=== PATIENT | male | born 1970 | race Caucasian/White ===

== ENCOUNTER 2019-07-18 19:50 | Inpatient (IN) | payer MEDICAID ==
[~2019-07-18] VITALS: Ht 175.3 cm; Wt 69.3 kg
[2019-07-18] VITALS (19 sets, daily range): BP systolic 89–126; BP diastolic 57–84; BMI 26.2
--- NOTE | 2019-07-18 19:50 | NUR ---
PT MEDICATED FOR INTUBATION WITH VERSED 10MG IVP
--- NOTE | 2019-07-18 19:51 | NUR ---
PT MEDICATED FOR INTUBATION WITH SUCC 150MG IVP.
--- NOTE | 2019-07-18 19:55 | NUR ---
PT INTUBATED BY DR MERCADO WITH A 7.5. TUBE SECURED AT 23 CM AT LIP.
[2019-07-18] MEDS ORDERED: MECLIZINE HCL25 MG PO (20:03)
[2019-07-18] MEDS ORDERED: KEPPRA1000 MG PO (20:03)
[2019-07-18] MEDS ORDERED: DEPAKOTE500 MG PO (20:04)
[2019-07-18 20:13] LABS: BASOPHILS 0.6 % (0-2); EOSINOPHILS 1.2 % (0-7); HEMATOCRIT 55.8 % (42.0-54.0); HEMOGLOBIN 18.6 g/dL (13.5-17.5); IMMATURE GRANULOCYTES 4.6 % (0-5); MCH 30.8 pg (26.0-34.0); MCHC 33.3 g/dL (31.0-37.0); MCV 92.4 fL (80.0-100.0); MEAN PLATELET VOLUME 11.8 fL (7.4-10.4); MONOCYTES 7.6 % (2-11); PLATELET COUNT 163 10x3/uL (130-400); RBC 6.04 10x6/uL (4.20-6.10); RDW 13.7 % (11.5-14.5); WBC 18.1 10x3/uL (4.8-10.8)
[2019-07-18 20:28] LABS: INR 1.16 (0.85-1.17); PROTIME 14.7 SECONDS (11.6-15.0)
[2019-07-18 20:34] LABS: CALC OSMOLALITY 290 mosm/kg (275-300); CARBON DIOXIDE 19.3 mmol/L (21.0-32.0); CHLORIDE - SERUM 105 mmol/L (98-107); CREATININE - SERUM 2.6 mg/dL (0.6-1.3); GLUCOSE 122 mg/dL (74-106); POTASSIUM - SERUM 4.7 mmol/L (3.5-5.1); SODIUM 144 mmol/L (136-145); UREA NITROGEN 20 mg/dL (7-18); eGFR NON AFRICAN AMERICAN 28 mL/min (90-120)
[2019-07-18 20:54] LABS: UDS - AMPHET NEGATIVE QUAL (NEGATIVE); UDS - BARB NEGATIVE QUAL (NEGATIVE); UDS - BENZO NEGATIVE QUAL (NEGATIVE); UDS - COCAINE NEGATIVE QUAL (NEGATIVE); UDS - OPIATE NEGATIVE QUAL (NEGATIVE); UDS - PCP NEGATIVE QUAL (NEGATIVE); UDS - THC NEGATIVE QUAL (NEGATIVE)
[2019-07-18 20:55] LABS: ALBUMIN 4.7 g/dL (3.4-5.0); ALKALINE PHOSPHATASE 75 U/L (30-120); ALT (SGPT) 95 U/L (10-68); BILIRUBIN - TOTAL 0.54 mg/dL (0.2-1.3); CREATINE KINASE 10438 UL (21-232); HCG - QUANTITATIVE (MATERNAL) 0 mIU/mL; LIPASE 143 U/L (73-393); MAGNESIUM - SERUM 2.8 mg/dL (1.8-2.4); PRO BNP 81 pg/mL (0-125); PROTEIN - SERUM 9.5 g/dL (6.4-8.2); THYROID STIMULATING HORMONE 4.29 uIU/mL (0.36-3.74)
[2019-07-18 21:00] LABS: D-DIMER-QUANTITATIVE 6.7 ug/mLFEU (0.20-0.54); TROPONIN-I 1.553 ng/mL (0.000-0.060)
--- NOTE | 2019-07-18 21:21 | NUR ---
PT TO CT VIA STRETCHER.
[2019-07-18 21:22] LABS: CKMB 74.8 U/L (0.0-3.6)
--- NOTE | 2019-07-18 21:25 | NUR ---
PT TO CT VIA STRETCHER WITH JABIER MOSLEYS
[2019-07-18 21:34] LABS: BILIRUBIN NEGATIVE (NEGATIVE); GLUCOSE NEGATIVE (NEGATIVE); KETONE NEGATIVE (NEGATIVE); NITRITE NEGATIVE (NEGATIVE); UROBILINOGEN NORMAL (NORMAL)
--- NOTE | 2019-07-18 21:37 | NUR ---
PT BACK TO ROOM FROM CT.
--- NOTE | 2019-07-18 22:06 | NUR ---
REPORT GIVEN TO FOSTER VIDAL
--- NOTE | 2019-07-18 22:30 | NUR ---
PT ARRIVED IN THE UNIT. PT HOOKED TO ICU MONIOTR. PT SEDATED ON THE VENT. SEE ASSESSMENT IN THE PTS FLOW SHEET. CALL LIGHT IN REACH. WILLC ONT POC.
--- NOTE | 2019-07-18 23:01 | NUR ---
DR TORRES CALLED AND MADE AWARE OF CONSULT. SEE ORDERS.
[2019-07-19] VITALS (23 sets, daily range): BP systolic 109–177; BP diastolic 80–104; Ht 175.3 cm; Wt 69.3 kg
--- NOTE | 2019-07-19 01:27 | NUR ---
ARCELIA THOMAS WITH CARDIOLOGY CALLED AND NOTIFIED OF CONSULT AND SITUATION. NO NEW ORDERS AT THIS TIME.
--- NOTE | 2019-07-19 02:31 | NUR ---
PT NOTED TO HAVE A VERY LARGE WATERY BM. FULL CHD BATH GIVEN AND LINEN CHANGED. RECTAL TUBE INSERTED. LIQUID BROWN BM NOTED IN TUBE. PT TOLERATED WELL. WILL CONT POC.
--- NOTE | 2019-07-19 04:27 | NUR ---
PT RESTING WITH HIS EYES CLOSED WITH NO S/SX OF DISTERSS/DISCOMFORT. VSS AT THIS TIME. CALL LIGHT IN REACH. WILL CONT POC.
--- NOTE | 2019-07-19 07:15 | NUR ---
REPORT RECEIVED. PT IS ON VENT. SETTINGS PER RT. PT HAS A RIGHT AC AND RIGHT FOREARM WITH NS AND PROPOFOL. PT HAS OGT TO LIS. PT HAS A RECTAL TUBE AND DIAMOND. LILLY NOTED TO LEFT CHEST AND LEFT ARM. VITAL SIGNS CURRENTLY STABLE. WILL CONTINUE TO MONITOR.
[2019-07-19 07:27] LABS: ALBUMIN 4.3 g/dL (3.4-5.0); ALKALINE PHOSPHATASE 70 U/L (30-120); BILIRUBIN - TOTAL 1.01 mg/dL (0.2-1.3); CARBON DIOXIDE 18.7 mmol/L (21.0-32.0); CHLORIDE - SERUM 107 mmol/L (98-107); CREATININE - SERUM 3.1 mg/dL (0.6-1.3); GLUCOSE 101 mg/dL (74-106); MAGNESIUM - SERUM 2.8 mg/dL (1.8-2.4); POTASSIUM - SERUM 4.4 mmol/L (3.5-5.1); PROTEIN - SERUM 8.7 g/dL (6.4-8.2); SODIUM 144 mmol/L (136-145); eGFR NON AFRICAN AMERICAN 23 mL/min (90-120)
[2019-07-19 07:30] LABS: ALT (SGPT) 451 U/L (10-68); CALC OSMOLALITY 292 mosm/kg (275-300); TROPONIN-I 3.786 ng/mL (0.000-0.060); UREA NITROGEN 29 mg/dL (7-18)
[2019-07-19 08:30] LABS: CREATINE KINASE 72967 UL (21-232)
--- NOTE | 2019-07-19 08:30 | NUR ---
ECHO BEING DONE.
[2019-07-19 08:52] LABS: CKMB 385.6 U/L (0.0-3.6)
--- NOTE | 2019-07-19 09:03 | NUR ---
DR MARQUES ROUNDED ON PT. NO NEW ORDERS AT THIS TIME.
--- NOTE | 2019-07-19 09:10 | NUR ---
DR PIKE ROUNDED ON PT.
[2019-07-19 10:07] LABS: BASOPHILS 0.1 % (0-2); EOSINOPHILS 0 % (0-7); HEMATOCRIT 56.4 % (42.0-54.0); HEMOGLOBIN 19.3 g/dL (13.5-17.5); IMMATURE GRANULOCYTES 0.4 % (0-5); LYMPHOCYTES 13.9 % (15-50); MCHC 34.2 g/dL (31.0-37.0); MCV 90.5 fL (80.0-100.0); MONOCYTES 8.9 % (2-11); NEUTROPHILS 76.7 % (40-80); PLATELET COUNT 58 10x3/uL (130-400); RBC 6.23 10x6/uL (4.20-6.10); RDW 14.3 % (11.5-14.5); WBC 11.4 10x3/uL (4.8-10.8)
--- NOTE | 2019-07-19 11:05 | NUR ---
PAGED DR LEE FOR CONSULT.
--- NOTE | 2019-07-19 11:28 | NUR ---
SPOKE WITH PHARMACIST LASHAUN ABOUT MEDICATIONS DR LEE WANTS. STATED SHE WOULD ORDER THEM AND GET THEM SENT UP TO ME. WILL CONTINUE TO MONITOR.
--- NOTE | 2019-07-19 11:40 | NUR ---
PAGED DR RABAGO FOR CENTRAL LINE PLACEMENT.
[2019-07-19 12:32] LABS: PLATELET ESTIMATE DECREASED
--- NOTE | 2019-07-19 13:30 | NUR ---
RIGHT SUBCLAVIAN PLACED. TOLERATED WELL.
--- NOTE | 2019-07-19 17:40 | MORECARE ---
CASE MANAGEMENT DISCHARGE SUMMARY PATIENT: KILO GARCIA UNIT: [id number] ADM DATE: 07/18/19 AGE: 48 : 72 SEX: M ROOM/BED: D.2307 AUTHOR: MARISSA LIM PHYSICIAN: REFERRING PHYSICIAN: DANNI HARP MD DATE OF SERVICE: 07/19/19 Discharge Plan Patient Name: KILO GARCIA [facility] [facility] 1970 Planned Disposition: Home Anticipated Discharge Date: Discharge Date: Expected LOS: Initial Reviewer: [email or web address] Initial Review Date: 07/18/2019 Generated: 07/19/19 6:39 pm DCPIA - Discharge Planning Initial Assessment Updated by [email or web address]: Taina Renee on 07/19/19 5:35 pm * Is the patient Alert and Oriented? No * How many steps to enter\exit or inside your home? * [facility] * Pharmacy [facility] [place] * Preadmission Environment Home Alone * ADLs Independent * Equipment None * List name and contact numbers for known caregivers / representatives who currently or will assist patient after discharge: MONROE JIMENES [facility] [phone] * Verbal permission to speak to the caregivers and representatives has been obtained from the patient. Yes * Community resources currently utilized None * Additional services required to return to the preadmission environment? No * Can the patient safely return to the preadmission environment? Yes * Has this patient been hospitalized within the prior 30 days at any hospital? No Patient Name: KILO GARCIA Page [id number] at 1740 All edits/amendments must be made on the electronic document DICTATION DATE: 07/19/191738 SMT OPERATOR: KELLY 07/19/191738 RPT#: [id number] LA DATE: STATUS: ADM IN [facility] [address] [place] [address] END OF REPORT
--- NOTE | 2019-07-19 17:47 | MORECARE ---
CASE MANAGEMENT DISCHARGE SUMMARY PATIENT: KILO GARCIA UNIT: [id number] ADM DATE: 07/18/19 AGE: 48 : 72 SEX: M ROOM/BED: D.2307 AUTHOR: RAPHAEL,DOC PHYSICIAN: REFERRING PHYSICIAN: DANNI HARP MD DATE OF SERVICE: 07/19/19 Discharge Plan Patient Name: KILO GARCIA Facility: [facility]:[place] : 1970 Planned Disposition: Home Anticipated Discharge Date: Discharge Date: Expected LOS: Initial Reviewer: [email or web address] Initial Review Date: 07/18/2019 Generated: 07/19/19 6:46 pm Comments DCP- Discharge Planning Updated by [email or web address]: Taina Renee on 07/19/19 4:[address] Patient Name: KILO GARCIA Admission Status: ER Accout number: [id number] Admission Date: 07-18-2019 : 1970 Admission Diagnosis: Attending: MACK HARP Current LOS: 1 Anticipated DC Date: Planned Disposition: Home Primary Insurance: MEDICAID [place] Discharge Planning Comments: CM met with patient's mother Monroe to complete initial dc planning assessment. CM educated patient on the CM role and verbal consent given by patient to complete assessment. Patient lives at home alone. Patient is independent. At discharge patient plans to return home. CM discussed availability of home health, rehab services, and medical equipment. Uncertain of discharge needs or disposition at this time. Patient is currently sedated on vent. Patient will have family to transport home. CM will continue to follow and will assist as needed with dc plans/needs. Public Relations Manager: Taina Renee DCPIA - Discharge Planning Initial Assessment Updated by [email or web address]: Taina Renee on 07/19/19 5:35 pm * Is the patient Alert and Oriented? No * How many steps to enter\exit or inside your home? * [facility]CP [facility] * Pharmacy [facility] [place] * Preadmission Environment Home Alone * ADLs Independent * Equipment None * List name and contact numbers for known caregivers / representatives who currently or will assist patient after discharge: MONROE JIMENES - MOTHER - [phone] * Verbal permission to speak to the caregivers and representatives has been obtained from the patient. Yes * Community resources currently utilized None * Additional services required to return to the preadmission environment? No * Can the patient safely return to the preadmission environment? Yes * Has this patient been hospitalized within the prior 30 days at any hospital? No Last DP export: 07/19/19 4:40 p Patient Name: KILO GARCIA Page [phone] at 1747 All edits/amendments must be made on the electronic document DICTATION DATE: 07/19/191745 SPRING MACHINE OPERATOR: KELLY 07/19/191745 RPT#: [id number] DC DATE: STATUS: ADM IN [facility] [address] [place] [address] END OF REPORT
--- NOTE | 2019-07-19 19:00 | NUR ---
REPORT RECEIVED. PT SEDATED ON VENT. PT MOVING RIGHT SIDE AROUND AND SHAKING HEAD, UNABLE TO FOLLOW COMMANDS OR MOVE LEFT SIDE OF BODY. ASSESSMENT COMPLETE, SEE FLOWSHEET. RT SUBCLAVIAN CVL INFUSING, SEE IV FLOWSHEET. WILL CONTINUE TO MONITOR.
[2019-07-19 19:27] LABS: ALBUMIN 3.2 g/dL (3.4-5.0); ANION GAP 17.8 mmol/L (8-16); BILIRUBIN - TOTAL 0.78 mg/dL (0.2-1.3); CALCIUM 7.3 mg/dL (8.5-10.1); CARBON DIOXIDE 19.3 mmol/L (21.0-32.0); CREATININE - SERUM 4.1 mg/dL (0.6-1.3); POTASSIUM - SERUM 4.1 mmol/L (3.5-5.1); PROTEIN - SERUM 7.1 g/dL (6.4-8.2)
--- NOTE | 2019-07-19 21:00 | NUR ---
DR LEE IN ROOM AT THIS TIME. UPDATED ON STATUS, WILL CONTINUE TO MONITOR.
--- NOTE | 2019-07-19 23:00 | NUR ---
REASSESSMENT COMPLETE, SEE FLOWSHEET.
[2019-07-20] VITALS (23 sets, daily range): BP systolic 102–174; BP diastolic 69–100
--- NOTE | 2019-07-20 01:00 | NUR ---
PT SEDATED ON VENT. LEFT SIDE OF BODY STILL HAS NO MOVEMENT. WILL CONTINUE TO MONITOR.
--- NOTE | 2019-07-20 03:00 | NUR ---
REASSESSMENT COMPLETE, PT RESTING IN BED.
--- NOTE | 2019-07-20 03:00 | NUR ---
PT SEDATED ON VENT, REASSESSMENT COMPLETED.
--- NOTE | 2019-07-20 05:00 | NUR ---
PT SEDATED ON VENT, REPOSITIONED FOR COMFORT.
--- NOTE | 2019-07-20 05:00 | NUR ---
PT RESTING IN BED, NO ACUTE DISTRESS NOTED.
[2019-07-20 06:09] LABS: BASOPHILS 0.1 % (0-2); EOSINOPHILS 0.1 % (0-7); HEMATOCRIT 47.5 % (42.0-54.0); HEMOGLOBIN 15.8 g/dL (13.5-17.5); IMMATURE GRANULOCYTES 0.7 % (0-5); LYMPHOCYTES 14.6 % (15-50); MCH 30.3 pg (26.0-34.0); MCHC 33.3 g/dL (31.0-37.0); MEAN PLATELET VOLUME 11.7 fL (7.4-10.4); MONOCYTES 5.2 % (2-11); NEUTROPHILS 79.3 % (40-80); PLATELET COUNT 69 10x3/uL (130-400); RBC 5.22 10x6/uL (4.20-6.10); RDW 14.3 % (11.5-14.5)
[2019-07-20 06:11] LABS: APTT 30.4 SECONDS (22.8-39.4); INR 1.36 (0.85-1.17); PROTIME 16.7 SECONDS (11.6-15.0)
[2019-07-20 06:26] LABS: WBC 8.4 10x3/uL (4.8-10.8)
[2019-07-20 06:28] LABS: ALBUMIN 2.8 g/dL (3.4-5.0); ALKALINE PHOSPHATASE 56 U/L (30-120); CALC OSMOLALITY 299 mosm/kg (275-300); CARBON DIOXIDE 17.9 mmol/L (21.0-32.0); CHLORIDE - SERUM 111 mmol/L (98-107); GLUCOSE 122 mg/dL (74-106); MAGNESIUM - SERUM 2.4 mg/dL (1.8-2.4); PHENYTOIN (DILANTIN) 7.6 ug/mL (10.0-20.0); PHOSPHOROUS 7.4 mg/dL (2.5-4.9); POTASSIUM - SERUM 4.2 mmol/L (3.5-5.1); PROTEIN - SERUM 6.4 g/dL (6.4-8.2); SODIUM 144 mmol/L (136-145); UREA NITROGEN 46 mg/dL (7-18); eGFR NON AFRICAN AMERICAN 13 mL/min (90-120)
[2019-07-20 06:31] LABS: ALT (SGPT) 3481 U/L (10-68); LDH 2729 U/L (85-227)
[2019-07-20 06:37] LABS: VALPROIC ACID (DEPAKOTE) < 3.0 ug/mL (50.0-100.0)
[2019-07-20 09:37] LABS: CKMB 411.4 U/L (0.0-3.6); CREATINE KINASE 71259 UL (21-232)
--- NOTE | 2019-07-20 09:45 | NUR ---
DR. SUBRAMANIAN HERE. TRIALYSIS CATH PLACED OVER WIRE TO R IJ.
--- NOTE | 2019-07-20 09:52 | NUR ---
Nutrition follow-up: NPO Intubated, sedated with propofol to surgery for dialysis access placmenet and HD today and tommorrow per nephrology Wt: 177# Will need nutrition support started within the next 24 hours to prevent malnutrition. RDN following.
--- NOTE | 2019-07-20 12:12 | EC ---
PATIENT:KILO GARCIA DATE OF SERVICE: 07/18/19 SEX: M MEDICAL RECORD: [id number] DATE OF : [birth year] LOCATION:[facility] AGE OF PATIENT: 48 ADMISSION DATE: 07/18/19 REFERRING PHYSICIAN: INTERPRETING PHYSICIAN: SWATHI GARCIA MD ECHOCARDIOGRAM REPORT ECHO CHARGES 4 ECHO COMPLETE Date: 07/19/19 CLINICAL DIAGNOSIS: NONSTE MS ECHOCARDIOGRAPHIC MEASUREMENTS (adult normal given) AC root (d.<3.7cm) 3.7 cm LV Septum d (<1.2 cm> 1.4 cm Valve Excursion 1.7 cm LV Septum (systole) 1.6 cm Left Atria (s.<4.0cm> 3.5 cm LVPW d(<1.2cm) 1.4 cm RV (d.<2.3cm) 3.2 cm LVPW (sytole) 1.6 cm LV diastole(<5.6CM) 4.6 cm MV E-F(>70mm/sec) cm LV systole 3.5 cm LVOT Diameter 1.7 cm MV exc.(>10mm) 1.3 cm Est.ejection fraction (50-75%) % DOPPLER: LVIT cm/sec A 59.0 cm/sec E 37.0 cm/sec LA cm/sec RVSP 22 mmHg LVOT 83 cm/sec AOP1/2T m/s Asc. Ao 94 cm/sec RVOT 52 cm/sec RA cm/sec PA 67 cm/sec AV Gradient Peak 3.53 mmHg AV Mean 1.87 mmHg AV Area 2.1 cm MV Gradient Peak 2.26 mmHg MV Mean 0.79 mmHg MV Area cm COMMENTS: Senior Ssis Developer: 2 JONI SERNA Casing Running Machine Tender: 3 Dr. Mtz TAPE# PACS Pericardial Effusion N DATE OF SERVICE: Adequate 2D, color flow imaging, spectral Doppler, and M-Mode. LVH is present. LV internal dimensions are normal. Wall motion is normal. EF is greater than or equal to 55%. Aortic valve is tricuspid. No evidence of stenosis by Doppler interrogation. Left atrium is normal. Mitral valve shows no prolapse. Trace MR. Right-sided chambers are grossly normal. Trace TR. TRANSINT:[id number] Voice Confirmation ID: [id number] DOCUMENT ID: [id number] ECHOCARDIOGRAM REPORT [id number] KILO GRACIA,SWATHI Ford MD at 1212 CC: [id number] DICTATION DATE: 07/19/19 1304 [facility] SPECIALIST: 07/19/19 1344 ADM IN [facility] [address] [place] [id number]
[2019-07-20 14:29] LABS: ANION GAP 18.5 mmol/L (8-16); CARBON DIOXIDE 18.9 mmol/L (21.0-32.0); CREATININE - SERUM 5.5 mg/dL (0.6-1.3); POTASSIUM - SERUM 4.4 mmol/L (3.5-5.1)
[2019-07-21] VITALS (23 sets, daily range): BP systolic 95–133; BP diastolic 54–90
[2019-07-21 05:58] LABS: BASOPHILS 0.3 % (0-2); EOSINOPHILS 2.1 % (0-7); HEMATOCRIT 40.3 % (42.0-54.0); HEMOGLOBIN 13.3 g/dL (13.5-17.5); IMMATURE GRANULOCYTES 0.4 % (0-5); LYMPHOCYTES 19.2 % (15-50); MCH 30.2 pg (26.0-34.0); MCV 91.4 fL (80.0-100.0); MEAN PLATELET VOLUME 11.8 fL (7.4-10.4); MONOCYTES 7.2 % (2-11); NEUTROPHILS 70.8 % (40-80); PLATELET COUNT 74 10x3/uL (130-400); RBC 4.41 10x6/uL (4.20-6.10); RDW 14.6 % (11.5-14.5); WBC 7.3 10x3/uL (4.8-10.8)
--- NOTE | 2019-07-21 06:05 | NUR ---
DR ROBLES CALLED, UPDATED REGARDING PT STATUS, NO ORDERS RECEIVED AT THIS TIME.
[2019-07-21 06:18] LABS: ALBUMIN 2.5 g/dL (3.4-5.0); ALKALINE PHOSPHATASE 39 U/L (30-120); BILIRUBIN - TOTAL 0.87 mg/dL (0.2-1.3); CALC OSMOLALITY 295 mosm/kg (275-300); CARBON DIOXIDE 18.3 mmol/L (21.0-32.0); CHLORIDE - SERUM 109 mmol/L (98-107); CREATININE - SERUM 6.3 mg/dL (0.6-1.3); GLUCOSE 109 mg/dL (74-106); MAGNESIUM - SERUM 2.2 mg/dL (1.8-2.4); PHENYTOIN (DILANTIN) 9.5 ug/mL (10.0-20.0); PHOSPHOROUS 7.8 mg/dL (2.5-4.9); PROTEIN - SERUM 5.9 g/dL (6.4-8.2); SODIUM 141 mmol/L (136-145); UREA NITROGEN 52 mg/dL (7-18); eGFR NON AFRICAN AMERICAN 10 mL/min (90-120)
[2019-07-21 06:20] LABS: ALT (SGPT) 2210 U/L (10-68); CREATINE KINASE 25547 UL (21-232)
[2019-07-21 06:21] LABS: CALCIUM 7.1 mg/dL (8.5-10.1)
[2019-07-21 06:23] LABS: CKMB 382.3 U/L (0.0-3.6)
--- NOTE | 2019-07-21 08:39 | NUR ---
LYING IN BED ON VENT AT THIS TIME. EYES CLOSED. PT NOT FOLLOWING COMMANDS. NOTED PT TO HAVE SOME TREMORS DURING ASSESSMENT. WHEN ATTEMPTED TO VISUALIZE PTS PUPILS, PT CLOSED EYES. PT TURNED Q2H, ORAL CARE PROVIDED Q2H. VSS. WILL CONTINUE PLAN OF CARE.
--- NOTE | 2019-07-21 10:59 | NUR ---
LYING IN BED ON VENT AT THIS TIME. VSS. NO ACUTE DISTRESS NOTED. WILL CONTINUE PLAN OF CARE.
--- NOTE | 2019-07-21 12:59 | NUR ---
NO ACUTE DISTRESS NOTED. NO CHANGE. VSS. PT TURNED Q2H, ORAL CARE PROVIDED Q2H. WILL CONTINUE PLAN OF CARE.
--- NOTE | 2019-07-21 13:58 | NUR ---
CHG BATH PROVIDED AT THIS TIME. TOTAL LINEN CHANGE PROVIDED. NOTED SLIGHT FACIAL GRIMACING DURING BATH, PT STILL NOT FOLLOWING COMMANDS. WILL CONTINUE PLAN OF CARE.
--- NOTE | 2019-07-21 15:21 | NUR ---
PTS MOTHER AT BEDSIDE. UPDATES PROVIDED. VSS. NO ACUTE DISTRESS NOTED. WILL CONTINUE PLAN OF CARE.
--- NOTE | 2019-07-21 17:43 | NUR ---
NO ACUTE DISTRESS NOTED. NO CHANGE. VSS. WILL CONTINUE PLAN OF CARE.
--- NOTE | 2019-07-21 19:40 | NUR ---
RESUMED CARE OF PT, ASSESSMENT PER FLOWSHEET, SR ON CM, ORAL CARE AND SUCTIONING PROVIDED, POSITIONED FOR COMFORT.
--- NOTE | 2019-07-21 21:10 | NUR ---
NO VISITORS PRESENT AT THIS TIME, SR ON CM.
--- NOTE | 2019-07-21 21:59 | NUR ---
DIALYSIS NURSE IN ROOM SETTING UP, PT RESTING WITH EYES CLOSED, VSS.
--- NOTE | 2019-07-21 23:20 | NUR ---
REASSESSMENT PER FLOWSHEET, NO SIGNIFICANT CHANGES NOTED AT THIS TIME, CONT POC.
[2019-07-22] VITALS (24 sets, daily range): BP systolic 109–147; BP diastolic 54–92
--- NOTE | 2019-07-22 01:46 | NUR ---
DIALYSIS COMPLETED, PT TOLERATED WELL, VSS.
--- NOTE | 2019-07-22 03:15 | NUR ---
REASSESSMENT PER FLOWSHEET, SR ON CM, POSITIONED SUPPORTED WITH PILLOWS, VSS.
[2019-07-22 06:01] LABS: BASOPHILS 0.4 % (0-2); EOSINOPHILS 4.4 % (0-7); HEMATOCRIT 37.8 % (42.0-54.0); HEMOGLOBIN 12.5 g/dL (13.5-17.5); IMMATURE GRANULOCYTES 0.6 % (0-5); LYMPHOCYTES 22.7 % (15-50); MCHC 33.1 g/dL (31.0-37.0); MCV 90.6 fL (80.0-100.0); MEAN PLATELET VOLUME 11.9 fL (7.4-10.4); MONOCYTES 11.8 % (2-11); NEUTROPHILS 60.1 % (40-80); PLATELET COUNT 66 10x3/uL (130-400); RBC 4.17 10x6/uL (4.20-6.10); RDW 14.8 % (11.5-14.5)
[2019-07-22 06:02] LABS: PLATELET ESTIMATE DECREASED
[2019-07-22 06:57] LABS: ALBUMIN 2.4 g/dL (3.4-5.0); BILIRUBIN - TOTAL 0.81 mg/dL (0.2-1.3); CALCIUM 7.1 mg/dL (8.5-10.1); CARBON DIOXIDE 21.9 mmol/L (21.0-32.0); CREATININE - SERUM 5.2 mg/dL (0.6-1.3); MAGNESIUM - SERUM 1.9 mg/dL (1.8-2.4); PROTEIN - SERUM 5.8 g/dL (6.4-8.2)
[2019-07-22 07:00] LABS: PHOSPHOROUS 5.6 mg/dL (2.5-4.9); POTASSIUM - SERUM 3.9 mmol/L (3.5-5.1)
--- NOTE | 2019-07-22 07:28 | NUR ---
LYING IN BED ON VENT AT THIS TIME. VSS. NO ACUTE DISTRESS NOTED. PT NOTED TO HAVE FACIAL GRIMACING TO STIMULATION. DOES NOT FOLLOW COMMANDS. ORAL CARE AND REPOSITIONING PROVIDED Q2H. WILL CONTINUE PLAN OF CARE.
--- NOTE | 2019-07-22 09:03 | NUR ---
NO ACUTE DISTRESS NOTED. VSS. TURNED Q2H, ORAL CARE PROVIDED Q2H. WILL CONTINUE PLAN OF CARE.
[2019-07-22 10:56] LABS: VALPROIC ACID (DEPAKOTE) 1.8 ug/mL (50.0-100.0)
--- NOTE | 2019-07-22 11:04 | NUR ---
NGT FEEDINGS STARTED AT THIS TIME PER DR TORRES ORDERS AFTER PLACEMENT VERIFIED VIA AUSCULTATION. NEPHRO STARTED AT 10ML/HR. ALSO PER DR TORRES ORDERS, SEDATION DECREASED FOR CPAP TRIAL. PT STILL NOT FOLLOWING COMMANDS, HOWEVER PT MOVED HEAD WHEN NURSE STATED HIS NAME. WILL CONTINUE PLAN OF CARE.
--- NOTE | 2019-07-22 12:01 | NUR ---
ATTEMPTED TO DECREASE PTS SEDATION IN ORDER FOR PT TO CPAP TRIAL. DURING DIPROVAN WEANING PT NOTED TO BECOME VERY AGGITATED. HE BEGAN TO COUGH AND MOVE RT LEG AND RT ARM WHILE TURNING HEAD FROM SIDE TO SIDE. ATTEMPTED TO CALM PT DOWN AND REORIENTATE PT, WAS UNABLE TO HELP PT CALM DOWN, HE CONTINUED TO SWIFTLY TURN HEAD FROM SIDE TO SIDE WHILE COUGHING AND KICKING RT LEG. SEDATION AT THIS TIME INCREASED FROM 15MCG TO 20MCG DIPROVAN. PT NOW CALM ON VENT. FACIAL GRIMACING AND SLIGHT HEAD TURNING NOTED WITH VERBAL STIMULI. VSS. WILL CONTINUE TO OBSERVE. SEE IV FLOWSHEET FOR TITRATING INFORMATION.
--- NOTE | 2019-07-22 14:25 | NUR ---
STILL HAVING EPISODES OF AGGITATION INVOLVING MOVING RT LEG AND ARM, TURNING HEAD, AND COUGHING. SUCTIONING PROVIDED. ALSO DIPROVAN TITRATED TO ORDER. SEE IV FLOWSHEET.
--- NOTE | 2019-07-22 15:27 | NUR ---
LYING IN BED RESTING ON VENT. NO ACUTE DISTRESS NOTED. ORAL CARE AND REPOSITIONING PROVIDED Q2H. WILL CONTINUE PLAN OF CARE.
--- NOTE | 2019-07-22 18:10 | NUR ---
NO STOOL OUTPUT IN 24 HOURS TO RECTAL TUBE, RECTAL TUBE DCD AT THIS TIME. ALSO AT THIS TIME CHG BATH PROVIDED, DIAMOND CARE PROVIDED. TOTAL LINEN CHANGE PROVIDED. VSS. NO ACUTE DISTRESS NOTED. WILL CONTINUE PLAN OF CARE.
--- NOTE | 2019-07-22 19:51 | NUR ---
REPORT RECEIVED FROM THE OFF GOING RN. SEE ASSESSMENT IN THE PTS FLOW SHEET. PT SEDATED AND ON THE VENTILATOR. PT AROUSABLE VIA VERBAL COMMANDS AND FOLLOWS SIMPLE COMMANDS SUCH SQUEEZING MY HANDS. PT ONLY ABLE TO MOVE HIS RIGHT SIDE. VSS AT THIS TIME. CALL LIGHT IN REACH. WILL CONT POC.
--- NOTE | 2019-07-22 21:00 | NUR ---
PT RESTING QUIETLY WITH NO ISSUES. VSS. CALL LIGHT IN REACH. WILL CONT POC.
--- NOTE | 2019-07-22 23:00 | NUR ---
REASSESSMENT COMPLETED. SEE FLWO SHEET. CALL LIGHT IN REACH. WILL CONT POC.
[2019-07-23] VITALS (24 sets, daily range): BP systolic 114–145; BP diastolic 7–84
--- NOTE | 2019-07-23 01:00 | NUR ---
PT RESTING QUIETLY. VSS. PT REPOSITIONED. CALL LIGHT IN REACH. WILL CONT POC.
[2019-07-23 05:08] LABS: BASOPHILS 0.2 % (0-2); EOSINOPHILS 3.6 % (0-7); HEMATOCRIT 38.4 % (42.0-54.0); HEMOGLOBIN 12.6 g/dL (13.5-17.5); IMMATURE GRANULOCYTES 1.2 % (0-5); LYMPHOCYTES 19.8 % (15-50); MCH 30.1 pg (26.0-34.0); MCHC 32.8 g/dL (31.0-37.0); MCV 91.6 fL (80.0-100.0); MEAN PLATELET VOLUME 11.4 fL (7.4-10.4); NEUTROPHILS 58.2 % (40-80); PLATELET COUNT 69 10x3/uL (130-400); RBC 4.19 10x6/uL (4.20-6.10); RDW 14.9 % (11.5-14.5); WBC 4.9 10x3/uL (4.8-10.8)
[2019-07-23 05:26] LABS: % SATURATION 24 % (15-55); IRON 46 ug/dl (35-150); TOTAL IRON BIND CAPACITY 190 ug/dl (260-445); UNSAT IRON BIND CAPACITY 144 ug/dl (150-375)
[2019-07-23 05:44] LABS: ALBUMIN 2.3 g/dL (3.4-5.0); ALKALINE PHOSPHATASE 50 U/L (30-120); BILIRUBIN - TOTAL 0.73 mg/dL (0.2-1.3); CALC OSMOLALITY 288 mosm/kg (275-300); CALCIUM 7.5 mg/dL (8.5-10.1); CARBON DIOXIDE 18.6 mmol/L (21.0-32.0); CHLORIDE - SERUM 109 mmol/L (98-107); FERRITIN 451 ng/mL (3-244); GLUCOSE 82 mg/dL (74-106); MAGNESIUM - SERUM 1.8 mg/dL (1.8-2.4); PHOSPHOROUS 5.4 mg/dL (2.5-4.9); POTASSIUM - SERUM 3.7 mmol/L (3.5-5.1); SODIUM 141 mmol/L (136-145); UREA NITROGEN 37 mg/dL (7-18)
[2019-07-23 05:45] LABS: ALT (SGPT) 966 U/L (10-68); CREATININE - SERUM 6.7 mg/dL (0.6-1.3); eGFR NON AFRICAN AMERICAN 9 mL/min (90-120)
[2019-07-23 06:31] LABS: CKMB 62.1 U/L (0.0-3.6); CREATINE KINASE 19034 UL (21-232)
--- NOTE | 2019-07-23 07:15 | NUR ---
REPORT RECEIVED. PT ON VENT. SETTINGS PER RT. OGT IN PLACE WITH NEPRO INCREASED TO INFUSE AT 20ML/HR. GOAL IS 40ML/HR. PT HAS DIAMOND WITH GREEN TINTED URINE. PT HAS A RIGHT TRIALYSIS CENTRAL LINE WITH PROPOFOL AND NS INFUSING. PT'S LEFT SIDE IS NOT MOVING. PT ABLE TO MOVE RUE AND RLE. PT IS SEDATED. PT IN SAMIRA SOFT RESTRAINTS. VSS. WILL CONTINUE TO MONITOR.
--- NOTE | 2019-07-23 08:54 | NUR ---
CPAP TRIAL STARTED PER DR KEANE AND RESP THERAPIST.
--- NOTE | 2019-07-23 09:12 | NUR ---
PT UNABLE TO CONTINUE ON CPAP TRIAL. SWITCHED BACK TO A/C PER RESP THERAPIST. SEDATION TURNED BACK ON.
--- NOTE | 2019-07-23 09:12 | NUR ---
ATTEMPTED TO CPAP AT 11/25 30% ENDED TRIAL AT 909 AND SWITCHED BACK TO AC /30% PATIENT BECAME AGITATED.
--- NOTE | 2019-07-23 10:51 | NUR ---
Nutrition follow-up: Pt remains intubated, sedated with propofol @ 17.2 ml/hr Nepro infusing @ 40 ml/hr via OGT Rectal tube Pt tolerating Pt tolerating TF at this time RDN following.
--- NOTE | 2019-07-23 11:08 | NUR ---
REASSESSMENT CHARTED IN FLOWSHEET. PT REPOSITIONED. VSS. WILL CONTINUE TO MONITOR.
--- NOTE | 2019-07-23 13:27 | NUR ---
PT'S MOTHER UPDATED AT BEDSIDE. PILLOWS USED TO ELEVATE BUE. SOME SWELLING NOTED. VSS. WILL CONTINUE TO MONITOR.
--- NOTE | 2019-07-23 15:28 | NUR ---
DR DELGADO ROUNDING ON PT.
--- NOTE | 2019-07-23 17:15 | NUR ---
DIALYSIS STARTING. VSS. WILL CONTINUE TO MONITOR.
--- NOTE | 2019-07-23 19:00 | NUR ---
REPORT RECIEVED FROM THE OFF GOING RN. SEE ASSESSMENT IN THE PTS FLOW SHEET. PT SEDATED AND ON THE VENTILATOR. VSS. DIALYSIS NURSE AT THE PTS BEDSIDE. CALL LIGHT IN REACH. WILL CONT POC.
--- NOTE | 2019-07-23 19:14 | NUR ---
PT CURRETNLY RECEIVEING HD. VSS AT THIS TIME. WILL CONT POC.
--- NOTE | 2019-07-23 20:45 | NUR ---
DIALYSIS NURSE COMPLETED WITH TREATMENT. SHE STATED 1L WAS REMOVED. PT TOLERATED WELL. WILL CONT POC.
--- NOTE | 2019-07-23 22:29 | NUR ---
PT RECIEVED A FULL BEDBATH AND LINEN CHANGE. PT NOTED TO HAVE A SMALL LIQUID BM WHILE ROLLING THE PT. PT CLEANED. PT TOLERATED WELL. WILL CONT POC.
--- NOTE | 2019-07-23 23:00 | NUR ---
REASSESSMENT COMPELTE. SEE FLOW SHEET. WILL CONT POC.
[2019-07-24] VITALS (24 sets, daily range): BP systolic 113–166; BP diastolic 72–97
--- NOTE | 2019-07-24 01:00 | NUR ---
PT RESTING WITH NO ISSUES. CALL LIGHT IN REACH. WILL CONT POC.
--- NOTE | 2019-07-24 03:00 | NUR ---
REASSESSMENT COMPLETED. SEE FLOW SHEET. CALL LIGHT IN REACH. WILL CONT POC.
--- NOTE | 2019-07-24 05:00 | NUR ---
PT VSS. CALL LIG IN REACH. [facility] OTN POC.
[2019-07-24 05:23] LABS: BASOPHILS 0.2 % (0-2); EOSINOPHILS 5.3 % (0-7); HEMOGLOBIN 12.2 g/dL (13.5-17.5); LYMPHOCYTES 17.2 % (15-50); MCH 30.5 pg (26.0-34.0); MCHC 33.9 g/dL (31.0-37.0); MEAN PLATELET VOLUME 11.3 fL (7.4-10.4); MONOCYTES 13.5 % (2-11); NEUTROPHILS 61.8 % (40-80); RDW 14.4 % (11.5-14.5); WBC 5.1 10x3/uL (4.8-10.8)
[2019-07-24 05:48] LABS: ALBUMIN 2.2 g/dL (3.4-5.0); BILIRUBIN - TOTAL 0.61 mg/dL (0.2-1.3); CALCIUM 7.7 mg/dL (8.5-10.1); CARBON DIOXIDE 21.8 mmol/L (21.0-32.0); PROTEIN - SERUM 5.9 g/dL (6.4-8.2)
[2019-07-24 05:49] LABS: PLATELET COUNT 85 10x3/uL (130-400)
[2019-07-24 06:03] LABS: ANION GAP 15.3 mmol/L (8-16); CREATININE - SERUM 4.9 mg/dL (0.6-1.3); POTASSIUM - SERUM 3.1 mmol/L (3.5-5.1)
[2019-07-24 07:13] LABS: HEPATITIS C ANTIBODY >11.0 S/CO RAT (0.0-0.9)
--- NOTE | 2019-07-24 08:15 | NUR ---
CPAP TRIAL STARTING. SEDATION TURNED DOWN BY 1/[address] KEANE. WILL MONITOR.
[2019-07-24 10:12] LABS: PLATELET ESTIMATE DECREASED
--- NOTE | 2019-07-24 11:00 | NUR ---
REASSESSMENT DONE. CHARTED ON FLOWSHEET.
--- NOTE | 2019-07-24 12:15 | NUR ---
BLOOD DRAWN FROM LINE FOR POTASSIUM CHECK AFTER REPLACEMENT. SPOKE WITH RT ABOUT SWITCHING PT BACK TO A/C ON VENT AND PUTTING HIM BACK ON SEDATION. PT'S VITAL SIGNS ARE ELEVATING AND PT IS AGITATED IN BED. WILL CONTINUE TO MONITOR.
[2019-07-24 12:38] LABS: ANION GAP 16.5 mmol/L (8-16); CALCIUM 7.8 mg/dL (8.5-10.1); CARBON DIOXIDE 21.6 mmol/L (21.0-32.0); CREATININE - SERUM 5.5 mg/dL (0.6-1.3)
[2019-07-24 12:40] LABS: POTASSIUM - SERUM 4.1 mmol/L (3.5-5.1)
--- NOTE | 2019-07-24 14:13 | NUR ---
POTASSIUM RECHECK 4.1. PT REPOSITIONED. VSS. WILL CONTINUE TO MONITOR.
--- NOTE | 2019-07-24 14:42 | NUR ---
0815 PLACE PATIENT ON CPAP TRIAL 11/25 30% 1440 SWITCHED PATIENT BACK TO ASSIST CONTROL, PATIENT BEGAN TO KICK IN BED, HEART RATE ELEVATED. INCREASED SEDATION
--- NOTE | 2019-07-24 19:00 | NUR ---
REPORT RECEIVED FROM OFF GOING RN. PATIENT ON THE VENTILATOR. EEE ASSESSMENT IN THE PATIENT'S FLOW SHEET. VITAL SIGNS STABLE. CALL LIGHT IN REACH.
--- NOTE | 2019-07-24 19:16 | NUR ---
ATTEMPTED TO CALL PT'S MOM WITH DR LEE. NO ANSWER.
--- NOTE | 2019-07-24 21:00 | NUR ---
PT REPOSITIONED. VSS. CALL LIGHT IN REACH. WILL CONT POC.
--- NOTE | 2019-07-24 23:00 | NUR ---
REASSESSMENT COMPLETED. SEE FLOW SHEET. CALL LIGHT IN REACH. WILL CONT POC.
[2019-07-25] VITALS (24 sets, daily range): BP systolic 100–167; BP diastolic 56–110
--- NOTE | 2019-07-25 01:00 | NUR ---
PT RESTING WITH HIS EYES CLOSED WITH NO ISSUES. VSS. CALL LIGHT IN REACH. WILL CONT POC.
--- NOTE | 2019-07-25 03:00 | NUR ---
REASSESMENT COMPLETED. SEE FLOW SHEET. CALL LIGHT IN REACH. WILL CONT POC.
[2019-07-25 04:52] LABS: BASOPHILS 0.4 % (0-2); EOSINOPHILS 3.6 % (0-7); HEMATOCRIT 38.8 % (42.0-54.0); HEMOGLOBIN 12.9 g/dL (13.5-17.5); IMMATURE GRANULOCYTES 3.4 % (0-5); LYMPHOCYTES 15.3 % (15-50); MCH 30.3 pg (26.0-34.0); MCHC 33.2 g/dL (31.0-37.0); MCV 91.1 fL (80.0-100.0); MEAN PLATELET VOLUME 10.5 fL (7.4-10.4); MONOCYTES 11.1 % (2-11); NEUTROPHILS 66.2 % (40-80); PLATELET COUNT 100 10x3/uL (130-400); RBC 4.26 10x6/uL (4.20-6.10); RDW 14.4 % (11.5-14.5)
[2019-07-25 05:02] LABS: WBC 6.8 10x3/uL (4.8-10.8)
[2019-07-25 05:21] LABS: ALBUMIN 2.2 g/dL (3.4-5.0); ANION GAP 14.8 mmol/L (8-16); BILIRUBIN - TOTAL 0.55 mg/dL (0.2-1.3); CALCIUM 7.8 mg/dL (8.5-10.1); CARBON DIOXIDE 22.7 mmol/L (21.0-32.0); CREATININE - SERUM 6.4 mg/dL (0.6-1.3); POTASSIUM - SERUM 4.5 mmol/L (3.5-5.1); PROTEIN - SERUM 6.4 g/dL (6.4-8.2)
--- NOTE | 2019-07-25 07:11 | NUR ---
PT RECIEVED A FULL BEDBATH AND LINEN CHANGE. PT TOLERATED WELL.
--- NOTE | 2019-07-25 07:15 | NUR ---
REPORT RECIEVED, SHIFT ASSESSMENT COMPLETE, PT IS SEDATED ON VENT, ON 30% FIO2 WITH 98% O2 SAT. ALL PPP, VSS, WILL CON'T TO MONITOR
--- NOTE | 2019-07-25 08:00 | NUR ---
DR. DELGADO AT BEDSIDE, AWARE OF HIGH B/P, NO NEW ORDERS RECIEVED,
--- NOTE | 2019-07-25 09:19 | NUR ---
NO VISITORS AT THIS TIME, WILL CON'T TO MONITOR
--- NOTE | 2019-07-25 10:20 | NUR ---
Nutrition follow-up: Intubated, sedated with propofol @ 17.2 cc/hr Nepro @ 40 ml/hr Labs reviewed Wt: 202# Tolerating TF at this time. RDN following.
--- NOTE | 2019-07-25 11:00 | NUR ---
REASSESSMENT JAMES DYSON DOING CPAP TRIALS AT THIS TIME, TOLERATING WELL
--- NOTE | 2019-07-25 13:06 | NUR ---
HD IN PROGRESS, PT TOLERATING WELL
--- NOTE | 2019-07-25 15:15 | NUR ---
REASSESSMENT COMPLETE, NO CHANGES NOTED, REPOSITIONED FOR COMFORT, ORAL CARE PROVIDED
--- NOTE | 2019-07-25 18:12 | NUR ---
DR LEE AT BEDSIDE GIVEN UPDATE. NO NEW ORDERS AT THIS TIME. NO CHANGE SWILL CONTINUE TO MONITOR
--- NOTE | 2019-07-25 19:30 | NUR ---
SHIFT ASSESSMENT COMPLETE. NO DISTRESS NOTED IN PATIENT, WILL CONTINUE TO MONITOR.
--- NOTE | 2019-07-25 21:00 | NUR ---
PAITENT REPOSITIONED FOR COMFORT. NO CHANGES NOTED. WILL CONTINUE TO MONITOR. ORAL CARE PERFORMED.
--- NOTE | 2019-07-25 23:20 | NUR ---
TRIED TO CHECK FEEDING TUBE RESIDUAL AND WAS UNABLE TO FLUSH OR WITHDRAW FROM OGT. WARM WATER INSERTED WITH NO RESULTS. WILL REPLACE TUBE.
[2019-07-26] VITALS (24 sets, daily range): BP systolic 112–165; BP diastolic 66–101
--- NOTE | 2019-07-26 00:01 | NUR ---
REMOVED CLOGGED OGT AFTER CHECKING BY TRYING TO FLUSH TUBE. REPLACED OGT WITH 16F TUBE, PATIENT TOLERATED WELL. PLACEMENT CHECKED WITH AIR BOLUS, GURGLING NOTED OVER EPIGASTRIC AREA, AND SCANT AMOUNT OF TUBE FEED NOTED IN OGT WITH ASPIRATION.
--- NOTE | 2019-07-26 03:00 | NUR ---
REASSESSMENT COMPLETE WITH NO CHANGES IN PATIENT CONDITION. PATIENT WITHIN VIEW OF NURSES STATION, BED IN LOW POSITION, AND WILL CONTINUE TO MONITOR PATIENT.
[2019-07-26 05:50] LABS: BASOPHILS 0.3 % (0-2); EOSINOPHILS 4.6 % (0-7); HEMATOCRIT 38.9 % (42.0-54.0); HEMOGLOBIN 12.9 g/dL (13.5-17.5); IMMATURE GRANULOCYTES 4.6 % (0-5); LYMPHOCYTES 18.1 % (15-50); MCH 30.1 pg (26.0-34.0); MCHC 33.2 g/dL (31.0-37.0); MCV 90.9 fL (80.0-100.0); MEAN PLATELET VOLUME 11.3 fL (7.4-10.4); MONOCYTES 11.7 % (2-11); NEUTROPHILS 60.7 % (40-80); PLATELET COUNT 131 10x3/uL (130-400); RBC 4.28 10x6/uL (4.20-6.10); RDW 14.3 % (11.5-14.5)
[2019-07-26 06:02] LABS: ANION GAP 14.7 mmol/L (8-16); BILIRUBIN - TOTAL 0.36 mg/dL (0.2-1.3); CALCIUM 8.1 mg/dL (8.5-10.1); CARBON DIOXIDE 23.4 mmol/L (21.0-32.0); CREATININE - SERUM 5.1 mg/dL (0.6-1.3); POTASSIUM - SERUM 4.1 mmol/L (3.5-5.1); PROTEIN - SERUM 6.1 g/dL (6.4-8.2)
--- NOTE | 2019-07-26 08:02 | NUR ---
RT IJ TRIALYSIS DRESSING CHANGE PERFORMED AT THIS TIME. OLD DRESSING NOTED NO LONGER ADHERED TO SKIN. NEW DRESSING PLACED PER HOSPITAL POLICY. VSS. NO ACUTE DISTRESS NOTED. WILL CONTINUE PLAN OF CARE.
--- NOTE | 2019-07-26 08:44 | NUR ---
SEDATION PAUSED FOR CPAP TRIAL.
--- NOTE | 2019-07-26 09:06 | NUR ---
PS TRIAL 11/25
--- NOTE | 2019-07-26 09:49 | NUR ---
NO ACUTE DISTRESS NOTED. PT TOLERATING CPAP TRIAL. VSS. TURNED Q2H, ORAL CARE PROVIDED Q2H. WILL CONTINUE PLAN OF CARE.
--- NOTE | 2019-07-26 09:50 | NUR ---
DR BECKMAN HERE TO SEE PT, NOTIFIED OF LT ARM EDEMA. NOTED US SHOWED NEGATIVE FOR DVT. NO CURRENT NEW ORDERS.
--- NOTE | 2019-07-26 10:25 | NUR ---
PER DR BECKMAN. THE EDEMA TO LT ARM WHICH IS ALSO SEEN TO LT SHOULDER/CHEST AREA APPEARS TO BE EDEMA. RIGHT NOW WILL WATCH IT, AND IF IT GETS WORSE THEN WILL POSSIBLY CT.
--- NOTE | 2019-07-26 10:34 | NUR ---
EXTUBATED; PLACED ON 7L HIGH FLOW. PT CURRENTLY ATTEMPTING TO PULL AT NASAL CANNULA AT LINES. RESTRAINTS KEPT IN PLACE FOR NOW UNTIL PT STOPPS ATTEMPTING TO PULL AT LINES AND TUBES. ATTEMPTED TO REORIENTATE, PT SHOOK HEAD. WILL CONTIUE TO ATTEMPT TO REORIENTATE.
--- NOTE | 2019-07-26 10:40 | NUR ---
CALLED PTS EMERGENCY CONTACT, MOTHER, UPDATES PROVIDED REAGARDING EXTUBATION. PTS MOTHER STATED SHE WILL BE BY AROUND 1200 TO SEE PT.
--- NOTE | 2019-07-26 11:00 | NUR ---
BILATERAL SOFT WRIST RESTRAINTS DCD AT THIS TIME, PT STATED ACKNOWLEDGEMENT TO NOT PULL AT LINES OR TUBES. PT NODDED HIS HEAD STATING UNDERSTANDING.
--- NOTE | 2019-07-26 11:44 | NUR ---
PT MORE ALERT NOW, ABLE TO FOLLOW COMMANDS SUCH SQUEEZE RT HAND. ALSO ABLE TO STATE 1 TO 2 WORDS AT A TIME. PT NOTIFIED STAFF THAT HE JUST HAD A BOWEL MOVEMENT. ASSESSED PT, NOTED LIQUID BROWN MEDIUM SIZE STOOL. TOTAL LINEN CHANGE PROVIDED WITH DIAMOND CARE PROVIDED. PT THEN STATED HE FELT BETTER. PT ASKED FOR HIS MOTHER, PT NOTIFIED THAT PTS MOTHER STATED SHE WOULD BE BY AROUND 1200 TO SEE HIM, PT NODDED HEAD. VSS. WILL CONTINUE PLAN OF CARE.
--- NOTE | 2019-07-26 13:28 | NUR ---
PT RESTING IN BED AT THIS TIME WITH EYES CLOSED. RESPIRATIONS STEADY AND UNLABORED. PT AWAKENS EASILY WHEN SPOKEN TO. ABLE TO STATE NEEDS. PT STATED HE WAS COMFORTABLE AND DID NOT NEED ANYTHING. VSS. WILL CONTINUE PLAN OF CARE.
--- NOTE | 2019-07-26 15:24 | NUR ---
LYING IN BED RESTING AT THIS TIME. VSS. NO ACUTE DISTRESS NOTED. AWAKENS WHEN SPOKEN TO. PT STATES FEW WORDS, ABLE TO STATE SOME NEEDS. ASKED PT TO SMILE OR TO STICK TONGUE OUT AND PT SHOOK HEAD. VSS. REPOSITIONING PROVIDED Q2H, PT MOVES SELF IN BED AND PUTS RT LEG OVER SIDE OF BED FREQUENTLY. REPOSITIONING PROVIDED. ORAL CARE PROVIDED Q2H. WILL CONTINUE PLAN OF CARE.
--- NOTE | 2019-07-26 16:54 | OP ---
PATIENT NAME: KILO GARCIA MEDICAL RECORD: [id number] :72 LOCATION:D.ICU D.2307 ADMISSION DATE:07/18/19 SURGEON: MARIBETH RABAGO MD DATE OF OPERATION: 07/19/2019 PREOPERATIVE DIAGNOSES: 1. Need for IV access. 2. Acute respiratory failure, on the ventilator. 3. Acute renal failure. 4. History of traumatic brain injury. 5. Seizure disorder. POSTOPERATIVE DIAGNOSES: 1. Need for IV access. 2. Acute respiratory failure, on the ventilator. 3. Acute renal failure. 4. History of traumatic brain injury. 5. Seizure disorder. PROCEDURE: Right IJ triple-lumen central venous line placement. SURGEON: Maribeth Rabago MD REPORT OF PROCEDURE: The patient's right chest and neck were prepped and draped in sterile fashion. A 5 cc of 1% lidocaine was infused into the subcutaneous tissues in the right neck. Using an ultrasound guidance,the needle was used to cannulate the right internal jugular vein. A guidewire was advanced with ease. Over this wire, a dilator was placed followed by the triple lumen catheter. The catheter aspirated nonpulsatile dark blood and flushed easily in all 3 ports. This was sutured into place with 4-0 Prolene and dressed appropriately. COMPLICATIONS: None. CONDITION: Fair. ANESTHESIA: General endotracheal and local. BLOOD LOSS: Minimal. Procedure done in the ICU at the bedside. TRANSINT:[id number] Voice Confirmation ID: [id number] DOCUMENT ID: [id number] MARIBETH RABAGO MD at 1654 CC: [id number] DICTATION DATE: 07/19/19 1223 TRACK LEADER: 07/19/19 1629 ADM IN [facility] [address] [id number]
--- NOTE | 2019-07-26 17:51 | NUR ---
NO ACUTE DISTRESS NOTED. VSS. PT TURNED Q2H. ORAL CARE PROVIDED Q2H. WILL CONTINUE PLAN OF CARE.
--- NOTE | 2019-07-26 19:20 | NUR ---
SHIFT ASSESSMENT COMPLETE. PATIENT ENCOURAGED TO STAY IN BED AND USE CALL LIGHT BEFORE GETTING UP. CALL LIGHT WITHIN REACH, BED IN LOW POSITION, AND WILL CONTINUE TO MONITOR.
--- NOTE | 2019-07-26 19:30 | NUR ---
SHIFT ASSESSMENT COMPLETE. NO DISTRESS NOTED AT THIS TIME. CALL LIGHT WITHIN REACH, BED IN LOW POSITION, WILL CONTINUE TO MONITOR. ORAL CARE COMPLETE.
--- NOTE | 2019-07-26 21:00 | NUR ---
PATIENT REPOSITION FOR COMFORT AND SKIN CARE. CALL LIGHT WITHIN REACH, BED IN LOW POSITON, AND WILL CONTINUE TO MONITOR.
--- NOTE | 2019-07-26 21:10 | NUR ---
PATIENT CAME OUT TO DESK; ENCOURAGED TO RETURN TO ROOM/BED. PATIENT FOLLOWS DIRECTION EASILY WITH MINIMAL ASSIST. CALL LIGHT WITHIN REACH, BED IN LOW POSITION, AND WILL CONTINUE TO MONITOR.
--- NOTE | 2019-07-26 23:15 | NUR ---
PATIENT HAD LARGE LIQUID BROWN BM AND WAS PLAYING WITH BM WITH R HAND. PATIENT CLEANED AND DIAMOND CARE DONE WITH COMPLETE LINEN CHANGE.
[2019-07-27] VITALS (24 sets, daily range): BP systolic 114–170; BP diastolic 59–108
--- NOTE | 2019-07-27 01:00 | NUR ---
PATIENT IS SLEEPING WITH NO CHANGES FROM PREVIOUS ASSESSMENT. CALL LIGHT WITHIN REACH, BED IN LOW POSITION, AND WILL CONTINUE TO MONITOR.
--- NOTE | 2019-07-27 03:00 | NUR ---
NO CHANGES FROM PREVIOUS ASSESSMENT. PATIENT SLEEPING. CALL LIGHT WITHIN REACH, BED IN LOW POSITION, AND WILL CONTINUE TO MONITOR.
--- NOTE | 2019-07-27 05:00 | NUR ---
PATIENT REPOSITIONED FOR COMFORT/SKIN CARE. ORAL CARE COMPLETE. CALL LIGHT WITHIN REACH, BED IN LOW POSITION, AND WILL CONTINUE TO MONITOR.
[2019-07-27 05:41] LABS: BASOPHILS 0.3 % (0-2); EOSINOPHILS 2.6 % (0-7); HEMATOCRIT 38.5 % (42.0-54.0); HEMOGLOBIN 12.8 g/dL (13.5-17.5); IMMATURE GRANULOCYTES 3.5 % (0-5); LYMPHOCYTES 17.6 % (15-50); MCH 30.1 pg (26.0-34.0); MCHC 33.2 g/dL (31.0-37.0); MCV 90.6 fL (80.0-100.0); MEAN PLATELET VOLUME 10.2 fL (7.4-10.4); MONOCYTES 10.7 % (2-11); NEUTROPHILS 65.3 % (40-80); PLATELET COUNT 134 10x3/uL (130-400); RBC 4.25 10x6/uL (4.20-6.10); WBC 7.2 10x3/uL (4.8-10.8)
[2019-07-27 05:56] LABS: ALBUMIN 2.2 g/dL (3.4-5.0); ANION GAP 16.3 mmol/L (8-16); BILIRUBIN - TOTAL 0.68 mg/dL (0.2-1.3); CALCIUM 8.5 mg/dL (8.5-10.1); CARBON DIOXIDE 21.9 mmol/L (21.0-32.0); CREATININE - SERUM 6.3 mg/dL (0.6-1.3); POTASSIUM - SERUM 4.2 mmol/L (3.5-5.1); PROTEIN - SERUM 6.3 g/dL (6.4-8.2)
--- NOTE | 2019-07-27 07:00 | NUR ---
BEDSIDE REPORT RECEIVED. SHIFT ASSESSMENT COMPLETED PER FLOWSHEET, SEE FLOWSHEET FOR INFORMATION. PT ABLE TO ANSWER YES NO QUESTIONS APPROPRAITLY, FOLLOWS SOME COMMANDS, WON'T MOVE RIGHT HAND. NO ACUTE NEEDS OR DISTRESS NOTED AT THIS TIME. VSS. WILL CONT TO MONITOR.
--- NOTE | 2019-07-27 07:00 | NUR ---
BEDSIDE REPORT RECEIVED. SHIFT ASSESSMENT COMPLETED PER FLOWSHEET, SEE FLOWSHEET FOR INFORMATION. ETT CUFF DEFLATED AT 0735, REINFLATED AT 0750 ALSO PUT ON PRESSUR SUPPORT TRIAL. VSS. NO ACUTE NEEDS OR DISTRESS NOTED AT THIS TIME. WILL CONT TO MONITOR.
--- NOTE | 2019-07-27 08:11 | NUR ---
Nutrition follow-up: Pt extubated 07/25 NPO Labs reviewed Wt: 198# Liquid BM RDN will closely monitor pts diet advancement and tolerance. RDN following.
--- NOTE | 2019-07-27 09:00 | NUR ---
ORAL CARE GIVEN PER COMFORT. PT DENIES ANY ACUTE NEEDS OR DISTRESS AT THIS TIME. VSS. WILL CONT TO MONITOR.
[2019-07-27 09:51] LABS: CKMB 3.9 U/L (0.0-3.6); CREATINE KINASE 3559 UL (21-232)
--- NOTE | 2019-07-27 11:00 | NUR ---
REASSESSMENT COMPLETED PER FLOWSHEET, SEE FLOWSHEET FOR INFORMATION. CHG BEDBATH AND COMPLETE LINEN CHANGED. NO ACUTE NEEDS OR DISTRESS NOTED AT THIS TIME. WILL CONT TO MONITOR.
--- NOTE | 2019-07-27 12:40 | NUR ---
EDITED ORDER FOR MRI. PATIENT'S NURSE ORDERED MRA BRAIN WITHOUT INSTEAD OF MRI BRAIN WITHOUT.
--- NOTE | 2019-07-27 13:00 | NUR ---
DOLORES AT BEDSIDE DOING A SWALLOW STUDY. WILL CONT TO MONITOR.
--- NOTE | 2019-07-27 15:00 | NUR ---
PT RESTING IN BED WITH EYES CLOSED, NO ACUTE NEEDS OR DISTRESS NOTED AT THIS TIME. REASSESSMENT COMPLETED PER FLOWSHEET, SEE FLOWSHEET FOR INOFRMATION. WILL CONT TO MONITOR. VSS.
--- NOTE | 2019-07-27 17:00 | NUR ---
DIALYSIS NURSE AT BEDSIDE. NO ACUTE NEEDS OR DISTRESS NOTED AT THIS TIME. VSS. WILL CONT TO MONITOR.
--- NOTE | 2019-07-27 19:52 | NUR ---
TO MRI WITH RADIOLOGY STAFF PER STRETCHER
--- NOTE | 2019-07-27 20:15 | NUR ---
BACK FROM MRI PLACED ON CM WILL CONTINUE TO MONITOR
--- NOTE | 2019-07-27 20:45 | NUR ---
PTS MOTHER AT BEDSIDE FOR VISITATION UPDATE GIVEN QUESTIONS ANSWERED
--- NOTE | 2019-07-27 23:00 | NUR ---
REASSESSMENT COMPLETE NO CHNGES CPOC VSS
[2019-07-28] VITALS (24 sets, daily range): BP systolic 127–187; BP diastolic 84–115
--- NOTE | 2019-07-28 03:44 | NUR ---
HYPERTENSIVE MEDICATED WITH HYDRALAZINE PER PRN EMAR WILL MONITOR
[2019-07-28 06:15] LABS: BASOPHILS 0.3 % (0-2); EOSINOPHILS 1.9 % (0-7); HEMATOCRIT 39.9 % (42.0-54.0); HEMOGLOBIN 13.3 g/dL (13.5-17.5); IMMATURE GRANULOCYTES 1.7 % (0-5); LYMPHOCYTES 11.3 % (15-50); MCH 30.2 pg (26.0-34.0); MCHC 33.3 g/dL (31.0-37.0); MCV 90.5 fL (80.0-100.0); MEAN PLATELET VOLUME 10.4 fL (7.4-10.4); MONOCYTES 14.6 % (2-11); NEUTROPHILS 70.2 % (40-80); RBC 4.41 10x6/uL (4.20-6.10); RDW 13.9 % (11.5-14.5); WBC 7.5 10x3/uL (4.8-10.8)
[2019-07-28 06:16] LABS: PLATELET COUNT 170 10x3/uL (130-400)
[2019-07-28 06:51] LABS: ALBUMIN 2.3 g/dL (3.4-5.0); ALKALINE PHOSPHATASE 64 U/L (30-120); ALT (SGPT) 231 U/L (10-68); CALC OSMOLALITY 298 mosm/kg (275-300); CALCIUM 8.7 mg/dL (8.5-10.1); CARBON DIOXIDE 21.4 mmol/L (21.0-32.0); CHLORIDE - SERUM 108 mmol/L (98-107); CREATININE - SERUM 5.2 mg/dL (0.6-1.3); GLUCOSE 95 mg/dL (74-106); POTASSIUM - SERUM 3.9 mmol/L (3.5-5.1); PROTEIN - SERUM 6.8 g/dL (6.4-8.2); SODIUM 143 mmol/L (136-145); UREA NITROGEN 51 mg/dL (7-18); eGFR NON AFRICAN AMERICAN 13 mL/min (90-120)
[2019-07-28 06:52] LABS: CREATINE KINASE 2404 UL (21-232)
[2019-07-28 06:53] LABS: CKMB 3.8 U/L (0.0-3.6)
--- NOTE | 2019-07-28 07:00 | NUR ---
BEDSIDE REPORT RECEIVED. SHIFT ASSESSMENT COMPLETED PER FLOWSHEET, SEE FLOWSHEET FOR INFORMATION. PT RESTING IN BED WITH EYES CLOSED. B/P 173/109 DIRECTLY AFTER APRESOLINE GIVEN FROM INTERNET RESEARCHER NURSE. WILL CONT TO MONITOR.
--- NOTE | 2019-07-28 09:00 | NUR ---
REPOSTIONED PER COMFORT. WILL CONT TO MONITOR.
--- NOTE | 2019-07-28 10:21 | NUR ---
PER DR HO, OKAY TO TRANSFER TO FLOOR.
--- NOTE | 2019-07-28 11:00 | NUR ---
REASSESSMENT COMPLETED PER FLOWSHEET, SEE FLOWSHEET FOR INFORMATION. PT DENIES ANY ACUTE NEEDS OR DISTRESS AT THIS TIME. WILL CONT TO MONITOR.
--- NOTE | 2019-07-28 13:00 | NUR ---
PT RESTING IN BED WITH EYES CLOSED. WILL CONT TO MONITOR. MOTHER AT BEDSIDE.
--- NOTE | 2019-07-28 15:00 | NUR ---
PT GETTING EEG, REASSESSMENT COMPLETED PER FLOWSHEET, SEE FLOWSHEET FOR INFORMATION. WILL CONT TO MONITOR.
--- NOTE | 2019-07-28 17:00 | NUR ---
AND AT BEDSIDE. WILL CONT TO MONITOR.
--- NOTE | 2019-07-28 20:20 | NUR ---
PT HAS HAD LARGE BM STOOL ON BED HANDS ALL OVER BODY. COMPLETE CHG BED BATH AND LINEN CHANGE
--- NOTE | 2019-07-28 21:40 | NUR ---
HYPERTENSIVE MEDICATED WITH PRN ENALAPRILAT
[2019-07-29] VITALS (24 sets, daily range): BP systolic 120–177; BP diastolic 78–105
--- NOTE | 2019-07-29 04:14 | NUR ---
PTS HAS BEEN HYPERTENSIVE HAVE MEDICATED WITH PRN HYDRALAZINE, VASOTEC AND SCHEDULED LOPRESSOR BLOOD PRESSURE NOW 147/90 WILL MONITOR
--- NOTE | 2019-07-29 05:30 | NUR ---
PT INCONTINENT OF BOWEL LARGE BM PARTIAL BATH LINEN CHANGE
--- NOTE | 2019-07-29 07:00 | NUR ---
BEDSIDE REPORT RECEIVED. SHIFT ASSESSMENT COMPLETED PER FLOWSHEET, SEE FLOWSHEET FOR INFORMATION. NGT PLACED IN LEFT NARE, BLOODY MUCUS NOTED. PLACEMENT VERIFIED BY CXR AND AUSCLATION. PT VERY COMBATIVE DURING NGT PLACEMENT AND TRIED TO PULL NGT OUT, ONE WRIST RESTRAINT PLACED ON RIGHT WRIST. HEART RATE BERNARDO TO 138, NOTIFIED, NEW ORDER RECEIVED. LOPRESSOR GIVEN PER ORDERS. WILL CONT TO MONITOR.
--- NOTE | 2019-07-29 09:00 | NUR ---
PT TOLERATED LOPRESSOR WELL. VSS. PT HAD LARGE SEMIFORMED STOOL, COMPLETE LINEN CHANGE. WILL CONT TO MONITOR.
--- NOTE | 2019-07-29 11:00 | NUR ---
REASSESSMENT COMPLETED PER FLOWSHEET, SEE FLOWSHEET FOR INFORMATION. LARGE SEMIFORMED STOOL NOTED, COMPLETE LINEN CHANGED. NO ACUTE NEEDS OR DISTRESS NOTED AT THIS TIME. PT RESTING IN BED WITH EYES CLOSED. UPDATE ABOUT SWEELING AND PAIN IN LEFT ARM, NO NEW ORDERS RECEIVED. WILL CONT TO MONITOR.
[2019-07-29 12:49] LABS: ALBUMIN 2.4 g/dL (3.4-5.0); ANION GAP 16.6 mmol/L (8-16); BILIRUBIN - TOTAL 1.03 mg/dL (0.2-1.3); CALCIUM 8.4 mg/dL (8.5-10.1); CARBON DIOXIDE 23.2 mmol/L (21.0-32.0); CREATININE - SERUM 5.8 mg/dL (0.6-1.3); POTASSIUM - SERUM 3.8 mmol/L (3.5-5.1); PROTEIN - SERUM 6.3 g/dL (6.4-8.2)
--- NOTE | 2019-07-29 13:00 | NUR ---
CLEAN LINEN COMPLETED. MOTHER AT BEDSIDE. WILL CONT TO MONITOR.
--- NOTE | 2019-07-29 15:00 | NUR ---
REASSESSMENT COMPLETED PER FLOWSHEET, SEE FLOWSHEET FOR INFORMATION. NO ACUTE NEEDS OR DISTRESS NOTED AT THIS TIME. VSS. WILL CONT TO MONITOR.
--- NOTE | 2019-07-29 17:00 | NUR ---
AT BEDSIDE, AND NURSE TRIED CALLING MOTHER PER REQUEST, NO ANSWER FROM MOTHER. WILL CONT TO MONITOR.
--- NOTE | 2019-07-29 19:30 | NUR ---
REPORT RECEIVED INITIAL ASSESSMENT COMPLETE. PT ALERT SPEECH DIFFICULT TO UNDERSTAND PT IS ORIENTED FOLLOWS COMMANDS NO MOVEMENT WITH LEFT AND LEFT ARM MUCH MORE SWOLLEN PER DAY SHIFT REPORT DR KEANE AWARE. BP NOT HIGH LAST PM. CM READING ST WITHOUT ECTOPY ALARMS ON AND AUDIBLE. BED LOW POSITION SIDE RAILS UP TIMES 3 AND CL IN REACH. RIGHT WRIST RESTRAINED PT PULLS AT DIAMOND AND NGT. WILL CONTINUE TO MONITOR
[2019-07-30] VITALS (16 sets, daily range): BP systolic 131–162; BP diastolic 80–99
--- NOTE | 2019-07-30 01:15 | NUR ---
TALKING TO PT PT ORIENTED AND ASKING ABOUT NGT INFORMED OF PURPOSE AND NEED RESTRAINT REMOVED WILL MONITOR
--- NOTE | 2019-07-30 03:00 | NUR ---
REASSESSMENT COMPLETE PT ORIENTED AND ALERT ASKED IF HE WANTED TV ON HE STATED NO. PT DENIES PAIN BP MUCH BETTER CONTROLLED THIS SHIFT. CPOC
--- NOTE | 2019-07-30 03:00 | NUR ---
REASSESSMENT COMPLETE PT GOES FROM RESTING SOUNDLY TO AGITATED AND RESTLESS PULLING AT LINES AND TUBES.
--- NOTE | 2019-07-30 05:00 | NUR ---
DR LONGORIA HERE FOR ROUNDS
[2019-07-30 06:00] LABS: ALBUMIN 2.4 g/dL (3.4-5.0); ALKALINE PHOSPHATASE 77 U/L (30-120); ALT (SGPT) 177 U/L (10-68); BILIRUBIN - TOTAL 1.01 mg/dL (0.2-1.3); CALC OSMOLALITY 313 mosm/kg (275-300); CALCIUM 8.4 mg/dL (8.5-10.1); CHLORIDE - SERUM 111 mmol/L (98-107); CREATININE - SERUM 5.8 mg/dL (0.6-1.3); GLUCOSE 95 mg/dL (74-106); LDH 373 U/L (85-227); POTASSIUM - SERUM 3.4 mmol/L (3.5-5.1); PROTEIN - SERUM 6.4 g/dL (6.4-8.2); SODIUM 146 mmol/L (136-145); UREA NITROGEN 78 mg/dL (7-18); eGFR NON AFRICAN AMERICAN 11 mL/min (90-120)
[2019-07-30 06:16] LABS: CREATINE KINASE 944 UL (21-232)
[2019-07-30 06:17] LABS: CKMB 6.6 U/L (0.0-3.6)
--- NOTE | 2019-07-30 08:06 | NUR ---
ATTEMPTED TO GIVE MORNING BREATHING TREATMENT TO PATIENT. UPON ENTERING I INTRODUCED MYSELF AND PRECEDED TO TELL THE PATIENT WHAT I WAS GOING TO DO. ONCE I ASSESSED THE PATIENT I OPENED THE MEDICATION AND TRIED TO GIVE THE NEBULIZED TREATMENT TO PATIENT IN WHICH HE REFUSED AND SAID HE WAS NOT GOING TO DO. "I'M NOT GOING TO DO THIS".
[2019-07-30 09:12] LABS: BASOPHILS 0.5 % (0-2); EOSINOPHILS 2.6 % (0-7); HEMATOCRIT 35.5 % (42.0-54.0); HEMOGLOBIN 11.9 g/dL (13.5-17.5); IMMATURE GRANULOCYTES 0.4 % (0-5); LYMPHOCYTES 17.1 % (15-50); MCH 30.2 pg (26.0-34.0); MCHC 33.5 g/dL (31.0-37.0); MCV 90.1 fL (80.0-100.0); MEAN PLATELET VOLUME 11.4 fL (7.4-10.4); MONOCYTES 11.5 % (2-11); NEUTROPHILS 67.9 % (40-80); PLATELET COUNT 219 10x3/uL (130-400); RBC 3.94 10x6/uL (4.20-6.10); RDW 13.8 % (11.5-14.5); WBC 7.3 10x3/uL (4.8-10.8)
--- NOTE | 2019-07-30 09:28 | NUR ---
CHG BATH GIVEN, COMPLETE LINEN CHANGE, PT TOLERATED WELL
--- NOTE | 2019-07-30 10:07 | NUR ---
Nutrition follow-up: Pt extubated 07/27; remains NPO at this time Labs reviewed; holding dialysis at this time Wt: 189# NGT remains in place Will need nutrition support restarted if diet unable to advance REcommend speech eval RDN following.
--- NOTE | 2019-07-30 11:04 | NUR ---
REASSESSMENT COMPLETE, NO CHANGES NOTED, VSS,
--- NOTE | 2019-07-30 13:00 | NUR ---
PT RESTING AT THIS TIME, VSS, CALL LIGHT IN REACH
--- NOTE | 2019-07-30 16:06 | NUR ---
REPORT CALLED TO SAMIA ON MED 2
--- NOTE | 2019-07-30 19:14 | NUR ---
FOUND PT WITH RT LEG ON TOP OF BEDSIDE TABLE REMOVED AND BRACED WITH PILLOW IN BED INDENTION AND REDNESS ON LEG WILL REACCESS LATER BED LOW AND LOCKED CALL LIGHT IS IN REACH PT IS NON VERBAL WITH ME I EXPLAIN AND ASK QUESTIONS RT IJ WITH BERNADETTEG INTACT
[2019-07-31] VITALS: BP 147/87
--- NOTE | 2019-07-31 03:23 | NUR ---
I have reviewed this patient and I concur with the Shift Assessment completed by the Licensed Practical Nurse today this shift.
[2019-07-31 04:00] VITALS: BP 160/99
[2019-07-31 05:46] LABS: BASOPHILS 0.6 % (0-2); EOSINOPHILS 3.9 % (0-7); HEMATOCRIT 39.1 % (42.0-54.0); HEMOGLOBIN 13.1 g/dL (13.5-17.5); IMMATURE GRANULOCYTES 0.4 % (0-5); LYMPHOCYTES 16.9 % (15-50); MCH 30.2 pg (26.0-34.0); MCHC 33.5 g/dL (31.0-37.0); MCV 90.1 fL (80.0-100.0); MEAN PLATELET VOLUME 11.3 fL (7.4-10.4); MONOCYTES 9.3 % (2-11); NEUTROPHILS 68.9 % (40-80); RBC 4.34 10x6/uL (4.20-6.10); RDW 13.6 % (11.5-14.5); WBC 6.7 10x3/uL (4.8-10.8)
[2019-07-31 06:13] LABS: ALBUMIN 2.8 g/dL (3.4-5.0); ANION GAP 17.4 mmol/L (8-16); BILIRUBIN - TOTAL 0.85 mg/dL (0.2-1.3); CALCIUM 8.4 mg/dL (8.5-10.1); CARBON DIOXIDE 21.1 mmol/L (21.0-32.0); CREATININE - SERUM 5.7 mg/dL (0.6-1.3); POTASSIUM - SERUM 3.5 mmol/L (3.5-5.1); PROTEIN - SERUM 6.9 g/dL (6.4-8.2)
[2019-07-31 06:37] LABS: PLATELET COUNT 279 10x3/uL (130-400)
[2019-07-31 10:03] VITALS: BP 151/88
--- NOTE | 2019-07-31 11:48 | NUR ---
LEAVING FOR DIALYSIS BY BED.
--- NOTE | 2019-07-31 13:52 | MORECARE ---
CASE MANAGEMENT DISCHARGE SUMMARY PATIENT: KILO GARCIA UNIT: [id number] ADM DATE: 07/18/19 AGE: 48 : 72 SEX: M ROOM/BED: D.2113 AUTHOR: MARISSA LIM PHYSICIAN: REFERRING PHYSICIAN: DANNI HARP MD DATE OF SERVICE: 07/31/19 Discharge Plan Patient Name: KILO GARCIA Facility: [facility]:[place] : 1970 Planned Disposition: Home Anticipated Discharge Date: Discharge Date: Expected LOS: Initial Reviewer: [email or web address] Initial Review Date: 07/18/2019 Generated: 07/31/19 2:51 pm Comments DCP- Discharge Planning Updated by [id number]: Edita Bernstein on 07/31/19 12:[address] CM met with patient's mother in the room per her request to discuss discharge planning. Patient's mother states that she lives at [address] [place] [address]. States she is unable to care for her son. States that when he is out of dialysis she will speak with him about a LTC facility. I provided her with the list of LTC facilities in surrounding area. I also informed her that I could reach out to [facility] to see if he has any rehab days available and she agrees with this plan. I spoke with Tanvi at [facility] and clinical faxed. CM will continue to follow and assist with discharge planning/needs. Monroe - mother - [phone] or [phone] DCP- Discharge Planning Updated by [email or web address]: Taina Renee on 07/19/19 4:[address] Patient Name: KILO GARCIA Admission Status: ER Accout number: [id number] Admission Date: 07-18-2019 : 1970 Admission Diagnosis: Attending: MACK HARP Current LOS: 1 Anticipated DC Date: Planned Disposition: Home Primary Insurance: MEDICAID [place] Discharge Planning Comments: CM met with patient's mother Monroe to complete initial dc planning assessment. CM educated patient on the CM role and verbal consent given by patient to complete assessment. Patient lives at home alone. Patient is independent. At discharge patient plans to return home. CM discussed availability of home health, rehab services, and medical equipment. Uncertain of discharge needs or disposition at this time. Patient is currently sedated on vent. Patient will have family to transport home. CM will continue to follow and will assist as needed with dc plans/needs. Survey Technologist: Taina Renee DCPIA - Discharge Planning Initial Assessment Updated by [email or web address]: Taina Renee on 07/19/19 5:35 pm * Is the patient Alert and Oriented? No * How many steps to enter\exit or inside your home? * [facility] * Pharmacy [facility]/ [place] * Preadmission Environment Home Alone * ADLs Independent * Equipment None * List name and contact numbers for known caregivers / representatives who currently or will assist patient after discharge: MONROE JIMENES - MOTHER - [phone] * Verbal permission to speak to the caregivers and representatives has been obtained from the patient. Yes * Community resources currently utilized None * Additional services required to return to the preadmission environment? No * Can the patient safely return to the preadmission environment? Yes * Has this patient been hospitalized within the prior 30 days at any hospital? No External Providers External Provider: [facility] Next Contact Date: Service Request Date: Service Type: Resolution: Reviewer: Comments: Last DP export: 07/19/19 4:47 p Patient Name: KILO GARCIA Page [id number] at 1352 All edits/amendments must be made on the electronic document DICTATION DATE: 07/31/19 1352 DRAIN TILE MACHINE OPERATOR: KELLY 07/31/19 1352 RPT#: [id number] DC DATE: STATUS: ADM IN [facility] [address] [place] [address] END OF REPORT
--- NOTE | 2019-07-31 15:42 | NUR ---
BACK FROM DIALYSIS. B/P 105/62.WILL CONT. PLAN OF CARE.
[2019-07-31 18:29] VITALS: BP 102/54
--- NOTE | 2019-07-31 19:00 | NUR ---
EVENING ROUNDS COMPLETE. PT LAYING IN BED. NO SIGNS OF DISTRESS. PT DENIES ANY PAIN AT THIS TIME. PT C/O BEING TOO HOT, A/C TURNED DOWN AT THIS TIME. CL IN REACH, BED IN LOWEST POSITION.
[2019-07-31 20:00] VITALS: BP 92/45
[2019-08-01] VITALS: BP 113/60
[2019-08-01 04:00] VITALS: BP 135/72
[2019-08-01 06:10] LABS: BASOPHILS 0.5 % (0-2); EOSINOPHILS 3.7 % (0-7); HEMATOCRIT 35.1 % (42.0-54.0); HEMOGLOBIN 11.9 g/dL (13.5-17.5); IMMATURE GRANULOCYTES 0.4 % (0-5); LYMPHOCYTES 16.4 % (15-50); MCH 30.1 pg (26.0-34.0); MCHC 33.9 g/dL (31.0-37.0); MCV 88.6 fL (80.0-100.0); MONOCYTES 10.3 % (2-11); NEUTROPHILS 68.7 % (40-80); PLATELET COUNT 261 10x3/uL (130-400); RBC 3.96 10x6/uL (4.20-6.10); RDW 13.2 % (11.5-14.5); WBC 7.9 10x3/uL (4.8-10.8)
[2019-08-01 06:42] LABS: ALBUMIN 2.5 g/dL (3.4-5.0); BILIRUBIN - TOTAL 0.7 mg/dL (0.2-1.3); CALCIUM 8.1 mg/dL (8.5-10.1); CARBON DIOXIDE 25.5 mmol/L (21.0-32.0); PHOSPHOROUS 4.5 mg/dL (2.5-4.9); PROTEIN - SERUM 6.6 g/dL (6.4-8.2)
[2019-08-01 07:11] LABS: ANION GAP 10.4 mmol/L (8-16)
[2019-08-01 07:12] LABS: POTASSIUM - SERUM 2.9 mmol/L (3.5-5.1)
--- NOTE | 2019-08-01 08:00 | NUR ---
REPORT RECIEVED. PT LYING SEMI FOWLERS IN BED. PT HAD A LARGE BM. CLEANED PT AND CHANGED LIENS AT THIS TIME. RR EVEN AND NONLABORED ON RA. HE HAS A R IJ TRIALYSIS INFUSING 1/2NS @100. BED LOCKED AND IN LOWEST POSITION, CALL LIGHT WITHIN REACH. WILL CTM
[2019-08-01 08:25] VITALS: BP 128/64
--- NOTE | 2019-08-01 11:32 | NUR ---
OT NOTE: PT LESS VERBAL TODAY VS YESTERDAY; CONTINUES WITH SEVERE EDEMA IN L UE; BED MOB WITH MAX ASSIST; ATTEMPTS TO CUE PT TO LOOK TO LEFT DUE TO SEVERE NEGLECT. PT ORIENTED TO SELF ONLY..HE DID STATE THAT HE LIVES IN [place] BUT UNABLE TO PROVIDE INFOR ON LIVING SITUATION. PRACTICED SITTING BALANCE WITH MAX ASSIST AND WT BEARING THROUGH L UE..ATTEMPTS TO PLACE PTS R HAND FAR OUT TO SIDE TO PREVENT PUSHING TOWARDS WEAK SIDE. REQUIRES MAX CUES FOR ALL SITTING POSITIONS. DIFFICULTY WITH 1 STEP PHYSICAL COMMANDS HE WAS UNABLE TO COORDIANATE MOVEMENTS. PT WILL REQUIRE IP REHAB TO IMPROVE WITH FUNCTION. [facility] [employer]. GLENIS JOHNSON, OTR/L [phone]
--- NOTE | 2019-08-01 12:35 | NUR ---
Nutrition Follow-up: Nursing reports pt ate well this AM. Diet: Regular, Puree, [place] Thick Liquids Wt: 189# (07/29); 177.4# (07/17) Labs noted: K+ 2.9, Ca 8.1, Alb 2.5 Meds noted: vitamin B6, Thiamine, Protonix, electrolyte protocol -Encourage PO intake and honor food preferences within diet restrictions. -Monitor wt. -RD following.
[2019-08-01 12:37] VITALS: BP 124/67
--- NOTE | 2019-08-01 14:40 | NUR ---
I have reviewed this patient and I concur with the Shift Assessment completed by the Licensed Practical Nurse today this shift.
[2019-08-01 15:01] LABS: CKMB 7.5 U/L (0.0-3.6); CREATINE KINASE 426 UL (21-232); MAGNESIUM - SERUM 1.8 mg/dL (1.8-2.4)
[2019-08-01 15:02] LABS: POTASSIUM - SERUM 3.4 mmol/L (3.5-5.1)
[2019-08-01 16:20] VITALS: BP 115/72
--- NOTE | 2019-08-01 16:52 | MORECARE ---
CASE MANAGEMENT DISCHARGE SUMMARY PATIENT: KILO GARCIA UNIT: [id number] ADM DATE: 07/18/19 AGE: 48 : 72 SEX: M ROOM/BED: D.2113 AUTHOR: RAPHAEL,DOC PHYSICIAN: REFERRING PHYSICIAN: DANNI HARP MD DATE OF SERVICE: 08/01/19 Discharge Plan Patient Name: KILO GARCIA Facility: [facility]:[place] : 1970 Planned Disposition: Home Anticipated Discharge Date: Discharge Date: Expected LOS: Initial Reviewer: [email or web address] Initial Review Date: 07/18/2019 Generated: 08/01/19 5:52 pm Comments DCP- Discharge Planning Updated by [email or web address]: Edita Day on 08/01/19 3:[address] I received notification from Lisha Vega ([facility]) rehab that they are unable to accept patient due to not having a safe discharge plan. I spoke with the patient and his mother and they would like a referral sent to [facility] first, then [facility]. I will reach out to [facility] in the am. CM will continue to follow and assist with discharge planning/needs. DCP- Discharge Planning Updated by [email or web address]: Edita Day on 07/31/19 12:[address] CM met with patient's mother in the room per her request to discuss discharge planning. Patient's mother states that she lives at [address] [place] [address]. States she is unable to care for her son. States that when he is out of dialysis she will speak with him about a LTC facility. I provided her with the list of LTC facilities in surrounding area. I also informed her that I could reach out to [facility] to see if he has any rehab days available and she agrees with this plan. I spoke with Tanvi at [facility] and clinical faxed. CM will continue to follow and assist with discharge planning/needs. Monroe - mother - [phone] or [phone] DCP- Discharge Planning Updated by [email or web address]: Taina Renee on 07/19/19 4:[address] Patient Name: KILO GARCIA Admission Status: ER Accout number: [id number] Admission Date: 07-18-2019 : 1970 Admission Diagnosis: Attending: MACK HARP Current LOS: 1 Anticipated DC Date: Planned Disposition: Home Primary Insurance: MEDICAID [place] Discharge Planning Comments: CM met with patient's mother Monroe to complete initial dc planning assessment. CM educated patient on the CM role and verbal consent given by patient to complete assessment. Patient lives at home alone. Patient is independent. At discharge patient plans to return home. CM discussed availability of home health, rehab services, and medical equipment. Uncertain of discharge needs or disposition at this time. Patient is currently sedated on vent. Patient will have family to transport home. CM will continue to follow and will assist as needed with dc plans/needs. Telephonic Nurse: Taina Renee DCPIA - Discharge Planning Initial Assessment Updated by [email or web address]: Taina Renee on 07/19/19 5:35 pm * Is the patient Alert and Oriented? No * How many steps to enter\exit or inside your home? * [facility]CP [facility] * Pharmacy [facility]/ [place] * Preadmission Environment Home Alone * ADLs Independent * Equipment None * List name and contact numbers for known caregivers / representatives who currently or will assist patient after discharge: MONROE JIMENES - MOTHER - [phone] * Verbal permission to speak to the caregivers and representatives has been obtained from the patient. Yes * Community resources currently utilized None * Additional services required to return to the preadmission environment? No * Can the patient safely return to the preadmission environment? Yes * Has this patient been hospitalized within the prior 30 days at any hospital? No Last DP export: 07/31/19 12:52 pm Patient Name: KILO GARCIA Page [phone] at 1652 All edits/amendments must be made on the electronic document DICTATION DATE: 08/01/191651 TOWER SUPERVISOR: KELLY 08/01/191651 RPT#: [id number] DC DATE: STATUS: ADM IN [facility] [address] [place] [address] END OF REPORT
[2019-08-01 20:00] VITALS: BP 143/68
--- NOTE | 2019-08-02 02:01 | NUR ---
CVL DRSG TO RIGHT IJ CHANGED USING STERILE TECHNIQUE, DRSG DATED AND INITIALED. TUBING ON IV FOR PRIMARY AND SECONDARY ALSO CHANGED AND DATED.
[2019-08-02 04:00] VITALS: BP 127/80
[2019-08-02 06:49] LABS: HEMATOCRIT 34.6 % (42.0-54.0); HEMOGLOBIN 11.9 g/dL (13.5-17.5); LYMPHOCYTES 21.6 % (15-50); MCH 30.3 pg (26.0-34.0); MCHC 34.4 g/dL (31.0-37.0); MEAN PLATELET VOLUME 10.9 fL (7.4-10.4); PLATELET COUNT 286 10x3/uL (130-400); RBC 3.93 10x6/uL (4.20-6.10); RDW 13.5 % (11.5-14.5); WBC 7.2 10x3/uL (4.8-10.8)
[2019-08-02 06:58] LABS: ALBUMIN 2.6 g/dL (3.4-5.0); ANION GAP 10.9 mmol/L (8-16); BILIRUBIN - TOTAL 0.59 mg/dL (0.2-1.3); CALCIUM 8.2 mg/dL (8.5-10.1); CARBON DIOXIDE 24.8 mmol/L (21.0-32.0); CREATININE - SERUM 4.3 mg/dL (0.6-1.3); PHOSPHOROUS 4.5 mg/dL (2.5-4.9); PROTEIN - SERUM 6.7 g/dL (6.4-8.2)
[2019-08-02 07:17] LABS: POTASSIUM - SERUM 2.7 mmol/L (3.5-5.1)
[2019-08-02 08:00] VITALS: BP 145/83
--- NOTE | 2019-08-02 11:28 | MORECARE ---
CASE MANAGEMENT DISCHARGE SUMMARY PATIENT: KILO GARCIA UNIT: [id number] ADM DATE: 07/18/19 AGE: 48 : 72 SEX: M ROOM/BED: D.2113 AUTHOR: RAPHAEL,DOC PHYSICIAN: REFERRING PHYSICIAN: DANNI HARP MD DATE OF SERVICE: 08/02/19 Discharge Plan Patient Name: KILO GARCIA Facility: [facility]:[place] : 1970 Planned Disposition: Home Anticipated Discharge Date: Discharge Date: Expected LOS: Initial Reviewer: [email or web address] Initial Review Date: 07/18/2019 Generated: 08/02/19 12:28 pm Comments DCP- Discharge Planning Updated by [id number]: Edita Bernstein on 08/02/19 10:[address] CM called [facility] and spoke with Abiola and clinical faxed. CM will continue to follow and assist with discharge planning/needs. DCP- Discharge Planning Updated by [id number]: Edita Bernstein on 08/01/19 3:[address] I received notification from Lisha Vega ([facility]) rehab that they are unable to accept patient due to not having a safe discharge plan. I spoke with the patient and his mother and they would like a referral sent to [facility] first, then [facility]. I will reach out to [facility] in the am. CM will continue to follow and assist with discharge planning/needs. DCP- Discharge Planning Updated by [email or web address]: Edita Bernstein on 07/31/19 12:[address] CM met with patient's mother in the room per her request to discuss discharge planning. Patient's mother states that she lives at [address] [place] [address]. States she is unable to care for her son. States that when he is out of dialysis she will speak with him about a LTC facility. I provided her with the list of LTC facilities in surrounding area. I also informed her that I could reach out to [facility] to see if he has any rehab days available and she agrees with this plan. I spoke with Tanvi at [facility] and clinical faxed. CM will continue to follow and assist with discharge planning/needs. Monroe - mother - [phone] or [phone] DCP- Discharge Planning Updated by [id number]: Taina Renee on 07/19/19 4:[address] Patient Name: KILO GARCIA Admission Status: ER Accout number: [id number] Admission Date: 07-18-2019 : 1970 Admission Diagnosis: Attending: MACK HAPR Current LOS: 1 Anticipated DC Date: Planned Disposition: Home Primary Insurance: MEDICAID [place] Discharge Planning Comments: CM met with patient's mother Monroe to complete initial dc planning assessment. CM educated patient on the CM role and verbal consent given by patient to complete assessment. Patient lives at home alone. Patient is independent. At discharge patient plans to return home. CM discussed availability of home health, rehab services, and medical equipment. Uncertain of discharge needs or disposition at this time. Patient is currently sedated on vent. Patient will have family to transport home. CM will continue to follow and will assist as needed with dc plans/needs. Social Media Content Specialist: Taina Renee DCPIA - Discharge Planning Initial Assessment Updated by [email or web address]: Taina Renee on 07/19/19 5:35 pm * Is the patient Alert and Oriented? No * How many steps to enter\exit or inside your home? * [facility] * [facility] * Preadmission Environment Home Alone * ADLs Independent * Equipment None * List name and contact numbers for known caregivers / representatives who currently or will assist patient after discharge: MONROE JIMENES - MOTHER - [phone] * Verbal permission to speak to the caregivers and representatives has been obtained from the patient. Yes * Community resources currently utilized None * Additional services required to return to the preadmission environment? No * Can the patient safely return to the preadmission environment? Yes * Has this patient been hospitalized within the prior 30 days at any hospital? No External Providers External Provider: [facility] Next Contact Date: Service Request Date: Service Type: Resolution: Reviewer: Comments: Last DP export: 08/01/19 3:52 p Patient Name: KILO GARCIA Page 22717 at 1128 All edits/amendments must be made on the electronic document DICTATION DATE: 08/02/191127 DE ICER: KELLY 08/02/191127 RPT#: [id number] DC DATE: STATUS: ADM IN [facility] [address] [place] [address] END OF REPORT
--- NOTE | 2019-08-02 11:36 | MORECARE ---
CASE MANAGEMENT DISCHARGE SUMMARY PATIENT: KILO GARCIA UNIT: [id number] ADM DATE: 07/18/19 AGE: 48 : 72 SEX: M ROOM/BED: D.2113 AUTHOR: RAPHAEL,DOC PHYSICIAN: REFERRING PHYSICIAN: DANNI HARP MD DATE OF SERVICE: 08/02/19 Discharge Plan Patient Name: KILO GARCIA Facility: [facility]:[place] : 1970 Planned Disposition: Home Anticipated Discharge Date: Discharge Date: Expected LOS: Initial Reviewer: [email or web address] Initial Review Date: 07/18/2019 Generated: 08/02/19 12:35 pm Comments DCP- Discharge Planning Updated by [email or web address]: Edita Bernstein on 08/02/19 10:[address] CM called [facility] and spoke with Abiola and clinical faxed. CM will continue to follow and assist with discharge planning/needs. DCP- Discharge Planning Updated by [id number]: Edita Bernstein on 08/01/19 3:[address] I received notification from Lisha Vega ([facility]) rehab that they are unable to accept patient due to not having a safe discharge plan. I spoke with the patient and his mother and they would like a referral sent to [facility] first, then [facility]. I will reach out to [facility] in the am. CM will continue to follow and assist with discharge planning/needs. DCP- Discharge Planning Updated by [email or web address]: Edita Bernstein on 07/31/19 12:[address] CM met with patient's mother in the room per her request to discuss discharge planning. Patient's mother states that she lives at [address] [place] [address]. States she is unable to care for her son. States that when he is out of dialysis she will speak with him about a LTC facility. I provided her with the list of LTC facilities in surrounding area. I also informed her that I could reach out to [facility] to see if he has any rehab days available and she agrees with this plan. I spoke with Tanvi at [facility] and clinical faxed. CM will continue to follow and assist with discharge planning/needs. Monroe - mother - [phone] or [phone] DCP- Discharge Planning Updated by [email or web address]: Taina Renee on 07/19/19 4:[address] Patient Name: KILO GARCIA Admission Status: ER Accout number: [id number] Admission Date: 07-18-2019 : 1970 Admission Diagnosis: Attending: MACK HARP Current LOS: 1 Anticipated DC Date: Planned Disposition: Home Primary Insurance: MEDICAID [place] Discharge Planning Comments: CM met with patient's mother Monroe to complete initial dc planning assessment. CM educated patient on the CM role and verbal consent given by patient to complete assessment. Patient lives at home alone. Patient is independent. At discharge patient plans to return home. CM discussed availability of home health, rehab services, and medical equipment. Uncertain of discharge needs or disposition at this time. Patient is currently sedated on vent. Patient will have family to transport home. CM will continue to follow and will assist as needed with dc plans/needs. Senior Oracle Database Administrator: Taina Furr DCPIA - Discharge Planning Initial Assessment Updated by [id number]: Taina Renee on 07/19/19 5:35 pm * Is the patient Alert and Oriented? No * How many steps to enter\exit or inside your home? * [facility] * [facility] [place] * Preadmission Environment Home Alone * ADLs Independent * Equipment None * List name and contact numbers for known caregivers / representatives who currently or will assist patient after discharge: MONROE JIMENES - MOTHER - [phone] * Verbal permission to speak to the caregivers and representatives has been obtained from the patient. Yes * Community resources currently utilized None * Additional services required to return to the preadmission environment? No * Can the patient safely return to the preadmission environment? Yes * Has this patient been hospitalized within the prior 30 days at any hospital? No Coverage Notice Reviewer: [email or web address] Marlena Bernstein Notice Issued Date-Time: 08/01/2019 16:10 Notice Type: Patient Choice Letter Notice Delivered To: Patient Relationship to Patient: Self Binder Operator Name: Delivery Method: HAND - Hand Delivered Jeanine Days: Prior Verbal Notification: Recipient Understood Notice: Yes Recipient Signature: Yes Med Rec Note Co-signed by Attending: Coverage Notice Comment: ASHLI for [employer] or [employer] Last DP export: 08/02/19 10:28 a Patient Name: KILO GARCIA Page 24156 at 1136 All edits/amendments must be made on the electronic document DICTATION DATE: 08/02/191134 FIELD MARKETING SPECIALIST: KELLY 08/02/191134 RPT#: [id number] DC DATE: STATUS: ADM IN [facility] [address] [place] [address] END OF REPORT
--- NOTE | 2019-08-02 11:58 | NUR ---
OT NOTE: PT PERFORMED MUCH BETTER TODAY. BED MOB INCLUDING SUPINE TO SIT WITH MAX ASSIST, HOWEVER, TODAY PT WAS ABLE TO PERFORM UPRIGHT SITTING WITH ONLY OCCASSIONAL CUES VS MAX ASSIST. ABLE TO FOLLOW COMMANDS WITH IMPROVEMENT TODAY; PERFORMED LOOK TO THE LEFT ACT WITH FREQ CUES; WT BEARING ACT WITH MAX ASSIST FOR L UE; PT REMAINS FLACID IN L UE/LES GLENIS JOHNSON, OTR/L [phone]
[2019-08-02 12:00] VITALS: BP 132/86
--- NOTE | 2019-08-02 15:27 | NUR ---
OT NOTE: STARKEY PERFORMED RETROGRADE MASSAGE TO LUE FOR EDEMA REDUCTION. PT COMPLETED LUE PROM TOLERATED. [phone] THANK YOU,LALITO BUENO
[2019-08-02 16:00] VITALS: BP 131/78
--- NOTE | 2019-08-02 19:06 | NUR ---
EVENING ROUNDS COMPLETE. PT LAYING IN BED. NO SIGNS OF DISTRESS. PT DENIES ANY PAIN OR NEEDS AT THIS TIME. AAOX4. CL IN REACH, BED IN LOWEST POSITION.
[2019-08-02 20:00] VITALS: BP 142/87
[2019-08-03] VITALS: BP 149/96
[2019-08-03 04:00] VITALS: BP 133/91
[2019-08-03 05:19] LABS: BASOPHILS 0.9 % (0-2); EOSINOPHILS 3.1 % (0-7); HEMATOCRIT 35.3 % (42.0-54.0); HEMOGLOBIN 11.7 g/dL (13.5-17.5); IMMATURE GRANULOCYTES 0.3 % (0-5); LYMPHOCYTES 18.4 % (15-50); MCH 29.7 pg (26.0-34.0); MCHC 33.1 g/dL (31.0-37.0); MCV 89.6 fL (80.0-100.0); MEAN PLATELET VOLUME 10.8 fL (7.4-10.4); MONOCYTES 11.4 % (2-11); NEUTROPHILS 65.9 % (40-80); PLATELET COUNT 337 10x3/uL (130-400); RBC 3.94 10x6/uL (4.20-6.10); RDW 13.4 % (11.5-14.5); WBC 8.7 10x3/uL (4.8-10.8)
[2019-08-03 05:53] LABS: ALBUMIN 2.5 g/dL (3.4-5.0); ALKALINE PHOSPHATASE 110 U/L (30-120); ALT (SGPT) 145 U/L (10-68); BILIRUBIN - TOTAL 0.51 mg/dL (0.2-1.3); CALC OSMOLALITY 292 mosm/kg (275-300); CALCIUM 8.6 mg/dL (8.5-10.1); CARBON DIOXIDE 21.3 mmol/L (21.0-32.0); CHLORIDE - SERUM 108 mmol/L (98-107); CKMB 5.7 U/L (0.0-3.6); CREATININE - SERUM 4.4 mg/dL (0.6-1.3); GLUCOSE 91 mg/dL (74-106); MAGNESIUM - SERUM 1.7 mg/dL (1.8-2.4); POTASSIUM - SERUM 3.4 mmol/L (3.5-5.1); PROTEIN - SERUM 6.7 g/dL (6.4-8.2); SODIUM 140 mmol/L (136-145); UREA NITROGEN 53 mg/dL (7-18); eGFR NON AFRICAN AMERICAN 15 mL/min (90-120)
[2019-08-03 05:54] LABS: CREATINE KINASE 273 UL (21-232)
--- NOTE | 2019-08-03 07:03 | NUR ---
ASSESSMENT DONE. DENIES NEEDS
[2019-08-03 09:35] LABS: CKMB 5.9 U/L (0.0-3.6); CREATINE KINASE 291 UL (21-232); MAGNESIUM - SERUM 1.8 mg/dL (1.8-2.4); PHOSPHOROUS 5.4 mg/dL (2.5-4.9)
[2019-08-03 13:27] VITALS: BP 136/87
--- NOTE | 2019-08-03 14:03 | NUR ---
SCABBED AREAS ON TOES AND TOP OF LEFT FOOT. SCABS ARE DRYING AND STARTING TO LOOSEN. WOUND CARE WILL CONTINUE MONITORING.
--- NOTE | 2019-08-03 14:22 | MORECARE ---
CASE MANAGEMENT DISCHARGE SUMMARY PATIENT: KILO GARCIA UNIT: [id number] ADM DATE: 07/18/19 AGE: 48 : 72 SEX: M ROOM/BED: D.2113 AUTHOR: RAPHAEL,DOC PHYSICIAN: REFERRING PHYSICIAN: DANNI HARP MD DATE OF SERVICE: 08/03/19 Discharge Plan Patient Name: KILO GARCIA Facility: [facility]:[place] : 1970 Planned Disposition: Home Anticipated Discharge Date: Discharge Date: Expected LOS: Initial Reviewer: [email or web address] Initial Review Date: 07/18/2019 Generated: 08/03/19 3:21 pm DCP- Discharge Planning Updated by [email or web address]: Edita Bernstein on 08/02/19 10:[address] CM called [facility] and spoke with Abiola and clinical faxed. CM will continue to follow and assist with discharge planning/needs. DCP- Discharge Planning Updated by [id number]: Edita Bernstein on 08/01/19 3:[address] I received notification from Lisha Vega ([facility]) rehab that they are unable to accept patient due to not having a safe discharge plan. I spoke with the patient and his mother and they would like a referral sent to [facility] first, then [facility]. I will reach out to [facility] in the am. CM will continue to follow and assist with discharge planning/needs. DCP- Discharge Planning Updated by [id number]: Edita Bernstein on 07/31/19 12:[address] CM met with patient's mother in the room per her request to discuss discharge planning. Patient's mother states that she lives at [address] [place] [address]. States she is unable to care for her son. States that when he is out of dialysis she will speak with him about a LTC facility. I provided her with the list of LTC facilities in surrounding area. I also informed her that I could reach out to [facility] to see if he has any rehab days available and she agrees with this plan. I spoke with Tanvi at [facility] and clinical faxed. CM will continue to follow and assist with discharge planning/needs. Monroe mother - [phone] or [phone] DCP- Discharge Planning Updated by [id number]: Taina Renee on 07/19/19 4:[address] Patient Name: KILO GARCIA Admission Status: ER Accout number: [id number] Admission Date: 07-18-2019 : 1970 Admission Diagnosis: Attending: MAKC HARP Current LOS: 1 Anticipated DC Date: Planned Disposition: Home Primary Insurance: MEDICAID [place] Discharge Planning Comments: CM met with patient's mother Monroe to complete initial dc planning assessment. CM educated patient on the CM role and verbal consent given by patient to complete assessment. Patient lives at home alone. Patient is independent. At discharge patient plans to return home. CM discussed availability of home health, rehab services, and medical equipment. Uncertain of discharge needs or disposition at this time. Patient is currently sedated on vent. Patient will have family to transport home. CM will continue to follow and will assist as needed with dc plans/needs. Protective Officer: Taina Thelma DCPIA - Discharge Planning Initial Assessment Updated by [email or web address]: Taina Renee on 07/19/19 5:35 pm * Is the patient Alert and Oriented? No * How many steps to enter\exit or inside your home? * [facility] * Preadmission Environment Home Alone * ADLs Independent * Equipment None * List name and contact numbers for known caregivers / representatives who currently or will assist patient after discharge: MONROE JIMENES - MOTHER - [phone] * Verbal permission to speak to the caregivers and representatives has been obtained from the patient. Yes * Community resources currently utilized None * Additional services required to return to the preadmission environment? No * Can the patient safely return to the preadmission environment? Yes * Has this patient been hospitalized within the prior 30 days at any hospital? No External Providers External Provider: [facility] Next Contact Date: Service Request Date: Service Type: Resolution: Reviewer: Comments: Coverage Notice Reviewer: [id number] Marlena Bernstein Notice Issued Date-Time: 08/01/2019 16:10 Notice Type: Patient Choice Letter Notice Delivered To: Patient Relationship to Patient: Self Mineral Surveying Technician Name: Delivery Method: HAND - Hand Delivered Jeanine Days: Prior Verbal Notification: Recipient Understood Notice: Yes Recipient Signature: Yes Med Rec Note Co-signed by Attending: Coverage Notice Comment: ASHLI for [facility] or [facility] Last DP export: 08/02/19 10:36 a Patient Name: KILO GARCIA Page 22872 at 1422 All edits/amendments must be made on the electronic document DICTATION DATE: 08/03/191420 ASPHALT HEATER OPERATOR: KELLY 08/03/191420 RPT#: [id number] DC DATE: STATUS: ADM IN [facility] [address] [place] [address] END OF REPORT
--- NOTE | 2019-08-03 16:24 | NUR ---
WITHOUT CHANGES OR DISTRESS NOTED AT THIS TIME. DENIES NEEDS
[2019-08-03 17:28] VITALS: BP 141/94
[2019-08-03 17:48] VITALS: BP 144/83
--- NOTE | 2019-08-03 18:48 | NUR ---
I have reviewed this patient and I concur with the Shift Assessment completed by the Licensed Practical Nurse today this shift.
[2019-08-03 20:30] VITALS: BP 129/84
--- NOTE | 2019-08-03 20:30 | NUR ---
PROVIDED LINEN CHANGE FOR INCONT. PT COMBATIVE DURING THE PROCESS, ATTEMPTING TO TALK BUT DIFFICULT TO UNDERSTAND AT THIMES. NO DISTRESS OBSERVED. WILL CPOC.
[2019-08-04 00:30] VITALS: BP 134/82
--- NOTE | 2019-08-04 04:19 | NUR ---
PT HAS BEEN AWAKE ALL NIGHT. DENIES PAIN OR DISCOMFORT. ALERT AND ABLE TO ANSWER MY QUESTIONS. CALL LIGHT IN REACH. PT VERBALIZES UNDERSTANDING ON USE. WILL CTM.
[2019-08-04 04:45] VITALS: BP 146/90
[2019-08-04 05:03] LABS: BASOPHILS 0.7 % (0-2); EOSINOPHILS 3.5 % (0-7); HEMATOCRIT 36.3 % (42.0-54.0); HEMOGLOBIN 12.2 g/dL (13.5-17.5); IMMATURE GRANULOCYTES 0.3 % (0-5); MCH 30.1 pg (26.0-34.0); MCHC 33.6 g/dL (31.0-37.0); MCV 89.6 fL (80.0-100.0); MEAN PLATELET VOLUME 10.7 fL (7.4-10.4); MONOCYTES 11.1 % (2-11); NEUTROPHILS 62.4 % (40-80); PLATELET COUNT 388 10x3/uL (130-400); RBC 4.05 10x6/uL (4.20-6.10); RDW 13.5 % (11.5-14.5); WBC 7.1 10x3/uL (4.8-10.8)
[2019-08-04 05:51] LABS: ALBUMIN 2.7 g/dL (3.4-5.0); ANION GAP 13.9 mmol/L (8-16); BILIRUBIN - TOTAL 0.67 mg/dL (0.2-1.3); CALCIUM 9.4 mg/dL (8.5-10.1); CARBON DIOXIDE 21.8 mmol/L (21.0-32.0); CREATININE - SERUM 4.3 mg/dL (0.6-1.3); PHOSPHOROUS 5.7 mg/dL (2.5-4.9); POTASSIUM - SERUM 3.7 mmol/L (3.5-5.1); PROTEIN - SERUM 7.3 g/dL (6.4-8.2)
[2019-08-04 09:00] VITALS: BP 137/90
[2019-08-04 12:00] VITALS: BP 128/83
--- NOTE | 2019-08-04 14:40 | NUR ---
I have reviewed this patient and I concur with the Shift Assessment completed by the Licensed Practical Nurse today this shift.
[2019-08-04 16:00] VITALS: BP 137/92
--- NOTE | 2019-08-04 17:44 | NUR ---
OT NOTE: (DOS 08/03/2019) PT REQUIRED MAX A FOR POSITIONING TO DECREASE PRESSURE AREAS. PT COMPLETED UE AAROM TOLERATED. PT REQUIRED MAX A WITH LB HYGIENE TASKS. PT EXHIBITED SELF LIMITING BEHAVIORS. [phone] KALEB VARELA COTA
--- NOTE | 2019-08-04 20:07 | NUR ---
RECEIVED UP IN BED WITH EYES OPEN AND TV ON. ALERT AND ORIENTED. HARD TO UNDERSTAND D/T SPEECH IS GARBLED AT TIMES.RT IJ TRIALYSIS WITH NS AT [facility]. F/C IN PLACE WITH CLEAR STRAW COLOR URINE DRAINING TO BEDSIDE DRAINAGE SYSTEM. HAS SCABS AND SORES TO FEET AND LEGS. ALSO, TO UPPER ARMS. DENIES ANY NEEDS AT THIS TIME.
[2019-08-04 20:30] VITALS: BP 137/95
[2019-08-05 00:30] VITALS: BP 149/89
[2019-08-05 04:30] VITALS: BP 132/81
[2019-08-05 04:46] LABS: BASOPHILS 0.7 % (0-2); EOSINOPHILS 3.7 % (0-7); HEMATOCRIT 36.4 % (42.0-54.0); HEMOGLOBIN 12.4 g/dL (13.5-17.5); IMMATURE GRANULOCYTES 0.4 % (0-5); LYMPHOCYTES 18.7 % (15-50); MCH 30.3 pg (26.0-34.0); MCHC 34.1 g/dL (31.0-37.0); MEAN PLATELET VOLUME 10.6 fL (7.4-10.4); NEUTROPHILS 64.5 % (40-80); PLATELET COUNT 420 10x3/uL (130-400); RBC 4.09 10x6/uL (4.20-6.10); RDW 13.5 % (11.5-14.5); WBC 8.2 10x3/uL (4.8-10.8)
[2019-08-05 05:09] LABS: ALBUMIN 2.8 g/dL (3.4-5.0); ANION GAP 14.5 mmol/L (8-16); BILIRUBIN - TOTAL 0.64 mg/dL (0.2-1.3); CALCIUM 9.7 mg/dL (8.5-10.1); CARBON DIOXIDE 22.2 mmol/L (21.0-32.0); PHOSPHOROUS 5.7 mg/dL (2.5-4.9); POTASSIUM - SERUM 3.7 mmol/L (3.5-5.1); PROTEIN - SERUM 7.4 g/dL (6.4-8.2)
[2019-08-05 09:00] VITALS: BP 136/90
--- NOTE | 2019-08-05 10:23 | NUR ---
I have reviewed this patient and I concur with the Shift Assessment completed by the Licensed Practical Nurse today this shift.
[2019-08-05 13:47] VITALS: BP 155/110
[2019-08-05 15:08] LABS: HCVGENO - HEP C QUANT 4980000 IU/mL (()); HCVGENO - LOG 10 6.697 (())
[2019-08-05 18:07] VITALS: BP 132/91
[2019-08-05 20:00] VITALS: BP 131/87
--- NOTE | 2019-08-05 21:36 | NUR ---
INITIAL ROUNDS COMPLETED AT 191 HRS. PT WATCHING TV. NO DISTRESS NOTED. ASSESSMENT COMPLETED AT 1999 HRS. VSS. SR PER CM HR 75. PT ALERT, ORIENTED TO PERSON AND PLACE. SPEECH VERY SLOW AND METHODICAL. EXPRESSIVE APHASIA NOTED. TRIALYSIS CATHETER NOTED TO R JUGULAR WITH NS AT 10CC/HR TO NURSE PORT. SITE CLEAN,DRY AND INTACT. L ARM FLACCID AND SWOLLEN WITH SORES NOTED. LUNGS ESSENTIALLY CTA. L LEG WITH MINIMAL MOVEMET. SORES NOTED TO TOPS OF TOES BILAT. DIAMOND DRAINING YELLOW URINE. REPOSITIONED IN BED FOR COMFORT. PT FED HIS RICH COBBLER AT THAT TIME. PM MEDS GIVEN. PT CURRENTLY WATCHING TV. SR UP X2, CALL LIGHT WITHIN REACH AND BED ALARM ON.
--- NOTE | 2019-08-05 23:25 | NUR ---
PT AWAKE; DENIES ANY DISCOMFORT. CALL LIGHT WITHIN REACH.
[2019-08-06] VITALS: BP 131/88
--- NOTE | 2019-08-06 00:58 | NUR ---
PT AWAKE; DENIES ANY DISCOMFORT. SPRITE GIVEN SC REQUEST/
--- NOTE | 2019-08-06 03:22 | NUR ---
PT RESTING WITH EYES CLOSED. RESP EVEN AND REGULAR. SR UP X2, CALL LIGHT WITHIN REACH AND BED ALARM ON.
[2019-08-06 04:00] VITALS: BP 111/78
--- NOTE | 2019-08-06 05:07 | NUR ---
TEGADERM APPLIED TO R JUGULAR TRIALYSIS CATHETER. INSTRUCTED PT TO LEAVE DRESSING ALONE. AM LAB DRAWN. SR UP X2, CALL LIGHT WITHIN REACH AND BED ALARM ON.
[2019-08-06 05:30] LABS: BASOPHILS 1.2 % (0-2); HEMATOCRIT 35.5 % (42.0-54.0); HEMOGLOBIN 12.2 g/dL (13.5-17.5); IMMATURE GRANULOCYTES 0.3 % (0-5); LYMPHOCYTES 23.5 % (15-50); MCH 30.4 pg (26.0-34.0); MCHC 34.4 g/dL (31.0-37.0); MCV 88.5 fL (80.0-100.0); MEAN PLATELET VOLUME 10.7 fL (7.4-10.4); MONOCYTES 13.9 % (2-11); NEUTROPHILS 57.1 % (40-80); PLATELET COUNT 413 10x3/uL (130-400); RBC 4.01 10x6/uL (4.20-6.10); RDW 13.2 % (11.5-14.5); WBC 6.4 10x3/uL (4.8-10.8)
[2019-08-06 05:48] LABS: ANION GAP 13.3 mmol/L (8-16); BILIRUBIN - TOTAL 0.57 mg/dL (0.2-1.3); CALCIUM 9.7 mg/dL (8.5-10.1); CARBON DIOXIDE 23.3 mmol/L (21.0-32.0); CREATININE - SERUM 3.7 mg/dL (0.6-1.3); POTASSIUM - SERUM 3.6 mmol/L (3.5-5.1); PROTEIN - SERUM 7.7 g/dL (6.4-8.2)
--- NOTE | 2019-08-06 05:52 | NUR ---
VSS THROUGHOUT NIGHT. SR PER CM. NEEDS MET'; WILL CONTINUE TO MONITOR.
--- NOTE | 2019-08-06 08:27 | NUR ---
AM MEDS GIVEN AT THIS TIME. PT TOOK ALL MEDICATIONS WITH NO TROUBLE SWALLOWING. HELPED PT WITH HIS BREAKFAST. DIAMOND DRANING YELLOW URINE TO GRAVITY. RT IJ TRIALYSIS CDI. PT DENIES ANY NEEDS AT THIS TIME. CALL LIGHT IN REACH, NAD NOTED, WILL CONTINUE TO MONITOR.
--- NOTE | 2019-08-06 09:07 | NUR ---
PAD CHANGED AND RESPOSITIONED PT IN BED. PT DENIES ANY NEEDS AT THIS TIME. CALL LIGHT IN REACH, BED ALARM ON, BEDSIDE RAILS X2, NAD NOTED, WILL CONTINUE TO MONITOR.
[2019-08-06 09:35] VITALS: BP 146/92
--- NOTE | 2019-08-06 12:00 | NUR ---
OFFERED TO HELP FEED PT AND PT REFUSED TO EAT AT THIS TIME.
--- NOTE | 2019-08-06 12:49 | MORECARE ---
CASE MANAGEMENT DISCHARGE SUMMARY PATIENT: KILO GARCIA UNIT: [id number] ADM DATE: 07/18/19 AGE: 48 : 72 SEX: M ROOM/BED: D.1233 AUTHOR: RAPHAEL,DOC PHYSICIAN: REFERRING PHYSICIAN: DANNI HARP MD DATE OF SERVICE: 08/06/19 Discharge Plan Patient Name: KILO GARCIA Facility: [facility]:[place] : 1970 Planned Disposition: Home Anticipated Discharge Date: Discharge Date: Expected LOS: Initial Reviewer: [email or web address] Initial Review Date: 07/18/2019 Generated: 08/06/19 1:48 pm Comments DCP- Discharge Planning Updated by [email or web address]: Edita Bernstein on 08/06/19 11:[address] Updated clinical faxed to [facility]. I have messaged Mira, liaison for [facility], to check on referral. CM to continue to follow and assist with discharge planning/needs. DCP- Discharge Planning Updated by [id number]: Edita Bernstein on 08/02/19 10:[address] CM called [facility] and spoke with Abiola and clinical faxed. CM will continue to follow and assist with discharge planning/needs. DCP- Discharge Planning Updated by [id number]: Edita Bernstein on 08/01/19 3:[address] [facility] patient due to not having a safe discharge plan. I spoke with the patient and his mother and they would like a referral sent to [facility] first, then [facility]. I will reach out to [facility] in the am. CM will continue to follow and assist with discharge planning/needs. DCP- Discharge Planning Updated by [email or web address]: Edita Bernstein on 07/31/19 12:[address] CM met with patient's mother in the room per her request to discuss discharge planning. Patient's mother states that she lives at [address] [facility] [place] [address] States she is unable to care for her son. States that when he is out of dialysis she will speak with him about a LTC facility. I provided her with the list of LTC facilities in surrounding area. I also informed her that I could reach out to [facility] to see if he has any rehab days available and she agrees with this plan. I spoke with Tanvi at [facility] and clinical faxed. CM will continue to follow and assist with discharge planning/needs. Monroe marti - [phone] or [phone] DCP- Discharge Planning Updated by [email or web address]: Taina Thelma on 07/19/19 4:[address] Patient Name: KILO GARCIA Admission Status: ER Accout number: [id number] Admission Date: 07-18-2019 : 1970 Admission Diagnosis: Attending: MACK HARP Current LOS: 1 Anticipated DC Date: Planned Disposition: Home Primary Insurance: MEDICAID [place] Discharge Planning Comments: CM met with patient's mother Monroe to complete initial dc planning assessment. CM educated patient on the CM role and verbal consent given by patient to complete assessment. Patient lives at home alone. Patient is independent. At discharge patient plans to return home. CM discussed availability of home health, rehab services, and medical equipment. Uncertain of discharge needs or disposition at this time. Patient is currently sedated on vent. Patient will have family to transport home. CM will continue to follow and will assist as needed with dc plans/needs. Radio Station Manager: Taina Renee DCPIA - Discharge Planning Initial Assessment Updated by [id number]: Taina Thelma on 07/19/19 5:35 pm * Is the patient Alert and Oriented? No * How many steps to enter\exit or inside your home? * [facility] * [facility] [place] * Preadmission Environment Home Alone * ADLs Independent * Equipment None * List name and contact numbers for known caregivers / representatives who currently or will assist patient after discharge: MONROE MARTI - [phone] * Verbal permission to speak to the caregivers and representatives has been obtained from the patient. Yes * Community resources currently utilized None * Additional services required to return to the preadmission environment? No * Can the patient safely return to the preadmission environment? Yes * Has this patient been hospitalized within the prior 30 days at any hospital? No Coverage Notice Reviewer: [email or web address] Marlena Bernstein Notice Issued Date-Time: 08/01/2019 16:10 Notice Type: Patient Choice Letter Notice Delivered To: Patient Relationship to Patient: Self Bottom Painter Name: Delivery Method: HAND - Hand Delivered Jeanine Days: Prior Verbal Notification: Recipient Understood Notice: Yes Recipient Signature: Yes Med Rec Note Co-signed by Attending: Coverage Notice Comment: ASHLI for [facility] or [facility] Last DP export: 08/03/19 1:22 p Patient Name: KILO GARCIA Page 12623 at 1249 All edits/amendments must be made on the electronic document DICTATION DATE: 08/06/19 1248 TALENT ACQUISITION CONSULTANT: KELLY 08/06/19 1248 RPT#: [id number] DC DATE: STATUS: ADM IN [facility] [address] [place] [address] END OF REPORT
--- NOTE | 2019-08-06 13:22 | NUR ---
PT RESTING COMFORTABLY IN BED WITH EYES CLOSED, NAD NOTED.
--- NOTE | 2019-08-06 14:18 | NUR ---
Nutrition Follow-up: Nursing reports pt ate ~20% of breakfast this AM. [facility] sent with lunch today for pt trial but noted pt refused to eat when nurse offered to feed him lunch. ST following. Diet: Renal, Solids with Thin Liquids PO intake: 26% avg x 10 meals Wt: 168# (08/05); 177.4# (07/17); noted I/Os (-1484 cc on 08/04, - 2230 cc on 08/03, - 2600 cc on 08/02) Last BM: 08/04 Labs noted: Alb 3.0, K+ 3.6, PO4 5.7 (08/04) Meds noted: Renvela, vitamin B6, Protonix, electrolyte protocol -Encourage PO intake and honor food preferences within diet restrictions. -Offer [facility]ro with meals. -Pt may benefit from appetite stimulant. -Monitor wt; noted daily wts ordered. -RD following.
[2019-08-06 14:33] VITALS: BP 129/83
--- NOTE | 2019-08-06 14:56 | MORECARE ---
CASE MANAGEMENT DISCHARGE SUMMARY PATIENT: KILO GARCIA UNIT: [id number] ADM DATE: 07/18/19 AGE: 48 : 72 SEX: M ROOM/BED: D.6503 AUTHOR: RAPHAEL,DOC PHYSICIAN: REFERRING PHYSICIAN: DANNI HARP MD DATE OF SERVICE: 08/06/19 Discharge Plan Patient Name: KILO GARCIA Facility: [facility]:[place] : 1970 Planned Disposition: Home Anticipated Discharge Date: Discharge Date: Expected LOS: Initial Reviewer: [email or web address] Initial Review Date: 07/18/2019 Generated: 08/06/19 3:55 pm Comments DCP- Discharge Planning Updated by [email or web address]: Edita Bernstein on 08/06/19 11:[address] Updated clinical faxed to [facility]. I have messaged Mira, liaison for [facility], to check on referral. CM to continue to follow and assist with discharge planning/needs. DCP- Discharge Planning Updated by [email or web address]: Edita Bernstein on 08/02/19 10:[address] CM called [facility] and spoke with Abiola and clinical faxed. CM will continue to follow and assist with discharge planning/needs. DCP- Discharge Planning Updated by [id number]: Edita Bernstein on 08/01/19 3:[address] I received [facility] that they are unable to accept patient due to not having a safe discharge plan. I spoke with the patient and his mother and they would like a referral sent to [facility] first, then [facility]. I will reach out to [facility] in the am. CM will continue to follow and assist with discharge planning/needs. DCP- Discharge Planning Updated by [id number]: Edita Bernstein on 07/31/19 12:[address] CM met with patient's mother in the room per her request to discuss discharge planning. Patient's mother states that she lives at [address] States she is unable to care for her son. States that when he is out of dialysis she will speak with him about a LTC facility. I provided her with the list of LTC facilities in surrounding area. I also informed her that I could reach out to [facility] to see if he has any rehab days available and she agrees with this plan. I spoke with Tanvi at [facility] and clinical faxed. CM will continue to follow and assist with discharge planning/needs. Monroe marti - [phone] or [phone] DCP- Discharge Planning Updated by [email or web address]: Taina Thelma on 07/19/19 4:[address] Patient Name: KILO GARCIA Admission Status: ER Accout number: [id number] Admission Date: 07-18-2019 : 1970 Admission Diagnosis: Attending: MACK HARP Current LOS: 1 Anticipated DC Date: Planned Disposition: Home Primary Insurance: MEDICAID [place] Discharge Planning Comments: CM met with patient's mother Monroe to complete initial dc planning assessment. CM educated patient on the CM role and verbal consent given by patient to complete assessment. Patient lives at home alone. Patient is independent. At discharge patient plans to return home. CM discussed availability of home health, rehab services, and medical equipment. Uncertain of discharge needs or disposition at this time. Patient is currently sedated on vent. Patient will have family to transport home. CM will continue to follow and will assist as needed with dc plans/needs. Oven Operator: Taina Renee DCPIA - Discharge Planning Initial Assessment Updated by [email or web address]: Taina Thelma on 07/19/19 5:35 pm * Is the patient Alert and Oriented? No * How many steps to enter\exit or inside your home? * [facility] * Pharmacy [facility]/ [place] * Preadmission Environment Home Alone * ADLs Independent * Equipment None * List name and contact numbers for known caregivers / representatives who currently or will assist patient after discharge: MONROE JIMENES - - [phone] * Verbal permission to speak to the caregivers and representatives has been obtained from the patient. Yes * Community resources currently utilized None * Additional services required to return to the preadmission environment? No * Can the patient safely return to the preadmission environment? Yes * Has this patient been hospitalized within the prior 30 days at any hospital? No External Providers External Provider: [facility] Next Contact Date: Service Request Date: Service Type: Resolution: Reviewer: Comments: Coverage Notice Reviewer: [email or web address] - Edita Bernstein Notice Issued Date-Time: 08/01/2019 16:10 Notice Type: Patient Choice Letter Notice Delivered To: Patient Relationship to Patient: Self Retirement Specialist Name: Delivery Method: HAND - Hand Delivered Jeanine Days: Prior Verbal Notification: Recipient Understood Notice: Yes Recipient Signature: Yes Med Rec Note Co-signed by Attending: Coverage Notice Comment: ASHLI for [facility] or [facility] Last DP export: 08/06/19 11:49 a Patient Name: KILO GARCIA Page 54990 at 1456 All edits/amendments must be made on the electronic document DICTATION DATE: 08/06/191454 PRACTICE BILLING ASSOCIATE: KELLY 08/06/191454 RPT#: [id number] DC DATE: STATUS: ADM IN [facility] [address] [place] [address] END OF REPORT
--- NOTE | 2019-08-06 17:30 | MORECARE ---
CASE MANAGEMENT DISCHARGE SUMMARY PATIENT: KILO GARCIA UNIT: [id number] ADM DATE: 07/18/19 AGE: 48 : 72 SEX: M ROOM/BED: D.2113 AUTHOR: RAPHAEL,DOC PHYSICIAN: REFERRING PHYSICIAN: DANNI HARP MD DATE OF SERVICE: 08/06/19 Discharge Plan Patient Name: KILO GARCIA Facility: [facility]:[place] : 1970 Planned Disposition: Home Anticipated Discharge Date: Discharge Date: Expected LOS: Initial Reviewer: [email or web address] Initial Review Date: 07/18/2019 Generated: 08/06/19 6:30 pm Comments DCP- Discharge Planning Updated by [email or web address]: Edita Bernstein on 08/06/19 4:[address] Mira had messaged that patient is not deemed disabled and since he is under age 65, he does not qualify for long-term care Medicaid. I have asked [facility] [employer] to run his Medicaid and they state he has SSI disability Medicaid. I spoke with patient and mother, they both state that he is not on disability at this time. Mother is present in the room and states she has filed for it for him on line. I sent a referral to [facility] and notified Chapin. I also informed Mira that mother has filed for patient's disability on line. CM will continue to follow and assist with discharge planning/needs. DCP- Discharge Planning Updated by [id number]: Edita Bernstein on 08/06/19 11:[address] Updated clinical faxed to [facility]. I have messaged Mira, liaison for [facility], to check on referral. CM to continue to follow and assist with discharge planning/needs. DCP- Discharge Planning Updated by [email or web address]: Edita Bernstein on 08/02/19 10:[address] CM called [facility] and spoke with Abiola and clinical faxed. CM will continue to follow and assist with discharge planning/needs. DCP- Discharge Planning Updated by [email or web address]: Edita Bernstein on 08/01/19 3:[address] I received notification from [facility] rehab that they are unable to accept patient due to not having a safe discharge plan. I spoke with the patient and his mother and they would like a referral sent to [facility] first, then [facility]. I will reach out to [facility] in the am. CM will continue to follow and assist with discharge planning/needs. DCP- Discharge Planning Updated by [id number]: Edita Bernstein on 07/31/19 12:[address] CM met with patient's mother in the room per her request to discuss discharge planning. Patient's mother states that she lives at [address]. States she is unable to care for her son. States that when he is out of dialysis she will speak with him about a LTC facility. I provided her with the list of LTC facilities in surrounding area. I also informed her that I could reach out to [facility] to see if he has any rehab days available and she agrees with this plan. I spoke with Tanvi at [facility] and clinical faxed. CM will continue to follow and assist with discharge planning/needs. Monroe - mother - [phone] or [phone] DCP- Discharge Planning Updated by [email or web address]: Taina Renee on 07/19/19 4:[address] Patient Name: KILO SZYMANSKI_JR Admission Status: ER Accout number: [id number] Admission Date: 07-18-2019 : 1970 Admission Diagnosis: Attending: MACK HARP Current LOS: 1 Anticipated DC Date: Planned Disposition: Home Primary Insurance: MEDICAID [place] Discharge Planning Comments: CM met with patient's mother Monroe to complete initial dc planning assessment. CM educated patient on the CM role and verbal consent given by patient to complete assessment. Patient lives at home alone. Patient is independent. At discharge patient plans to return home. CM discussed availability of home health, rehab services, and medical equipment. Uncertain of discharge needs or disposition at this time. Patient is currently sedated on vent. Patient will have family to transport home. CM will continue to follow and will assist as needed with dc plans/needs. Farm Equipment Assembler: Taina Renee DCPIA - Discharge Planning Initial Assessment Updated by [email or web address]: Taina Renee on 07/19/19 5:35 pm * Is the patient Alert and Oriented? No * How many steps to enter\exit or inside your home? * [facility]CP [facility] * Pharmacy [facility]/ [place] * Preadmission Environment Home Alone * ADLs Independent * Equipment None * List name and contact numbers for known caregivers / representatives who currently or will assist patient after discharge: MONROE JIMENES - - [phone] * Verbal permission to speak to the caregivers and representatives has been obtained from the patient. Yes * Community resources currently utilized None * Additional services required to return to the preadmission environment? No * Can the patient safely return to the preadmission environment? Yes * Has this patient been hospitalized within the prior 30 days at any hospital? No Coverage Notice Reviewer: [id number] Marlena Bernstein Notice Issued Date-Time: 08/01/2019 16:10 Notice Type: Patient Choice Letter Notice Delivered To: Patient Relationship to Patient: Self Research Statistician Name: Delivery Method: HAND - Hand Delivered Jeanine Days: Prior Verbal Notification: Recipient Understood Notice: Yes Recipient Signature: Yes Med Rec Note Co-signed by Attending: Coverage Notice Comment: ASHLI for [facility] or [facility] Last DP export: 08/06/19 1:56 p Patient Name: KILO GARCIA Page [phone] at 1730 All edits/amendments must be made on the electronic document DICTATION DATE: 08/06/191729 REPAIRER WELDING EQUIPMENT: KELLY 08/06/191729 RPT#: [id number] DC DATE: STATUS: ADM IN [facility] [address] [place] [address] END OF REPORT
--- NOTE | 2019-08-06 17:47 | NUR ---
650MG OF TYLENOL GIVEN FOR PAIN LEVEL OF 5/10. PT DENIES ANY OTHER NEEDS AT THIS TIME. FAMILY AT BEDSIDE, NAD NOTED, CALL LIGHT IN REACH, BED ALARM ON, NAD NOTED.
--- NOTE | 2019-08-06 19:00 | NUR ---
RECEIVED BEDSIDE REPORT. PATIENT IS ALERT AND ORIENTED, RESTING COMFORTABLY IN BED. RESPIRATIONS ARE EVEN AND UNLABORED. NO S/S OF DISTRESS. NO C/O PAIN. CALL LIGHT WITHIN REACH. WILL CPOC.
[2019-08-06 19:01] VITALS: BP 131/83
[2019-08-06 20:00] VITALS: BP 122/74
--- NOTE | 2019-08-06 21:43 | NUR ---
OT NOTE: PT COMPLETED BED MOBILITY WITH MIN A. PT IS IMPULSIVE AND EXHIBITED DECREASED SAFETY AWARENESS. PT COMPLETED POSITIONING WITH MIN A. PT COMPLETED RUE AROM EX AND LUE PROM TOLERATED. [phone] THANK YOU,LALITO BUENO
[2019-08-07] VITALS: BP 128/88
[2019-08-07 04:00] VITALS: BP 132/80
[2019-08-07 04:50] LABS: BASOPHILS 0.8 % (0-2); EOSINOPHILS 2.7 % (0-7); HEMOGLOBIN 12.2 g/dL (13.5-17.5); IMMATURE GRANULOCYTES 0.2 % (0-5); LYMPHOCYTES 17.9 % (15-50); MCH 29.8 pg (26.0-34.0); MCHC 33.9 g/dL (31.0-37.0); MONOCYTES 11.5 % (2-11); NEUTROPHILS 66.9 % (40-80); PLATELET COUNT 410 10x3/uL (130-400); RBC 4.09 10x6/uL (4.20-6.10); RDW 13.2 % (11.5-14.5)
[2019-08-07 05:00] LABS: WBC 8.7 10x3/uL (4.8-10.8)
[2019-08-07 05:11] LABS: ALBUMIN 3.2 g/dL (3.4-5.0); ANION GAP 13.6 mmol/L (8-16); BILIRUBIN - TOTAL 0.69 mg/dL (0.2-1.3); CALCIUM 9.2 mg/dL (8.5-10.1); CARBON DIOXIDE 25.1 mmol/L (21.0-32.0); CREATININE - SERUM 3.8 mg/dL (0.6-1.3); POTASSIUM - SERUM 3.7 mmol/L (3.5-5.1); PROTEIN - SERUM 7.9 g/dL (6.4-8.2)
[2019-08-07 09:24] VITALS: BP 119/78
[2019-08-07 11:00] VITALS: BP 116/79
--- NOTE | 2019-08-07 12:42 | NUR ---
OT NOTE: PT INITIALLY RESISTANT TO THERAPY. DID NOT WANT TO SIT UP; SLIGHTLY AGITATED. EDEMA HAS IMPROVED IN L UE. INCREASED TONE ALSO NOTED TO L UE, HOWEVER, NO ACTIVE MOVEMENT NOTED; PROM TO L UE/LE; PRACTICED BED MOB INCLUDING ROLLING AND SUPINE TO SIT WITH MOD/MAX ASSIST. L NEGLECT ALSO IMPROVING .. PT LOOKING TO L SIDE WITHOUT VERBAL CUES REQUIRED. GELNIS JOHNSON, OTR/L [phone]
--- NOTE | 2019-08-07 12:53 | MORECARE ---
CASE MANAGEMENT DISCHARGE SUMMARY PATIENT: KILO GARCIA UNIT: [id number] ADM DATE: 07/18/19 AGE: 48 : 72 SEX: M ROOM/BED: D.2113 AUTHOR: RAPHAEL,DOC PHYSICIAN: REFERRING PHYSICIAN: DANNI HARP MD DATE OF SERVICE: 08/07/19 Discharge Plan Patient Name: KILO GARCIA Facility: [facility]:[place] : 1970 Planned Disposition: Home Anticipated Discharge Date: Discharge Date: Expected LOS: Initial Reviewer: [id number] Initial Review Date: 07/18/2019 Generated: 08/07/19 1:53 pm Comments DCP- Discharge Planning Updated by [id number]: Edita Bernstein on 08/07/19 11:[address] CM called [facility] rehab in [place] and spoke with [facility] about possible referral. Lyla states that [place] Medicaid does not have any rehab benefits for their facility and they would be unable to accept patient. I spoke with Chapin at [facility] and Chapin states patient will qualify for restorative rehab at their facility. He states he will speak with mother of patient and should be able to accept patient when medically stable for discharge. Additional clinical faxed to [facility] per request. CM will continue to follow and assist with discharge planning/needs. DCP- Discharge Planning Updated by [id number]: Edita Bernstein on 08/06/19 4:[address] Mira had messaged that patient is not deemed disabled and since he is under age 66, he does not qualify for long-term care Medicaid. I have asked [employer] to run his Medicaid and they state he has SSI disability Medicaid. I spoke with patient and mother, they both state that he is not on disability at this time. Mother is present in the room and states she has filed for it for him on line. I sent a referral to [facility] and notified Chapin. I also informed Mira that mother has filed for patient's disability on line. CM will continue to follow and assist with discharge planning/needs. DCP- Discharge Planning Updated by [id number]: Edita Bernstein on 08/06/19 11:[address] Updated clinical faxed to [facility]. I have messaged Mira, liaison for [facility], to check on referral. CM to continue to follow and assist with discharge planning/needs. DCP- Discharge Planning Updated by [id number]: Edita Bernstein on 08/02/19 10:[address] CM called [facility] and spoke with Aboila and clinical faxed. CM will continue to follow and assist with discharge planning/needs. DCP- Discharge Planning Updated by [id number]: Edita Bernstein on 08/01/19 3:[address] I received notification from [facility] ([facility]) rehab that they are unable to accept patient due to not having a safe discharge plan. I spoke with the patient and his mother and they would like a referral sent to [facility] first, then [facility]. I will reach out to [facility] in the am. CM will continue to follow and assist with discharge planning/needs. DCP- Discharge Planning Updated by [email or web address]: Edita Bernstein on 07/31/19 12:[address] CM met with patient's mother in the room per her request to discuss discharge planning. Patient's mother states that she lives at [address] [place] [address]. States she is unable to care for her son. States that when he is out of dialysis she will speak with him about a LTC facility. I provided her with the list of LTC facilities in surrounding area. I also informed her that I could reach out to [facility] to see if he has any rehab days available and she agrees with this plan. I spoke with Tanvi at [facility] and clinical faxed. CM will continue to follow and assist with discharge planning/needs. Monroe - mother - [phone] or [phone] DCP- Discharge Planning Updated by [id number]: Taina Renee on 07/19/19 4:[address] Patient Name: KILO GARCIA Admission Status: ER Accout number: [id number] Admission Date: 07-18-2019 : 1970 Admission Diagnosis: Attending: MACK HARP Current LOS: 1 Anticipated DC Date: Planned Disposition: Home Primary Insurance: MEDICAID [place] Discharge Planning Comments: CM met with patient's mother Monroe to complete initial dc planning assessment. CM educated patient on the CM role and verbal consent given by patient to complete assessment. Patient lives at home alone. Patient is independent. At discharge patient plans to return home. CM discussed availability of home health, rehab services, and medical equipment. Uncertain of discharge needs or disposition at this time. Patient is currently sedated on vent. Patient will have family to transport home. CM will continue to follow and will assist as needed with dc plans/needs. Home Care Giver: Taina Renee DCPIA - Discharge Planning Initial Assessment Updated by [email or web address]: Taina Renee on 07/19/19 5:35 pm * Is the patient Alert and Oriented? No * How many steps to enter\exit or inside your home? * [facility]CP [facility] * Pharmacy [facility]/ [place] * Preadmission Environment Home Alone * ADLs Independent * Equipment None * List name and contact numbers for known caregivers / representatives who currently or will assist patient after discharge: MONROE JIMENES - [phone] * Verbal permission to speak to the caregivers and representatives has been obtained from the patient. Yes * Community resources currently utilized None * Additional services required to return to the preadmission environment? No * Can the patient safely return to the preadmission environment? Yes * Has this patient been hospitalized within the prior 30 days at any hospital? No Coverage Notice Reviewer: [id number] Marlena Bernstein Notice Issued Date-Time: 08/01/2019 16:10 Notice Type: Patient Choice Letter Notice Delivered To: Patient Relationship to Patient: Self Head Butler Name: Delivery Method: HAND - Hand Delivered Jeanine Days: Prior Verbal Notification: Recipient Understood Notice: Yes Recipient Signature: Yes Med Rec Note Co-signed by Attending: Coverage Notice Comment: ASHLI for [facility] Last DP export: 08/06/19 4:30 p Patient Name: KILO GARCIA Page [phone] at 1253 All edits/amendments must be made on the electronic document DICTATION DATE: 08/07/19 1255 OPERATIONS VICE PRESIDENT: KELLY 08/07/19 1253 RPT#: [id number] DC DATE: STATUS: ADM IN [facility] [address] [place] [address] END OF REPORT
[2019-08-07 15:00] VITALS: BP 113/72
--- NOTE | 2019-08-07 17:40 | NUR ---
OT NOTE: PT EXHIBITED SELF LIMITING BEHAVIOR. PT COMPLETED REPOSITIONING WITH MIN A. PT COMPLETED R SIDE ROLLING WITH MOD VERBAL CUES AND USE OF SIDE RAIL. PT REQUIRED MOD A TO POSITION LUE . PT COMPLETED LUE PROM TOLERATED. PT REQUIRED MAX A WITH SIMPLE HYGIENE TASKS SECONDARY TO PROCESSING. [phone] THANK YOU,LALITO BUENO
[2019-08-07 20:00] VITALS: BP 113/77
[2019-08-08] VITALS: BP 110/67
[2019-08-08 04:00] VITALS: BP 123/86
[2019-08-08 04:56] LABS: BASOPHILS 1.1 % (0-2); EOSINOPHILS 4.6 % (0-7); HEMATOCRIT 34.7 % (42.0-54.0); HEMOGLOBIN 11.8 g/dL (13.5-17.5); IMMATURE GRANULOCYTES 0.7 % (0-5); LYMPHOCYTES 31.5 % (15-50); MCH 29.9 pg (26.0-34.0); MCV 88.1 fL (80.0-100.0); MEAN PLATELET VOLUME 10.4 fL (7.4-10.4); MONOCYTES 15.5 % (2-11); NEUTROPHILS 46.6 % (40-80); PLATELET COUNT 367 10x3/uL (130-400); RBC 3.94 10x6/uL (4.20-6.10); RDW 13.3 % (11.5-14.5)
[2019-08-08 05:10] LABS: WBC 5.7 10x3/uL (4.8-10.8)
[2019-08-08 05:11] LABS: ALBUMIN 3.1 g/dL (3.4-5.0); ANION GAP 10.6 mmol/L (8-16); BILIRUBIN - TOTAL 0.66 mg/dL (0.2-1.3); CALCIUM 9.2 mg/dL (8.5-10.1); CARBON DIOXIDE 26.2 mmol/L (21.0-32.0); CREATININE - SERUM 3.4 mg/dL (0.6-1.3); POTASSIUM - SERUM 3.8 mmol/L (3.5-5.1); PROTEIN - SERUM 7.6 g/dL (6.4-8.2)
[2019-08-08 09:05] VITALS: BP 138/81
--- NOTE | 2019-08-08 12:06 | NUR ---
I have reviewed this patient and I concur with the Shift Assessment completed by the Licensed Practical Nurse today this shift.
[2019-08-08 13:03] VITALS: BP 137/95
[2019-08-08 15:14] LABS: ANION GAP 15.7 mmol/L (8-16); CALCIUM 8.7 mg/dL (8.5-10.1); CARBON DIOXIDE 22.7 mmol/L (21.0-32.0); CREATININE - SERUM 3.4 mg/dL (0.6-1.3); POTASSIUM - SERUM 4.4 mmol/L (3.5-5.1)
--- NOTE | 2019-08-08 15:17 | NUR ---
OT NOTE: PT LESS AGITATED TODAY. PLEASANT AFFECT. PROM TO L UE.. REPORTED PAIN IN MIDSHAFT AREA OF FOREARM BUT NOT REPORTS OF PAIN IN L SHOULDER. NO SUBLUXATION NOTED IN SUPINE POSITION OR SITTING POSITION AT THIS TIME. CONT WITH CONFUSION AND NO ACTIVE MOVEMENT ON L SIDE. ABLE TO FOLLOW 1 STEP SIMPLE COMMANDS BUT INCREASED DIFFICULTY WITH PHYSICAL COMMANDS. GLENIS JOHNSON, OTR/L [phone]
--- NOTE | 2019-08-08 15:40 | NUR ---
OT NOTE: PT COMPLETED SUPINE TO SIT WITH MOD A. PT REQUIRED MAX A WITH LLE MANAGEMENT. PT COMPLETED POSITIONING IN BED WITH MOD A AND EXTENSIVE CUES FOR SCOOTING. PT COMPLETED TRICEP/BICEP STRENGTHENING OF RUE. PT COMPLETED L PROM TOLERATED. [phone] THANK YOU,LALITO BUENO
[2019-08-08 16:36] VITALS: BP 126/82
--- NOTE | 2019-08-08 17:47 | NUR ---
DR. ROBLES STATES TO ME TO DC IVF. I VERBALIZED UNDERSTANDING.
[2019-08-08 20:00] VITALS: BP 127/70
[2019-08-09 04:00] VITALS: BP 138/93
[2019-08-09 04:17] LABS: BASOPHILS 1.1 % (0-2); EOSINOPHILS 3.8 % (0-7); HEMATOCRIT 34.5 % (42.0-54.0); IMMATURE GRANULOCYTES 0.8 % (0-5); LYMPHOCYTES 25.2 % (15-50); MCH 30.5 pg (26.0-34.0); MCHC 34.8 g/dL (31.0-37.0); MCV 87.6 fL (80.0-100.0); MEAN PLATELET VOLUME 10.1 fL (7.4-10.4); MONOCYTES 14.1 % (2-11); PLATELET COUNT 368 10x3/uL (130-400); RBC 3.94 10x6/uL (4.20-6.10); RDW 12.9 % (11.5-14.5); WBC 7.1 10x3/uL (4.8-10.8)
[2019-08-09 04:38] LABS: ALBUMIN 3.1 g/dL (3.4-5.0); ANION GAP 12.2 mmol/L (8-16); BILIRUBIN - TOTAL 0.58 mg/dL (0.2-1.3); CALCIUM 8.9 mg/dL (8.5-10.1); CARBON DIOXIDE 24.4 mmol/L (21.0-32.0); CREATININE - SERUM 3.3 mg/dL (0.6-1.3); MAGNESIUM - SERUM 1.6 mg/dL (1.8-2.4); PROTEIN - SERUM 7.7 g/dL (6.4-8.2)
[2019-08-09 04:50] LABS: POTASSIUM - SERUM 3.6 mmol/L (3.5-5.1)
[2019-08-09 10:05] VITALS: BP 145/80
--- NOTE | 2019-08-09 12:36 | NUR ---
Nutrition Follow-up: Nursing reports pt ate <=50% of breakfast this AM. Awaiting placement. Diet: Renal PO intake: 57% avg x 7 meals (25-100%) Wt: 169# (08/06); 177.4# (07/17) Labs noted: K+ 3.6, Mg 1.6, Alb 3.1 Meds noted: Renvela, vitamin B6, Protonix, electrolyte protocol -Encourage PO intake and honor food preferences within diet restrictions. -Nepro sent with lunch today for pt trial. -Need new wt; noted daily wts ordered. -RD following.
--- NOTE | 2019-08-09 14:02 | NUR ---
OT NOTE: PT MORE ALERT TODAY. HAD TO ASSIST PT BACK UP IN BED SEVERAL TIMES HE HAD TURNED SIDEWAYS AND HAD LEGS OFF EOB BED. BED MOB WITH MOD ASSIST. CONT TO KEEP LEGS CROSSED MAKING BED MOB MORE DIFFICULT..PROM TO L UE; REMAINS CONFUSED BUT VOICE WAS LOUDER/STONGER TODAY. GLENIS JOHNSON, OTR/L [phone]
[2019-08-09 14:08] VITALS: BP 140/76
--- NOTE | 2019-08-09 14:08 | MORECARE ---
CASE MANAGEMENT DISCHARGE SUMMARY PATIENT: KILO GARCIA UNIT: [id number] ADM DATE: 07/18/19 AGE: 48 : 72 SEX: M ROOM/BED: D.2113 AUTHOR: RAPHAEL,DOC PHYSICIAN: REFERRING PHYSICIAN: DANNI HARP MD DATE OF SERVICE: 08/09/19 Discharge Plan Patient Name: KILO GARCIA Facility: [facility]:[place] : 1970 Planned Disposition: Home Anticipated Discharge Date: Discharge Date: Expected LOS: Initial Reviewer: [id number] Initial Review Date: 07/18/2019 Generated: 08/09/19 3:07 pm Comments DCP- Discharge Planning Updated by [email or web address]: Edita Bernstein on 08/09/19 1:[address] Chapin from [facility] states they need a AKI and Covid prior to admission. I sent the Aki to [employer] [employer]. He has a covid now pending. He will need an order for restorative therapy. CM will continue to follow and assist with discharge planning/needs. DCP- Discharge Planning Updated by [id number]: Edita Bernstein on 08/07/19 11:[address] CM called [facility] re[facility] in [place] and spoke with Lyla ([facility]) about possible referral. Lyla states that [place] Medicaid does not have any rehab benefits for their facility and they would be unable to accept patient. I spoke with Chapin at [facility] and Chapin states patient will qualify for restorative rehab at their facility. He states he will speak with mother of patient and should be able to accept patient when medically stable for discharge. Additional clinical faxed to [facility] per request. CM will continue to follow and assist with discharge planning/needs. DCP- Discharge Planning Updated by [id number]: Edita Bernstein on 08/06/19 4:[address] Mira had messaged that patient is not deemed disabled and since he is under age 65, he does not qualify for long-term care Medicaid. I have asked [facility] to run his Medicaid and they state he has SSI disability Medicaid. I spoke with patient and mother, they both state that he is not on disability at this time. Mother is present in the room and states she has filed for it for him on line. I sent a referral to [facility] and notified Chapin. I also informed Mira that mother has filed for patient's disability on line. CM will continue to follow and assist with discharge planning/needs. DCP- Discharge Planning Updated by [id number]: Edita Bernstein on 08/06/19 11:[address] Updated clinical faxed to [facility]. I have messaged Mira, liaison for [facility], to check on referral. CM to continue to follow and assist with discharge planning/needs. DCP- Discharge Planning Updated by [id number]: Edita Bernstein on 08/02/19 10:[address] CM called [facility] and spoke with Abiola and clinical faxed. CM will continue to follow and assist with discharge planning/needs. DCP- Discharge Planning Updated by [id number]: Edita Day on 08/01/19 3:[address] I received notification from Lisha Vega ([facility]) rehab that they are unable to accept patient due to not having a safe discharge plan. I spoke with the patient and his mother and they would like a referral sent to [facility] first, then [facility]. I will reach out to [facility] in the am. CM will continue to follow and assist with discharge planning/needs. DCP- Discharge Planning Updated by [id number]: Edita Day on 07/31/19 12:[address] CM met with patient's mother in the room per her request to discuss discharge planning. Patient's mother states that she lives at [address] [place] [address] States she is unable to care for her son. States that when he is out of dialysis she will speak with him about a LTC facility. I provided her with the list of LTC facilities in surrounding area. I also informed her that I could reach out to [facility] to see if he has any rehab days available and she agrees with this plan. I spoke with Tanvi at [facility] and clinical faxed. CM will continue to follow and assist with discharge planning/needs. Monroe - mother - [phone] or [phone] DCP- Discharge Planning Updated by [email or web address]: Taina Renee on 07/19/19 4:[address] Patient Name: KILO GARCIA Admission Status: ER Accout number: [id number] Admission Date: 07-18-2019 : 1970 Admission Diagnosis: Attending: MACK HARP Current LOS: 1 Anticipated DC Date: Planned Disposition: Home Primary Insurance: MEDICAID [place] Discharge Planning Comments: CM met with patient's mother Monroe to complete initial dc planning assessment. CM educated patient on the CM role and verbal consent given by patient to complete assessment. Patient lives at home alone. Patient is independent. At discharge patient plans to return home. CM discussed availability of home health, rehab services, and medical equipment. Uncertain of discharge needs or disposition at this time. Patient is currently sedated on vent. Patient will have family to transport home. CM will continue to follow and will assist as needed with dc plans/needs. Volunteer Specialist: Taina Renee DCPIA - Discharge Planning Initial Assessment Updated by [id number]: Taina Reene on 07/19/19 5:35 pm * Is the patient Alert and Oriented? No * How many steps to enter\exit or inside your home? * [facility]CP [facility] * [email or web address] * Preadmission Environment Home Alone * ADLs Independent * Equipment None * List name and contact numbers for known caregivers / representatives who currently or will assist patient after discharge: MONROE JIMENES - MOTHER - [phone] * Verbal permission to speak to the caregivers and representatives has been obtained from the patient. Yes * Community resources currently utilized None * Additional services required to return to the preadmission environment? No * Can the patient safely return to the preadmission environment? Yes * Has this patient been hospitalized within the prior 30 days at any hospital? No External Providers External Provider: [facility] Next Contact Date: Service Request Date: Service Type: Resolution: Reviewer: Comments: Coverage Notice Reviewer: [id number] Marlena Bernstein Notice Issued Date-Time: 08/01/2019 16:10 Notice Type: Patient Choice Letter Notice Delivered To: Patient Relationship to Patient: Self Bobbin Cleaner Name: Delivery Method: HAND - Hand Delivered Jeanine Days: Prior Verbal Notification: Recipient Understood Notice: Yes Recipient Signature: Yes Med Rec Note Co-signed by Attending: Coverage Notice Comment: ASHLI for [facility] or [facility] Last DP export: 08/07/19 11:53 a Patient Name: KILO GARCIA Page 35697 at 1408 All edits/amendments must be made on the electronic document DICTATION DATE: 08/09/191406 STUDENT OUTREACH COORDINATOR: KELLY 08/09/191406 RPT#: [id number] DC DATE: STATUS: ADM IN [facility] [address] [place] [address] END OF REPORT
--- NOTE | 2019-08-09 14:35 | NUR ---
PT'S DIAMOND CLAMPED FOR BLADDER TRAINING. CALLED WITH COMPLAINT OF LEAKING. UNCLAMPED AND @150 ML EMPTIED. CLAMPED BACK FOR TRAINING.
--- NOTE | 2019-08-09 15:12 | NUR ---
OT NOTE: PT COMPLETED SIDE ROLLING WITH MOD A. PT COMPLETED SCOOTING WITH MOD A. PT COMPLETED SUPINE TO SIT WITH MOD A. PT COMPLETED LB HYGIENE TASKS WITH MAX A. [phone] THANK YOU,LALITO BUENO
[2019-08-09 18:23] VITALS: BP 138/80
--- NOTE | 2019-08-09 19:00 | NUR ---
RECIEVED BEDSIDE REPORT. PATIENT READJUSTED IN BED. PATIENT IS PLEASENTLY CONFUSED. PATIENT IS RESTING COMFORTABLEY, AFTER BEING ADJUSTED. MOTHER WAS CALLED FOR THE PATIENT.
[2019-08-09 20:00] VITALS: BP 131/92
[2019-08-10 04:00] VITALS: BP 156/92
--- NOTE | 2019-08-10 05:06 | NUR ---
PATIENT HAS BEEN UP ALL NIGHT. HE HAS BEEN RESTLESS, AND GET'S LEGS OUT OF THE BED. HE HAS BEEN ADJUSTED IN BED A COUPLE OF TIMES. HE RECEIVED TYLENOL LAST NIGHT FOR GENERAL PAIN.
[2019-08-10 05:07] LABS: HEMATOCRIT 34.8 % (42.0-54.0); HEMOGLOBIN 11.9 g/dL (13.5-17.5); IMMATURE GRANULOCYTES 0.5 % (0-5); LYMPHOCYTES 30.6 % (15-50); MCH 30.1 pg (26.0-34.0); MCHC 34.2 g/dL (31.0-37.0); MCV 87.9 fL (80.0-100.0); MEAN PLATELET VOLUME 10.1 fL (7.4-10.4); MONOCYTES 14.7 % (2-11); NEUTROPHILS 49.2 % (40-80); PLATELET COUNT 346 10x3/uL (130-400); RBC 3.96 10x6/uL (4.20-6.10); RDW 12.9 % (11.5-14.5); WBC 6.3 10x3/uL (4.8-10.8)
[2019-08-10 05:50] LABS: ALBUMIN 3.4 g/dL (3.4-5.0); ANION GAP 14.2 mmol/L (8-16); BILIRUBIN - TOTAL 0.52 mg/dL (0.2-1.3); CARBON DIOXIDE 24.4 mmol/L (21.0-32.0); CREATININE - SERUM 3.3 mg/dL (0.6-1.3); MAGNESIUM - SERUM 1.7 mg/dL (1.8-2.4); PHOSPHOROUS 4.6 mg/dL (2.5-4.9); POTASSIUM - SERUM 3.6 mmol/L (3.5-5.1); PROTEIN - SERUM 7.9 g/dL (6.4-8.2)
--- NOTE | 2019-08-10 07:00 | NUR ---
BEDSIDE REPORT RECEIVED. SHIFT ASSESSMENT COMPLETED PER FLOWSHEET, SEE FLOWSHEET FOR INFORMATION. ASSISSTED PT TO EAT BREAKFAST, NO S/S OF ASPIRATION NOTED. NO ACUTE NEEDS OR DISTRESS NOTED AT THIS TIME. PT DENIES ANY PAIN OR DISCOMFORT. BED IN LOWEST POSITION, CALL LIGHT WITHIN REACH, SIDE RAILS UP X2. WILL CONT TO MONITOR.
--- NOTE | 2019-08-10 07:24 | MORECARE ---
CASE MANAGEMENT DISCHARGE SUMMARY PATIENT: KILO GARCIA UNIT: [id number] ADM DATE: 07/18/19 AGE: 48 : 72 SEX: M ROOM/BED: D.2113 AUTHOR: RAPHAEL,DOC PHYSICIAN: REFERRING PHYSICIAN: DANNI HARP MD DATE OF SERVICE: 08/10/19 Discharge Plan Patient Name: KILO GARCIA Facility: [facility]:[place] : 1970 Planned Disposition: Home Anticipated Discharge Date: Discharge Date: Expected LOS: Initial Reviewer: [id number] Initial Review Date: 07/18/2019 Generated: 08/10/19 8:24 am Comments DCP- Discharge Planning Updated by [id number]: Edita Bernstein on 08/10/19 6:[address] Negative Covid result and Non Passr faxed to [facility]. He will need discharge paperwork to document restorative therapy. CM will continue to tollow and assist with discharge planning/needs. DCP- Discharge Planning Updated by [id number]: Edita Bernstein on 08/09/19 1:[address] Chapin from [facility] states they need a AKI and Covid prior to admission. I sent the Aki to [facility]. He has a covid now pending. He will need an order for restorative therapy. CM will continue to follow and assist with discharge planning/needs. DCP- Discharge Planning Updated by [id number]: Edita Bernstein on 08/07/19 11:[address] CM called [facility] re[facility] in [place] and spoke with Lyla (thiago) about possible referral. Lyla states that [place] Medicaid does not have any rehab benefits for their facility and they would be unable to accept patient. I spoke with Chapin at [facility] and Chapin states patient will qualify for restorative rehab at their facility. He states he will speak with mother of patient and should be able to accept patient when medically stable for discharge. Additional clinical faxed to [facility] per request. CM will continue to follow and assist with discharge planning/needs. DCP- Discharge Planning Updated by [id number]: Edita Bernstein on 08/06/19 4:[address] Mira had messaged that patient is not deemed disabled and since he is under age 66, he does not qualify for long-term care Medicaid. I have asked [facility] to run his Medicaid and they state he has SSI disability Medicaid. I spoke with patient and mother, they both state that he is not on disability at this time. Mother is present in the room and states she has filed for it for him on line. I sent a referral to [facility] and notified Chapin. I also informed Mira that mother has filed for patient's disability on line. CM will continue to follow and assist with discharge planning/needs. DCP- Discharge Planning Updated by [id number]: Edita Bernstein on 08/06/19 11:[address] Updated clinical faxed to [facility]. I have messaged Mira, liaison for [facility], to check on referral. CM to continue to follow and assist with discharge planning/needs. DCP- Discharge Planning Updated by [id number]: Edita Bernstein on 08/02/19 10:[address] CM called [facility] and spoke with Abiola and clinical faxed. CM will continue to follow and assist with discharge planning/needs. DCP- Discharge Planning Updated by [id number]: Edita Bernstein on 08/01/19 3:[address] I received notification from Lisha Vega ([facility]) rehab that they are unable to accept patient due to not having a safe discharge plan. I spoke with the patient and his mother and they would like a referral sent to [facility] first, then [facility]. I will reach out to [facility] in the am. CM will continue to follow and assist with discharge planning/needs. DCP- Discharge Planning Updated by [id number]: Edita Bernstein on 07/31/19 12:[address] CM met with patient's mother in the room per her request to discuss discharge planning. Patient's mother states that she lives at [address] [facility] [address] States she is unable to care for her son. States that when he is out of dialysis she will speak with him about a LTC facility. I provided her with the list of LTC facilities in surrounding area. I also informed her that I could reach out to [facility] to see if he has any rehab days available and she agrees with this plan. I spoke with Tanvi at [facility] and clinical faxed. CM will continue to follow and assist with discharge planning/needs. Monroe marti - [phone] or [phone] DCP- Discharge Planning Updated by [id number]: Taina Renee on 07/19/19 4:[address] Patient Name: KILO WHEATLEYJR Admission Status: ER Accout number: [id number] Admission Date: 07-18-2019 : 1970 Admission Diagnosis: Attending: MACK HARP Current LOS: 1 Anticipated DC Date: Planned Disposition: Home Primary Insurance: MEDICAID [place] Discharge Planning Comments: CM met with patient's mother Monroe to complete initial dc planning assessment. CM educated patient on the CM role and verbal consent given by patient to complete assessment. Patient lives at home alone. Patient is independent. At discharge patient plans to return home. CM discussed availability of home health, rehab services, and medical equipment. Uncertain of discharge needs or disposition at this time. Patient is currently sedated on vent. Patient will have family to transport home. CM will continue to follow and will assist as needed with dc plans/needs. Regional Environmental Manager: Taina Renee DCPIA - Discharge Planning Initial Assessment Updated by [id number]: Taina Renee on 07/19/19 5:35 pm * Is the patient Alert and Oriented? No * How many steps to enter\exit or inside your home? * PCP [facility] * Pharmacy [facility] [place] * Preadmission Environment Home Alone * ADLs Independent * Equipment None * List name and contact numbers for known caregivers / representatives who currently or will assist patient after discharge: MONROE JIMENES - - [phone] * Verbal permission to speak to the caregivers and representatives has been obtained from the patient. Yes * Community resources currently utilized None * Additional services required to return to the preadmission environment? No * Can the patient safely return to the preadmission environment? Yes * Has this patient been hospitalized within the prior 30 days at any hospital? No Coverage Notice Reviewer: [id number] Marlena Bernstein Notice Issued Date-Time: 08/01/2019 16:10 Notice Type: Patient Choice Letter Notice Delivered To: Patient Relationship to Patient: Self Planning Aide Name: Delivery Method: HAND - Hand Delivered Jeanine Days: Prior Verbal Notification: Recipient Understood Notice: Yes Recipient Signature: Yes Med Rec Note Co-signed by Attending: Coverage Notice Comment: ASHLI for [facility] or [facility] Last DP export: 08/09/19 1:07 p Patient Name: KILO GARCIA Page [id number] at 0724 All edits/amendments must be made on the electronic document DICTATION DATE: 08/10/19723 MOVE COORDINATOR: KELLY 08/10/19723 RPT#: [id number] DC DATE: STATUS: ADM IN [facility] [address] [place] [address] END OF REPORT
[2019-08-10 08:00] VITALS: BP 127/69
--- NOTE | 2019-08-10 11:46 | MORECARE ---
CASE MANAGEMENT DISCHARGE SUMMARY PATIENT: KILO GARCIA UNIT: [id number] ADM DATE: 07/18/19 AGE: 48 : 72 SEX: M ROOM/BED: D.2113 AUTHOR: RAPHAEL,DOC PHYSICIAN: REFERRING PHYSICIAN: DANNI HARP MD DATE OF SERVICE: 08/10/19 Discharge Plan Patient Name: KLIO GARCIA Facility: [facility]:[place] : 1970 Planned Disposition: Home Anticipated Discharge Date: Discharge Date: Expected LOS: Initial Reviewer: [id number] Initial Review Date: 07/18/2019 Generated: 08/10/19 12:46 pm Comments DCP- Discharge Planning Updated by [id number]: Edita Bernstein on 08/10/19 10:[address] CM called Chapin with [facility], he states they will not have an available bed until Tuesday, and will accept the patient on Tuesday. I informed Dr. Noland, patient and called patient's mother, Monroe Wong, and left a message on her voice mail that he has been accepted to [facility] and they will have an available bed on Tuesday. DCP- Discharge Planning Updated by [id number]: Edita Bernstein on 08/10/19 6:[address] Negative Covid result and Non Passr faxed to [facility]. He will need discharge paperwork to document restorative therapy. CM will continue to tollow and assist with discharge planning/needs. DCP- Discharge Planning Updated by [id number]: Edita Bernstein on 08/09/19 1:[address] Chapin from [facility] states they need a AKI and Covid prior to admission. I sent the [place] to [facility]. He has a covid now pending. He will need an order for restorative therapy. CM will continue to follow and assist with discharge planning/needs. DCP- Discharge Planning Updated by [id number]: Edita Bernstein on 08/07/19 11:[address] CM called [facility] re[facility] in [place] and spoke with Lyla (thiago) about possible referral. Lyla states that [place] Medicaid does not have any rehab benefits for their facility and they would be unable to accept patient. I spoke with Chapin at [facility] and Chapin states patient will qualify for restorative rehab at their facility. He states he will speak with mother of patient and should be able to accept patient when medically stable for discharge. Additional clinical faxed to [facility] per request. CM will continue to follow and assist with discharge planning/needs. DCP- Discharge Planning Updated by [id number]: Edita Bernstein on 08/06/19 4:[address] Mira had messaged that patient is not deemed disabled and since he is under age 65, he does not qualify for long-term care Medicaid. I have asked [facility] to run his Medicaid and they state he has SSI disability Medicaid. I spoke with patient and mother, they both state that he is not on disability at this time. Mother is present in the room and states she has filed for it for him on line. I sent a referral to [facility] and notified Chapin. I also informed Mira that mother has filed for patient's disability on line. CM will continue to follow and assist with discharge planning/needs. DCP- Discharge Planning Updated by [id number]: Edita Bernstein on 08/06/19 11:[address] Updated clinical faxed to [facility]. I have messaged Mira, liaison for [facility], to check on referral. CM to continue to follow and assist with discharge planning/needs. DCP- Discharge Planning Updated by [id number]: Edita Bernstein on 08/02/19 10:[address] CM called [facility] and spoke with Abiola and clinical faxed. CM will continue to follow and assist with discharge planning/needs. DCP- Discharge Planning Updated by [id number]: Edita Bernstein on 08/01/19 3:[address] I received notification from Lisha Vega [facility] rehab that they are unable to accept patient due to not having a safe discharge plan. I spoke with the patient and his mother and they would like a referral sent to [facility] first, then [facility]. I will reach out to [facility] in the am. CM will continue to follow and assist with discharge planning/needs. DCP- Discharge Planning Updated by [id number]: Edita Bernstein on 07/31/19 12:[address] CM met with patient's mother in the room per her request to discuss discharge planning. Patient's mother states that she lives at [address] [place] [address] States she is unable to care for her son. States that when he is out of dialysis she will speak with him about a LTC facility. I provided her with the list of LTC facilities in surrounding area. I also informed her that I could reach out to [facility] to see if he has any rehab days available and she agrees with this plan. I spoke with Tanvi at [facility] and clinical faxed. CM will continue to follow and assist with discharge planning/needs. Monroe marti - [phone] or [phone] DCP- Discharge Planning Updated by [id number]: Taina Renee on 07/19/19 4:[address] Patient Name: KILO WONG_JR Admission Status: ER Accout number: [id number] Admission Date: 07-18-2019 : 1970 Admission Diagnosis: Attending: MACK HARP Current LOS: 1 Anticipated DC Date: Planned Disposition: Home Primary Insurance: MEDICAID [place] Discharge Planning Comments: CM met with patient's mother Monroe to complete initial dc planning assessment. CM educated patient on the CM role and verbal consent given by patient to complete assessment. Patient lives at home alone. Patient is independent. At discharge patient plans to return home. CM discussed availability of home health, rehab services, and medical equipment. Uncertain of discharge needs or disposition at this time. Patient is currently sedated on vent. Patient will have family to transport home. CM will continue to follow and will assist as needed with dc plans/needs. Brusher Tender: Taina Renee DCPIA - Discharge Planning Initial Assessment Updated by [id number]: Taina Renee on 07/19/19 5:35 pm * Is the patient Alert and Oriented? No * How many steps to enter\exit or inside your home? * PCP [facility] * [facility] [place] * Preadmission Environment Home Alone * ADLs Independent * Equipment None * List name and contact numbers for known caregivers / representatives who currently or will assist patient after discharge: MONROE MARTI - [phone] * Verbal permission to speak to the caregivers and representatives has been obtained from the patient. Yes * Community resources currently utilized None * Additional services required to return to the preadmission environment? No * Can the patient safely return to the preadmission environment? Yes * Has this patient been hospitalized within the prior 30 days at any hospital? No Coverage Notice Reviewer: [id number] Marlena Bernstein Notice Issued Date-Time: 08/01/2019 16:10 Notice Type: Patient Choice Letter Notice Delivered To: Patient Relationship to Patient: Self Landscape Nurseryman Name: Delivery Method: HAND - Hand Delivered Jeanine Days: Prior Verbal Notification: Recipient Understood Notice: Yes Recipient Signature: Yes Med Rec Note Co-signed by Attending: Coverage Notice Comment: ASHLI for [facility] Last DP export: 08/10/19 6:24 a Patient Name: KILO GARCIA Page 85547 at 1146 All edits/amendments must be made on the electronic document DICTATION DATE: 08/10/19 1146 CLOTH SHEARING SUPERVISOR: KELLY 08/10/19 1146 RPT#: [id number] DC DATE: STATUS: ADM IN [facility] [address] [place] [address] END OF REPORT
[2019-08-10 12:00] VITALS: BP 121/66
--- NOTE | 2019-08-10 12:59 | NUR ---
OT NOTE: PT INITIALLY VERY LETHARGIC AND DIFFICULT TO WAKE UP.. HOWEVER, ONCE AWAKE AND WAS ASKED ABOUT HIS TATTOO, HIS AFFECT AND VERBALIZATION IMPROVED GREATLY. REUQIRES CUES TO SLOW HIS RATE OF SPEECH. BED MOB WITH MOD ASSIST FOR SUPINE TO SIT; MOD VERBAL AND MIN TACTILE CUES FOR UPRIGHT SITTING. ATTEMPTED WT BEARING TASKS WITH L UE..PROVIDED THOROUGH CLEANING FOR L HAND AND WHILE I WAS CLEANING HIS HAND , HE BEGAN C/O PAIN IN UPPER ARM.. APPROX 1 FINGER DEAPTH SUBLUXATION NOTED IN L SHOULDER. I CHECKED FOR THIS YESTERDAY, HOWEVER, APPARENTLY PT WAS IN AN IMPROPER POSITION BECAUSE I COULD NOT FEEL ANY SUBLUXATION YESTERDAY. AFTER THOROUGHLY CLEANING L HAND, POSITIONED PT WITH PILLOW UNDER ARM AND HAND SLIGHTLY ELEVATED. PT WAS ABLE TO PERFORM SIMPLE GROOMING TASKS WITH VERBAL INSTRUCTION. GLENIS JOHNSON, OTR/L [phone]
--- NOTE | 2019-08-10 15:15 | NUR ---
ORDERS RECEIVED FROM ALMA THOMAS TO D/C TRIALYSIS CATHETER AND DIAMOND CATHETER. WILL CONT TO MONITOR.
--- NOTE | 2019-08-10 19:32 | NUR ---
RECEIVED BEDSIDE REPORT. PATIENT IS ALERT RESTING COMFORTABLY IN BED. RESPIRATIONS ARE EVEN AND UNLABORED. NO S/S OF DISTRESS. NO C/O PAIN. CALL LIGHT WITHIN REACH. WILL CPOC.
[2019-08-10 20:30] VITALS: BP 139/96
--- NOTE | 2019-08-11 02:45 | NUR ---
TRIALYSIS D/Cd. CATHETER INTACT. PRESSURE HELD FOR 3 MINUTES. NO SIGN OF BLEEDING. NO S/S OF DISTRESS. CALL LIGHT WITHIN REACH. WILL CPOC.
[2019-08-11 04:30] VITALS: BP 149/95
[2019-08-11 05:13] LABS: BASOPHILS 0.8 % (0-2); EOSINOPHILS 2.6 % (0-7); HEMOGLOBIN 12.5 g/dL (13.5-17.5); IMMATURE GRANULOCYTES 0.6 % (0-5); LYMPHOCYTES 26.4 % (15-50); MCH 30.3 pg (26.0-34.0); MCHC 34.7 g/dL (31.0-37.0); MCV 87.4 fL (80.0-100.0); MEAN PLATELET VOLUME 10.5 fL (7.4-10.4); MONOCYTES 15.3 % (2-11); NEUTROPHILS 54.3 % (40-80); PLATELET COUNT 363 10x3/uL (130-400); RBC 4.12 10x6/uL (4.20-6.10)
[2019-08-11 05:18] LABS: WBC 7.9 10x3/uL (4.8-10.8)
[2019-08-11 05:32] LABS: ALBUMIN 3.5 g/dL (3.4-5.0); ANION GAP 13.5 mmol/L (8-16); BILIRUBIN - TOTAL 0.47 mg/dL (0.2-1.3); CALCIUM 8.9 mg/dL (8.5-10.1); CARBON DIOXIDE 25.3 mmol/L (21.0-32.0); CREATININE - SERUM 2.7 mg/dL (0.6-1.3); MAGNESIUM - SERUM 1.8 mg/dL (1.8-2.4); POTASSIUM - SERUM 3.8 mmol/L (3.5-5.1); PROTEIN - SERUM 8.2 g/dL (6.4-8.2)
--- NOTE | 2019-08-11 07:15 | NUR ---
RECEIVED PT IN BED EYES CLOSED RESP UNLABORED SKIN W/D COLOR WNL NAD NOTED
[2019-08-11 13:04] VITALS: BP 120/77
[2019-08-11 18:00] VITALS: BP 125/79
[2019-08-11 20:30] VITALS: BP 130/81
--- NOTE | 2019-08-12 00:13 | NUR ---
INITIAL ROUNDS COMPLETED ATG 1910 HRS. PT URINATED ON THE FLOOR. AREA CLEANED AND PT REPOSITIONED IN BED. ASSESSMENT COMPLETED AT 2020 HRS. PT HAS LEGS FLUNG OVER SIDE RAILS AND IS NAKED. GOWN PLACED BACK ON PT AND REPOSITIONED IN BED. PT ALERT WITH EXPRESSIVE APHASIA. L ARM FLACCID AND SWOLLEN. HEALING SORES NOTED TO L ARM. MINIMAL MOVEMENT TO L LEG. SORES NOTED TO BILAT FEET. LUNGS ESSENTIALLY CTA. ABD SOFT WITH ACTIVE BS NOTED. NO IV ACCESS. PT REFUSES. PM MEDS GIVEN PER ORDERS. PT WITH LEGS FLUNG OVER BEDRAILS AND NAKED AT 2350 HRS. PT REPOSITIONED IN BED. GOWN APPLIED. SR UP X2, CALL LIGHT WITHIN REACH AND BED ALARM ON.
[2019-08-12 00:30] VITALS: BP 126/90
--- NOTE | 2019-08-12 03:16 | NUR ---
PT AGITATED, ATTEMPTING TO FLING SELF OVER THE SIDE RAILS SATING HE NEEDS TO GO TO THE HOSPITAL. INFORMED PT NUMEROUS TIMES THAT HE IS IN THE HOSPITAL. PT MUMBLED SOMETHING ABOUT HIS ARM. AFTER SEVERAL ATTEMPTS PT STATES HIS ARM HURTS. TYLENOL 650MG PO GIVEN. SPRITE GIVEN PER REQUEST. SR UP X2, CALL LIGHT WITHIN REACH AND BED ALARM ON.
[2019-08-12 04:30] VITALS: BP 132/86
[2019-08-12 05:19] LABS: HEMOGLOBIN 12.7 g/dL (13.5-17.5); LYMPHOCYTES 30.7 % (15-50); MCH 29.6 pg (26.0-34.0); MCHC 34.3 g/dL (31.0-37.0); MCV 86.2 fL (80.0-100.0); MEAN PLATELET VOLUME 10.5 fL (7.4-10.4); NEUTROPHILS 52.5 % (40-80); PLATELET COUNT 341 10x3/uL (130-400); RBC 4.29 10x6/uL (4.20-6.10); RDW 12.8 % (11.5-14.5); WBC 8.1 10x3/uL (4.8-10.8)
[2019-08-12 05:27] LABS: ALBUMIN 3.6 g/dL (3.4-5.0); ANION GAP 13.7 mmol/L (8-16); BILIRUBIN - TOTAL 0.6 mg/dL (0.2-1.3); CALCIUM 8.7 mg/dL (8.5-10.1); CARBON DIOXIDE 25.2 mmol/L (21.0-32.0); CREATININE - SERUM 2.8 mg/dL (0.6-1.3); MAGNESIUM - SERUM 1.9 mg/dL (1.8-2.4); PHOSPHOROUS 4.6 mg/dL (2.5-4.9); POTASSIUM - SERUM 3.9 mmol/L (3.5-5.1); PROTEIN - SERUM 8.3 g/dL (6.4-8.2)
--- NOTE | 2019-08-12 06:29 | NUR ---
VSS THROUGHOUT NIGHT. SR PER CM. PT STATED TYLENOL WORKED OK ON HIS ARM PAIN. CONTINUES TO BECOME NAKED AND UNCOOPERATIVE AT TIMES. NEEDS MET; WILL CONTINUE TO MONNITOR.
--- NOTE | 2019-08-12 11:02 | NUR ---
PATIENT RESTING QUIETLY WATCHING TV. ASSESSMENT COMPLETED. WILL CONTINUE TO MONITOR. SR UPX 2 BED IN LOW POSITION AND CALL LIGHT IN REACH.
[2019-08-12 15:11] VITALS: BP 127/89
[2019-08-12 17:55] VITALS: BP 128/91
[2019-08-12 18:16] LABS: BILIRUBIN NEGATIVE (NEGATIVE); EPITHELIAL CELLS OCC /hpf (0-5); GLUCOSE NEGATIVE (NEGATIVE); KETONE NEGATIVE (NEGATIVE); NITRITE NEGATIVE (NEGATIVE); RED CELLS - URINE OCC /hpf (0-5); SPECIFIC GRAVITY 1.005 (1.005-1.020); UROBILINOGEN NORMAL (NORMAL); WHITE CELLS - URINE NSEEN /hpf (NEGATIVE)
[2019-08-12 20:30] VITALS: BP 133/87
[2019-08-13 00:30] VITALS: BP 147/89
[2019-08-13 04:30] VITALS: BP 164/93
[2019-08-13 06:49] LABS: HEMATOCRIT 38.4 % (42.0-54.0); HEMOGLOBIN 13.2 g/dL (13.5-17.5); LYMPHOCYTES 29.7 % (15-50); MCH 29.5 pg (26.0-34.0); MCHC 34.4 g/dL (31.0-37.0); MCV 85.9 fL (80.0-100.0); MEAN PLATELET VOLUME 11.4 fL (7.4-10.4); NEUTROPHILS 55.9 % (40-80); PLATELET COUNT 301 10x3/uL (130-400); RBC 4.47 10x6/uL (4.20-6.10); WBC 7.9 10x3/uL (4.8-10.8)
[2019-08-13 07:25] LABS: ALBUMIN 3.9 g/dL (3.4-5.0); ALKALINE PHOSPHATASE 271 U/L (30-120); BILIRUBIN - TOTAL 0.61 mg/dL (0.2-1.3); CALC OSMOLALITY 281 mosm/kg (275-300); CALCIUM 9.3 mg/dL (8.5-10.1); CARBON DIOXIDE 24.5 mmol/L (21.0-32.0); CHLORIDE - SERUM 99 mmol/L (98-107); CKMB 6.8 U/L (0.0-3.6); CREATINE KINASE 250 UL (21-232); CREATININE - SERUM 2.5 mg/dL (0.6-1.3); GLUCOSE 89 mg/dL (74-106); POTASSIUM - SERUM 3.4 mmol/L (3.5-5.1); PROTEIN - SERUM 9.5 g/dL (6.4-8.2); SODIUM 136 mmol/L (136-145); UREA NITROGEN 43 mg/dL (7-18); eGFR NON AFRICAN AMERICAN 29 mL/min (90-120)
[2019-08-13 07:26] LABS: ALT (SGPT) 199 U/L (10-68)
[2019-08-13 09:51] VITALS: BP 139/88
--- NOTE | 2019-08-13 12:22 | NUR ---
PT PERFORMED MUCH BETTER TODAY. PT WAS TREATED BY OT AND PT.. BED MOB WITH MIN ASSIST. PT WAS NOTED TO HAVE SOME ACTIVE HIP EXTENSION TODAY, WHICH HE HAS PREVIOUSLY NOT HAD. SITTING BALANCE WAS FAIR; SIT TO STAND WITH WALKER AND MIN ASSIST BUT MOD ASSIST TO MAINTAIN DUE TO WEAKNESS IN L KNEE. HOWEVER, PT ABLE TO PERFORM 3 TRIALS AND THERAPIST PROVIDED INCREASED WT BEARING THROUGH L UE/LE. CONT WITH NO ACTIVE MOVEMENT IN L UE. GLENIS JOHNSON, OTR/L [phone]
--- NOTE | 2019-08-13 12:45 | MORECARE ---
CASE MANAGEMENT DISCHARGE SUMMARY PATIENT: KILO GARCIA UNIT: [id number] ADM DATE: 07/18/19 AGE: 48 : 72 SEX: M ROOM/BED: D.3073 AUTHOR: RAPHAEL,DOC PHYSICIAN: REFERRING PHYSICIAN: DANNI HARP MD DATE OF SERVICE: 08/13/19 Discharge Plan Patient Name: KILO GARCIA Facility: [facility]:[place] : 1970 Planned Disposition: Home Anticipated Discharge Date: Discharge Date: Expected LOS: Initial Reviewer: [email or web address] Initial Review Date: 07/18/2019 Generated: 08/13/19 1:44 pm Comments DCP- Discharge Planning Updated by [id number]: Edita Bernstein on 08/13/19 11:[address] CM CALLED [facility] TO CHECK ON STATUS OF ADMISSION. I SPOKE WITH ROBBI, SHE IS CHECKING WITH [employer] AND WILL LET ME KNOW IF THEY CAN ACCPET TODAY. DCP- Discharge Planning Updated by [id number]: Edita Bernstein on 08/10/19 10:[address] CM called Chapin with [facility], he states they will not have an available bed until Tuesday, and will accept the patient on Tuesday. I informed Dr. Noland, patient and called patient's mother, Monroe Wong, and left a message on her voice mail that he has been accepted to [facility] and they will have an available bed on Tuesday. DCP- Discharge Planning Updated by [id number]: Edita Bernstein on 08/10/19 6:[address] Negative Covid result and Non Passr faxed to [facility]. He will need discharge paperwork to document restorative therapy. CM will continue to tollow and assist with discharge planning/needs. DCP- Discharge Planning Updated by [id number]: Edita Bernstein on 08/09/19 1:[address] Chapin from [facility] states they need a AKI and Covid prior to admission. I sent the Aki to [facility]. He has a covid now pending. He will need an order for restorative therapy. CM will continue to follow and assist with discharge planning/needs. DCP- Discharge Planning Updated by [email or web address]: Edita Bernstein on 08/07/19 11:[address] CM called [facility] rehab in [place] and spoke with Lyla ([facility]) about possible referral. Lyla states that [place] Medicaid does not have any rehab benefits for their facility and they would be unable to accept patient. I spoke with Chapin at [facility] and Chapin states patient will qualify for restorative rehab at their facility. He states he will speak with mother of patient and should be able to accept patient when medically stable for discharge. Additional clinical faxed to [facility] per request. CM will continue to follow and assist with discharge planning/needs. DCP- Discharge Planning Updated by [email or web address]: Edita Bernstein on 08/06/19 4:[address] Mira had messaged that patient is not deemed disabled and since he is under age 66, he does not qualify for long-term care Medicaid. I have asked [facility] [employer] to run his Medicaid and they state he has SSI disability Medicaid. I spoke with patient and mother, they both state that he is not on disability at this time. Mother is present in the room and states she has filed for it for him on line. I sent a referral to [facility] and notified Chapin. I also informed Mira that mother has filed for patient's disability on line. CM will continue to follow and assist with discharge planning/needs. DCP- Discharge Planning Updated by [id number]: Edita Bernstein on 08/06/19 11:[address] Updated clinical faxed to [facility]. I have messaged Mira, liaison for [facility], to check on referral. CM to continue to follow and assist with discharge planning/needs. DCP- Discharge Planning Updated by [id number]: Edita Bernstein on 08/02/19 10:[address] CM called [facility] and spoke with Abiola and clinical faxed. CM will continue to follow and assist with discharge planning/needs. DCP- Discharge Planning Updated by [id number]: Edita Bernstein on 08/01/19 3:[address] I received notification from Lisha Vega ([facility]) rehab that they are unable to accept patient due to not having a safe discharge plan. I spoke with the patient and his mother and they would like a referral sent to [facility] first, then [facility]. I will reach out to [facility] in the am. CM will continue to follow and assist with discharge planning/needs. DCP- Discharge Planning Updated by [id number]: Edita Bernstein on 07/31/19 12:[address] CM met with patient's mother in the room per her request to discuss discharge planning. Patient's mother states that she lives at [address] [place] States she is unable to care for her son. States that when he is out of dialysis she will speak with him about a LTC facility. I provided her with the list of LTC facilities in surrounding area. I also informed her that I could reach out to [facility] to see if he has any rehab days available and she agrees with this plan. I spoke with Tanvi at [facility] and clinical faxed. CM will continue to follow and assist with discharge planning/needs. Monroe marti - [phone] or [phone] DCP- Discharge Planning Updated by [email or web address]: Taina Renee on 07/19/19 4:[address] Patient Name: KILO GARCIA Admission Status: ER Accout number: [id number] Admission Date: 07-18-2019 : 1970 Admission Diagnosis: Attending: MACK HARP Current LOS: 1 Anticipated DC Date: Planned Disposition: Home Primary Insurance: MEDICAID [place] Discharge Planning Comments: CM met with patient's mother Monroe to complete initial dc planning assessment. CM educated patient on the CM role and verbal consent given by patient to complete assessment. Patient lives at home alone. Patient is independent. At discharge patient plans to return home. CM discussed availability of home health, rehab services, and medical equipment. Uncertain of discharge needs or disposition at this time. Patient is currently sedated on vent. Patient will have family to transport home. CM will continue to follow and will assist as needed with dc plans/needs. Sign Carpenter: Taina Renee DCPIA - Discharge Planning Initial Assessment Updated by [id number]: Taina Renee on 07/19/19 5:35 pm * Is the patient Alert and Oriented? No * How many steps to enter\exit or inside your home? * [facility] * [facility] * Preadmission Environment Home Alone * ADLs Independent * Equipment None * List name and contact numbers for known caregivers / representatives who currently or will assist patient after discharge: MONROE JIMENES - [facility] - [phone] * Verbal permission to speak to the caregivers and representatives has been obtained from the patient. Yes * Community resources currently utilized None * Additional services required to return to the preadmission environment? No * Can the patient safely return to the preadmission environment? Yes * Has this patient been hospitalized within the prior 30 days at any hospital? 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
[2019-08-13 13:18] VITALS: BP 158/102
[2019-08-13 16:00] VITALS: BP 134/93
--- NOTE | 2019-08-13 19:28 | NUR ---
PT ASKED FOR AND I GOT WATER FOR HIM PT APPEARS ANGRY AND IS KICKING AND HOLLERING OUT I INSTRUCTED TECH TO JUST BACK OUT OF ROOM BED IS LOW AND LOCKED PT IS THROWING CALL LIGHT INTO FLOOR
[2019-08-13 21:51] VITALS: BP 120/83
--- NOTE | 2019-08-14 01:52 | NUR ---
PT IS YELLING "FUCK YOU" AT ME AND DEMANDING HIS "SUPPER TRAY" HE IS SAYING "I WANT TO SMOKE" AND SLAMMING HIS FOOT AGAINST THE FOOT BOARD OF THE BED HE IS SAYING "CALL THE POLICE" and "HELP ME HELP" EFFORTS TO CALM HAVE NOT PREVAILED. PATIENT ALSO HAS PULLED THE CORD OUT OF HIS PHONE AND THREW EAR PIECE AT ME.
--- NOTE | 2019-08-14 03:04 | NUR ---
I have reviewed this patient and I concur with the Shift Assessment completed by the Licensed Practical Nurse today this shift.
[2019-08-14 05:03] VITALS: BP 138/95
[2019-08-14 07:24] LABS: BASOPHILS 0.8 % (0-2); EOSINOPHILS 2.4 % (0-7); HEMATOCRIT 36.9 % (42.0-54.0); HEMOGLOBIN 12.9 g/dL (13.5-17.5); IMMATURE GRANULOCYTES 0.5 % (0-5); LYMPHOCYTES 24.3 % (15-50); MCH 30.1 pg (26.0-34.0); MCV 86.2 fL (80.0-100.0); MEAN PLATELET VOLUME 11.2 fL (7.4-10.4); MONOCYTES 14.1 % (2-11); NEUTROPHILS 57.9 % (40-80); PLATELET COUNT 322 10x3/uL (130-400); RBC 4.28 10x6/uL (4.20-6.10); RDW 12.8 % (11.5-14.5); WBC 8.6 10x3/uL (4.8-10.8)
--- NOTE | 2019-08-14 08:01 | NUR ---
REPORT RECIEVED. PT LYING ON RIGHT SIDE. RESTING WITH EYES CLOSED. RISE AND FALL OF CHEST NOTED. RR EVEN AND NONLABORED ON RA. BED LOCKED AND IN LOWEST POSITION, CALL LIGHT WITHIN REACH. WILL CTM
[2019-08-14 08:21] LABS: ALBUMIN 3.7 g/dL (3.4-5.0); ANION GAP 16.8 mmol/L (8-16); BILIRUBIN - TOTAL 0.71 mg/dL (0.2-1.3); CALCIUM 9.2 mg/dL (8.5-10.1); CARBON DIOXIDE 21.9 mmol/L (21.0-32.0); CREATININE - SERUM 2.4 mg/dL (0.6-1.3); PHOSPHOROUS 4.1 mg/dL (2.5-4.9); POTASSIUM - SERUM 3.7 mmol/L (3.5-5.1); PROTEIN - SERUM 8.2 g/dL (6.4-8.2)
[2019-08-14 09:46] VITALS: BP 147/98
--- NOTE | 2019-08-14 11:58 | MORECARE ---
CASE MANAGEMENT DISCHARGE SUMMARY PATIENT: KILO GARCIA UNIT: [id number] ADM DATE: 07/18/19 AGE: 48 : 72 SEX: M ROOM/BED: D.7613 AUTHOR: RAPHAEL,DOC PHYSICIAN: REFERRING PHYSICIAN: DANNI HARP MD DATE OF SERVICE: 08/14/19 Discharge Plan Patient Name: KILO GARCIA Facility: [facility]:[place] : 1970 Planned Disposition: Home Anticipated Discharge Date: Discharge Date: Expected LOS: Initial Reviewer: [email or web address] Initial Review Date: 07/18/2019 Generated: 08/14/19 12:58 pm Comments DCP- Discharge Planning Updated by [id number]: Edita Bernstein on 08/14/19 10:[address] Updated clinical faxed to [facility]. Hopefully can be accepted tomorrow for restorative therapy. CM will continue to follow and assist with discharge planning/needs. DCP- Discharge Planning Updated by [id number]: Edita Bernstein on 08/13/19 11:[address] CM CALLED [facility] TO CHECK ON STATUS OF ADMISSION. I SPOKE WITH ROBBI, SHE IS CHECKING WITH [employer] AND WILL LET ME KNOW IF THEY CAN ACCPET TODAY. DCP- Discharge Planning Updated by [id number]: Edita Bernstein on 08/10/19 10:[address] CM called Chaipn with [facility], he states they will not have an available bed until Tuesday, and will accept the patient on Tuesday. I informed Dr. Noland, patient and called patient's mother, Monroe Wong, and left a message on her voice mail that he has been accepted to [facility] and they will have an available bed on Tuesday. DCP- Discharge Planning Updated by [email or web address]: Edita Bernstein on 08/10/19 6:[address] Negative Covid result and Non Passr faxed to [facility]. He will need discharge paperwork to document restorative therapy. CM will continue to tollow and assist with discharge planning/needs. DCP- Discharge Planning Updated by [id number]: Edita Bernstein on 08/09/19 1:[address] Chapin from [facility] states they need a AKI and Covid prior to admission. I sent the [facility] to [facility]. He has a covid now pending. He will need an order for restorative therapy. CM will continue to follow and assist with discharge planning/needs. DCP- Discharge Planning Updated by [id number]: Edita Bernstein on 08/07/19 11:[address] CM called [facility] rehab in [place] and spoke with Lyla (thiago) about possible referral. Lyla states that [place] Medicaid does not have any rehab benefits for their facility and they would be unable to accept patient. I spoke with Chapin at [facility] and Chapin states patient will qualify for restorative rehab at their facility. He states he will speak with mother of patient and should be able to accept patient when medically stable for discharge. Additional clinical faxed to [facility] per request. CM will continue to follow and assist with discharge planning/needs. DCP- Discharge Planning Updated by [id number]: Edita Bernstein on 08/06/19 4:[address] Mira had messaged that patient is not deemed disabled and since he is under age 66, he does not qualify for long-term care Medicaid. I have asked [facility] [employer] to run his Medicaid and they state he has SSI disability Medicaid. I spoke with patient and mother, they both state that he is not on disability at this time. Mother is present in the room and states she has filed for it for him on line. I sent a referral to [facility] and notified Chapin. I also informed Mira that mother has filed for patient's disability on line. CM will continue to follow and assist with discharge planning/needs. DCP- Discharge Planning Updated by [email or web address]: Edita Bernstein on 08/06/19 11:[address] Updated clinical faxed to [facility]. I have messaged Mira, liaison for [facility], to check on referral. CM to continue to follow and assist with discharge planning/needs. DCP- Discharge Planning Updated by [id number]: Edita Bernstein on 08/02/19 10:[address] CM called [facility] and spoke with Abiola and clinical faxed. CM will continue to follow and assist with discharge planning/needs. DCP- Discharge Planning Updated by [id number]: Edita Bernstein on 08/01/19 3:[address] I received notification from Lisha Vega ([facility]) rehab that they are unable to accept patient due to not having a safe discharge plan. I spoke with the patient and his mother and they would like a referral sent to [facility] first, then [facility]. I will reach out to [facility] in the am. CM will continue to follow and assist with discharge planning/needs. DCP- Discharge Planning Updated by [id number]: Edita Bernstein on 07/31/19 12:[address] CM met with patient's mother in the room per her request to discuss discharge planning. Patient's mother states that she lives at [address] [facility] [address] States she is unable to care for her son. States that when he is out of dialysis she will speak with him about a LTC facility. I provided her with the list of LTC facilities in surrounding area. I also informed her that I could reach out to [facility] to see if he has any rehab days available and she agrees with this plan. I spoke with Tavni at [facility] and clinical faxed. CM will continue to follow and assist with discharge planning/needs. Monroe - - [phone] or [phone] DCP- Discharge Planning Updated by [id number]: Taina Renee on 07/19/19 4:[address] Patient Name: KILO WHEATLEYJR Admission Status: ER Accout number: [id number] Admission Date: 07-18-2019 : 1970 Admission Diagnosis: Attending: MACK HARP Current LOS: 1 Anticipated DC Date: Planned Disposition: Home Primary Insurance: MEDICAID [place] Discharge Planning Comments: CM met with patient's mother Monroe to complete initial dc planning assessment. CM educated patient on the CM role and verbal consent given by patient to complete assessment. Patient lives at home alone. Patient is independent. At discharge patient plans to return home. CM discussed availability of home health, rehab services, and medical equipment. Uncertain of discharge needs or disposition at this time. Patient is currently sedated on vent. Patient will have family to transport home. CM will continue to follow and will assist as needed with dc plans/needs. Automation Qtp Tester: Taina Renee DCPIA - Discharge Planning Initial Assessment Updated by [id number]: Taina Renee on 07/19/19 5:35 pm * Is the patient Alert and Oriented? No * How many steps to enter\exit or inside your home? * [facility]CP [facility] * [facility]acy [facility] * Preadmission Environment Home Alone * ADLs Independent * Equipment None * List name and contact numbers for known caregivers / representatives who currently or will assist patient after discharge: MONROE JIMENES - - [phone] * Verbal permission to speak to the caregivers and representatives has been obtained from the patient. Yes * Community resources currently utilized None * Additional services required to return to the preadmission environment? No * Can the patient safely return to the preadmission environment? Yes * Has this patient been hospitalized within the prior 30 days at any hospital? No Coverage Notice Reviewer: [id number] Marlena Bernstein Notice Issued Date-Time: 08/01/2019 16:10 Notice Type: Patient Choice Letter Notice Delivered To: Patient Relationship to Patient: Self Demonstrator Knitting Name: Delivery Method: HAND - Hand Delivered Jeanine Days: Prior Verbal Notification: Recipient Understood Notice: Yes Recipient Signature: Yes Med Rec Note Co-signed by Attending: Coverage Notice Comment: ASHLI for [facility] or [facility] Last DP export: 08/13/19 11:45 a Patient Name: KILO GARCIA Page [phone] at 1158 All edits/amendments must be made on the electronic document DICTATION DATE: 08/14/19 1158 YARD HOSTLER: KELLY 08/14/19 1158 RPT#: [id number] DC DATE: STATUS: ADM IN [facility] [address] [place] [address] END OF REPORT
--- NOTE | 2019-08-14 12:16 | NUR ---
Nutrition Follow-up: Nursing reports pt ate fairly well this AM. Awaiting placement. Diet: Renal PO intake >=50% Wt: 160.9# (08/13); 177.4# (07/17) Labs reviewed Meds noted: Renvela, vitamin B6, electrolyte protocol -MD may consider liberalizing to cardiac diet. -Offer nutrition supplements. -Monitor wt; noted daily wts ordered. -RD following.
--- NOTE | 2019-08-14 12:43 | NUR ---
OT NOTE: PT RESISTANT TO SIT UP ON EOB TODAY.. PT WAS ABLE TO FEED SELF WITH LESS ASSIST TODAY. SET UP WITH FINGER FOOD. ABLE TO WASH FACE WITH WASHCLOTH AND SET UP; ATTEMPTED TO EDUCATE PT ON CLEANING S HAND WITH R HAND, HOWEVER, PT GETTING VERY FRUSTRATED. THERAPIST THOROUGHLY CLEANED PTS HAND WITH SOAP AND WASHCLOTH. REMAINS WITH NO ACTIVE MOVEMENT ON L SIDE. PERFORMED PROM AND WT BEARING TASKS WITH L UE. DISCUSSED WITH STAFF REGARDING ABDIEL SLING FOR PT TO USE ON L SHOULDER WHEN HE STARTS GETTING OOB TO PREVENT INCREASED SUBLUXATION. PERFORMED COGNITIVE ACT WITH PT..HE REQUIRED MOD CUES TO SLOW DOWN HIS RATE OF SPEECH TO BE MORE INTELIGABLE. PT ORIENTED TO SELF AND KNOWS HES IN HOSPITAL BUT DOESNT REMEMBER WHICH ONE. PERFORMED MEMORY TASK.. PT ABLE TO REMEMBER 2 ITEMS AFTER A FEW SECONDS.. UNABLE TO REMEMBER PAST 30 SECONDS GLENIS JOHNSON, OTR/L [phone]
[2019-08-14 12:49] VITALS: BP 140/90
--- NOTE | 2019-08-14 14:28 | NUR ---
OT NOTE: PT COMPLETED LUE PROM TOLERATED. PT COMPLETED RUE AROM WITH MIN CUES FOR INCREASED PARTICIPATION. PT COMPLETED FACE HYGIENE WITH SET UP. [phone] THANK YOU,LALITO BUENO
[2019-08-14 17:07] VITALS: BP 147/99
--- NOTE | 2019-08-14 18:09 | NUR ---
I have reviewed this patient and I concur with the Shift Assessment completed by the Licensed Practical Nurse today this shift.
--- NOTE | 2019-08-14 19:31 | NUR ---
CLEANED PT OF URINE AND ASSISTED WITH COMFORT AND RETIEVED FRESH WATER [id number] CALL LIGHT IN REACH BED PUT LOW AND LOCKED
[2019-08-14 22:22] VITALS: BP 129/110
[2019-08-14 23:58] VITALS: BP 140/86
--- NOTE | 2019-08-15 01:08 | NUR ---
I have reviewed this patient and I concur with the Shift Assessment completed by the Licensed Practical Nurse today this shift.
[2019-08-15 04:05] VITALS: BP 146/89
[2019-08-15 06:30] LABS: EOSINOPHILS 2.9 % (0-7); HEMATOCRIT 37.8 % (42.0-54.0); HEMOGLOBIN 13.2 g/dL (13.5-17.5); IMMATURE GRANULOCYTES 0.4 % (0-5); LYMPHOCYTES 27.4 % (15-50); MCH 30.1 pg (26.0-34.0); MCHC 34.9 g/dL (31.0-37.0); MCV 86.1 fL (80.0-100.0); MEAN PLATELET VOLUME 10.7 fL (7.4-10.4); MONOCYTES 12.1 % (2-11); NEUTROPHILS 56.2 % (40-80); PLATELET COUNT 314 10x3/uL (130-400); RBC 4.39 10x6/uL (4.20-6.10); RDW 12.8 % (11.5-14.5)
[2019-08-15 06:41] LABS: ALBUMIN 3.8 g/dL (3.4-5.0); ANION GAP 12.6 mmol/L (8-16); BILIRUBIN - TOTAL 0.62 mg/dL (0.2-1.3); CALCIUM 8.9 mg/dL (8.5-10.1); CARBON DIOXIDE 26.1 mmol/L (21.0-32.0); CREATININE - SERUM 2.3 mg/dL (0.6-1.3); POTASSIUM - SERUM 3.7 mmol/L (3.5-5.1); PROTEIN - SERUM 8.1 g/dL (6.4-8.2)
[2019-08-15 08:11] VITALS: BP 159/99
[2019-08-15 11:42] VITALS: BP 156/88
[2019-08-15 14:56] VITALS: BP 129/95
--- NOTE | 2019-08-15 15:40 | MORECARE ---
CASE MANAGEMENT DISCHARGE SUMMARY PATIENT: KILO GARCIA UNIT: [id number] ADM DATE: 07/18/19 AGE: 48 : 72 SEX: M ROOM/BED: D.2628 AUTHOR: RAPHAEL,DOC PHYSICIAN: REFERRING PHYSICIAN: DANNI HARP MD DATE OF SERVICE: 08/15/19 Discharge Plan Patient Name: KILO GARCIA Facility: [facility]:[place] : 1970 Planned Disposition: Home Anticipated Discharge Date: Discharge Date: Expected LOS: Initial Reviewer: [email or web address] Initial Review Date: 07/18/2019 Generated: 08/15/19 4:40 pm Comments DCP- Discharge Planning Updated by [email or web address]: Edita Bernstein on 08/15/19 2:[address] I spoke with Victorina at [facility]. Victorina states they have started getting some test results back, she is hoping to get the remaineder back tomorrow and hope to admit patient tomorrow. CM will continue to follow and assist with discharge planning/needs. DCP- Discharge Planning Updated by [id number]: Edita Bernstein on 08/14/19 10:[address] Updated clinical faxed to [facility]. Hopefully can be accepted tomorrow for restorative therapy. CM will continue to follow and assist with discharge planning/needs. DCP- Discharge Planning Updated by [id number]: Edita Bernstein on 08/13/19 11:[address] [facility] TO CHECK ON STATUS OF ADMISSION. I SPOKE WITH VICTORINA, SHE IS CHECKING WITH AUDITING SPECIALIST AND WILL LET ME KNOW IF THEY CAN ACCPET TODAY. DCP- Discharge Planning Updated by [email or web address]: Edita Bernstein on 08/10/19 10:[address] CM called Chapin with [facility], he states they will not have an available bed until Tuesday, and will accept the patient on Tuesday. I informed Dr. Noland, patient and called patient's mother, Monroe Wong, and left a message on her voice mail that he has been accepted to [facility] and they will have an available bed on Tuesday. DCP- Discharge Planning Updated by [id number]: Edita Bernstein on 08/10/19 6:[address] Negative Covid result and Non Passr faxed to [facility]. He will need discharge paperwork to document restorative therapy. CM will continue to tollow and assist with discharge planning/needs. DCP- Discharge Planning Updated by [id number]: Edita Bernstein on 08/09/19 1:[address] Chapin from [facility] states they need a AKI and Covid prior to admission. I sent the [place] to [employer] [facility]. He has a covid now pending. He will need an order for restorative therapy. CM will continue to follow and assist with discharge planning/needs. DCP- Discharge Planning Updated by [id number]: Edita Bernstein on 08/07/19 11:[address] CM called [facility] in [place] and spoke with Lyla ([facility]) about possible referral. Lyla states that [place] Medicaid does not have any rehab benefits for their facility and they would be unable to accept patient. I spoke with Chapin at [facility] and Chapin states patient will qualify for restorative rehab at their facility. He states he will speak with mother of patient and should be able to accept patient when medically stable for discharge. Additional clinical faxed to [facility] per request. CM will continue to follow and assist with discharge planning/needs. DCP- Discharge Planning Updated by [id number]: Edita Bernstein on 08/06/19 4:[address] Mira had messaged that patient is not deemed disabled and since he is under age 65, he does not qualify for long-term care Medicaid. I have asked [facility] [employer] to run his Medicaid and they state he has SSI disability Medicaid. I spoke with patient and mother, they both state that he is not on disability at this time. Mother is present in the room and states she has filed for it for him on line. I sent a referral to [facility] and notified Chapin. I also informed Mira that mother has filed for patient's disability on line. CM will continue to follow and assist with discharge planning/needs. DCP- Discharge Planning Updated by [id number]: Edita Heathjerry on 08/06/19 11:[address] Updated clinical faxed to [facility]. I have messaged Mira, liaison for [facility], to check on referral. CM to continue to follow and assist with discharge planning/needs. DCP- Discharge Planning Updated by [email or web address]: Edita Bernstein on 08/02/19 10:[address] CM called [facility] and spoke with Abiola and clinical faxed. CM will continue to follow and assist with discharge planning/needs. DCP- Discharge Planning Updated by [id number]: Edita Bernstein on 08/01/19 3:[address] I received notification from [facility] ([facility] rehab that they are unable to accept patient due to not having a safe discharge plan. I spoke with the patient and his mother and they would like a referral sent to [facility] first, then [facility]. I will reach out to [facility] in the am. CM will continue to follow and assist with discharge planning/needs. DCP- Discharge Planning Updated by [id number]: Edita Bernstein on 07/31/19 12:[address] CM met with patient's mother in the room per her request to discuss discharge planning. Patient's mother states that she lives at [address] [place] [address]. States she is unable to care for her son. States that when he is out of dialysis she will speak with him about a LTC facility. I provided her with the list of LTC facilities in surrounding area. I also informed her that I could reach out to [facility] to see if he has any rehab days available and she agrees with this plan. I spoke with Tanvi at [facility] and clinical faxed. CM will continue to follow and assist with discharge planning/needs. Monroe - mother - [phone] or [phone] DCP- Discharge Planning Updated by [id number]: Taina Renee on 07/19/19 4:[address] Patient Name: KILO WONG_JR Admission Status: ER Accout number: [id number] Admission Date: 07-18-2019 : 1970 Admission Diagnosis: Attending: MACK HARP Current LOS: 1 Anticipated DC Date: Planned Disposition: Home Primary Insurance: MEDICAID [place] Discharge Planning Comments: CM met with patient's mother Monroe to complete initial dc planning assessment. CM educated patient on the CM role and verbal consent given by patient to complete assessment. Patient lives at home alone. Patient is independent. At discharge patient plans to return home. CM discussed availability of home health, rehab services, and medical equipment. Uncertain of discharge needs or disposition at this time. Patient is currently sedated on vent. Patient will have family to transport home. CM will continue to follow and will assist as needed with dc plans/needs. Custodian Supervisor: Taina Whittingtonr DCPIA - Discharge Planning Initial Assessment Updated by [id number]: Taina Renee on 07/19/19 5:35 pm * Is the patient Alert and Oriented? No * How many steps to enter\exit or inside your home? * [facility] * [facility] [address] [facility] [place] * Preadmission Environment Home Alone * ADLs Independent * Equipment None * List name and contact numbers for known caregivers / representatives who currently or will assist patient after discharge: MONROE JIMENES - [facility] - [phone] * Verbal permission to speak to the caregivers and representatives has been obtained from the patient. Yes * Community resources currently utilized None * Additional services required to return to the preadmission environment? No * Can the patient safely return to the preadmission environment? Yes * Has this patient been hospitalized within the prior 30 days at any hospital? No Coverage Notice Reviewer: [id number] Marlena Bernstein Notice Issued Date-Time: 08/01/2019 16:10 Notice Type: Patient Choice Letter Notice Delivered To: Patient Relationship to Patient: Self Net Sorter Name: Delivery Method: HAND - Hand Delivered Jeanine Days: Prior Verbal Notification: Recipient Understood Notice: Yes Recipient Signature: Yes Med Rec Note Co-signed by Attending: Coverage Notice Comment: [facility] for [facility] Last DP export: 08/14/19 10:58 a Patient Name: KILO GARCIA Page [phone] at 1540 All edits/amendments must be made on the electronic document DICTATION DATE: 08/15/19 154 CONCRETE FINISHING MACHINE OPERATOR: KELLY 08/15/19 1540 RPT#: [id number] DC DATE: STATUS: ADM IN [address] [place] [address] END OF REPORT
--- NOTE | 2019-08-15 15:59 | NUR ---
PT RESTED IN BED THROUGHOUT THIS SHIFT. CONTINUES TO URINATE ON THE BED AND FLOOR AT TIMES. SPEECH CONTINUES TO BE SLURRED/GARBLED AT TIMES. NO DISTRESS NOTED. WILL CONTINUE TO MONITOR.
--- NOTE | 2019-08-15 17:00 | NUR ---
OT NOTE: PT COMPLETED SUPINE TO SIT WITH MIN A. PT COMPLETED BED POSITIONING WITH MOD A. PT COMPLETED UB HYGIENE TASKS WITH MIN A. [phone] THANK YOU, LALITO BUENO
[2019-08-15 20:48] VITALS: BP 136/83
--- NOTE | 2019-08-15 22:47 | NUR ---
WAS ALERTED BY ANOTHER NURSE THAT PATIENT WAS FOUND ON FLOOR. PATIENT IS ALERT AND ORIENTED. NO C/O PAIN. PATIENT DENIES HITTING HIS HEAD. PATIENT DOES HAVE 2 SMALL ABRASIONS TO RIGHT KNEE. [facility]MBERTO JUSTICE APN NOTIFIED NO NEW ORDERS. CALLED TO FAMILY MONROE SAGE. NO ONE ANSWER. MESSAGE LEFT. CALL LIGHT WITHIN REACH. WILL CPOC.
[2019-08-16 00:48] VITALS: BP 136/94
[2019-08-16 06:00] VITALS: BP 132/84
[2019-08-16 06:47] LABS: BASOPHILS 1.5 % (0-2); EOSINOPHILS 2.4 % (0-7); HEMATOCRIT 36.7 % (42.0-54.0); HEMOGLOBIN 12.6 g/dL (13.5-17.5); IMMATURE GRANULOCYTES 0.3 % (0-5); LYMPHOCYTES 26.7 % (15-50); MCH 29.9 pg (26.0-34.0); MCHC 34.3 g/dL (31.0-37.0); MEAN PLATELET VOLUME 10.4 fL (7.4-10.4); MONOCYTES 12.2 % (2-11); NEUTROPHILS 56.9 % (40-80); PLATELET COUNT 296 10x3/uL (130-400); RBC 4.22 10x6/uL (4.20-6.10); RDW 12.7 % (11.5-14.5); WBC 6.6 10x3/uL (4.8-10.8)
[2019-08-16 06:55] LABS: ALBUMIN 3.7 g/dL (3.4-5.0); ANION GAP 13.5 mmol/L (8-16); BILIRUBIN - TOTAL 0.58 mg/dL (0.2-1.3); CALCIUM 8.6 mg/dL (8.5-10.1); CARBON DIOXIDE 26.2 mmol/L (21.0-32.0); CREATININE - SERUM 2.3 mg/dL (0.6-1.3); POTASSIUM - SERUM 3.7 mmol/L (3.5-5.1); PROTEIN - SERUM 7.9 g/dL (6.4-8.2)
[2019-08-16 08:11] VITALS: BP 146/87
[2019-08-16 12:13] VITALS: BP 131/85
--- NOTE | 2019-08-16 13:06 | MORECARE ---
CASE MANAGEMENT DISCHARGE SUMMARY PATIENT: KILO GARCIA UNIT: [id number] ADM DATE: 07/18/19 AGE: 48 : 72 SEX: M ROOM/BED: D.0240 AUTHOR: RAPHAEL,DOC PHYSICIAN: REFERRING PHYSICIAN: DANNI HARP MD DATE OF SERVICE: 08/16/19 Discharge Plan Patient Name: KILO GARCIA Facility: [facility]:[place] : 1970 Planned Disposition: Home Anticipated Discharge Date: Discharge Date: Expected LOS: Initial Reviewer: [id number] Initial Review Date: 07/18/2019 Generated: 08/16/19 2:05 pm Comments DCP- Discharge Planning Updated by [email or web address]: Edita Bernstein on 08/16/19 12:[address] Spoke again with [facility] and they still do not have all their test results back. They are unable to accept patient until all results are back. Ready for discharge when [facility] can accept. DCP- Discharge Planning Updated by [id number]: Edita Bernstein on 08/15/19 2:[address] I spoke with Victorina at [facility]. Vicotrina states they have started getting some test results back, she is hoping to get the remaineder back tomorrow and hope to admit patient tomorrow. CM will continue to follow and assist with discharge planning/needs. DCP- Discharge Planning Updated by [id number]: Edita Bernstein on 08/14/19 10:[address] Updated clinical faxed to [facility]. Hopefully can be accepted tomorrow for restorative therapy. CM will continue to follow and assist with discharge planning/needs. DCP- Discharge Planning Updated by [email or web address]: Edita Bernstein on 08/13/19 11:[address] CM CALLED [facility] TO CHECK ON STATUS OF ADMISSION. I SPOKE WITH VICTORINA, SHE IS CHECKING WITH OPTICAL MANUFACTURING TECHNICIAN AND WILL LET ME KNOW IF THEY CAN ACCPET TODAY. DCP- Discharge Planning Updated by [id number]: Edita Bernstein on 08/10/19 10:[address] CM called Chapin with [facility], he states they will not have an available bed until Tuesday, and will accept the patient on Tuesday. I informed Dr. Noland, patient and called patient's mother, Monroe Wong, and left a message on her voice mail that he has been accepted to [facility] and they will have an available bed on Tuesday. DCP- Discharge Planning Updated by [id number]: Edita Bernstein on 08/10/19 6:[address] Negative Covid result and Non Passr faxed to [facility]. He will need discharge paperwork to document restorative therapy. CM will continue to tollow and assist with discharge planning/needs. DCP- Discharge Planning Updated by [id number]: Edita Bernstein on 08/09/19 1:[address] Chapin from [facility] states they need a AKI and Covid prior to admission. I sent the [place] to [facility]. He has a covid now pending. He will need an order for restorative therapy. CM will continue to follow and assist with discharge planning/needs. DCP- Discharge Planning Updated by [id number]: Edita Bernstein on 08/07/19 11:[address] CM called [facility] in [place] and spoke with Lyla ([facility]) about possible referral. yLla states that [place] Medicaid does not have any rehab benefits for their facility and they would be unable to accept patient. I spoke with Chapin at [facility] and Chapin states patient will qualify for restorative rehab at their facility. He states he will speak with mother of patient and should be able to accept patient when medically stable for discharge. Additional clinical faxed to [facility] per request. CM will continue to follow and assist with discharge planning/needs. DCP- Discharge Planning Updated by [id number]: Edita Bernstein on 08/06/19 4:[address] Mira had messaged that patient is not deemed disabled and since he is under age 66, he does not qualify for long-term care Medicaid. I have asked [facility] [employer] to run his Medicaid and they state he has SSI disability Medicaid. I spoke with patient and mother, they both state that he is not on disability at this time. Mother is present in the room and states she has filed for it for him on line. I sent a referral to [facility] and notified Chapin. I also informed Mira that mother has filed for patient's disability on line. CM will continue to follow and assist with discharge planning/needs. DCP- Discharge Planning Updated by [id number]: Edita Day on 08/06/19 11:[address] Updated clinical faxed to [facility]. I have messaged Mira, liaison for [facility], to check on referral. CM to continue to follow and assist with discharge planning/needs. DCP- Discharge Planning Updated by [id number]: Edita Bernstein on 08/02/19 10:[address] CM called [facility] and spoke with Abiola and clinical faxed. CM will continue to follow and assist with discharge planning/needs. DCP- Discharge Planning Updated by [id number]: Edita Day on 08/01/19 3:[address] I received notification from [facility]ega ([facility]) rehab that they are unable to accept patient due to not having a safe discharge plan. I spoke with the patient and his mother and they would like a referral sent to [facility], then [facility]. I will reach out to [facility] in the am. CM will continue to follow and assist with discharge planning/needs. DCP- Discharge Planning Updated by [id number]: Edita Day on 07/31/19 12:[address] CM met with patient's mother in the room per her request to discuss discharge planning. Patient's mother states that she lives at [address] [place] [address]. States she is unable to care for her son. States that when he is out of dialysis she will speak with him about a LTC facility. I provided her with the list of LTC facilities in surrounding area. I also informed her that I could reach out to [facility] to see if he has any rehab days available and she agrees with this plan. I spoke with Tanvi at [facility] and clinical faxed. CM will continue to follow and assist with discharge planning/needs. Monroe - mother - [phone] or [phone] DCP- Discharge Planning Updated by [id number]: Taina Renee on 07/19/19 4:[address] Patient Name: KILO WONG_JR Admission Status: ER Accout number: [id number] Admission Date: 07-18-2019 : 1970 Admission Diagnosis: Attending: MACK HARP Current LOS: 1 Anticipated DC Date: Planned Disposition: Home Primary Insurance: MEDICAID [place] Discharge Planning Comments: CM met with patient's mother Monroe to complete initial dc planning assessment. CM educated patient on the CM role and verbal consent given by patient to complete assessment. Patient lives at home alone. Patient is independent. At discharge patient plans to return home. CM discussed availability of home health, rehab services, and medical equipment. Uncertain of discharge needs or disposition at this time. Patient is currently sedated on vent. Patient will have family to transport home. CM will continue to follow and will assist as needed with dc plans/needs. Assignment Manager: Taina Renee DCPIA - Discharge Planning Initial Assessment Updated by [id number]: Taina Renee on 07/19/19 5:35 pm * Is the patient Alert and Oriented? No * How many steps to enter\exit or inside your home? * PCP [facility] * [facility]acy [facility] [place] [place] * Preadmission Environment Home Alone * ADLs Independent * Equipment None * List name and contact numbers for known caregivers / representatives who currently or will assist patient after discharge: MONROE JIMENES - MOTHER - [phone] * Verbal permission to speak to the caregivers and representatives has been obtained from the patient. Yes * Community resources currently utilized None * Additional services required to return to the preadmission environment? No * Can the patient safely return to the preadmission environment? Yes * Has this patient been hospitalized within the prior 30 days at any hospital? No Coverage Notice Reviewer: [id number] Marlena Bernstein Notice Issued Date-Time: 08/01/2019 16:10 Notice Type: Patient Choice Letter Notice Delivered To: Patient Relationship to Patient: Self Application Systems Administrator Name: Delivery Method: HAND - Hand Delivered Jeanine Days: Prior Verbal Notification: Recipient Understood Notice: Yes Recipient Signature: Yes Med Rec Note Co-signed by Attending: Coverage Notice Comment: [facility] for [facility] or [facility] Last DP export: 08/15/19 2:40 p Patient Name: KILO GARCIA Page [id number] at 1306 All edits/amendments must be made on the electronic document DICTATION DATE: 08/16/19 1304 RIVETING MACHINE OPERATOR AUTOMATIC: KELLY 08/16/19 1307 RPT#: [id number] DC DATE: STATUS: ADM IN [facility] [address] [place] [address] END OF REPORT
[2019-08-16 16:05] VITALS: BP 134/83
--- NOTE | 2019-08-16 16:25 | NUR ---
OT NOTE: PT COMPLETED SIDE ROLLING WITH MIN A TO MANAGE L SIDE. PT COMPLETED EOB SITTING WITH SBA. PT STATED HE IS AFRAID BECAUSE HE FELL YESTERDAY. PT COMPLETED LUE PROM/POSITIONING WITH TOTAL A. PT COMPLETED FACE HYGIENE WITH RUE WITH SETUP. [id number] THANK YOU,LALITO BUENO
--- NOTE | 2019-08-16 19:30 | NUR ---
PT IN BED, EYES CLOSED, RESP EVEN AND UNLABORED. NO DISTRESS NOTED AT THIS TIME, CL IN REACH, SR UP X 2.
[2019-08-16 20:00] VITALS: BP 126/83
[2019-08-17] VITALS: BP 123/80
[2019-08-17 04:00] VITALS: BP 149/88
[2019-08-17 05:11] LABS: BASOPHILS 1.1 % (0-2); EOSINOPHILS 2.5 % (0-7); HEMATOCRIT 35.5 % (42.0-54.0); HEMOGLOBIN 12.2 g/dL (13.5-17.5); IMMATURE GRANULOCYTES 0.3 % (0-5); LYMPHOCYTES 29.9 % (15-50); MCH 29.9 pg (26.0-34.0); MCHC 34.4 g/dL (31.0-37.0); MEAN PLATELET VOLUME 10.7 fL (7.4-10.4); MONOCYTES 11.1 % (2-11); NEUTROPHILS 55.1 % (40-80); RBC 4.08 10x6/uL (4.20-6.10); RDW 12.8 % (11.5-14.5); WBC 7.5 10x3/uL (4.8-10.8)
[2019-08-17 05:27] LABS: PLATELET COUNT 224 10x3/uL (130-400)
[2019-08-17 05:34] LABS: ALBUMIN 3.6 g/dL (3.4-5.0); ANION GAP 12.9 mmol/L (8-16); BILIRUBIN - TOTAL 0.54 mg/dL (0.2-1.3); CALCIUM 8.8 mg/dL (8.5-10.1); CARBON DIOXIDE 25.8 mmol/L (21.0-32.0); CREATININE - SERUM 2.1 mg/dL (0.6-1.3); POTASSIUM - SERUM 3.7 mmol/L (3.5-5.1)
[2019-08-17 10:36] VITALS: BP 151/100
--- NOTE | 2019-08-17 13:00 | MORECARE ---
CASE MANAGEMENT DISCHARGE SUMMARY PATIENT: KILO GARCIA UNIT: [id number] ADM DATE: 07/18/19 AGE: 48 : 72 SEX: M ROOM/BED: D.2113 AUTHOR: RAPHAEL,DOC PHYSICIAN: REFERRING PHYSICIAN: DANNI HARP MD DATE OF SERVICE: 08/17/19 Discharge Plan Patient Name: KILO GARCIA Facility: [facility]:[place] : 1970 Planned Disposition: Home Anticipated Discharge Date: Discharge Date: Expected LOS: Initial Reviewer: [email or web address] Initial Review Date: 07/18/2019 Generated: 08/17/19 1:59 pm Comments DCP- Discharge Planning Updated by [email or web address]: Edita Bernstein on 08/17/19 11:[address] I spoke with Muna at [facility] and they do not have all their tests back. They have tested 200 people and have only gotten about 40 back. She is hoping she will have them back next week. Delay for placement to [facility]. DCP- Discharge Planning Updated by [id number]: Edita Bernstein on 08/16/19 12:[address] Spoke again with [facility] and they still do not have all their test results back. They are unable to accept patient until all results are back. Ready for discharge when [facility] can accept. DCP- Discharge Planning Updated by [id number]: Edita Bernstein on 08/15/19 2:[address] I spoke with Victorina at [facility]. Victorina states they have started getting some test results back, she is hoping to get the remaineder back tomorrow and hope to admit patient tomorrow. CM will continue to follow and assist with discharge planning/needs. DCP- Discharge Planning Updated by [id number]: Edita Bernstein on 08/14/19 10:[address] Updated clinical faxed to [facility]. Hopefully can be accepted tomorrow for restorative therapy. CM will continue to follow and assist with discharge planning/needs. DCP- Discharge Planning Updated by [email or web address]: Edita Bernstein on 08/13/19 11:[address] CM CALLED [facility] TO CHECK ON STATUS OF ADMISSION. I SPOKE WITH VICTORINA, SHE IS CHECKING WITH [employer] AND WILL LET ME KNOW IF THEY CAN ACCPET TODAY. DCP- Discharge Planning Updated by [email or web address]: Edita Bernstein on 08/10/19 10:[address] CM called Chapin with [facility], he states they will not have an available bed until Tuesday, and will accept the patient on Tuesday. I informed Dr. Noland, patient and called patient's mother, Monroe Wong, and left a message on her voice mail that he has been accepted to [facility] and they will have an available bed on Tuesday. DCP- Discharge Planning Updated by [id number]: Edita Bernstein on 08/10/19 6:[address] Negative Covid result and Non Passr faxed to [facility]. He will need discharge paperwork to document restorative therapy. CM will continue to tollow and assist with discharge planning/needs. DCP- Discharge Planning Updated by [email or web address]: Edita Bernstein on 08/09/19 1:[address] Chapin from [facility] states they need a AKI and Covid prior to admission. I sent the [place] to [employer]. He has a covid now pending. He will need an order for restorative therapy. CM will continue to follow and assist with discharge planning/needs. DCP- Discharge Planning Updated by [id number]: Edita Bernstein on 08/07/19 11:[address] CM called [facility] in [place] and spoke with Lyla ([facility]) about possible referral. Lyla states that [place] Medicaid does not have any rehab benefits for their facility and they would be unable to accept patient. I spoke with Chapin at [facility] and Chapin states patient will qualify for restorative rehab at their facility. He states he will speak with mother of patient and should be able to accept patient when medically stable for discharge. Additional clinical faxed to [facility] per request. CM will continue to follow and assist with discharge planning/needs. DCP- Discharge Planning Updated by [email or web address]: Edita Bernstein on 08/06/19 4:[address] Mira had messaged that patient is not deemed disabled and since he is under age 65, he does not qualify for long-term care Medicaid. I have asked [facility] to run his Medicaid and they state he has SSI disability Medicaid. I spoke with patient and mother, they both state that he is not on disability at this time. Mother is present in the room and states she has filed for it for him on line. I sent a referral to [facility] and notified Chapin. I also informed Mira that mother has filed for patient's disability on line. CM will continue to follow and assist with discharge planning/needs. DCP- Discharge Planning Updated by [email or web address]: Edita Bernstein on 08/06/19 11:[address] Updated clinical faxed to [facility]. I have messaged Mira, liaison for [facility], to check on referral. CM to continue to follow and assist with discharge planning/needs. DCP- Discharge Planning Updated by [email or web address]: Edita Bernstein on 08/02/19 10:[address] CM called [facility] and spoke with Abiola and clinical faxed. CM will continue to follow and assist with discharge planning/needs. DCP- Discharge Planning Updated by [email or web address]: Edita Bernstein on 08/01/19 3:[address] I received notification from [facility] ([facility] rehab that they are unable to accept patient due to not having a safe discharge plan. I spoke with the patient and his mother and they would like a referral sent to [facility] first, then [facility]. I will reach out to [facility] in the am. CM will continue to follow and assist with discharge planning/needs. DCP- Discharge Planning Updated by [id number]: Edita Bernstein on 07/31/19 12:[address] CM met with patient's mother in the room per her request to discuss discharge planning. Patient's mother states that she lives at [address] [facility] [facility]. States she is unable to care for her son. States that when he is out of dialysis she will speak with him about a LTC facility. I provided her with the list of LTC facilities in surrounding area. I also informed her that I could reach out to [facility] to see if he has any rehab days available and she agrees with this plan. I spoke with Tanvi at [facility] and clinical faxed. CM will continue to follow and assist with discharge planning/needs. Monroe - mother - [phone] or [phone] DCP- Discharge Planning Updated by [email or web address]: Taina Renee on 07/19/19 4:[address] Patient Name: KILO GARCIA Admission Status: ER Accout number: [id number] Admission Date: 07-18-2019 : 1970 Admission Diagnosis: Attending: MACK HARP Current LOS: 1 Anticipated DC Date: Planned Disposition: Home Primary Insurance: MEDICAID [place] Discharge Planning Comments: CM met with patient's mother Monroe to complete initial dc planning assessment. CM educated patient on the CM role and verbal consent given by patient to complete assessment. Patient lives at home alone. Patient is independent. At discharge patient plans to return home. CM discussed availability of home health, rehab services, and medical equipment. Uncertain of discharge needs or disposition at this time. Patient is currently sedated on vent. Patient will have family to transport home. CM will continue to follow and will assist as needed with dc plans/needs. Curator Herbarium: Taina Renee DCPIA - Discharge Planning Initial Assessment Updated by [id number]: Taina Renee on 07/19/19 5:35 pm * Is the patient Alert and Oriented? No * How many steps to enter\exit or inside your home? * PCP [facility] * Pharmacy [facility] [place] * Preadmission Environment Home Alone * ADLs Independent * Equipment None * List name and contact numbers for known caregivers / representatives who currently or will assist patient after discharge: MONROE JIMENES - MOTHER - [phone] * Verbal permission to speak to the caregivers and representatives has been obtained from the patient. Yes * Community resources currently utilized None * Additional services required to return to the preadmission environment? No * Can the patient safely return to the preadmission environment? Yes * Has this patient been hospitalized within the prior 30 days at any hospital? No Coverage Notice Reviewer: [id number] Marlena Bernstein Notice Issued Date-Time: 08/01/2019 16:10 Notice Type: Patient Choice Letter Notice Delivered To: Patient Relationship to Patient: Self Avionics Test Technician Name: Delivery Method: HAND - Hand Delivered Jeanine Days: Prior Verbal Notification: Recipient Understood Notice: Yes Recipient Signature: Yes Med Rec Note Co-signed by Attending: Coverage Notice Comment: [facility] for [facility] or [employer] Last DP export: 08/16/19 12:06 p Patient Name: KILO GARCIA Page [phone] at 1300 All edits/amendments must be made on the electronic document DICTATION DATE: 08/17/19 1300 SINKER WINDER: KELLY 08/17/19 1300 RPT#: [id number] DC DATE: STATUS: ADM IN [facility] [address] [place] [address] END OF REPORT
--- NOTE | 2019-08-17 13:27 | NUR ---
Nutrition Follow-up: Nursing reports pt ate at least 50% of breakfast this AM with good intake of fluids; nursing states that pt would more than likely do well with Nepro. Diet: Renal PO intake: 56% avg x 4 meals Wt: 148# (08/16); 167.5# (08/14); 177.4# (07/17) Last recorded BM: 08/14 Labs noted: K+ 3.7, Alb 3.6 Meds noted: Protonix, Renvela, vitamin B6, electrolyte protocol -MD may consider liberalizing to cardiac diet. -Encourage PO intake and honor food preferences within diet restrictions. -+Nepro 1x/day. -Monitor wt. -RD following.
--- NOTE | 2019-08-17 14:57 | NUR ---
OT NOTE: PRACTICED BED MOB TO INCLUDE SUPINE TO SIT WITH MIN ASSIST; SITTING BALANCE WAS BETTER TODAY AND PT DOING BETTER WITH MIDLINE ORIENTATION; PERFORMED SROM EXS WITH MOD VERBAL AND TACTILE CUES REUQIRED INITIALLY; INCREASED MOVEMENT NOTED IN L LE..PT WAS ABLE TO DORSI FLEX AND PLANTAR FLEX L FOOT WHILE SITTING ON EOB..TRACE MOVEMENT OF KNEE FLEX AND HIP FLEX. STILL NOTHING NOTED IN L UE. PERFORMED WT BEARING TASKS TO IMPROVE UE TONE. GLENIS JOHNSON, OTR/L [phone]
--- NOTE | 2019-08-17 15:18 | NUR ---
OT NOTE: PT COMLPLETED SUPINE TO SIT WITH CGA. PT COMPLETED EOB SITTING WITH CGA. PT COMPLETED LUE WT BEARING TO FACILITATE RETURN OF FUNCTION. PT COMPLETED UB BATHING TASKS WITH MIN/MOD A SECONDARY TO DECREASED MOTIVATION AND PROCESSING SKILLS. [phone] THANK YOU,LALITO BUENO
[2019-08-17 15:48] VITALS: BP 125/86
[2019-08-17 20:30] VITALS: BP 119/71
[2019-08-18 00:26] VITALS: BP 142/92
[2019-08-18 06:25] LABS: BASOPHILS 0.8 % (0-2); EOSINOPHILS 2.7 % (0-7); HEMATOCRIT 35.3 % (42.0-54.0); HEMOGLOBIN 12.1 g/dL (13.5-17.5); IMMATURE GRANULOCYTES 0.3 % (0-5); LYMPHOCYTES 28.1 % (15-50); MCHC 34.3 g/dL (31.0-37.0); MCV 87.6 fL (80.0-100.0); MEAN PLATELET VOLUME 10.7 fL (7.4-10.4); MONOCYTES 11.3 % (2-11); NEUTROPHILS 56.8 % (40-80); PLATELET COUNT 238 10x3/uL (130-400); RBC 4.03 10x6/uL (4.20-6.10); RDW 12.9 % (11.5-14.5); WBC 7.1 10x3/uL (4.8-10.8)
[2019-08-18 06:38] LABS: ALBUMIN 3.5 g/dL (3.4-5.0); BILIRUBIN - TOTAL 0.39 mg/dL (0.2-1.3); CALCIUM 8.7 mg/dL (8.5-10.1); CARBON DIOXIDE 24.7 mmol/L (21.0-32.0); CREATININE - SERUM 1.9 mg/dL (0.6-1.3); PHOSPHOROUS 4.2 mg/dL (2.5-4.9); POTASSIUM - SERUM 3.7 mmol/L (3.5-5.1); PROTEIN - SERUM 7.9 g/dL (6.4-8.2)
[2019-08-18 10:06] VITALS: BP 157/102
[2019-08-18 13:12] VITALS: BP 147/103
[2019-08-18 17:26] VITALS: BP 150/88
[2019-08-18 20:30] VITALS: BP 135/92
[2019-08-19 00:55] VITALS: BP 142/87
[2019-08-19 04:30] VITALS: BP 131/82
[2019-08-19 06:47] LABS: CALCIUM 8.9 mg/dL (8.5-10.1); CARBON DIOXIDE 20.6 mmol/L (21.0-32.0); CREATININE - SERUM 1.9 mg/dL (0.6-1.3); POTASSIUM - SERUM 3.6 mmol/L (3.5-5.1)
[2019-08-19 10:01] VITALS: BP 140/80
[2019-08-19 14:10] VITALS: BP 112/85
[2019-08-19 18:22] VITALS: BP 140/90
[2019-08-19 20:30] VITALS: BP 134/92
[2019-08-20 00:17] VITALS: BP 136/89
[2019-08-20 04:30] VITALS: BP 164/93
[2019-08-20 06:17] LABS: ALBUMIN 3.3 g/dL (3.4-5.0); BILIRUBIN - TOTAL 0.41 mg/dL (0.2-1.3); CALCIUM 8.3 mg/dL (8.5-10.1); CREATININE - SERUM 1.9 mg/dL (0.6-1.3); POTASSIUM - SERUM 3.3 mmol/L (3.5-5.1); PROTEIN - SERUM 7.5 g/dL (6.4-8.2)
[2019-08-20 06:26] LABS: ANION GAP 9.9 mmol/L (8-16); CARBON DIOXIDE 27.4 mmol/L (21.0-32.0)
[2019-08-20 07:02] LABS: BASOPHILS 0.6 % (0-2); EOSINOPHILS 1.9 % (0-7); HEMATOCRIT 33.5 % (42.0-54.0); HEMOGLOBIN 11.6 g/dL (13.5-17.5); IMMATURE GRANULOCYTES 0.1 % (0-5); LYMPHOCYTES 25.8 % (15-50); MCH 30.1 pg (26.0-34.0); MCHC 34.6 g/dL (31.0-37.0); MCV 86.8 fL (80.0-100.0); MEAN PLATELET VOLUME 10.4 fL (7.4-10.4); MONOCYTES 11.8 % (2-11); NEUTROPHILS 59.8 % (40-80); PLATELET COUNT 218 10x3/uL (130-400); RBC 3.86 10x6/uL (4.20-6.10); RDW 12.9 % (11.5-14.5); WBC 6.9 10x3/uL (4.8-10.8)
--- NOTE | 2019-08-20 07:20 | NUR ---
RECIEVE REPORT. ALERT AND ORIENTED. LAYING IN BED. SPEECH GARBLED. DENIES PAIN OR SOB. DENIES ANY NEEDS. CONTINUE PLAN OF CARE AND SAFETY PRECAUTIONS.
[2019-08-20 11:00] VITALS: BP 140/89
[2019-08-20 15:00] VITALS: BP 140/93
--- NOTE | 2019-08-20 21:00 | NUR ---
PATIENT ASKED TO USE COMMODE TO HAVE A BOWEL MOVEMENT. PATIENT PLACED ON COMMODE WITH 2 PERSON ASSIST. NO RESULTS.
[2019-08-20 21:21] VITALS: BP 142/99
--- NOTE | 2019-08-20 23:40 | NUR ---
PATIENT CALLED [facility]. PATIENT ASKED TO GO ON THE COMMODE TO HAVE BOWEL MOVEMENT. PATIENT PLACED ON COMMODE 2 PERSON ASSIST. NO RESULTS.
[2019-08-21 01:04] VITALS: BP 141/92
[2019-08-21 04:00] VITALS: BP 151/95
[2019-08-21 05:06] LABS: BASOPHILS 0.5 % (0-2); EOSINOPHILS 2.4 % (0-7); HEMATOCRIT 35.3 % (42.0-54.0); HEMOGLOBIN 12.1 g/dL (13.5-17.5); IMMATURE GRANULOCYTES 0.1 % (0-5); LYMPHOCYTES 28.3 % (15-50); MCH 29.8 pg (26.0-34.0); MCHC 34.3 g/dL (31.0-37.0); MCV 86.9 fL (80.0-100.0); MEAN PLATELET VOLUME 10.3 fL (7.4-10.4); MONOCYTES 8.4 % (2-11); NEUTROPHILS 60.3 % (40-80); PLATELET COUNT 236 10x3/uL (130-400); RBC 4.06 10x6/uL (4.20-6.10); RDW 12.8 % (11.5-14.5); WBC 7.5 10x3/uL (4.8-10.8)
[2019-08-21 06:06] LABS: ALBUMIN 3.4 g/dL (3.4-5.0); BILIRUBIN - TOTAL 0.42 mg/dL (0.2-1.3); CARBON DIOXIDE 25.6 mmol/L (21.0-32.0); CREATININE - SERUM 1.8 mg/dL (0.6-1.3); POTASSIUM - SERUM 3.6 mmol/L (3.5-5.1); PROTEIN - SERUM 7.9 g/dL (6.4-8.2)
[2019-08-21 09:00] VITALS: BP 131/93
--- NOTE | 2019-08-21 09:46 | EEG ---
PATIENT:KILO GARCIA MEDICAL RECORD: [id number] DATE OF : [birth year] LOCATION:D.211 D.M2 ADMISSION DATE: 07/18/19 REFERRING PHYSICIAN: INTERPRETING PHYSICIAN: KILO HARDWICK MD DATE OF SERVICE: 07/28/2019 DATE OF EE07/28/2019. ROOM NUMBER: ICU bed 7. Ordered by Dr. Hardwick. 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 Maintained on Keppra and Dilantin. There was suspected hypoxic brain insult due to the lengthy seizures with subsequent diagnosis of respiratory failure, pneumonia, acute renal failure, rhabdomyolysis, and sepsis. The patient has remained unresponsive after lengthy ventilation, now off vent and without sedation. PROCEDURE: EEG done as a routine bedside portable recording using the standard 10-20 international electrode system, 16 channel was used with 17th as EKG. Photic stimulation done as activation procedures. DESCRIPTION: EEG opens with the patient unresponsive. Occasionally, moving right extremities with the record displaying diffuse background slowing, occasional right limb movement was noted without epileptiform change concordant. Left hemispheric posterior dominant rhythm is prominently theta slowing with occasional best organization in 6-7 Hz range mostly. Right hemispheric record demonstrates prominent delta intermixed with theta slowing diffusely with poor organization. No epileptiform change such as spike polyspike or spike and wave was seen. Photic stimulation did not yield a photoparoxysmal response. IMPRESSION: Prominently abnormal EEG with diffuse background slowing. Right hemisphere is more than left. EEG is consistent with encephalopathy as well as the more prominent slowing on the right consistent with prior brain trauma. No evidence of ongoing seizure. TRANSINT:[id number] Voice Confirmation ID: [id number] DOCUMENT ID: [id number] KILO HARDWICK MD at 0946 CC: [id number] DICTATION DATE: 07/28/19 1645 GAME AGENT: 07/29/19 0019 ADM IN [facility] [address] [place] [address]
--- NOTE | 2019-08-21 09:46 | EEG ---
PATIENT:KILO GARCIA MEDICAL RECORD: [id number] DATE OF : [birth year] LOCATION:D.211 D.M2 ADMISSION DATE: 07/18/19 REFERRING PHYSICIAN: INTERPRETING PHYSICIAN: KILO HARDWICK MD DATE OF SERVICE: 07/19/2019 DATE OF ELECTROENCEPHALOGRAM: 07/19/2019 ROOM NUMBER: 2307. ORDERED BY: Kilo Hardwick MD CASE HISTORY: A 48-year-old male admitted after being found down at home unresponsive, thought possibly related to seizure activity, in the ER he was intubated and put on vent and is now sedated with propofol, but continues to move about. No further twitching or seizure activity observed after admission. 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 MEDICATIONS ON ADMISSION: Include Depakote and Keppra. PROCEDURE: EEG done as a routine bedside portable recording using the standard 10-20 international electrode system. A 16-channel was used with 17th as EKG. Photic stimulation done as activation procedures. DESCRIPTION: EEG opens with the patient minimally responsive with the record displaying voltage asymmetry, there is moderate voltage posterior dominant rhythm of 10-11 Hz on the left; however, on the right there is diffuse diminished amplitudes posteriorly with moderate to high voltage theta and frequent delta slowing often of high voltage amplitude primarily at F4 C4 and F8 T4. Occasional high voltage sharps were seen at F8 and occasional high voltage sharply contoured theta at F8 as well. No distinct epileptiform change such as spike, polyspike or spike and wave. Photic stimulation did not yield a photoparoxysmal response. IMPRESSION: Moderately abnormal EEG with diffuse cortical dysfunction that can suggest encephalopathy, there was a predominance of abnormalities found in right hemisphere corresponding to the area of brain injury and craniotomy, high voltage slowing in the right frontocentral temporal regions could suggest structural abnormalities. High voltage sharps could suggest an irritable focus in these regions. No active seizure focus or seizure activity was appreciated in this recording. TRANSINT:[id number] Voice Confirmation ID: [id number] DOCUMENT ID: [id number] ELECTROENCEPHALOGRAM REPORT [id number] KILO GARCIA JAMES EDWARD MD at 0946 CC: [id number] DICTATION DATE: 07/19/19 1849 TARP REPAIRER: 07/20/19 0804 ADM IN [facility] [address] [facility]
[2019-08-21 11:00] VITALS: BP 130/91
--- NOTE | 2019-08-21 13:01 | NUR ---
Nutrition Follow-up: Noted poor PO intake yesterday but ate ~50% of breakfast this AM. Awaiting placement. Diet: Renal, Nepro daily Wt: 148# (08/16); 167.5# & 152.1# (08/14); 177.4# (07/17) Last BM: 08/16 per chart Labs reviewed Meds noted: Protonix, Renvela, electrolyte protocol -MD may consider liberalizing to cardiac diet. -Increase Nepro to BID 2/2 fluctuations in PO intake. -Noted large variations in wt; unsure how much is actual wt loss vs scale discrepancies. Monitor wt. -Pt may benefit from appetite stimulant. -RD following.
[2019-08-21 15:00] VITALS: BP 122/87
--- NOTE | 2019-08-21 16:22 | NUR ---
OT NOTE: PT COMPLETED BED MOB WITH MIN/MOD WITH SIDE ROLLING. PT REQUIRED MOD A FOR SUPINE TO SIT. PT COMPLETED FACE HYGIENE WITH MIN A. PT CUED TO EAT BUT REFUSED. PT REQUIRED EXTENSIVE VERBAL CUES FOR INCREASED PARTICPATION. [phone] THANK YOU, LALIOT BUENO
[2019-08-21 20:00] VITALS: BP 137/87
[2019-08-22] VITALS: BP 135/80
[2019-08-22 05:38] LABS: BASOPHILS 0.5 % (0-2); EOSINOPHILS 2.8 % (0-7); HEMATOCRIT 34.4 % (42.0-54.0); HEMOGLOBIN 11.6 g/dL (13.5-17.5); IMMATURE GRANULOCYTES 0.3 % (0-5); LYMPHOCYTES 27.4 % (15-50); MCH 29.4 pg (26.0-34.0); MCHC 33.7 g/dL (31.0-37.0); MCV 87.3 fL (80.0-100.0); MEAN PLATELET VOLUME 10.2 fL (7.4-10.4); MONOCYTES 9.2 % (2-11); NEUTROPHILS 59.8 % (40-80); PLATELET COUNT 208 10x3/uL (130-400); RBC 3.94 10x6/uL (4.20-6.10); RDW 12.7 % (11.5-14.5); WBC 7.9 10x3/uL (4.8-10.8)
[2019-08-22 06:26] LABS: ALBUMIN 3.4 g/dL (3.4-5.0); ANION GAP 13.6 mmol/L (8-16); BILIRUBIN - TOTAL 0.44 mg/dL (0.2-1.3); CALCIUM 8.7 mg/dL (8.5-10.1); CARBON DIOXIDE 24.1 mmol/L (21.0-32.0); CREATININE - SERUM 1.7 mg/dL (0.6-1.3); POTASSIUM - SERUM 3.7 mmol/L (3.5-5.1); PROTEIN - SERUM 7.4 g/dL (6.4-8.2)
--- NOTE | 2019-08-22 08:52 | MORECARE ---
CASE MANAGEMENT DISCHARGE SUMMARY PATIENT: KILO GARCIA UNIT: [id number] ADM DATE: 07/18/19 AGE: 48 : 72 SEX: M ROOM/BED: D.4053 AUTHOR: RAPHAEL,DOC PHYSICIAN: REFERRING PHYSICIAN: DANNI HARP MD DATE OF SERVICE: 08/22/19 Discharge Plan Patient Name: KILO GARCIA Facility: [facility]:[place] : 1970 Planned Disposition: Home Anticipated Discharge Date: Discharge Date: Expected LOS: Initial Reviewer: [id number] Initial Review Date: 07/18/2019 Generated: 08/22/19 9:51 am Comments DCP- Discharge Planning Updated by [id number]: Denise Fields on 08/22/19 7:[address] Per Nan, with [facility], the facility is unable to accept patient, since there is COVID in the facility and he has never been there. DCP- Discharge Planning Updated by [id number]: Edita Bernstein on 08/17/19 11:[address] I spoke with Muna at [facility] and they do not have all their tests back. They have tested 200 people and have only gotten about 40 back. She is hoping she will have them back next week. Delay for placement to [facility]. DCP- Discharge Planning Updated by [id number]: Edita Bernstein on 08/16/19 12:[address] Spoke again with [facility] and they still do not have all their test results back. They are unable to accept patient until all results are back. Ready for discharge when [facility] can accept. DCP- Discharge Planning Updated by [id number]: Edita Bernstein on 08/15/19 2:[address] I spoke with Victorina at [facility]. Victorina states they have started getting some test results back, she is hoping to get the remaineder back tomorrow and hope to admit patient tomorrow. CM will continue to follow and assist with discharge planning/needs. DCP- Discharge Planning Updated by [id number]: Edita Bernstein on 08/14/19 10:[address] Updated clinical faxed to [facility]. Hopefully can be accepted tomorrow for restorative therapy. CM will continue to follow and assist with discharge planning/needs. DCP- Discharge Planning Updated by [id number]: Edita Bernstein on 08/13/19 11:[address] CM CALLED [facility] TO CHECK ON STATUS OF ADMISSION. I SPOKE WITH VICTORINA, SHE IS CHECKING WITH FITTING ROOM ATTENDANT AND WILL LET ME KNOW IF THEY CAN ACCPET TODAY. DCP- Discharge Planning Updated by [id number]: Edita Bernstein on 08/10/19 10:[address] CM called Chapin with [facility], he states they will not have an available bed until Tuesday, and will accept the patient on Tuesday. I informed Dr. Noland, patient and called patient's mother, Monroe Wong, and left a message on her voice mail that he has been accepted to [facility] and they will have an available bed on Tuesday. DCP- Discharge Planning Updated by [id number]: Edita Bernstein on 08/10/19 6:[address] Negative Covid result and Non Passr faxed to [facility]. He will need discharge paperwork to document restorative therapy. CM will continue to tollow and assist with discharge planning/needs. DCP- Discharge Planning Updated by [id number]: Edita Bernstein on 08/09/19 1:[address] Chapin from [facility] states they need a AKI and Covid prior to admission. I sent the Aki to [facility]. He has a covid now pending. He will need an order for restorative therapy. CM will continue to follow and assist with discharge planning/needs. DCP- Discharge Planning Updated by [id number]: Edita Bernstein on 08/07/19 11:[address] CM called [facility] in [place] and spoke with Lyla (admissions) about possible referral. Lyla states that [place] Medicaid does not have any rehab benefits for their facility and they would be unable to accept patient. I spoke with Chapin at [facility] and Chapin states patient will qualify for restorative rehab at their facility. He states he will speak with mother of patient and should be able to accept patient when medically stable for discharge. Additional clinical faxed to [facility] per request. CM will continue to follow and assist with discharge planning/needs. DCP- Discharge Planning Updated by [id number]: Edita Heathjerry on 08/06/19 4:[address] Mira had messaged that patient is not deemed disabled and since he is under age 65, he does not qualify for long-term care Medicaid. I have asked [facility] to run his Medicaid and they state he has SSI disability Medicaid. I spoke with patient and mother, they both state that he is not on disability at this time. Mother is present in the room and states she has filed for it for him on line. I sent a referral to [facility] and notified Chapin. I also informed Mira that mother has filed for patient's disability on line. CM will continue to follow and assist with discharge planning/needs. DCP- Discharge Planning Updated by [id number]: Edita Day on 08/06/19 11:[address] Updated clinical faxed to [facility]. I have messaged Mira, liaison for [facility], to check on referral. CM to continue to follow and assist with discharge planning/needs. DCP- Discharge Planning Updated by [id number]: Edita Bernstein on 08/02/19 10:[address] CM called [facility] and spoke with Abiola and clinical faxed. CM will continue to follow and assist with discharge planning/needs. DCP- Discharge Planning Updated by [id number]: Edita Bernstein on 08/01/19 3:[address] I received notification from [facility] rehab that they are unable to accept patient due to not having a safe discharge plan. I spoke with the patient and his mother and they would like a referral sent to [facility] first, then [facility]. I will reach out to [facility] in the am. CM will continue to follow and assist with discharge planning/needs. DCP- Discharge Planning Updated by [id number]: Edita Bernstein on 07/31/19 12:[address] CM met with patient's mother in the room per her request to discuss discharge planning. Patient's mother states that she lives at [address] [facility] [address] States she is unable to care for her son. States that when he is out of dialysis she will speak with him about a LTC facility. I provided her with the list of LTC facilities in surrounding area. I also informed her that I could reach out to [facility] to see if he has any rehab days available and she agrees with this plan. I spoke with Tanvi at [facility] and clinical faxed. CM will continue to follow and assist with discharge planning/needs. Monroe marti - [phone] or [phone] DCP- Discharge Planning Updated by [email or web address]: Taina Renee on 07/19/19 4:[address] Patient Name: KILO GARCIA Admission Status: ER Accout number: [id number] Admission Date: 07-18-2019 : 1970 Admission Diagnosis: Attending: MACK HARP Current LOS: 1 Anticipated DC Date: Planned Disposition: Home Primary Insurance: MEDICAID [place] Discharge Planning Comments: CM met with patient's mother Monroe to complete initial dc planning assessment. CM educated patient on the CM role and verbal consent given by patient to complete assessment. Patient lives at home alone. Patient is independent. At discharge patient plans to return home. CM discussed availability of home health, rehab services, and medical equipment. Uncertain of discharge needs or disposition at this time. Patient is currently sedated on vent. Patient will have family to transport home. CM will continue to follow and will assist as needed with dc plans/needs. Cover Mat Machine Operator: Taina Renee DCPIA - Discharge Planning Initial Assessment Updated by [id number]: Taina Renee on 07/19/19 5:35 pm * Is the patient Alert and Oriented? No * How many steps to enter\exit or inside your home? * [facility] * [facility] [place] * Preadmission Environment Home Alone * ADLs Independent * Equipment None * List name and contact numbers for known caregivers / representatives who currently or will assist patient after discharge: MONROE MARTI - [phone] * Verbal permission to speak to the caregivers and representatives has been obtained from the patient. Yes * Community resources currently utilized None * Additional services required to return to the preadmission environment? No * Can the patient safely return to the preadmission environment? Yes * Has this patient been hospitalized within the prior 30 days at any hospital? No Coverage Notice Reviewer: [id number] Marlena Bernstein Notice Issued Date-Time: 08/01/2019 16:10 Notice Type: Patient Choice Letter Notice Delivered To: Patient Relationship to Patient: Self Telecommunications Network Engineer Name: Delivery Method: HAND - Hand Delivered Jeanine Days: Prior Verbal Notification: Recipient Understood Notice: Yes Recipient Signature: Yes Med Rec Note Co-signed by Attending: Coverage Notice Comment: ASHLI for [facility] or [facility] Last DP export: 08/17/19 12:00 p Patient Name: KILO GARCIA Page [id number] at 0852 All edits/amendments must be made on the electronic document DICTATION DATE: 08/22/19850 GLAZIER SUPERVISOR: KELLY 08/22/19850 RPT#: [id number] DC DATE: STATUS: ADM IN [facility] [address] [place] [address] END OF REPORT
[2019-08-22 09:40] VITALS: BP 130/82
--- NOTE | 2019-08-22 10:04 | MORECARE ---
CASE MANAGEMENT DISCHARGE SUMMARY PATIENT: KILO GARCIA UNIT: [id number] ADM DATE: 07/18/19 AGE: 48 : 72 SEX: M ROOM/BED: D.2113 AUTHOR: RAPHAEL,DOC PHYSICIAN: REFERRING PHYSICIAN: DANNI HARP MD DATE OF SERVICE: 08/22/19 Discharge Plan Patient Name: KILO GARCIA Facility: [facility]:[place] : 1970 Planned Disposition: Home Anticipated Discharge Date: Discharge Date: Expected LOS: Initial Reviewer: [id number] Initial Review Date: 07/18/2019 Generated: 08/22/19 11:04 am Comments DCP- Discharge Planning Updated by [id number]: Denise Fields on 08/22/19 8:[address] CM met with patient regarding inability of [facility] to accept patient. Patient request that I contact his mother. CM contacted patient's mother, Monroe Wong @[phone], regarding same. Monroe states that she does not want patient to go into [facility]. States that she checked on patient's disability yesterday and was told that patient has not worked long enough to e able to draw a Disability check. Monroe states that patient will have full Medicaid and a SSI check for the rest of his life. Patient's mother request that CM contact [place], [facility], [facility]. Patient's mother said she will be he to visit around 1 pm. DCP- Discharge Planning Updated by [id number]: Denise Fields on 08/22/19 7:[address] Per Nan, with [facility], the facility is unable to accept patient, since there is COVID in the facility and he has never been there. DCP- Discharge Planning Updated by [id number]: Edita Bernstein on 08/17/19 11:[address] I spoke with Muna at [facility] and they do not have all their tests back. They have tested 200 people and have only gotten about 40 back. She is hoping she will have them back next week. Delay for placement to [facility]. DCP- Discharge Planning Updated by [id number]: Edita Bernstein on 08/16/19 12:[address] Spoke again with [facility] and they still do not have all their test results back. They are unable to accept patient until all results are back. Ready for discharge when [facility] can accept. DCP- Discharge Planning Updated by [id number]: Edita Bernstein on 08/15/19 2:[address] I spoke with Victorina at [facility]. Victorina states they have started getting some test results back, she is hoping to get the remaineder back tomorrow and hope to admit patient tomorrow. CM will continue to follow and assist with discharge planning/needs. DCP- Discharge Planning Updated by [id number]: Edita Bernstein on 08/14/19 10:[address] Updated clinical faxed to [facility]. Hopefully can be accepted tomorrow for restorative therapy. CM will continue to follow and assist with discharge planning/needs. DCP- Discharge Planning Updated by [id number]: Edita Bernstein on 08/13/19 11:[address] CM CALLED [facility] TO CHECK ON STATUS OF ADMISSION. I SPOKE WITH VICTORINA, SHE IS CHECKING WITH RECEIVING WORKER AND WILL LET ME KNOW IF THEY CAN ACCPET TODAY. DCP- Discharge Planning Updated by [id number]: Edita Bernstein on 08/10/19 10:[address] CM called Chapin with [facility], he states they will not have an available bed until Tuesday, and will accept the patient on Tuesday. I informed Dr. Noland, patient and called patient's mother, Monroe Wong, and left a message on her voice mail that he has been accepted to [facility] and they will have an available bed on Tuesday. DCP- Discharge Planning Updated by [id number]: Edita Bernstein on 08/10/19 6:[address] Negative Covid result and Non Passr faxed to [facility]. He will need discharge paperwork to document restorative therapy. CM will continue to tollow and assist with discharge planning/needs. DCP- Discharge Planning Updated by [id number]: Edita Bernstein on 08/09/19 1:[address] Chapin from [facility] states they need a AKI and Covid prior to admission. I sent the Aki to [facility]. He has a covid now pending. He will need an order for restorative therapy. CM will continue to follow and assist with discharge planning/needs. DCP- Discharge Planning Updated by [id number]: Edita Bernstein on 08/07/19 11:[address] CM called [facility] re[facility] in [place] and spoke with Lyla ([facility]) about possible referral. Lyla states that [place] Medicaid does not have any rehab benefits for their facility and they would be unable to accept patient. I spoke with Chapin at [facility] and Chapin states patient will qualify for restorative rehab at their facility. He states he will speak with mother of patient and should be able to accept patient when medically stable for discharge. Additional clinical faxed to [facility] per request. CM will continue to follow and assist with discharge planning/needs. DCP- Discharge Planning Updated by [id number]: Edita Bernstein on 08/06/19 4:[address] Mira had messaged that patient is not deemed disabled and since he is under age 66, he does not qualify for long-term care Medicaid. I have asked [facility] to run his Medicaid and they state he has SSI disability Medicaid. I spoke with patient and mother, they both state that he is not on disability at this time. Mother is present in the room and states she has filed for it for him on line. I sent a referral to [facility] and notified Chapin. I also informed Mira that mother has filed for patient's disability on line. CM will continue to follow and assist with discharge planning/needs. DCP- Discharge Planning Updated by [id number]: Edita Bernstein on 08/06/19 11:[address] Updated clinical faxed to [facility]. I have messaged Mira, liaison for [facility], to check on referral. CM to continue to follow and assist with discharge planning/needs. DCP- Discharge Planning Updated by [id number]: Edita Bernstein on 08/02/19 10:[address] CM called [facility] and spoke with Abiola and clinical faxed. CM will continue to follow and assist with discharge planning/needs. DCP- Discharge Planning Updated by [id number]: Edita Bernstein on 08/01/19 3:[address] I received notification from [facility] rehab that they are unable to accept patient due to not having a safe discharge plan. I spoke with the patient and his mother and they would like a referral sent to [facility] first, then [facility]. I will reach out to [facility] in the am. CM will continue to follow and assist with discharge planning/needs. DCP- Discharge Planning Updated by [id number]: Edita Bernstein on 07/31/19 12:[address] CM met with patient's mother in the room per her request to discuss discharge planning. Patient's mother states that she lives at [address] [place] [address]. States she is unable to care for her son. States that when he is out of dialysis she will speak with him about a LTC facility. I provided her with the list of LTC facilities in surrounding area. I also informed her that I could reach out to [facility] to see if he has any rehab days available and she agrees with this plan. I spoke with Tanvi at [facility] and clinical faxed. CM will continue to follow and assist with discharge planning/needs. Monroe marti - [phone] or [phone] DCP- Discharge Planning Updated by [id number]: Taina Renee on 07/19/19 4:[address] Patient Name: KILO WONG_JR Admission Status: ER Accout number: [id number] Admission Date: 07-18-2019 : 1970 Admission Diagnosis: Attending: MACK HARP Current LOS: 1 Anticipated DC Date: Planned Disposition: Home Primary Insurance: MEDICAID [place] Discharge Planning Comments: CM met with patient's mother Monroe to complete initial dc planning assessment. CM educated patient on the CM role and verbal consent given by patient to complete assessment. Patient lives at home alone. Patient is independent. At discharge patient plans to return home. CM discussed availability of home health, rehab services, and medical equipment. Uncertain of discharge needs or disposition at this time. Patient is currently sedated on vent. Patient will have family to transport home. CM will continue to follow and will assist as needed with dc plans/needs. Tub Wash Operator: Taina Renee DCPIA - Discharge Planning Initial Assessment Updated by [id number]: Taina Renee on 07/19/19 5:35 pm * Is the patient Alert and Oriented? No * How many steps to enter\exit or inside your home? * [facility]CP [facility] * Pharmacy [facility] [place] * Preadmission Environment Home Alone * ADLs Independent * Equipment None * List name and contact numbers for known caregivers / representatives who currently or will assist patient after discharge: MONREO JIMENES - - [phone] * Verbal permission to speak to the caregivers and representatives has been obtained from the patient. Yes * Community resources currently utilized None * Additional services required to return to the preadmission environment? No * Can the patient safely return to the preadmission environment? Yes * Has this patient been hospitalized within the prior 30 days at any hospital? No Coverage Notice Reviewer: [id number] Marlena Bernstein Notice Issued Date-Time: 08/01/2019 16:10 Notice Type: Patient Choice Letter Notice Delivered To: Patient Relationship to Patient: Self Cold Roll Packer Sheet Iron Name: Delivery Method: HAND - Hand Delivered Jeanine Days: Prior Verbal Notification: Recipient Understood Notice: Yes Recipient Signature: Yes Med Rec Note Co-signed by Attending: Coverage Notice Comment: A[facility]LI for [place] or [facility] Last DP export: 08/22/19 7:52 am Patient Name: KILO GARCIA Page 18711 at 1004 All edits/amendments must be made on the electronic document DICTATION DATE: 08/22/19 1004 ELECTRONIC GLUER: KELLY 08/22/19 1004 RPT#: [id number] DC DATE: STATUS: ADM IN [facility] [address] [place] [address] END OF REPORT
--- NOTE | 2019-08-22 13:22 | MORECARE ---
CASE MANAGEMENT DISCHARGE SUMMARY PATIENT: KILO GARCIA UNIT: [id number] ADM DATE: 07/18/19 AGE: 48 : 72 SEX: M ROOM/BED: D.2113 AUTHOR: RAPHAEL,DOC PHYSICIAN: REFERRING PHYSICIAN: DANNI HARP MD DATE OF SERVICE: 08/22/19 Discharge Plan Patient Name: KILO GARCIA Facility: [facility]:[place] : 1970 Planned Disposition: Home Anticipated Discharge Date: Discharge Date: Expected LOS: Initial Reviewer: [email or web address] Initial Review Date: 07/18/2019 Generated: 08/22/19 2:21 pm Comments DCP- Discharge Planning Updated by [id number]: Denise Fields on 08/22/19 8:[address] CM met with patient regarding inability of [facility] to accept patient. Patient request that I contact his mother. CM contacted patient's mother, Monroe Wong @[phone], regarding same. Monroe states that she does not want patient to go into [facility]. States that she checked on patient's disability yesterday and was told that patient has not worked long enough to e able to draw a Disability check. Monroe states that patient will have full Medicaid and a SSI check for the rest of his life. Patient's mother request that CM contact [facility], [facility]. Patient's mother said she will be he to visit around 1 pm. DCP- Discharge Planning Updated by [id number]: Denise Fields on 08/22/19 7:[address] Per Nan, with [facility], the facility is unable to accept patient, since there is COVID in the facility and he has never been there. DCP- Discharge Planning Updated by [id number]: Edita Bernstein on 08/17/19 11:[address] I spoke with Muna at [facility] and they do not have all their tests back. They have tested 200 people and have only gotten about 40 back. She is hoping she will have them back next week. Delay for placement to [facility]. DCP- Discharge Planning Updated by [id number]: Edita Bernstein on 08/16/19 12:[address] Spoke again with [facility] and they still do not have all their test results back. They are unable to accept patient until all results are back. Ready for discharge when [facility] can accept. DCP- Discharge Planning Updated by [id number]: Edita Bernstein on 08/15/19 2:[address] I spoke with Victorina at [facility]. Victorina states they have started getting some test results back, she is hoping to get the remaineder back tomorrow and hope to admit patient tomorrow. CM will continue to follow and assist with discharge planning/needs. DCP- Discharge Planning Updated by [id number]: Edita Bernstein on 08/14/19 10:[address] Updated clinical faxed to [facility]. Hopefully can be accepted tomorrow for restorative therapy. CM will continue to follow and assist with discharge planning/needs. DCP- Discharge Planning Updated by [id number]: Edita Bernstein on 08/13/19 11:[address] CM CALLED [facility] TO CHECK ON STATUS OF ADMISSION. I SPOKE WITH VICTORINA, SHE IS CHECKING WITH GEOGRAPHY DEPARTMENT CHAIR AND WILL LET ME KNOW IF THEY CAN ACCPET TODAY. DCP- Discharge Planning Updated by [id number]: Edita Bernstein on 08/10/19 10:[address] CM called Chapin with [facility], he states they will not have an available bed until Tuesday, and will accept the patient on Tuesday. I informed Dr. Noland, patient and called patient's mother, Monroe Wong, and left a message on her voice mail that he has been accepted to [facility] and they will have an available bed on Tuesday. DCP- Discharge Planning Updated by [id number]: Edita Bernstein on 08/10/19 6:[address] Negative Covid result and Non Passr faxed to [facility]. He will need discharge paperwork to document restorative therapy. CM will continue to tollow and assist with discharge planning/needs. DCP- Discharge Planning Updated by [id number]: Edita Bernstein on 08/09/19 1:[address] Chapin from [facility] states they need a AKI and Covid prior to admission. I sent the Aki to [facility]. He has a covid now pending. He will need an order for restorative therapy. CM will continue to follow and assist with discharge planning/needs. DCP- Discharge Planning Updated by [id number]: Edita Bernstein on 08/07/19 11:[address] CM called [facility] in [place] and [facility] with [facility] about possible referral. Lyla states that [place] Medicaid does not have any rehab benefits for their facility and they would be unable to accept patient. I spoke with Chapin at [facility] and Chapin states patient will qualify for restorative rehab at their facility. He states he will speak with mother of patient and should be able to accept patient when medically stable for discharge. Additional clinical faxed to [facility] per request. CM will continue to follow and assist with discharge planning/needs. DCP- Discharge Planning Updated by [id number]: Edita Bernstein on 08/06/19 4:[address] Mira had messaged that patient is not deemed disabled and since he is under age 65, he does not qualify for long-term care Medicaid. I have asked [facility] [employer] to run his Medicaid and they state he has SSI disability Medicaid. I spoke with patient and mother, they both state that he is not on disability at this time. Mother is present in the room and states she has filed for it for him on line. I sent a referral to [facility] and notified Chapin. I also informed Mira that mother has filed for patient's disability on line. CM will continue to follow and assist with discharge planning/needs. DCP- Discharge Planning Updated by [id number]: Edita Bernstein on 08/06/19 11:[address] Updated clinical faxed to [facility]. I have messaged Mira, liaison for [facility], to check on referral. CM to continue to follow and assist with discharge planning/needs. DCP- Discharge Planning Updated by [id number]: Edita Bernstein on 08/02/19 10:[address] CM called [facility] and spoke with Abiola and clinical faxed. CM will continue to follow and assist with discharge planning/needs. DCP- Discharge Planning Updated by [id number]: Edita Bernstein on 08/01/19 3:[address] I received notification from [facility] re[facility] that they are unable to accept patient due to not having a safe discharge plan. I spoke with the patient and his mother and they would like a referral sent to [facility] first, then [facility]. I will reach out to [facility] in the am. CM will continue to follow and assist with discharge planning/needs. DCP- Discharge Planning Updated by [id number]: Edita Bernstein on 07/31/19 12:[address] CM met with patient's mother in the room per her request to discuss discharge planning. Patient's mother states that she lives at [address] [place] [address]. States she is unable to care for her son. States that when he is out of dialysis she will speak with him about a LTC facility. I provided her with the list of LTC facilities in surrounding area. I also informed her that I could reach out to [facility] to see if he has any rehab days available and she agrees with this plan. I spoke with Tanvi at [facility] and clinical faxed. CM will continue to follow and assist with discharge planning/needs. Monroe marti - [phone] or [phone] DCP- Discharge Planning Updated by [email or web address]: Taina Renee on 07/19/19 4:[address] Patient Name: KILO WONG_JR Admission Status: ER Accout number: [id number] Admission Date: 07-18-2019 : 1970 Admission Diagnosis: Attending: MACK HARP Current LOS: 1 Anticipated DC Date: Planned Disposition: Home Primary Insurance: MEDICAID [place] Discharge Planning Comments: CM met with patient's mother Monroe to complete initial dc planning assessment. CM educated patient on the CM role and verbal consent given by patient to complete assessment. Patient lives at home alone. Patient is independent. At discharge patient plans to return home. CM discussed availability of home health, rehab services, and medical equipment. Uncertain of discharge needs or disposition at this time. Patient is currently sedated on vent. Patient will have family to transport home. CM will continue to follow and will assist as needed with dc plans/needs. Dry Cure Worker: Taina Renee DCPIA - Discharge Planning Initial Assessment Updated by [id number]: Taina Renee on 07/19/19 5:35 pm * Is the patient Alert and Oriented? No * How many steps to enter\exit or inside your home? * [facility] * Pharmacy [facility] [place] * Preadmission Environment Home Alone * ADLs Independent * Equipment None * List name and contact numbers for known caregivers / representatives who currently or will assist patient after discharge: MONROE JIMENES - MOTHER - [phone] * Verbal permission to speak to the caregivers and representatives has been obtained from the patient. Yes * Community resources currently utilized None * Additional services required to return to the preadmission environment? No * Can the patient safely return to the preadmission environment? Yes * Has this patient been hospitalized within the prior 30 days at any hospital? No External Providers External Provider: [facility] Next Contact Date: Service Request Date: Service Type: Resolution: Reviewer: Comments: Coverage Notice Reviewer: [id number] Marlena Bernstein Notice Issued Date-Time: 08/01/2019 16:10 Notice Type: Patient Choice Letter Notice Delivered To: Patient Relationship to Patient: Self Direct Mail Coordinator Name: Delivery Method: HAND - Hand Delivered Jeanine Days: Prior Verbal Notification: Recipient Understood Notice: Yes Recipient Signature: Yes Med Rec Note Co-signed by Attending: Coverage Notice Comment: ASHLI for [facility] or [facility] Last DP export: 08/22/19 9:04 am Patient Name: KILO GARCIA Page 68025 at 1322 All edits/amendments must be made on the electronic document DICTATION DATE: 08/22/19 1321 PLACEMENT MANAGER: KELLY 08/22/19 1321 RPT#: [id number] DC DATE: STATUS: ADM IN [facility] [address] [place] [address] END OF REPORT
--- NOTE | 2019-08-22 15:27 | NUR ---
OT NOTE: PT COMPLETED SUPINE TO SIT WITH MIN A. PT COMPLETED EOB SITTING WITH CGA. PT COMPLETED COMPLETED FACE AND HAND HYGIENE WITH MIN A. [id number] THANK YOU,LALITO BUENO
--- NOTE | 2019-08-22 15:37 | MORECARE ---
CASE MANAGEMENT DISCHARGE SUMMARY PATIENT: KILO GARCIA UNIT: [id number] ADM DATE: 07/18/19 AGE: 48 : 72 SEX: M ROOM/BED: D.2113 AUTHOR: RAPHAEL,DOC PHYSICIAN: REFERRING PHYSICIAN: DANNI HARP MD DATE OF SERVICE: 08/22/19 Discharge Plan Patient Name: KILO GARCIA Facility: [facility]:[place] : 1970 Planned Disposition: Home Anticipated Discharge Date: Discharge Date: Expected LOS: Initial Reviewer: [email or web address] Initial Review Date: 07/18/2019 Generated: 08/22/19 4:36 pm Comments DCP- Discharge Planning Updated by [id number]: Denise Fields on 08/22/19 2:[address] CM met with patient regarding inability of [facility] to accept patient. Patient request that I contact his mother. CM contacted patient's mother, Monroe Wong @[phone], regarding same. Monroe states that she does not want patient to go into [facility]. States that she checked on patient's disability yesterday and was told that patient has not worked long enough to e able to draw a Disability check. Monroe states that patient will have full Medicaid and a SSI check for the rest of his life. Patient's mother request that CM contact [facility], [facility]. Patient's mother said she will be he to visit around 1 pm. CM contacted and faxed information to S[facility]ana Carrillo for placement in any facility. DCP- Discharge Planning Updated by [id number]: Denise Fields on 08/22/19 7:[address] Per Nan, with [facility], the facility is unable to accept patient, since there is COVID in the facility and he has never been there. DCP- Discharge Planning Updated by [id number]: Edita Bernstein on 08/17/19 11:[address] I spoke with Muna at [facility] and they do not have all their tests back. They have tested 200 people and have only gotten about 40 back. She is hoping she will have them back next week. Delay for placement to [facility]. DCP- Discharge Planning Updated by [id number]: Edita Bernstein on 08/16/19 12:[address] Spoke again with [facility] and they still do not have all their test results back. They are unable to accept patient until all results are back. Ready for discharge when [facility] can accept. DCP- Discharge Planning Updated by [id number]: Edita Bernstein on 08/15/19 2:[address] I spoke with Victorina at [facility]. Victorina states they have started getting some test results back, she is hoping to get the remaineder back tomorrow and hope to admit patient tomorrow. CM will continue to follow and assist with discharge planning/needs. DCP- Discharge Planning Updated by [id number]: Edita Bernstein on 08/14/19 10:[address] Updated clinical faxed to [facility]. Hopefully can be accepted tomorrow for restorative therapy. CM will continue to follow and assist with discharge planning/needs. DCP- Discharge Planning Updated by [id number]: Edita Bernstein on 08/13/19 11:[address] CM CALLED [facility] TO CHECK ON STATUS OF ADMISSION. I SPOKE WITH VICTORINA, SHE IS CHECKING WITH [facility] AND WILL LET ME KNOW IF THEY CAN ACCPET TODAY. DCP- Discharge Planning Updated by [id number]: Edita Bernstein on 08/10/19 10:[address] CM called Chapin with [facility], he states they will not have an available bed until Tuesday, and will accept the patient on Tuesday. I informed Dr. Noland, patient and called patient's mother, Monroe Wong, and left a message on her voice mail that he has been accepted to [facility] and they will have an available bed on Tuesday. DCP- Discharge Planning Updated by [id number]: Edita Bernstein on 08/10/19 6:[address] Negative Covid result and Non Passr faxed to [facility]. He will need discharge paperwork to document restorative therapy. CM will continue to tollow and assist with discharge planning/needs. DCP- Discharge Planning Updated by [id number]: Edita Bernstein on 08/09/19 1:[address] Chapin from [facility] states they need a AKI and Covid prior to admission. I sent the [place] [facility]. He has a covid now pending. He will need an order for restorative therapy. CM will continue to follow and assist with discharge planning/needs. DCP- Discharge Planning Updated by [id number]: Edita Bernstein on 08/07/19 11:[address] CM called [facility] in [place] and spoke with Lyla (thiago) about possible referral. Lyla states that [place] Medicaid does not have any rehab benefits for their facility and they would be unable to accept patient. I spoke with Chapin at [facility] and Chapin states patient will qualify for restorative rehab at their facility. He states he will speak with mother of patient and should be able to accept patient when medically stable for discharge. Additional clinical faxed to [facility] per request. CM will continue to follow and assist with discharge planning/needs. DCP- Discharge Planning Updated by [id number]: Edita Bernstein on 08/06/19 4:[address] Mira had messaged that patient is not deemed disabled and since he is under age 65, he does not qualify for long-term care Medicaid. I have asked [facility] [employer] to run his Medicaid and they state he has SSI disability Medicaid. I spoke with patient and mother, they both state that he is not on disability at this time. Mother is present in the room and states she has filed for it for him on line. I sent a referral to [facility] and notified Chapin. I also informed Mira that mother has filed for patient's disability on line. CM will continue to follow and assist with discharge planning/needs. DCP- Discharge Planning Updated by [id number]: Edita Bernstein on 08/06/19 11:[address] Updated clinical faxed to [facility]. I have messaged Mira, liaison for [facility], to check on referral. CM to continue to follow and assist with discharge planning/needs. DCP- Discharge Planning Updated by [id number]: Edita Bernstein on 08/02/19 10:[address] CM called [facility] and spoke with Abiola and clinical faxed. CM will continue to follow and assist with discharge planning/needs. DCP- Discharge Planning Updated by [id number]: Edita Bernstein on 08/01/19 3:[address] I received notification from [facility] ([facility]) rehab that they are unable to accept patient due to not having a safe discharge plan. I spoke with the patient and his mother and they would like a referral sent to [facility] first, then [facility]. I will reach out to [facility] in the am. CM will continue to follow and assist with discharge planning/needs. DCP- Discharge Planning Updated by [id number]: Edita Bernstein on 07/31/19 12:[address] CM met with patient's mother in the room per her request to discuss discharge planning. Patient's mother states that she lives at [address] [facility]. States she is unable to care for her son. States that when he is out of dialysis she will speak with him about a LTC facility. I provided her with the list of LTC facilities in surrounding area. I also informed her that I could reach out to [facility] to see if he has any rehab days available and she agrees with this plan. I spoke with Tanvi at [facility] and clinical faxed. CM will continue to follow and assist with discharge planning/needs. Monroe - mother - [phone] or [phone] DCP- Discharge Planning Updated by [id number]: Taina Renee on 07/19/19 4:[address] Patient Name: KILO WHEATLEYJR Admission Status: ER Accout number: [id number] Admission Date: 07-18-2019 : 1970 Admission Diagnosis: Attending: MACK HARP Current LOS: 1 Anticipated DC Date: Planned Disposition: Home Primary Insurance: MEDICAID [place] Discharge Planning Comments: CM met with patient's mother Monroe to complete initial dc planning assessment. CM educated patient on the CM role and verbal consent given by patient to complete assessment. Patient lives at home alone. Patient is independent. At discharge patient plans to return home. CM discussed availability of home health, rehab services, and medical equipment. Uncertain of discharge needs or disposition at this time. Patient is currently sedated on vent. Patient will have family to transport home. CM will continue to follow and will assist as needed with dc plans/needs. Tool Operator: Taina Renee DCPIA - Discharge Planning Initial Assessment Updated by [id number]: Taina Renee on 07/19/19 5:35 pm * Is the patient Alert and Oriented? No * How many steps to enter\exit or inside your home? * [facility]CP [facility] * Pharmacy [facility] [place] * Preadmission Environment Home Alone * ADLs Independent * Equipment None * List name and contact numbers for known caregivers / representatives who currently or will assist patient after discharge: MONROE JIMENES - - [phone] * Verbal permission to speak to the caregivers and representatives has been obtained from the patient. Yes * Community resources currently utilized None * Additional services required to return to the preadmission environment? No * Can the patient safely return to the preadmission environment? Yes * Has this patient been hospitalized within the prior 30 days at any hospital? No Coverage Notice Reviewer: [id number] Marlena Bernstein Notice Issued Date-Time: 08/01/2019 16:10 Notice Type: Patient Choice Letter Notice Delivered To: Patient Relationship to Patient: Self Engineer Intern Name: Delivery Method: HAND - Hand Delivered Jeanine Days: Prior Verbal Notification: Recipient Understood Notice: Yes Recipient Signature: Yes Med Rec Note Co-signed by Attending: Coverage Notice Comment: ASHLI for [facility] Last DP export: 08/22/19 12:22 pm Patient Name: KILO GARCIA Page 72965 at 1537 All edits/amendments must be made on the electronic document DICTATION DATE: 08/22/19 1536 MULTIPLE GAMES DEALER: KELLY 08/22/19 1536 RPT#: [id number] DC DATE: STATUS: ADM IN [facility] [address] [place] [address] END OF REPORT
--- NOTE | 2019-08-22 15:53 | NUR ---
OT NOTE: PRACTICED BED MOB IWTH VERBAL CUES AND NO PHYSICAL ASSIST TO INCLUDE ROLLING AND SUPINE TO SIT/ SIT TO SUPINE; SIT TO STAND WITH WALKER AND MIN ASSIST(MAX ASSIST TO KEEP L HAND ON WALKER) THIS ALLOW FOR GOOD WT BEARING THROUGH L UE; LLE HAS IMPROVE GREATLY AND TOLERATES MODERATE AMOUNT OF WT.. UE REMAINS FLACID.. OCCASSIONAL CUES TO WATCH WHERE HIS L HAND IS LOCATED. [id number]
[2019-08-22 18:56] VITALS: BP 130/51
[2019-08-22 20:00] VITALS: BP 154/98
--- NOTE | 2019-08-22 21:00 | NUR ---
PATIENT UP TO BEDSIDE COMMODE. PATIENT ATTEMPTING TO HAVE BM. NO RESULTS.
--- NOTE | 2019-08-22 23:49 | NUR ---
ALERTED BY DOUGH MIXER THAT PATIENT WAS FOUND ON FLOOR. PATIENT ASSESSED. PATIENT DENIES INJURIES OR PAIN. NO INJURIES FOUND UPON ASSESSMENT. PAGED RESERVATION CLERK FROM [facility]. AWAITING RETURN CALL. ATTEMPTED TO CALL PATIENT MOTHER. NO ANSWER AND VOICEMAIL IS FULL AND NO LONGER ACCEPTING MESSAGES. PATIENT ASSISTED BACK TO BED. BOTH BED ALARM AND JOSE MAT ENABLED AND FUNCTIONING. PRIOR TO FALL ALARMS WERE IN PLACE BUT NOT ENABLED.
[2019-08-23] VITALS: BP 140/92
--- NOTE | 2019-08-23 00:32 | NUR ---
SECOND ATTEMPT TO PAGE WOMENS VOLLEYBALL COACH, AWAITING RETURN CALL.
--- NOTE | 2019-08-23 00:40 | NUR ---
RECEIVED RETURN CALL FROM [facility]. NO NEW ORDERS GIVEN.
[2019-08-23 04:00] VITALS: BP 139/87
[2019-08-23 05:26] LABS: BASOPHILS 0.8 % (0-2); EOSINOPHILS 2.9 % (0-7); HEMATOCRIT 35.6 % (42.0-54.0); HEMOGLOBIN 11.9 g/dL (13.5-17.5); IMMATURE GRANULOCYTES 0.2 % (0-5); LYMPHOCYTES 28.9 % (15-50); MCH 29.5 pg (26.0-34.0); MCHC 33.4 g/dL (31.0-37.0); MCV 88.3 fL (80.0-100.0); MONOCYTES 11.4 % (2-11); NEUTROPHILS 55.8 % (40-80); PLATELET COUNT 185 10x3/uL (130-400); RBC 4.03 10x6/uL (4.20-6.10); RDW 12.8 % (11.5-14.5); WBC 6.5 10x3/uL (4.8-10.8)
[2019-08-23 05:41] LABS: ALBUMIN 3.6 g/dL (3.4-5.0); ANION GAP 11.7 mmol/L (8-16); BILIRUBIN - TOTAL 0.43 mg/dL (0.2-1.3); CALCIUM 8.8 mg/dL (8.5-10.1); CARBON DIOXIDE 28.2 mmol/L (21.0-32.0); CREATININE - SERUM 1.9 mg/dL (0.6-1.3); POTASSIUM - SERUM 3.9 mmol/L (3.5-5.1); PROTEIN - SERUM 8.1 g/dL (6.4-8.2)
--- NOTE | 2019-08-23 09:31 | NUR ---
Nutrition Follow-up: Noted pt ate 0% of meal this AM but drank 100% of Nepro. PO intake fluctuates. Awaiting placement. Diet: Renal, Nepro BID PO intake: 51% avg x 6 meals No new wt; last wt: 148# (08/16); 167.5# & 152.1# (08/14); 177.4# (07/17) Last BM: 08/21 Labs noted: K+ 3.9 Meds noted: Protonix, Renvela, vitamin B6, electrolyte protocol -MD may consider liberalizing diet to promote better PO intake. -Encourage PO intake and honor food preferences within diet restrictions. -Pt may benefit from appetite stimulant. -Wt changes noted, although large variations noted on the same day. Need new wt; daily wts ordered. -RD following.
[2019-08-23 09:46] VITALS: BP 145/100
[2019-08-23 12:00] VITALS: BP 140/83
[2019-08-23 16:00] VITALS: BP 140/90
[2019-08-23 20:00] VITALS: BP 122/96
--- NOTE | 2019-08-23 20:00 | NUR ---
PATIENT BEGINNING TO GET AGITATED. PATIENT BROUGHT TO PCU NURSES STATION SITTING IN RECLINER WATCHING [employer]. PATIENT NO LONGER AGITATED.
--- NOTE | 2019-08-23 22:28 | NUR ---
PATIENT CONTINUES TO SIT A PCU NURSES STATION. PATIENT TELLING STAFF JOKES.
[2019-08-24] VITALS: BP 146/63
--- NOTE | 2019-08-24 01:33 | NUR ---
PATIENT BACK IN BED.
[2019-08-24 04:00] VITALS: BP 133/84
[2019-08-24 04:34] LABS: BASOPHILS 0.6 % (0-2); EOSINOPHILS 3.4 % (0-7); HEMATOCRIT 32.7 % (42.0-54.0); HEMOGLOBIN 11.1 g/dL (13.5-17.5); LYMPHOCYTES 33.3 % (15-50); MCHC 33.9 g/dL (31.0-37.0); MCV 88.4 fL (80.0-100.0); MEAN PLATELET VOLUME 10.3 fL (7.4-10.4); MONOCYTES 12.6 % (2-11); NEUTROPHILS 50.1 % (40-80); PLATELET COUNT 220 10x3/uL (130-400); RDW 12.9 % (11.5-14.5); WBC 5.2 10x3/uL (4.8-10.8)
[2019-08-24 04:59] LABS: ALBUMIN 3.3 g/dL (3.4-5.0); BILIRUBIN - TOTAL 0.34 mg/dL (0.2-1.3); CALCIUM 8.4 mg/dL (8.5-10.1); CARBON DIOXIDE 26.4 mmol/L (21.0-32.0); CREATININE - SERUM 1.8 mg/dL (0.6-1.3); PROTEIN - SERUM 7.2 g/dL (6.4-8.2)
[2019-08-24 05:08] LABS: ANION GAP 12.9 mmol/L (8-16); POTASSIUM - SERUM 3.3 mmol/L (3.5-5.1)
--- NOTE | 2019-08-24 05:58 | NUR ---
OT NOTE: (DOS 08/23/2019) PT COMPLETED BED MOB TASKS WITH CGA. PT COMPLETED SUPINE TO SIT WITH CGA FOR INCREASED SAFETY. PT COMPLETED RUE AAROM AXS. PT COMPLETED LUE PROM TOLERATED. PT COMPLETED FACE WASH AT EOB WITH SETUP. 1-014 THANK YOU,LALITO BUENO
[2019-08-24 09:26] VITALS: BP 160/96
[2019-08-24 12:00] VITALS: BP 147/94
--- NOTE | 2019-08-24 14:09 | MORECARE ---
CASE MANAGEMENT DISCHARGE SUMMARY PATIENT: KILO GARCIA UNIT: [id number] ADM DATE: 07/18/19 AGE: 48 : 72 SEX: M ROOM/BED: D.2113 AUTHOR: RAPHAEL,DOC PHYSICIAN: REFERRING PHYSICIAN: DANNI HARP MD DATE OF SERVICE: 08/24/19 Discharge Plan Patient Name: KILO GARCIA Facility: [facility]:[place] : 1970 Planned Disposition: Home Anticipated Discharge Date: Discharge Date: Expected LOS: Initial Reviewer: [email or web address] Initial Review Date: 07/18/2019 Generated: 08/24/19 3:09 pm Comments DCP- Discharge Planning Updated by [id number]: Denise Fields on 08/24/19 1:[address] [facility] is unable to accept patient. Will try [facility]. DCP- Discharge Planning Updated by [id number]: Denise Fields on 08/22/19 2:[address] CM met with patient regarding inability of [facility] to accept patient. Patient request that I contact his mother. CM contacted patient's mother, Monroe Wong @[phone], regarding same. Monroe states that she does not want patient to go into [facility]. States that she checked on patient's disability yesterday and was told that patient has not worked long enough to e able to draw a Disability check. [place] states that patient will have full Medicaid and a SSI check for the rest of his life. Patient's mother request that CM contact [facility], [facility], [place]. Patient's mother said she will be he to visit around 1 pm. CM contacted and faxed information to S[facility]ana Carr[facility] for placement in any facility. DCP- Discharge Planning Updated by [id number]: Denise Fields on 08/22/19 7:[address] Per Nan, with [facility], the facility is unable to accept patient, since there is COVID in the facility and he has never been there. DCP- Discharge Planning Updated by [id number]: Edita Bernstein on 08/17/19 11:[address] I spoke with Muna at [facility] and they do not have all their tests back. They have tested 200 people and have only gotten about 40 back. She is hoping she will have them back next week. Delay for placement to [facility]. DCP- Discharge Planning Updated by [id number]: Edita Bernstein on 08/16/19 12:[address] Spoke again with [facility] and they still do not have all their test results back. They are unable to accept patient until all results are back. Ready for discharge when [facility] can accept. DCP- Discharge Planning Updated by [id number]: Edita Bernstein on 08/15/19 2:[address] I spoke with Victorina at [facility]. Victorina states they have started getting some test results back, she is hoping to get the remaineder back tomorrow and hope to admit patient tomorrow. CM will continue to follow and assist with discharge planning/needs. DCP- Discharge Planning Updated by [id number]: Edita Bernstein on 08/14/19 10:[address] Updated clinical faxed to [facility]. Hopefully can be accepted tomorrow for restorative therapy. CM will continue to follow and assist with discharge planning/needs. DCP- Discharge Planning Updated by [id number]: Edita Bernstein on 08/13/19 11:[address] CM CALLED [facility] TO CHECK ON STATUS OF ADMISSION. I SPOKE WITH VICTORINA, SHE IS CHECKING WITH STUDENT ADMISSIONS CLERK AND WILL LET ME KNOW IF THEY CAN ACCPET TODAY. DCP- Discharge Planning Updated by [id number]: Edita Bernstein on 08/10/19 10:[address] CM called Chapin with [facility], he states they will not have an available bed until Tuesday, and will accept the patient on Tuesday. I informed Dr. Noland, patient and called patient's mother, Monroe Wong, and left a message on her voice mail that he has been accepted to [facility] and they will have an available bed on Tuesday. DCP- Discharge Planning Updated by [id number]: Edita Bernstein on 08/10/19 6:[address] Negative Covid result and Non Passr faxed to [facility]. He will need discharge paperwork to document restorative therapy. CM will continue to tollow and assist with discharge planning/needs. DCP- Discharge Planning Updated by [id number]: Edita Bernstein on 08/09/19 1:[address] Chapin from [facility] states they need a AKI and Covid prior to admission. I sent the [facility] to [facility]. He has a covid now pending. He will need an order for restorative therapy. CM will continue to follow and assist with discharge planning/needs. DCP- Discharge Planning Updated by [id number]: Edita Bernstein on 08/07/19 11:[address] CM called [facility] rehab in [place] and spoke with [facility] about possible referral. Lyla states that [place] Medicaid does not have any rehab benefits for their facility and they would be unable to accept patient. I spoke with Chapin at [facility] and Chapin states patient will qualify for restorative rehab at their facility. He states he will speak with mother of patient and should be able to accept patient when medically stable for discharge. Additional clinical faxed to [facility] per request. CM will continue to follow and assist with discharge planning/needs. DCP- Discharge Planning Updated by [id number]: Edita Bernstein on 08/06/19 4:[address] Mira had messaged that patient is not deemed disabled and since he is under age 65, he does not qualify for long-term care Medicaid. I have asked [facility] to run his Medicaid and they state he has SSI disability Medicaid. I spoke with patient and mother, they both state that he is not on disability at this time. Mother is present in the room and states she has filed for it for him on line. I sent a referral to [facility] and notified Chapin. I also informed Mira that mother has filed for patient's disability on line. CM will continue to follow and assist with discharge planning/needs. DCP- Discharge Planning Updated by [id number]: Edita Bernstein on 08/06/19 11:[address] Updated clinical faxed to [facility]. I have messaged Mira, liaison for [facility], to check on referral. CM to continue to follow and assist with discharge planning/needs. DCP- Discharge Planning Updated by [id number]: Edita Bernstein on 08/02/19 10:[address] CM called [facility] and spoke with Abiola and clinical faxed. CM will continue to follow and assist with discharge planning/needs. DCP- Discharge Planning Updated by [id number]: Edita Bernstein on 08/01/19 3:[address] I received notification from Lisha Vega ([facility]) rehab that they are unable to accept patient due to not having a safe discharge plan. I spoke with the patient and his mother and they would like a referral sent to [place] first, then [facility]. I will reach out to [place] in the am. CM will continue to follow and assist with discharge planning/needs. DCP- Discharge Planning Updated by [id number]: Edita Bernstein on 07/31/19 12:[address] CM met with patient's mother in the room per her request to discuss discharge planning. Patient's mother states that she lives at [address]. States she is unable to care for her son. States that when he is out of dialysis she will speak with him about a LTC facility. I provided her with the list of LTC facilities in surrounding area. I also informed her that I could reach out to [facility] to see if he has any rehab days available and she agrees with this plan. I spoke with Tanvi at [facility] and clinical faxed. CM will continue to follow and assist with discharge planning/needs. Monroe - - [phone] or [phone] DCP- Discharge Planning Updated by [id number]: Taina Renee on 07/19/19 4:[address] Patient Name: KILO WONG_JR Admission Status: ER Accout number: [id number] Admission Date: 07-18-2019 : 1970 Admission Diagnosis: Attending: MACK HARP Current LOS: 1 Anticipated DC Date: Planned Disposition: Home Primary Insurance: MEDICAID [place] Discharge Planning Comments: CM met with patient's mother Monroe to complete initial dc planning assessment. CM educated patient on the CM role and verbal consent given by patient to complete assessment. Patient lives at home alone. Patient is independent. At discharge patient plans to return home. CM discussed availability of home health, rehab services, and medical equipment. Uncertain of discharge needs or disposition at this time. Patient is currently sedated on vent. Patient will have family to transport home. CM will continue to follow and will assist as needed with dc plans/needs. Tactical Air Defense Controller: Taina Renee DCPIA - Discharge Planning Initial Assessment Updated by [id number]: Taina Renee on 07/19/19 5:35 pm * Is the patient Alert and Oriented? No * How many steps to enter\exit or inside your home? * [facility] * Pharmacy [facility] [place] * Preadmission Environment Home Alone * ADLs Independent * Equipment None * List name and contact numbers for known caregivers / representatives who currently or will assist patient after discharge: MONROE JIMENES - [facility] - [phone] * Verbal permission to speak to the caregivers and representatives has been obtained from the patient. Yes * Community resources currently utilized None * Additional services required to return to the preadmission environment? No * Can the patient safely return to the preadmission environment? Yes * Has this patient been hospitalized within the prior 30 days at any hospital? No Coverage Notice Reviewer: [id number] Marlena Bernstein Notice Issued Date-Time: 08/01/2019 16:10 Notice Type: Patient Choice Letter Notice Delivered To: Patient Relationship to Patient: Self Derrick Boat Runner Name: Delivery Method: HAND - Hand Delivered Jeanine Days: Prior Verbal Notification: Recipient Understood Notice: Yes Recipient Signature: Yes Med Rec Note Co-signed by Attending: Coverage Notice Comment: A[facility]LI for [facility] Last DP export: 08/22/19 2:36 pm Patient Name: KILO GARCIA Page [id number] at 1409 All edits/amendments must be made on the electronic document DICTATION DATE: 08/24/19 1409 RESEARCH ASSISTANT PROFESSOR: KELLY 08/24/19 1409 RPT#: [id number] DC DATE: STATUS: ADM IN [facility] [address] [place] [address] END OF REPORT
--- NOTE | 2019-08-24 14:16 | MORECARE ---
CASE MANAGEMENT DISCHARGE SUMMARY PATIENT: KILO GARCIA UNIT: [id number] ADM DATE: 07/18/19 AGE: 48 : 72 SEX: M ROOM/BED: D.2113 AUTHOR: ARPHAEL,DOC PHYSICIAN: REFERRING PHYSICIAN: DANNI HARP MD DATE OF SERVICE: 08/24/19 Discharge Plan Patient Name: KILO GARCIA Facility: [facility]:[place] : 1970 Planned Disposition: Home Anticipated Discharge Date: Discharge Date: Expected LOS: Initial Reviewer: [email or web address] Initial Review Date: 07/18/2019 Generated: 08/24/19 3:16 pm Comments DCP- Discharge Planning Updated by [id number]: Denise Fields on 08/24/19 1:[address] [facility] is unable to accept patient. Will try [facility]. DCP- Discharge Planning Updated by [id number]: Denise Fields on 08/22/19 2:[address] CM met with patient regarding inability of [facility] to accept patient. Patient request that I contact his mother. CM contacted patient's mother, Monroe Wong @[phone], regarding same. Monroe states that she does not want patient to go into [facility]. States that she checked on patient's disability yesterday and was told that patient has not worked long enough to e able to draw a Disability check. Monroe states that patient will have full Medicaid and a SSI check for the rest of his life. Patient's mother request that CM contact [facility], [facility], [place]. Patient's mother said she will be he to visit around 1 pm. CM contacted and faxed information to [facility] for placement in any facility. DCP- Discharge Planning Updated by [id number]: Denise Fields on 08/22/19 7:[address] Per Nan, with [facility], the facility is unable to accept patient, since there is COVID in the facility and he has never been there. DCP- Discharge Planning Updated by [id number]: Edita Bernstein on 08/17/19 11:[address] I spoke with Muna at [facility] and they do not have all their tests back. They have tested 200 people and have only gotten about 40 back. She is hoping she will have them back next week. Delay for placement to [facility]. DCP- Discharge Planning Updated by [id number]: Edita Bernstein on 08/16/19 12:[address] Spoke again with [facility] and they still do not have all their test results back. They are unable to accept patient until all results are back. Ready for discharge when [facility] can accept. DCP- Discharge Planning Updated by [id number]: Edita Bernstein on 08/15/19 2:[address] I spoke with Victorina at [facility]. Victorina states they have started getting some test results back, she is hoping to get the remaineder back tomorrow and hope to admit patient tomorrow. CM will continue to follow and assist with discharge planning/needs. DCP- Discharge Planning Updated by [id number]: Edita Bernstein on 08/14/19 10:[address] Updated clinical faxed to [facility]. Hopefully can be accepted tomorrow for restorative therapy. CM will continue to follow and assist with discharge planning/needs. DCP- Discharge Planning Updated by [id number]: Edita Bernstein on 08/13/19 11:[address] CM CALLED [facility] TO CHECK ON STATUS OF ADMISSION. I SPOKE WITH VICTORINA, SHE IS CHECKING WITH PAYROLL PROCESSOR AND WILL LET ME KNOW IF THEY CAN ACCPET TODAY. DCP- Discharge Planning Updated by [id number]: Edita Bernstein on 08/10/19 10:[address] CM called Chapin with [facility], he states they will not have an available bed until Tuesday, and will accept the patient on Tuesday. I informed Dr. Noland, patient and called patient's mother, Monroe Wong, and left a message on her voice mail that he has been accepted to [facility] and they will have an available bed on Tuesday. DCP- Discharge Planning Updated by [id number]: Edita Bernstein on 08/10/19 6:[address] Negative Covid result and Non Passr faxed to [facility]. He will need discharge paperwork to document restorative therapy. CM will continue to tollow and assist with discharge planning/needs. DCP- Discharge Planning Updated by [id number]: Edita Bernstein on 08/09/19 1:[address] Chapin from [facility] states they need a AKI and Covid prior to admission. I [facility] the [facility] to [facility]. He has a covid now pending. He will need an order for restorative therapy. CM will continue to follow and assist with discharge planning/needs. DCP- Discharge Planning Updated by [id number]: Edita Bernstein on 08/07/19 11:[address] CM called [facility] rehab in [place] and spoke with Lyla ([facility]) about possible referral. Lyla states that [place] Medicaid does not have any rehab benefits for their facility and they would be unable to accept patient. I spoke with Chapin at [facility] and Chapin states patient will qualify for restorative rehab at their facility. He states he will speak with mother of patient and should be able to accept patient when medically stable for discharge. Additional clinical faxed to [facility] per request. CM will continue to follow and assist with discharge planning/needs. DCP- Discharge Planning Updated by [id number]: Edita Bernstein on 08/06/19 4:[address] Mira had messaged that patient is not deemed disabled and since he is under age 66, he does not qualify for long-term care Medicaid. I have asked [facility] to run his Medicaid and they state he has SSI disability Medicaid. I spoke with patient and mother, they both state that he is not on disability at this time. Mother is present in the room and states she has filed for it for him on line. I sent a referral to [facility] and notified Chapin. I also informed Mira that mother has filed for patient's disability on line. CM will continue to follow and assist with discharge planning/needs. DCP- Discharge Planning Updated by [id number]: Edita Bernstein on 08/06/19 11:[address] Updated clinical faxed to [facility]. I have messaged Mira, liaison for [facility], to check on referral. CM to continue to follow and assist with discharge planning/needs. DCP- Discharge Planning Updated by [id number]: Edita Bernstein on 08/02/19 10:[address] CM called [facility] and spoke with Abiola and clinical faxed. CM will continue to follow and assist with discharge planning/needs. DCP- Discharge Planning Updated by [id number]: Edita Bernstein on 08/01/19 3:[address] I received notification from Lisha Vega ([facility]) rehab that they are unable to accept patient due to not having a safe discharge plan. I spoke with the patient and his mother and they would like a referral sent to [place] first, then [facility]. I will reach out to [place] in the am. CM will continue to follow and assist with discharge planning/needs. DCP- Discharge Planning Updated by [id number]: Edita Bernstein on 07/31/19 12:[address] CM met with patient's mother in the room per her request to discuss discharge planning. Patient's mother states that she lives at [address]. States she is unable to care for her son. States that when he is out of dialysis she will speak with him about a LTC facility. I provided her with the list of LTC facilities in surrounding area. I also informed her that I could reach out to [facility] to see if he has any rehab days available and she agrees with this plan. I spoke with Tanvi at [facility] and clinical faxed. CM will continue to follow and assist with discharge planning/needs. Monroe - - [phone] or [phone] DCP- Discharge Planning Updated by [id number]: Taina Renee on 07/19/19 4:[address] Patient Name: KILO WONG_JR Admission Status: ER Accout number: [id number] Admission Date: 07-18-2019 : 1970 Admission Diagnosis: Attending: MACK HARP Current LOS: 1 Anticipated DC Date: Planned Disposition: Home Primary Insurance: MEDICAID [place] Discharge Planning Comments: CM met with patient's mother Monroe to complete initial dc planning assessment. CM educated patient on the CM role and verbal consent given by patient to complete assessment. Patient lives at home alone. Patient is independent. At discharge patient plans to return home. CM discussed availability of home health, rehab services, and medical equipment. Uncertain of discharge needs or disposition at this time. Patient is currently sedated on vent. Patient will have family to transport home. CM will continue to follow and will assist as needed with dc plans/needs. Field Service Consultant: Taina Renee DCPIA - Discharge Planning Initial Assessment Updated by [id number]: aTina Renee on 07/19/19 5:35 pm * Is the patient Alert and Oriented? No * How many steps to enter\exit or inside your home? * [facility] * Pharmacy [facility] * Preadmission Environment Home Alone * ADLs Independent * Equipment None * List name and contact numbers for known caregivers / representatives who currently or will assist patient after discharge: MONROE JIMENES - [facility] - [phone] * Verbal permission to speak to the caregivers and representatives has been obtained from the patient. Yes * Community resources currently utilized None * Additional services required to return to the preadmission environment? No * Can the patient safely return to the preadmission environment? Yes * Has this patient been hospitalized within the prior 30 days at any hospital? No External Providers External Provider: [facility] Next Contact Date: Service Request Date: Service Type: Resolution: Reviewer: Comments: Coverage Notice Reviewer: [email or web address] Marlena Bernstein Notice Issued Date-Time: 08/01/2019 16:10 Notice Type: Patient Choice Letter Notice Delivered To: Patient Relationship to Patient: Self Mobility Developer Name: Delivery Method: HAND - Hand Delivered Jeanine Days: Prior Verbal Notification: Recipient Understood Notice: Yes Recipient Signature: Yes Med Rec Note Co-signed by Attending: Coverage Notice Comment: ASHLI for [place] or [facility] Last DP export: 08/24/19 1:09 pm Patient Name: KILO GARCIA Page [id number] at 1416 All edits/amendments must be made on the electronic document DICTATION DATE: 08/24/19 1416 JIGSAWYER: KELLY 08/24/19 1416 RPT#: [id number] DC DATE: STATUS: ADM IN [facility] [address] [place] [address] END OF REPORT
--- NOTE | 2019-08-24 14:31 | MORECARE ---
CASE MANAGEMENT DISCHARGE SUMMARY PATIENT: KILO GARCIA UNIT: [id number] ADM DATE: 07/18/19 AGE: 48 : 72 SEX: M ROOM/BED: D.2113 AUTHOR: RAPHAEL,DOC PHYSICIAN: REFERRING PHYSICIAN: DANNI HARP MD DATE OF SERVICE: 08/24/19 Discharge Plan Patient Name: KILO GARCIA Facility: [facility]:[place] : 1970 Planned Disposition: Home Anticipated Discharge Date: Discharge Date: Expected LOS: Initial Reviewer: [id number] Initial Review Date: 07/18/2019 Generated: 08/24/19 3:31 pm Comments DCP- Discharge Planning Updated by [id number]: Denies Fields on 08/24/19 1:[address] [facility] is unable to accept patient. Will try [facility]. CM contacted Agustina with [facility] for referral. There is no one at the facility to evaluate until Saturday 08/26. Faxed required information to dipak [facility]. DCP- Discharge Planning Updated by [id number]: Denise Fields on 08/22/19 2:[address] HEATHER met with patient regarding inability of [facility] to accept patient. Patient request that I contact his mother. CM contacted patient's mother, Monroe Wong @[phone], regarding same. Monroe states that she does not want patient to go into [facility]. States that she checked on patient's disability yesterday and was told that patient has not worked long enough to e able to draw a Disability check. Monroe states that patient will have full Medicaid and a SSI check for the rest of his life. Patient's mother request that CM [facility] Patient's mother said she will be he to visit around 1 pm. CM contacted and faxed information to Sultana Carrillo for placement in any facility. DCP- Discharge Planning Updated by [id number]: Denise Fields on 08/22/19 7:[address] Per Nan, with [facility], the facility is unable to accept patient, since there is COVID in the facility and he has never been there. DCP- Discharge Planning Updated by [id number]: Edita Bernstein on 08/17/19 11:[address] I spoke with Muna at [facility] and they do not have all their tests back. They have tested 200 people and have only gotten about 40 back. She is hoping she will have them back next week. Delay for placement to [facility]. DCP- Discharge Planning Updated by [id number]: Edita Bernstein on 08/16/19 12:[address] Spoke again with [facility] and they still do not have all their test results back. They are unable to accept patient until all results are back. Ready for discharge when [facility] can accept. DCP- Discharge Planning Updated by [id number]: Edita Bernstein on 08/15/19 2:[address] I spoke with Victorina at [facility]. Victorina states they have started getting some test results back, she is hoping to get the remaineder back tomorrow and hope to admit patient tomorrow. CM will continue to follow and assist with discharge planning/needs. DCP- Discharge Planning Updated by [id number]: Edita Bernstein on 08/14/19 10:[address] Updated clinical faxed to [facility]. Hopefully can be accepted tomorrow for restorative therapy. CM will continue to follow and assist with discharge planning/needs. DCP- Discharge Planning Updated by [id number]: Edita Bernstein on 08/13/19 11:[address] CM CALLED [facility] TO CHECK ON STATUS OF ADMISSION. I SPOKE WITH VICTORINA, SHE IS CHECKING WITH [facility] AND WILL LET ME KNOW IF THEY CAN ACCPET TODAY. DCP- Discharge Planning Updated by [id number]: Edita Bernstein on 08/10/19 10:[address] CM called Chapin with [facility], he states they will not have an available bed until Tuesday, and will accept the patient on Tuesday. I informed Dr. Noland, patient and called patient's mother, Monroe Wong, and left a message on her voice mail that he has been accepted to [facility] and they will have an available bed on Tuesday. DCP- Discharge Planning Updated by [id number]: Edita Bernstein on 08/10/19 6:[address] Negative Covid result and Non Passr faxed to [facility]. He will need discharge paperwork to document restorative therapy. CM will continue to tollow and assist with discharge planning/needs. DCP- Discharge Planning Updated by [id number]: Edita Heathjerry on 08/09/19 1:[address] Chapin from [facility] states they need a AKI and Covid prior to admission. I sent the Aki to [facility]. He has a covid now pending. He will need an order for restorative therapy. CM will continue to follow and assist with discharge planning/needs. DCP- Discharge Planning Updated by [id number]: Edita Day on 08/07/19 11:[address] CM called [facility] in [place] and spoke with Lyla ([facility]) about possible referral. Lyla states that [place] Medicaid does not have any rehab benefits for their facility and they would be unable to accept patient. I spoke with Chapin at [facility] and Chapin states patient will qualify for restorative rehab at their facility. He states he will speak with mother of patient and should be able to accept patient when medically stable for discharge. Additional clinical faxed to [facility] per request. CM will continue to follow and assist with discharge planning/needs. DCP- Discharge Planning Updated by [id number]: Edita Heathjerry on 08/06/19 4:[address] Mira had messaged that patient is not deemed disabled and since he is under age 65, he does not qualify for long-term care Medicaid. I have asked [facility] to run his Medicaid and they state he has SSI disability Medicaid. I spoke with patient and mother, they both state that he is not on disability at this time. Mother is present in the room and states she has filed for it for him on line. I sent a referral to [facility] and notified Chapin. I also informed Mira that mother has filed for patient's disability on line. CM will continue to follow and assist with discharge planning/needs. DCP- Discharge Planning Updated by [id number]: Edita Day on 08/06/19 11:[address] Updated clinical faxed to [facility]. I have messaged Mira, liaison for [facility], to check on referral. CM to continue to follow and assist with discharge planning/needs. DCP- Discharge Planning Updated by [id number]: Edita Bernstein on 08/02/19 10:[address] CM called [facility] and spoke with Abiola and clinical faxed. CM will continue to follow and assist with discharge planning/needs. DCP- Discharge Planning Updated by [id number]: Edita Bernstein on 08/01/19 3:[address] I received notification from Lisha Vega ([facility]) rehab that they are unable to accept patient due to not having a safe discharge plan. I spoke with the patient and his mother and they would like a referral sent to [facility] first, then [facility]. I will reach out to [facility] in the am. CM will continue to follow and assist with discharge planning/needs. DCP- Discharge Planning Updated by [id number]: Edita Bernstein on 07/31/19 12:[address] CM met with patient's mother in the room per her request to discuss discharge planning. Patient's mother states that she lives at [address]. States she is unable to care for her son. States that when he is out of dialysis she will speak with him about a LTC facility. I provided her with the list of LTC facilities in surrounding area. I also informed her that I could reach out to [facility] to see if he has any rehab days available and she agrees with this plan. I spoke with Tanvi at [facility] and clinical faxed. CM will continue to follow and assist with discharge planning/needs. Monroe - - [phone] or [phone] DCP- Discharge Planning Updated by [id number]: Taina Renee on 07/19/19 4:[address] Patient Name: KILO WONG_JR Admission Status: ER Accout number: [id number] Admission Date: 07-18-2019 : 1970 Admission Diagnosis: Attending: MACK HARP Current LOS: 1 Anticipated DC Date: Planned Disposition: Home Primary Insurance: MEDICAID [place] Discharge Planning Comments: CM met with patient's mother Monroe to complete initial dc planning assessment. CM educated patient on the CM role and verbal consent given by patient to complete assessment. Patient lives at home alone. Patient is independent. At discharge patient plans to return home. CM discussed availability of home health, rehab services, and medical equipment. Uncertain of discharge needs or disposition at this time. Patient is currently sedated on vent. Patient will have family to transport home. CM will continue to follow and will assist as needed with dc plans/needs. Product Safety Associate: Taina Whittingtonr DCPIA - Discharge Planning Initial Assessment Updated by [id number]: Taina Renee on 07/19/19 5:35 pm * Is the patient Alert and Oriented? No * How many steps to enter\exit or inside your home? * PCP [facility] * Pharmacy [facility] [place] * Preadmission Environment Home Alone * ADLs Independent * Equipment None * List name and contact numbers for known caregivers / representatives who currently or will assist patient after discharge: MONROE JIMENES - [facility] - [phone] * Verbal permission to speak to the caregivers and representatives has been obtained from the patient. Yes * Community resources currently utilized None * Additional services required to return to the preadmission environment? No * Can the patient safely return to the preadmission environment? Yes * Has this patient been hospitalized within the prior 30 days at any hospital? No Coverage Notice Reviewer: [id number] Marlena Bernstein Notice Issued Date-Time: 08/01/2019 16:10 Notice Type: Patient Choice Letter Notice Delivered To: Patient Relationship to Patient: Self Internal Security Manager Name: Delivery Method: HAND - Hand Delivered Jeanine Days: Prior Verbal Notification: Recipient Understood Notice: Yes Recipient Signature: Yes Med Rec Note Co-signed by Attending: Coverage Notice Comment: [facility] for [facility] Last DP export: 08/24/19 1:16 pm Patient Name: KILO GARCIA Page [phone] at 1431 All edits/amendments must be made on the electronic document DICTATION DATE: 08/24/19 1431 ORE CRUSHING DUST COLLECTOR: KELLY 08/24/19 1431 RPT#: [id number] DC DATE: STATUS: ADM IN [facility] [address] [place] [address] END OF REPORT
--- NOTE | 2019-08-24 16:36 | NUR ---
PATIENT RECEIVED TO ROOM WITH ANANDA TRANSFERING SELF WITH SBA IN BED. EXPRESSIVE APHASIA NOTED WITH ASHLI ROBBINS. DENIES ANY PAIN OR DISCOMFORT WITH ROIENTATION TO ROOM AND CALL LIGHT.
--- NOTE | 2019-08-24 16:42 | NUR ---
MOTHER CALLED AND NOTIFIED OF ROOM CHANGE.
[2019-08-24 17:08] VITALS: BP 119/80
[2019-08-24 19:16] VITALS: BP 127/83
--- NOTE | 2019-08-24 21:41 | NUR ---
PT ALERT & ORIENTED. SPEECH IS APHASIC/GARBLED. LUE FLACCID, LLE WEAKNESS. BROUGHT PT JUICE AND SANDWICH. PT C/O HEADACHE PAIN 09/30. GAVE TYLENOL AND SCHEDULED MEDS. NO OTHER NEEDS. WILL REASSESS AND CONTINUE TO MONITOR.
--- NOTE | 2019-08-25 02:00 | NUR ---
2 PERSON ASSIST TO HELP PT ONTO BEDSIDE COMMODE. PT HAD FORMED BOWEL MOVEMENT. PT BACK TO BED. BROUGHT PT JUICE AND WATER. NO OTHER NEEDS. WILL CONTINUE TO MONITOR.
[2019-08-25 04:00] VITALS: BP 139/82
--- NOTE | 2019-08-25 05:10 | NUR ---
SET PT UP TO BRUSH TEETH. PT TOOK SCHEDULED MEDS. NO OTHER NEEDS. WILL CONTINUE TO MONITOR.
[2019-08-25 08:20] LABS: BASOPHILS 1.1 % (0-2); EOSINOPHILS 5.7 % (0-7); HEMATOCRIT 32.7 % (42.0-54.0); IMMATURE GRANULOCYTES 0.4 % (0-5); LYMPHOCYTES 33.9 % (15-50); MCH 29.8 pg (26.0-34.0); MCHC 33.6 g/dL (31.0-37.0); MCV 88.6 fL (80.0-100.0); MEAN PLATELET VOLUME 10.3 fL (7.4-10.4); MONOCYTES 8.9 % (2-11); PLATELET COUNT 191 10x3/uL (130-400); RBC 3.69 10x6/uL (4.20-6.10); WBC 5.6 10x3/uL (4.8-10.8)
[2019-08-25 08:58] LABS: ANION GAP 10.6 mmol/L (8-16); CALCIUM 8.7 mg/dL (8.5-10.1); CARBON DIOXIDE 25.8 mmol/L (21.0-32.0); CREATININE - SERUM 1.6 mg/dL (0.6-1.3); MAGNESIUM - SERUM 1.6 mg/dL (1.8-2.4); PHOSPHOROUS 3.7 mg/dL (2.5-4.9); POTASSIUM - SERUM 3.4 mmol/L (3.5-5.1)
[2019-08-25 17:01] VITALS: BP 125/88
[2019-08-25 20:00] VITALS: BP 137/92
[2019-08-26] VITALS: BP 135/84
[2019-08-26 04:00] VITALS: BP 142/85
[2019-08-26 06:53] LABS: EOSINOPHILS 5.5 % (0-7); HEMOGLOBIN 11.5 g/dL (13.5-17.5); IMMATURE GRANULOCYTES 0.2 % (0-5); MCH 29.8 pg (26.0-34.0); MCHC 33.8 g/dL (31.0-37.0); MCV 88.1 fL (80.0-100.0); MEAN PLATELET VOLUME 10.6 fL (7.4-10.4); MONOCYTES 10.8 % (2-11); NEUTROPHILS 51.5 % (40-80); PLATELET COUNT 221 10x3/uL (130-400); RBC 3.86 10x6/uL (4.20-6.10); RDW 13.1 % (11.5-14.5); WBC 5.8 10x3/uL (4.8-10.8)
[2019-08-26 07:04] LABS: ANION GAP 11.8 mmol/L (8-16); CALCIUM 8.6 mg/dL (8.5-10.1); CARBON DIOXIDE 26.1 mmol/L (21.0-32.0); CREATININE - SERUM 1.5 mg/dL (0.6-1.3); MAGNESIUM - SERUM 1.6 mg/dL (1.8-2.4); PHOSPHOROUS 3.8 mg/dL (2.5-4.9); POTASSIUM - SERUM 3.9 mmol/L (3.5-5.1)
[2019-08-26 09:02] VITALS: BP 146/87
--- NOTE | 2019-08-26 12:06 | NUR ---
PT ALERT X 4. STUTTER NOTED. BREATH SOUNDS CLEAR BILAT. NO IV ACCESS AT THIS TIME. PT REPORTING HEAD AND LEFT SHOULDER "HURTING BAD", MEDICATED PER ORDERS, WILL CONTINUE TO MONITOR. PT REPORTING BED IS WET, LINENS CHANGED. BED LOW, CALL LIGHT IN REACH. NO OTHER NEEDS AT THIS TIME.
[2019-08-26 12:41] VITALS: BP 127/76
[2019-08-26 17:09] VITALS: BP 153/94
[2019-08-26 21:20] VITALS: BP 135/93
[2019-08-27 04:00] VITALS: BP 138/95
[2019-08-27 05:08] LABS: BASOPHILS 0.4 % (0-2); EOSINOPHILS 4.2 % (0-7); HEMOGLOBIN 11.8 g/dL (13.5-17.5); IMMATURE GRANULOCYTES 0.3 % (0-5); LYMPHOCYTES 24.7 % (15-50); MCH 29.9 pg (26.0-34.0); MCHC 33.7 g/dL (31.0-37.0); MCV 88.6 fL (80.0-100.0); MEAN PLATELET VOLUME 10.7 fL (7.4-10.4); MONOCYTES 9.5 % (2-11); NEUTROPHILS 60.9 % (40-80); PLATELET COUNT 232 10x3/uL (130-400); RBC 3.95 10x6/uL (4.20-6.10); RDW 13.2 % (11.5-14.5); WBC 6.9 10x3/uL (4.8-10.8)
[2019-08-27 05:25] LABS: ANION GAP 13.2 mmol/L (8-16); CALCIUM 8.5 mg/dL (8.5-10.1); CARBON DIOXIDE 26.8 mmol/L (21.0-32.0); CREATININE - SERUM 1.7 mg/dL (0.6-1.3); MAGNESIUM - SERUM 1.7 mg/dL (1.8-2.4); PHOSPHOROUS 4.2 mg/dL (2.5-4.9)
--- NOTE | 2019-08-27 08:09 | NUR ---
PATIENT SLEEPING. LUNGS CLEAR BILATERALLY. HEART SOUNDS S1 AND S2 HEARD IN ALL [place]. BOWEL SOUNDS ACTIVE X 4. NO IV ACCESS. BED LOW. CALL BETTS AND PERSONAL ITEMS IN REACH. WILL CONTINEU TO MONITOR.
[2019-08-27 09:12] VITALS: BP 170/93
[2019-08-27 12:38] VITALS: BP 131/91
--- NOTE | 2019-08-27 13:06 | NUR ---
RESTING IN BED. MOM AT BEDSIDE. DENIES NEEDS. WILL CONTINUE TO MONITOR.
--- NOTE | 2019-08-27 14:26 | NUR ---
OT NOTE: PT COMPLETED SIT TO STAND WITH MOD A SECONDARY TO DECREASED BALANCE DUE TO L SIDE WEAKNESS. PT COMPLETED ADL MOB WITH MOD/MAX A SECONDARY TO IMPRAIRED COORDINATION AND FUNCTIONAL USE OF LUE. PT COMPLETED HAND AND FACE HYGIENE AT SINK LEVEL WITH MOD A TO STEADY . [phone] THANK YOU,LALITO BUENO
--- NOTE | 2019-08-27 18:51 | NUR ---
SLEEPING. WILL CONTINUE TO MONITOR.
--- NOTE | 2019-08-27 19:40 | NUR ---
SITTING UP IN BED. ALERT AND ORIENTED BUT CONFUSED. DIFF TO UNDERSTAND. EXPRESSIVE APHASIA NOTED. LUE IS FLACCID. LLE IS WEAK. ASSISTED UP TO BSC. GAIT IS VERY UNSTEADY. IRRITABLE AT TIMES AND ANXIOUS. NO IV ACCESS. RESP EVEN AND NONLABORED. NONPROD COUGH NOTED. SR ELEVATED X2. CL IN REACH. JOSE ALARM ON.
--- NOTE | 2019-08-27 19:48 | NUR ---
MEDICATED WITH TYLENOL #3 FOR C/O PAIN IN BACK AND HEAD. CL IN REACH.
[2019-08-27 20:00] VITALS: BP 122/74
[2019-08-28 01:00] VITALS: BP 143/97
--- NOTE | 2019-08-28 02:04 | NUR ---
MEDICATED WITH TYLENOL #3 FOR C/O BACK, SHOULDER AND H/A. GIVEN ICE CREAM PER REQUEST. CL IN REACH.
--- NOTE | 2019-08-28 03:47 | NUR ---
CONFUSED. CALLED STAFF INTO ROOM AND ARGUING ABOUT HOW NOBODY TOLD HIM HIS SUPPER TRAY WAS THERE YESTERDAY AND NOBODY HELPED HIM EAT. INFORMED PT THAT STRUCTURAL DRAFTSMAN WOULD INFORM ONCOMING STAFF THAT HE NEEDS ASSISTANCE WITH EATING BUT THAT THE KITCHEN IS CLOSED. PT GIVEN PUDDING. PT THEN WANTED TO ARGUE THAT STAFF DIDNT GIVE HIM THE TYLENOL #3 THAT WAS ORDERED. SHOWED PT COMPUTER SCREEN AND EMPTY PACKAGE. VERY AGITATED. CL IN REACH.
[2019-08-28 04:00] VITALS: BP 118/69
--- NOTE | 2019-08-28 05:50 | NUR ---
COMPLETE LINEN CHANGE PERFORMED. BED WAS WET WITH GLASS OF WATER HE HAD SPILLED.
[2019-08-28 06:53] LABS: BASOPHILS 0.3 % (0-2); EOSINOPHILS 6.5 % (0-7); HEMATOCRIT 34.4 % (42.0-54.0); HEMOGLOBIN 11.5 g/dL (13.5-17.5); IMMATURE GRANULOCYTES 0.2 % (0-5); LYMPHOCYTES 29.5 % (15-50); MCH 29.6 pg (26.0-34.0); MCHC 33.4 g/dL (31.0-37.0); MCV 88.7 fL (80.0-100.0); MEAN PLATELET VOLUME 10.4 fL (7.4-10.4); MONOCYTES 11.1 % (2-11); NEUTROPHILS 52.4 % (40-80); PLATELET COUNT 201 10x3/uL (130-400); RBC 3.88 10x6/uL (4.20-6.10); RDW 13.3 % (11.5-14.5); WBC 5.8 10x3/uL (4.8-10.8)
[2019-08-28 07:06] LABS: ANION GAP 9.7 mmol/L (8-16); CALCIUM 9.3 mg/dL (8.5-10.1); CARBON DIOXIDE 30.2 mmol/L (21.0-32.0); CREATININE - SERUM 1.8 mg/dL (0.6-1.3); MAGNESIUM - SERUM 1.9 mg/dL (1.8-2.4); PHOSPHOROUS 4.5 mg/dL (2.5-4.9); POTASSIUM - SERUM 3.9 mmol/L (3.5-5.1)
--- NOTE | 2019-08-28 08:53 | NUR ---
PT ALERT AND ORIENTED TO SELF UPON ENTERING. ADMINISTERED MORNINMG MEDICATION AT THIS TIME, NO DIFFICULTIES. ASSESSMENT PERFORMED AT THIS TIME. LEFT PT UP RIGHT IN BED EATING BREAKFAST. DENIES ANY NEEDS. WILL CONTINUE TO MONITOR. BED IN LOWEST POSITION, BED RAILS X2, CALL LIGHT WITHIN REACH.
[2019-08-28 09:01] VITALS: BP 140/87
[2019-08-28 11:59] VITALS: BP 122/76
--- NOTE | 2019-08-28 13:23 | NUR ---
EYES CLOSED, BREATHING EVEN AND UNLABORED UPON ENTERING. ADMINISTERED MEDICATION. PT SAT UP ON BED SIDE TO USE URINAL. DENIES ANY NEEDS. WILL CONTINUE TO MONITOR.
--- NOTE | 2019-08-28 13:24 | NUR ---
Nutrition Follow-up: Patient is followed by ST. Patient previously getting HD 2/2 JOSE secondary to rhabdo, HD is currently on hold. Diet: Renal with swallow precautions + Nepro with breakfast and dinner PO intake: ~72% average x last 9 meals Last BM: 08/27/19. WT: 148# (08/17/19), no new weight Meds reviewed. Labs noted: GFR 43(L). Recommend liberating diet to regular as K has been WNL or low since admit, also PO4 appear to have been trending WNL for at least the past 3 weeks. Needs new weight. RD following.
--- NOTE | 2019-08-28 13:40 | NUR ---
I have reviewed this patient and I concur with the Shift Assessment completed by the Licensed Practical Nurse today this shift.
[2019-08-28 16:41] VITALS: BP 141/88
--- NOTE | 2019-08-28 16:53 | MORECARE ---
CASE MANAGEMENT DISCHARGE SUMMARY PATIENT: KILO GARCIA UNIT: [id number] ADM DATE: 07/18/19 AGE: 48 : 72 SEX: M ROOM/BED: D.2238 AUTHOR: RAPHAEL,DOC PHYSICIAN: REFERRING PHYSICIAN: DANNI HARP MD DATE OF SERVICE: 08/28/19 Discharge Plan Patient Name: KILO GARCIA Facility[facility]:[place] : 1970 Planned Disposition: Home Anticipated Discharge Date: Discharge Date: Expected LOS: Initial Reviewer: [email or web address] Initial Review Date: 07/18/2019 Generated: 08/28/19 5:52 pm Comments DCP- Discharge Planning Updated by [id number]: Fiordaliza Sage on 08/28/19 3:[address] Patient Name: KILO GARCIA Admission Status: ER Accout number: [id number] Admission Date: 07-18-2019 : 1970 Admission Diagnosis:PNEUMONIA, UNSPECIFIED ORGANISM Attending: MACK HARP Current LOS: 41 Anticipated DC Date: Planned Disposition: Home Primary Insurance: MEDICAID [place] Discharge Planning Comments: CM SPOKE WITH YADY AT [facility] ABOUT PATIENT PLACEMENT. I AM FAXING THEM UPDATED MEDICAL RECORDS AND WAITING FOR CALL BACK AND UPDATE TOMORROW. PATIENT WILL NEED COVID TEST WITHIN 48 HRS OF DISCHARGE. CM WILL FOLLOW AND ASSIST NEEDED. Clay Temperer: Fiordaliza Sage DCP- Discharge Planning Updated by [id number]: Denise Fields on 08/24/19 1:[address] [facility] is unable to accept patient. Will try [facility]. CM contacted Agustina with [facility] for referral. There is no one at the facility to evaluate until Saturday 08/26. Faxed required information to dipak Abdalla . DCP- Discharge Planning Updated by [id number]: Denise Fields on 08/22/19 2:[address] CM met with patient regarding inability of [facility] to accept patient. Patient request that I contact his mother. CM contacted patient's mother, Monroe Wong @[phone], regarding same. Monroe states that she does not want patient to go into [facility]. States that she checked on patient's disability yesterday and was told that patient has not worked long enough to e able to draw a Disability check. Monroe states that patient will have full Medicaid and a SSI check for the rest of his life. Patient's mother request that CM contact Joselo Gomez [facility] [place]. Patient's mother said she will be he to visit around 1 pm. CM contacted and faxed information to Sultana Carrillo for placement in any facility. DCP- Discharge Planning Updated by [id number]: Denise Fields on 08/22/19 7:[address] Per Nan, with [facility], the facility is unable to accept patient, since there is COVID in the facility and he has never been there. DCP- Discharge Planning Updated by [id number]: Edita Bernstien on 08/17/19 11:[address] I spoke with Muna at [facility] and they do not have all their tests back. They have tested 200 people and have only gotten about 40 back. She is hoping she will have them back next week. Delay for placement to [facility]. DCP- Discharge Planning Updated by [id number]: Edita Bernstein on 08/16/19 12:[address] Spoke again with [facility] and they still do not have all their test results back. They are unable to accept patient until all results are back. Ready for discharge when [facility] can accept. DCP- Discharge Planning Updated by [id number]: Edita Bernstein on 08/15/19 2:[address] I spoke with Victorina at [facility]. Victorina states they have started getting some test results back, she is hoping to get the remaineder back tomorrow and hope to admit patient tomorrow. CM will continue to follow and assist with discharge planning/needs. DCP- Discharge Planning Updated by [email or web address]: Edita Bernstein on 08/14/19 10:[address] Updated clinical faxed to [facility]. Hopefully can be accepted tomorrow for restorative therapy. CM will continue to follow and assist with discharge planning/needs. DCP- Discharge Planning Updated by [id number]: Edita Bernstein on 08/13/19 11:[address] CM CALLED [facility] TO CHECK ON STATUS OF ADMISSION. I SPOKE WITH VICTORINA, SHE IS CHECKING WITH [employer] AND WILL LET ME KNOW IF THEY CAN ACCPET TODAY. DCP- Discharge Planning Updated by [id number]: Edita Bernstein on 08/10/19 10:[address] CM called Chapin with [facility], he states they will not have an available bed until Tuesday, and will accept the patient on Tuesday. I informed Dr. Noland, patient and called patient's mother, Monroe Wong, and left a message on her voice mail that he has been accepted to [facility] and they will have an available bed on Tuesday. DCP- Discharge Planning Updated by [id number]: Edita Bernstein on 08/10/19 6:[address] Negative Covid result and Non Passr faxed to [facility]. He will need discharge paperwork to document restorative therapy. CM will continue to tollow and assist with discharge planning/needs. DCP- Discharge Planning Updated by [id number]: Edita Bernstein on 08/09/19 1:[address] Chapin from [facility] states they need a AKI and Covid prior to admission. I sent the [place] to [employer] [facility]. He has a covid now pending. He will need an order for restorative therapy. CM will continue to follow and assist with discharge planning/needs. DCP- Discharge Planning Updated by [id number]: Edita Bernstein on 08/07/19 11:[address] CM called [facility] in [place] and spoke with Lyla ([facility]) about possible referral. Lyla states that [place] Medicaid does not have any rehab benefits for their facility and they would be unable to accept patient. I spoke with Chapin at [facility] and Chapin states patient will qualify for restorative rehab at their facility. He states he will speak with mother of patient and should be able to accept patient when medically stable for discharge. Additional clinical faxed to [facility] per request. CM will continue to follow and assist with discharge planning/needs. DCP- Discharge Planning Updated by [id number]: Edita Bernstein on 08/06/19 4:[address] Mira had messaged that patient is not deemed disabled and since he is under age 65, he does not qualify for long-term care Medicaid. I have asked [facility] to run his Medicaid and they state he has SSI disability Medicaid. I spoke with patient and mother, they both state that he is not on disability at this time. Mother is present in the room and states she has filed for it for him on line. I sent a referral to [facility] and notified Chapin. I also informed Mira that mother has filed for patient's disability on line. CM will continue to follow and assist with discharge planning/needs. DCP- Discharge Planning Updated by [email or web address]: Edita Bernstein on 08/06/19 11:[address] Updated clinical faxed to [facility]. I have messaged Mira, liaison for [facility], to check on referral. CM to continue to follow and assist with discharge planning/needs. DCP- Discharge Planning Updated by [id number]: Edita Bernstein on 08/02/19 10:[address] CM called [facility] and spoke with Abiola and clinical faxed. CM will continue to follow and assist with discharge planning/needs. DCP- Discharge Planning Updated by [email or web address]: Edita Bernstein on 08/01/19 3:[address] I received notification from Lisha Vega ([facility]) rehab that they are unable to accept patient due to not having a safe discharge plan. I spoke with the patient and his mother and they would like a referral sent to [facility] first, then [facility]. I will reach out to [facility] in the am. CM will continue to follow and assist with discharge planning/needs. DCP- Discharge Planning Updated by [id number]: Edita Bernstein on 07/31/19 12:[address] CM met with patient's mother in the room per her request to discuss discharge planning. Patient's mother states that she lives at [address]. States she is unable to care for her son. States that when he is out of dialysis she will speak with him about a LTC facility. I provided her with the list of LTC facilities in surrounding area. I also informed her that I could reach out to [facility] to see if he has any rehab days available and she agrees with this plan. I spoke with Tanvi at [facility] and clinical faxed. CM will continue to follow and assist with discharge planning/needs. Monroe - mother - [phone] or [phone] DCP- Discharge Planning Updated by [id number]: Taina Renee on 07/19/19 4:[address] Patient Name: KILO GARCIA Admission Status: ER Accout number: [id number] Admission Date: 07-18-2019 : 1970 Admission Diagnosis: Attending: MACK HARP Current LOS: 1 Anticipated DC Date: Planned Disposition: Home Primary Insurance: MEDICAID [place] Discharge Planning Comments: CM met with patient's mother Monroe to complete initial dc planning assessment. CM educated patient on the CM role and verbal consent given by patient to complete assessment. Patient lives at home alone. Patient is independent. At discharge patient plans to return home. CM discussed availability of home health, rehab services, and medical equipment. Uncertain of discharge needs or disposition at this time. Patient is currently sedated on vent. Patient will have family to transport home. CM will continue to follow and will assist as needed with dc plans/needs. Clay Temperer: Taina Renee DCPIA - Discharge Planning Initial Assessment Updated by [id number]: Taina Renee on 07/19/19 5:35 pm * Is the patient Alert and Oriented? No * How many steps to enter\exit or inside your home? * PCP [facility] * Pharmacy [facility] [place] * Preadmission Environment Home Alone * ADLs Independent * Equipment None * List name and contact numbers for known caregivers / representatives who currently or will assist patient after discharge: MONROE JIMENES - - [phone] * Verbal permission to speak to the caregivers and representatives has been obtained from the patient. Yes * Community resources currently utilized None * Additional services required to return to the preadmission environment? No * Can the patient safely return to the preadmission environment? Yes * Has this patient been hospitalized within the prior 30 days at any hospital? No Coverage Notice Reviewer: [id number] Marlena Bernstein Notice Issued Date-Time: 08/01/2019 16:10 Notice Type: Patient Choice Letter Notice Delivered To: Patient Relationship to Patient: Self Basting Cleaner Name: Delivery Method: HAND - Hand Delivered Jeanine Days: Prior Verbal Notification: Recipient Understood Notice: Yes Recipient Signature: Yes Med Rec Note Co-signed by Attending: Coverage Notice Comment: [facility] for [facility] Last DP export: 08/24/19 1:31 pm Patient Name: KILO GARCIA Page [id number] at 1653 All edits/amendments must be made on the electronic document DICTATION DATE: 08/28/191651 DIRECTOR TEEN POST: KELLY 08/28/191651 RPT#: [id number] DC DATE: STATUS: ADM IN [facility] [address] [place] [address] END OF REPORT
--- NOTE | 2019-08-28 19:08 | NUR ---
PT SITTING UP RIGHT IN BED, FAMILY AT BEDSIDE. DENIES ANY NEEDS. BED IN LOWEST POSITION, BED RAILS X2, CALL LIGHT WITHIN REACH, JOSE ALARM ON. PASSING TO MACHINE LEAD BURNER.
--- NOTE | 2019-08-28 19:37 | NUR ---
OT NOTE: PT COMPLETED ADL MOB WITH MAX A. PT COMPLETED SIT TO STAND WITH MOD A. PT HAS EXTREME FEAR OF FALLING WICH NEGATIVELY IMPACTS HIS FUNCTIONAL PERFORMANCE. PT EXHIBITED IMPULSIVE BEHAVIORS AND POOR SAFETY AWARENESS. PT EXHIBITED SELF LIMITING BEHAVIORS. PT REQUIRED TOTAL A TO NALLELY UE SLING. PT COMPLETED UE AROM TOLERATED. [id number] THANK YOU,LALITO BUENO
[2019-08-28 20:00] VITALS: BP 126/76
--- NOTE | 2019-08-28 20:00 | NUR ---
ATTN SEEKING BEHAVIOR NOTED. ENGINEERING AND SCIENTIFIC PROGRAMMER LIGHT EVERY FEW MINUTES. IRRITABLE WITH STAFF. EXPRESSIVE APHASIA NOTED. SPEECH DIFF TO UNDERSTAND. LUE IS FLACCID. LLE IS WEAK. REFUSES SCDS. PULLS OFF SHEETS. SPILLED URINAL. COMPLETE LINEN CHANGE DONE. NO IV ACCESS. NONCOMPLIANT WITH STAFF INSTRUCTIONS. JOSE ALARM ON. RESP NONLABORED. NO DISTRESS. SR ELEVATED X2. CL IN REACH.
[2019-08-29] VITALS: BP 132/81
--- NOTE | 2019-08-29 03:00 | NUR ---
HAS BEEN AWAKE MOST OF THE NIGHT. USES URINAL FREQUENTLY. WEED SCIENCE RESEARCH TECHNICIAN LIGHT OFTEN. SPILLING URINAL IN BED. PADS CHANGED. CL IN REACH.
[2019-08-29 04:00] VITALS: BP 139/80
[2019-08-29 05:17] LABS: BASOPHILS 0.4 % (0-2); EOSINOPHILS 5.3 % (0-7); HEMATOCRIT 34.5 % (42.0-54.0); HEMOGLOBIN 11.7 g/dL (13.5-17.5); IMMATURE GRANULOCYTES 0.1 % (0-5); LYMPHOCYTES 26.8 % (15-50); MCH 29.8 pg (26.0-34.0); MCHC 33.9 g/dL (31.0-37.0); MONOCYTES 10.8 % (2-11); NEUTROPHILS 56.6 % (40-80); PLATELET COUNT 230 10x3/uL (130-400); RBC 3.92 10x6/uL (4.20-6.10); RDW 13.3 % (11.5-14.5)
[2019-08-29 05:40] LABS: ANION GAP 12.5 mmol/L (8-16); CARBON DIOXIDE 26.3 mmol/L (21.0-32.0); CREATININE - SERUM 1.6 mg/dL (0.6-1.3); MAGNESIUM - SERUM 1.7 mg/dL (1.8-2.4); POTASSIUM - SERUM 3.8 mmol/L (3.5-5.1)
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
[2019-08-29 08:38] VITALS: BP 127/89
--- NOTE | 2019-08-29 08:58 | NUR ---
PT UPRIGHT IN BED, HELPED PT PREPARE BREAKFAST TRAY. ADMINISTERED MEDICATIONS, NO DIFFICULTIES. DENIES ANY NEEDS. WILL CONTINUE TO MONITOR.
--- NOTE | 2019-08-29 12:23 | NUR ---
ADMINISTERED MEDICATION, NO DIFFICULTIES. PT ON BEDSIDE COMMODE. CALL LIGHT WITHIN REACH. FRESH GOWN ON. WILL CONTINUE TO MONITOR.
[2019-08-29 12:41] VITALS: BP 146/89
--- NOTE | 2019-08-29 13:17 | MORECARE ---
CASE MANAGEMENT DISCHARGE SUMMARY PATIENT: KILO GARCIA UNIT: [id number] ADM DATE: 07/18/19 AGE: 48 : [birth year] SEX: M ROOM/BED: D.2238 AUTHOR: RAPHAEL,DOC PHYSICIAN: REFERRING PHYSICIAN: DANNI HARP MD DATE OF SERVICE: 08/29/19 Discharge Plan Patient Name: KILO GARCIA Facility: [facility]:[place] : 1970 Planned Disposition: Home Anticipated Discharge Date: Discharge Date: Expected LOS: Initial Reviewer: [id number] Initial Review Date: 07/18/2019 Generated: 08/29/19 2:16 pm Comments DCP- Discharge Planning Updated by [id number]: Fiordaliza Sage on 08/29/19 12:[address] Patient Name: KILO GARCIA Admission Status: ER Accout number: [id number] Admission Date: 07-18-2019 : 1970 Admission Diagnosis:PNEUMONIA, UNSPECIFIED ORGANISM Attending: MACK HARP Current LOS: 42 Anticipated DC Date: Planned Disposition: Home Primary Insurance: MEDICAID [place] Discharge Planning Comments: I SPOKE TO [facility] BECAUSE FAMILY SAID THEY WERE CALLED BY THEM WITH AN AVAILABLE BED. [facility] DID NOT CALL THEM, THEY DO NOT HAVE ANY BEDS AVAILABLE EXCEPT FOR THEIR RESIDENTS FOR AT LEAST 28 DAYS. I THEN CALLED AND TALKED TO YADY AT [facility] AND THEY DON'T HAVE ANY BEDS AVAILABLE YET BUT PATIENT IS ON THE WAITING LIST. Tool Smith: Fiordaliza Sage DCP- Discharge Planning Updated by [id number]: Fiordaliza Sage on 08/28/19 3:[address] Patient Name: KILO GARCIA Admission Status: ER Accout number: [id number] Admission Date: 07-18-2019 : 1970 Admission Diagnosis:PNEUMONIA, UNSPECIFIED ORGANISM Attending: MACK HARP Current LOS: 41 Anticipated DC Date: Planned Disposition: Home Primary Insurance: MEDICAID [place] Discharge Planning Comments: CM SPOKE WITH YADY AT [facility] ABOUT PATIENT PLACEMENT. I AM FAXING THEM UPDATED MEDICAL RECORDS AND WAITING FOR CALL BACK AND UPDATE TOMORROW. PATIENT WILL NEED COVID TEST WITHIN 48 HRS OF DISCHARGE. CM WILL FOLLOW AND ASSIST NEEDED. Tool Smith: Fiordaliza Sage DCP- Discharge Planning Updated by [id number]: Denise Diamond on 08/24/19 1:[address] [facility] is unable to accept patient. Will try [facility]. CM contacted Agustina with [facility] for referral. There is no one at the facility to evaluate until Saturday 08/26. Faxed required information to [facility]. DCP- Discharge Planning Updated by [id number]: Denise Diamond on 08/22/19 2:[address] CM met with patient regarding inability of [facility] to accept patient. Patient request that I contact his mother. CM contacted patient's mother, Monroe Wong @[phone], regarding same. Monroe states that she does not want patient to go into [facility]. States that she checked on patient's disability yesterday and was told that patient has not worked long enough to e able to draw a Disability check. Monroe states that patient will have full Medicaid and a SSI check for the rest of his life. Patient's mother request that CM contact [facility], [facility], [place]. Patient's mother said she will be he to visit around 1 pm. CM contacted and faxed information to [facility] for placement in any facility. DCP- Discharge Planning Updated by [id number]: Denise Diamond on 08/22/19 7:[address] Per Nan, with [facility], the facility is unable to accept patient, since there is COVID in the facility and he has never been there. DCP- Discharge Planning Updated by [id number]: Edita Bernstein on 08/17/19 11:[address] I spoke with Muna at [facility] and they do not have all their tests back. They have tested 200 people and have only gotten about 40 back. She is hoping she will have them back next week. Delay for placement to [facility]. DCP- Discharge Planning Updated by [id number]: Edita Bernstein on 08/16/19 12:[address] Spoke again with [facility] and they still do not have all their test results back. They are unable to accept patient until all results are back. Ready for discharge when [facility] can accept. DCP- Discharge Planning Updated by [id number]: Edita Bernstein on 08/15/19 2:[address] I spoke with Victorina at [facility]. Victorina states they have started getting some test results back, she is hoping to get the remaineder back tomorrow and hope to admit patient tomorrow. CM will continue to follow and assist with discharge planning/needs. DCP- Discharge Planning Updated by [id number]: Edita Bernstein on 08/14/19 10:[address] Updated clinical faxed to [facility]. Hopefully can be accepted tomorrow for restorative therapy. CM will continue to follow and assist with discharge planning/needs. DCP- Discharge Planning Updated by [id number]: Edita Bernstein on 08/13/19 11:[address] [facility] TO CHECK ON STATUS OF ADMISSION. I SPOKE WITH VICTORINA, SHE IS CHECKING WITH [facility] AND WILL LET ME KNOW IF THEY CAN ACCPET TODAY. DCP- Discharge Planning Updated by [id number]: Edita Bernstein on 08/10/19 10:[address] CM called Chapin with [facility], he states they will not have an available bed until Tuesday, and will accept the patient on Tuesday. I informed Dr. Noland, patient and called patient's mother, Monroe Wong, and left a message on her voice mail that he has been accepted to [facility] and they will have an available bed on Tuesday. DCP- Discharge Planning Updated by [email or web address]: Edita Bernstein on 08/10/19 6:[address] Negative Covid result and Non Passr faxed to [facility]. He will need discharge paperwork to document restorative therapy. CM will continue to tollow and assist with discharge planning/needs. DCP- Discharge Planning Updated by [id number]: Edita Bernstein on 08/09/19 1:[address] Chapin from [facility] states they need a AKI and Covid prior to admission. I sent the Aki to [facility]. He has a covid now pending. He will need an order for restorative therapy. CM will continue to follow and assist with discharge planning/needs. DCP- Discharge Planning Updated by [id number]: Edita Bernstein on 08/07/19 11:[address] CM called [facility] in [place] and spoke with Lyla ([facility]) about possible referral. Lyla states that [place] Medicaid does not have any rehab benefits for their facility and they would be unable to accept patient. I spoke with Chapin at [facility] and Chapin states patient will qualify for restorative rehab at their facility. He states he will speak with mother of patient and should be able to accept patient when medically stable for discharge. Additional clinical faxed to [facility] per request. CM will continue to follow and assist with discharge planning/needs. DCP- Discharge Planning Updated by [id number]: Edita Bernstein on 08/06/19 4:[address] Mira had messaged that patient is not deemed disabled and since he is under age 65, he does not qualify for long-term care Medicaid. I have asked [facility] to run his Medicaid and they state he has SSI disability Medicaid. I spoke with patient and mother, they both state that he is not on disability at this time. Mother is present in the room and states she has filed for it for him on line. I sent a referral to [facility] and notified Chapin. I also informed Mira that mother has filed for patient's disability on line. CM will continue to follow and assist with discharge planning/needs. DCP- Discharge Planning Updated by [email or web address]: Edita Bernstein on 08/06/19 11:[address] Updated clinical faxed to [facility]. I have messaged Mira, liaison for [facility], to check on referral. CM to continue to follow and assist with discharge planning/needs. DCP- Discharge Planning Updated by [id number]: Edita Bernstein on 08/02/19 10:[address] CM called [facility] and spoke with Abiola and clinical faxed. CM will continue to follow and assist with discharge planning/needs. DCP- Discharge Planning Updated by [id number]: Edita Bernstein on 08/01/19 3:[address] I received notification from Lisha Vega ([facility]) rehab that they are unable to accept patient due to not having a safe discharge plan. I spoke with the patient and his mother and they would like a referral sent to [facility] first, then [facility]. I will reach out to [facility] in the am. CM will continue to follow and assist with discharge planning/needs. DCP- Discharge Planning Updated by [id number]: Edita Bernstein on 07/31/19 12:[address] CM met with patient's mother in the room per her request to discuss discharge planning. Patient's mother states that she lives at [address] [facility] [address] States she is unable to care for her son. States that when he is out of dialysis she will speak with him about a LTC facility. I provided her with the list of LTC facilities in surrounding area. I also informed her that I could reach out to [facility] to see if he has any rehab days available and she agrees with this plan. I spoke with Tanvi at [facility] and clinical faxed. CM will continue to follow and assist with discharge planning/needs. Monroe marti - [phone] or [phone] DCP- Discharge Planning Updated by [email or web address]: Taina Renee on 07/19/19 4:[address] Patient Name: KILO WONG_JR Admission Status: ER Accout number: [id number] Admission Date: 07-18-2019 : 1970 Admission Diagnosis: Attending: MACK HARP Current LOS: 1 Anticipated DC Date: Planned Disposition: Home Primary Insurance: MEDICAID [place] Discharge Planning Comments: CM met with patient's mother Monroe to complete initial dc planning assessment. CM educated patient on the CM role and verbal consent given by patient to complete assessment. Patient lives at home alone. Patient is independent. At discharge patient plans to return home. CM discussed availability of home health, rehab services, and medical equipment. Uncertain of discharge needs or disposition at this time. Patient is currently sedated on vent. Patient will have family to transport home. CM will continue to follow and will assist as needed with dc plans/needs. Tool Smith: Taina Renee DCPIA - Discharge Planning Initial Assessment Updated by [id number]: Taina Renee on 07/19/19 5:35 pm * Is the patient Alert and Oriented? No * How many steps to enter\exit or inside your home? * PCP [facility] * Pharmacy [facility] * Preadmission Environment Home Alone * ADLs Independent * Equipment None * List name and contact numbers for known caregivers / representatives who currently or will assist patient after discharge: MONROE JIMENES - - [phone] * Verbal permission to speak to the caregivers and representatives has been obtained from the patient. Yes * Community resources currently utilized None * Additional services required to return to the preadmission environment? No * Can the patient safely return to the preadmission environment? Yes * Has this patient been hospitalized within the prior 30 days at any hospital? No Coverage Notice Reviewer: [id number] Marlena Bernstein Notice Issued Date-Time: 08/01/2019 16:10 Notice Type: Patient Choice Letter Notice Delivered To: Patient Relationship to Patient: Self Distributor Of Directories Name: Delivery Method: HAND - Hand Delivered Jeanine Days: Prior Verbal Notification: Recipient Understood Notice: Yes Recipient Signature: Yes Med Rec Note Co-signed by Attending: Coverage Notice Comment: ASHLI for [facility] or [facility] Last DP export: 08/28/19 3:53 pm Patient Name: KILO GARCIA Page [phone] at 1317 All edits/amendments must be made on the electronic document DICTATION DATE: 08/29/19 1316 CROP PRODUCTION ADVISOR: KELLY 08/29/19 1316 RPT#: [id number] DC DATE: STATUS: ADM IN [facility] [address] [place] [address] END OF REPORT
[2019-08-29 17:00] VITALS: BP 133/88
--- NOTE | 2019-08-29 17:25 | MORECARE ---
CASE MANAGEMENT DISCHARGE SUMMARY PATIENT: KILO GARCIA UNIT: [id number] ADM DATE: 07/18/19 AGE: 48 : 72 SEX: M ROOM/BED: D.2238 AUTHOR: RAPHAEL,DOC PHYSICIAN: REFERRING PHYSICIAN: DANNI HARP MD DATE OF SERVICE: 08/29/19 Discharge Plan Patient Name: KILO GARCIA Facility: [facility]:[place] : 1970 Planned Disposition: Home Anticipated Discharge Date: Discharge Date: Expected LOS: Initial Reviewer: [id number] Initial Review Date: 07/18/2019 Generated: 08/29/19 6:24 pm Comments DCP- Discharge Planning Updated by [id number]: Fiordaliza Alona on 08/29/19 4:[address] Patient Name: KILO GARCIA Admission Status: ER Accout number: [id number] Admission Date: 07-18-2019 : 1970 Admission Diagnosis:PNEUMONIA, UNSPECIFIED ORGANISM Attending: MACK HARP Current LOS: 42 Anticipated DC Date: Planned Disposition: Home Primary Insurance: [place]ID [place] Discharge Planning Comments: PATIENT'S MOTHER IS HERE, I SPOKE WITH HER ABOUT HIS DISCHARGE TODAY AND SHE STATES IF HE IS DISCHARGED HE WILL BE ON THE STREET. SHE IS NOT WILLING TO TAKE [place] HOME AT [place]. IS AWARE AND I HAVE CONTACTED MARYANNE ABDALLA CNO AND ETHICS COMMITTEE FOR ASSISTANCE. CM WILL FOLLOW AND ASSIST NEEDED. Jig And Fixture Repairer: Fiordaliza Sage DCP- Discharge Planning Updated by [id number]: Fiordaliza Sage on 08/29/19 12:[address] Patient Name: KILO GARCIA Admission Status: ER Accout number: [id number] Admission Date: 07-18-2019 : 1970 Admission Diagnosis:PNEUMONIA, UNSPECIFIED ORGANISM Attending: MACK HARP Current LOS: 42 Anticipated DC Date: Planned Disposition: Home Primary Insurance: [facility] Discharge Planning Comments: I SPOKE TO [facility] BECAUSE FAMILY SAID THEY WERE CALLED BY THEM WITH AN AVAILABLE BED. [facility] DID NOT CALL THEM, THEY DO NOT HAVE ANY BEDS AVAILABLE EXCEPT FOR THEIR RESIDENTS FOR AT LEAST 28 DAYS. I THEN CALLED AND TALKED TO YADY AT [facility] AND THEY DON'T HAVE ANY BEDS AVAILABLE YET BUT PATIENT IS ON THE WAITING LIST. Jig And Fixture Repairer: Fiordaliza Sage DCP- Discharge Planning Updated by [email or web address]: Fiordaliza Sage on 08/28/19 3:[address] Patient Name: KILO GARCIA Admission Status: ER Accout number: [id number] Admission Date: 07-18-2019 : 1970 Admission Diagnosis:PNEUMONIA, UNSPECIFIED ORGANISM Attending: MACK HARP Current LOS: 41 Anticipated DC Date: Planned Disposition: Home Primary Insurance: [place] Discharge Planning Comments: CM SPOKE WITH YADY AT [facility] ABOUT PATIENT PLACEMENT. I AM FAXING THEM UPDATED MEDICAL RECORDS AND WAITING FOR CALL BACK AND UPDATE TOMORROW. PATIENT WILL NEED COVID TEST WITHIN 48 HRS OF DISCHARGE. CM WILL FOLLOW AND ASSIST NEEDED. Jig And Fixture Repairer: Fiordaliza Sage DCP- Discharge Planning Updated by [id number]: Denise Fields on 08/24/19 1:[address] [facility] is unable to accept patient. Will try [facility]. CM contacted Agustina with [facility] for referral. There is no one at the facility to evaluate until Saturday 08/26. Faxed required information to [facility]. DCP- Discharge Planning Updated by [id number]: Denise Fields on 08/22/19 2:[address] CM met with patient regarding inability of [facility] to accept patient. Patient request that I contact his mother. CM contacted patient's mother, Monroe Wong @[phone], regarding same. Monroe states that she does not want patient to go into [facility]. States that she checked on patient's disability yesterday and was told that patient has not worked long enough to e able to draw a Disability check. Monroe states that patient will have full Medicaid and a SSI check for the rest of his life. Patient's mother request that CM contact [facility], Tee Walters. Patient's mother said she will be he to visit around 1 pm. CM contacted and faxed information to [facility] for placement in any facility. DCP- Discharge Planning Updated by [id number]: Denise Fields on 08/22/19 7:[address] Per Nan, with [facility], the facility is unable to accept patient, since there is COVID in the facility and he has never been there. DCP- Discharge Planning Updated by [email or web address]: Edita Bernstein on 08/17/19 11:[address] I spoke with Muna at [facility] and they do not have all their tests back. They have tested 200 people and have only gotten about 40 back. She is hoping she will have them back next week. Delay for placement to [facility]. DCP- Discharge Planning Updated by [email or web address]: Edita Bernstein on 08/16/19 12:[address] Spoke again with [facility] and they still do not have all their test results back. They are unable to accept patient until all results are back. Ready for discharge when [facility] can accept. DCP- Discharge Planning Updated by [email or web address]: Edita Bernstein on 08/15/19 2:[address] I spoke with Victorina at [facility]. Victorina states they have started getting some test results back, she is hoping to get the remaineder back tomorrow and hope to admit patient tomorrow. CM will continue to follow and assist with discharge planning/needs. DCP- Discharge Planning Updated by [id number]: Edita Bernstein on 08/14/19 10:[address] Updated clinical faxed to [facility]. Hopefully can be accepted tomorrow for restorative therapy. CM will continue to follow and assist with discharge planning/needs. DCP- Discharge Planning Updated by [id number]: Edita Bernstein on 08/13/19 11:[address] CM CALLED [facility] TO CHECK ON STATUS OF ADMISSION. I SPOKE WITH VICTORINA, SHE IS CHECKING WITH [employer]CHN[employer] SALES SPECIALIST AND WILL LET ME KNOW IF THEY CAN ACCPET TODAY. DCP- Discharge Planning Updated by [id number]: Edita Bernstein on 08/10/19 10:[address] CM called Chapin with [facility], he states they will not have an available bed until Tuesday, and will accept the patient on Tuesday. I informed Dr. Noland, patient and called patient's mother, Monroe Wong, and left a message on her voice mail that he has been accepted to [facility] and they will have an available bed on Tuesday. DCP- Discharge Planning Updated by [email or web address]: Edita Bernstein on 08/10/19 6:[address] Negative Covid result and Non Passr faxed to [facility]. He will need discharge paperwork to document restorative therapy. CM will continue to tollow and assist with discharge planning/needs. DCP- Discharge Planning Updated by [id number]: Edita Bernstein on 08/09/19 1:[address] Chapin from [facility] states they need a AKI and Covid prior to admission. I sent the Aki to [facility]. He has a covid now pending. He will need an order for restorative therapy. CM will continue to follow and assist with discharge planning/needs. DCP- Discharge Planning Updated by [id number]: Edita Heathjerry on 08/07/19 11:[address] CM called [facility] in [place] and spoke with Lyla ([facility]) about possible referral. Lyla states that [place] Medicaid does not have any rehab benefits for their facility and they would be unable to accept patient. I spoke with Chapin at [facility] and Chapin states patient will qualify for restorative rehab at their facility. He states he will speak with mother of patient and should be able to accept patient when medically stable for discharge. Additional clinical faxed to [facility] per request. CM will continue to follow and assist with discharge planning/needs. DCP- Discharge Planning Updated by [email or web address]: Edita Heathjerry on 08/06/19 4:[address] Mira had messaged that patient is not deemed disabled and since he is under age 65, he does not qualify for long-term care Medicaid. I have asked [facility] to run his Medicaid and they state he has SSI disability Medicaid. I spoke with patient and mother, they both state that he is not on disability at this time. Mother is present in the room and states she has filed for it for him on line. I sent a referral to [facility] and notified Chapin. I also informed Mira that mother has filed for patient's disability on line. CM will continue to follow and assist with discharge planning/needs. DCP- Discharge Planning Updated by [id number]: Edita Day on 08/06/19 11:[address] Updated clinical faxed to [facility]. I have messaged Mira, liaison for [facility], to check on referral. CM to continue to follow and assist with discharge planning/needs. DCP- Discharge Planning Updated by [id number]: Edita Bernstein on 08/02/19 10:[address] CM called [facility] and spoke with Abiola and clinical faxed. CM will continue to follow and assist with discharge planning/needs. DCP- Discharge Planning Updated by [id number]: Edita Bernstein on 08/01/19 3:[address] I received notification from Lisha Vega ([facility]) rehab that they are unable to accept patient due to not having a safe discharge plan. I spoke with the patient and his mother and they would like a referral sent to [facility] first, then [facility]. I will reach out to [facility] in the am. CM will continue to follow and assist with discharge planning/needs. DCP- Discharge Planning Updated by [id number]: Edita Bernstein on 07/31/19 12:[address] CM met with patient's mother in the room per her request to discuss discharge planning. Patient's mother states that she lives at [address] [place] [address]. States she is unable to care for her son. States that when he is out of dialysis she will speak with him about a LTC facility. I provided her with the list of LTC facilities in surrounding area. I also informed her that I could reach out to [facility] to see if he has any rehab days available and she agrees with this plan. I spoke with Tanvi at [facility] and clinical faxed. CM will continue to follow and assist with discharge planning/needs. Monroe - mother - [phone] or [phone] DCP- Discharge Planning Updated by [id number]: Taina Renee on 07/19/19 4:[address] Patient Name: KILO WONG_JR Admission Status: ER Accout number: [id number] Admission Date: 07-18-2019 : 1970 Admission Diagnosis: Attending: MACK HARP Current LOS: 1 Anticipated DC Date: Planned Disposition: Home Primary Insurance: [place] Discharge Planning Comments: CM met with patient's mother Monroe to complete initial dc planning assessment. CM educated patient on the CM role and verbal consent given by patient to complete assessment. Patient lives at home alone. Patient is independent. At discharge patient plans to return home. CM discussed availability of home health, rehab services, and medical equipment. Uncertain of discharge needs or disposition at this time. Patient is currently sedated on vent. Patient will have family to transport home. CM will continue to follow and will assist as needed with dc plans/needs. Jig And Fixture Repairer: Taina Renee DCPIA - Discharge Planning Initial Assessment Updated by [id number]: Taina Renee on 07/19/19 5:35 pm * Is the patient Alert and Oriented? No * How many steps to enter\exit or inside your home? * PCP [facility] * Pharmacy [facility] [place] * Preadmission Environment Home Alone * ADLs Independent * Equipment None * List name and contact numbers for known caregivers / representatives who currently or will assist patient after discharge: MONROE DEVLIN - [phone] * Verbal permission to speak to the caregivers and representatives has been obtained from the patient. Yes * Community resources currently utilized None * Additional services required to return to the preadmission environment? No * Can the patient safely return to the preadmission environment? Yes * Has this patient been hospitalized within the prior 30 days at any hospital? No Coverage Notice Reviewer: [id number] Marlena Bernstein Notice Issued Date-Time: 08/01/2019 16:10 Notice Type: Patient Choice Letter Notice Delivered To: Patient Relationship to Patient: Self Consultant Electronics Name: Delivery Method: HAND - Hand Delivered Jeanine Days: Prior Verbal Notification: Recipient Understood Notice: Yes Recipient Signature: Yes Med Rec Note Co-signed by Attending: Coverage Notice Comment: [facility] for [facility] Last DP export: 08/29/19 12:17 pm Patient Name: KILO GARCIA Page [phone] at 1725 All edits/amendments must be made on the electronic document DICTATION DATE: 08/29/191723 DEPENDENCY CASE MANAGER: KELLY 08/29/191723 RPT#: [id number] DC DATE: STATUS: ADM IN [facility] [address] [place] [address] END OF REPORT
--- NOTE | 2019-08-29 17:34 | NUR ---
OT NOTE: PT COMPLETED BED MOB TASKS WITH MIN A. PT REQUIRED TOTAL A WITH LUE. PT REFUSED ARM SLING. PT EXHIBITED SELF LIMITING BEHAVIOR. PT COMPLETED RUE AROM AX. [phone] THANK YOU,LALITO BUENO
--- NOTE | 2019-08-29 18:10 | NUR ---
PT UPRIGHT IN BED WITH DINNER TRAY. DENIES ANY NEEDS. WILL CONTINUE TO MONITOR.
--- NOTE | 2019-08-29 18:57 | NUR ---
ADMINISTERED PRN PAIN MEDICATION FOR 10/10 PAIN IN HEAD. NO DIFFICULTIES. UPRIGHT IN BED. WILL CONTINUE TO MONITOR.
--- NOTE | 2019-08-29 19:08 | NUR ---
I have reviewed this patient and I concur with the Shift Assessment completed by the Licensed Practical Nurse today this shift.
[2019-08-29 20:00] VITALS: BP 130/86
--- NOTE | 2019-08-29 20:20 | NUR ---
ADMINISTERED MEDICATION, NO DIFFICULTIES. ASSISTED PT TO BEDSIDE COMMODE WITH MINIMAL EFFORT. DENIES ANY NEEDS. WILL CONTINUE TO MONITOR.
[2019-08-30] VITALS: BP 146/89
[2019-08-30 04:00] VITALS: BP 118/81
--- NOTE | 2019-08-30 04:57 | NUR ---
PT HAS BEEN AWAKE MOST OF THE SHIFT. CURRENTLY RESTING WITH EYES CLOSED. HAS VOIDED SEVERAL TIMES. NO COMPLAINTS AT PRESENT. STATES HEADACHE IS GONE. CALL LIGHT IN REACH. FALL PRECAUTIONS REMAIN IN PLACE.
[2019-08-30 07:05] LABS: ANION GAP 10.6 mmol/L (8-16); CARBON DIOXIDE 27.2 mmol/L (21.0-32.0); CREATININE - SERUM 1.7 mg/dL (0.6-1.3); MAGNESIUM - SERUM 1.8 mg/dL (1.8-2.4); PHOSPHOROUS 5.4 mg/dL (2.5-4.9); POTASSIUM - SERUM 3.8 mmol/L (3.5-5.1)
[2019-08-30 07:08] LABS: BASOPHILS 0.5 % (0-2); EOSINOPHILS 5.7 % (0-7); HEMATOCRIT 33.4 % (42.0-54.0); HEMOGLOBIN 11.3 g/dL (13.5-17.5); IMMATURE GRANULOCYTES 0.2 % (0-5); LYMPHOCYTES 32.9 % (15-50); MCH 29.7 pg (26.0-34.0); MCHC 33.8 g/dL (31.0-37.0); MCV 87.7 fL (80.0-100.0); MEAN PLATELET VOLUME 10.3 fL (7.4-10.4); MONOCYTES 12.6 % (2-11); NEUTROPHILS 48.1 % (40-80); PLATELET COUNT 228 10x3/uL (130-400); RBC 3.81 10x6/uL (4.20-6.10); RDW 13.3 % (11.5-14.5); WBC 5.8 10x3/uL (4.8-10.8)
[2019-08-30 08:00] VITALS: BP 136/93
--- NOTE | 2019-08-30 09:29 | MORECARE ---
CASE MANAGEMENT DISCHARGE SUMMARY PATIENT: KILO GARCIA UNIT: [id number] ADM DATE: 07/18/19 AGE: 48 : 72 SEX: M ROOM/BED: D.2238 AUTHOR: RAPHAEL,DOC PHYSICIAN: REFERRING PHYSICIAN: DANNI HARP MD DATE OF SERVICE: 08/30/19 Discharge Plan Patient Name: KILO GARCIA Facility: [facility]:[place] : 1970 Planned Disposition: Home Anticipated Discharge Date: Discharge Date: Expected LOS: Initial Reviewer: [id number] Initial Review Date: 07/18/2019 Generated: 08/30/19 10:28 am Comments DCP- Discharge Planning Updated by [id number]: Fiordaliza Sage on 08/29/19 4:[address] Patient Name: KILO GARCIA Admission Status: ER Accout number: [id number] Admission Date: 07-18-2019 : 1970 Admission Diagnosis:PNEUMONIA, UNSPECIFIED ORGANISM Attending: MACK HARP Current LOS: 42 Anticipated DC Date: Planned Disposition: Home Primary Insurance: MEDICAID [place] Discharge Planning Comments: PATIENT'S MOTHER IS HERE, I SPOKE WITH HER ABOUT HIS DISCHARGE TODAY AND SHE STATES IF HE IS DISCHARGED HE WILL BE ON THE STREET. SHE IS NOT WILLING TO TAKE HIM HOME AT [place]. IS AWARE AND I HAVE CONTACTED MARYANNE ABDALLA CNO AND ETHICS COMMITTEE FOR ASSISTANCE. CM WILL FOLLOW AND ASSIST NEEDED. Spacecraft Systems Engineer: Fiordaliza Sage DCP- Discharge Planning Updated by [id number]: Fiordaliza Sage on 08/29/19 12:[address] Patient Name: KILO GARCIA Admission Status: ER Accout number: [id number] Admission Date: 07-18-2019 : 1970 Admission Diagnosis:PNEUMONIA, UNSPECIFIED ORGANISM Attending: MACK HARP Current LOS: 42 Anticipated DC Date: Planned Disposition: Home Primary Insurance: MEDICAID [place] Discharge Planning Comments: I SPOKE TO [facility] BECAUSE FAMILY SAID THEY WERE CALLED BY THEM WITH AN AVAILABLE BED. [facility] DID NOT CALL THEM, THEY DO NOT HAVE ANY BEDS AVAILABLE EXCEPT FOR THEIR RESIDENTS FOR AT LEAST 28 DAYS. I THEN CALLED AND TALKED TO YADY AT [facility] AND THEY DON'T HAVE ANY BEDS AVAILABLE YET BUT PATIENT IS ON THE WAITING LIST. Spacecraft Systems Engineer: Fiordaliza Sage DCP- Discharge Planning Updated by [id number]: Fiordaliza Sage on 08/28/19 3:[address] Patient Name: KILO GARCIA Admission Status: ER Accout number: [id number] Admission Date: 07-18-2019 : 1970 Admission Diagnosis:PNEUMONIA, UNSPECIFIED ORGANISM Attending: MACK HARP Current LOS: 41 Anticipated DC Date: Planned Disposition: Home Primary Insurance: MEDICAID [place] Discharge Planning Comments: CM SPOKE WITH YADY AT [facility] ABOUT PATIENT PLACEMENT. I AM FAXING THEM UPDATED MEDICAL RECORDS AND WAITING FOR CALL BACK AND UPDATE TOMORROW. PATIENT WILL NEED COVID TEST WITHIN 48 HRS OF DISCHARGE. CM WILL FOLLOW AND ASSIST NEEDED. Spacecraft Systems Engineer: Fiordaliza Sage DCP- Discharge Planning Updated by [id number]: Denise Fields on 08/24/19 1:[address] [facility] is unable to accept patient. Will try [facility]. CM contacted Agustina with [facility] for referral. There is no one at the facility to evaluate until Saturday 08/26. Faxed required information to [facility]. DCP- Discharge Planning Updated by [id number]: Denise Fields on 08/22/19 2:[address] CM met with patient regarding inability of [facility] to accept patient. Patient request that I contact his mother. CM contacted patient's mother, Monroe Wong @[phone], regarding same. Monroe states that she does not want patient to go into [facility]. States that she checked on patient's disability yesterday and was told that patient has not worked long enough to e able to draw a Disability check. Monroe states that patient will have full Medicaid and a SSI check for the rest of his life. Patient's mother request that CM contact [facility], Tee Walters. Patient's mother said she will be he to visit around 1 pm. CM contacted and faxed information to S[facility]ana Carrillo for placement in any facility. DCP- Discharge Planning Updated by [id number]: Denise Fields on 08/22/19 7:[address] Per Nan, with [facility], the facility is unable to accept patient, since there is COVID in the facility and he has never been there. DCP- Discharge Planning Updated by [email or web address]: Edita Bernstein on 08/17/19 11:[address] I spoke with Muna at [facility] and they do not have all their tests back. They have tested 200 people and have only gotten about 40 back. She is hoping she will have them back next week. Delay for placement to [facility]. DCP- Discharge Planning Updated by [id number]: Edita Bernstein on 08/16/19 12:[address] Spoke again with [facility] and they still do not have all their test results back. They are unable to accept patient until all results are back. Ready for discharge when [facility] can accept. DCP- Discharge Planning Updated by [id number]: Edita Bernstein on 08/15/19 2:[address] I spoke with Victorina at [facility]. Victorina states they have started getting some test results back, she is hoping to get the remaineder back tomorrow and hope to admit patient tomorrow. CM will continue to follow and assist with discharge planning/needs. DCP- Discharge Planning Updated by [id number]: Edita Bernstein on 08/14/19 10:[address] Updated clinical faxed to [facility]. Hopefully can be accepted tomorrow for restorative therapy. CM will continue to follow and assist with discharge planning/needs. DCP- Discharge Planning Updated by [id number]: Edita Bernstein on 08/13/19 11:[address] CM CALLED [facility] TO CHECK ON STATUS OF ADMISSION. I SPOKE WITH VICTORINA, SHE IS CHECKING WITH [facility] AND WILL LET ME KNOW IF THEY CAN ACCPET TODAY. DCP- Discharge Planning Updated by [id number]: Edita Bernstein on 08/10/19 10:[address] CM called Chapin with [facility], he states they will not have an available bed until Tuesday, and will accept the patient on Tuesday. I informed Dr. Noland, patient and called patient's mother, Monroe Wong, and left a message on her voice mail that he has been accepted to [facility] and they will have an available bed on Tuesday. DCP- Discharge Planning Updated by [id number]: Edita Bernstein on 08/10/19 6:[address] Negative Covid result and Non Passr faxed to [facility]. He will need discharge paperwork to document restorative therapy. CM will continue to tollow and assist with discharge planning/needs. DCP- Discharge Planning Updated by [id number]: Edita Bernstein on 08/09/19 1:[address] Chapin from [facility] states they need a AKI and Covid prior to admission. I sent the Amalia to [employer] [employer] [facility]. He has a covid now pending. He will need an order for restorative therapy. CM will continue to follow and assist with discharge planning/needs. DCP- Discharge Planning Updated by [id number]: Edita Heathjerry on 08/07/19 11:[address] CM called [facility] in [place] and spoke with Lyla ([facility]) about possible referral. Lyla states that [place] Medicaid does not have any rehab benefits for their facility and they would be unable to accept patient. I spoke with Chapin at [facility] and Chapin states patient will qualify for restorative rehab at their facility. He states he will speak with mother of patient and should be able to accept patient when medically stable for discharge. Additional clinical faxed to [facility] per request. CM will continue to follow and assist with discharge planning/needs. DCP- Discharge Planning Updated by [id number]: Edita Heathjerry on 08/06/19 4:[address] Mira had messaged that patient is not deemed disabled and since he is under age 65, he does not qualify for long-term care Medicaid. I have asked [facility] to run his Medicaid and they state he has SSI disability Medicaid. I spoke with patient and mother, they both state that he is not on disability at this time. Mother is present in the room and states she has filed for it for him on line. I sent a referral to [facility] and notified Chapin. I also informed Mira that mother has filed for patient's disability on line. CM will continue to follow and assist with discharge planning/needs. DCP- Discharge Planning Updated by [id number]: Edita Day on 08/06/19 11:[address] Updated clinical faxed to [facility]. I have messaged Mira, liaison for [facility], to check on referral. CM to continue to follow and assist with discharge planning/needs. DCP- Discharge Planning Updated by [id number]: Edita Bernstein on 08/02/19 10:[address] CM called [facility] and spoke with Abiola and clinical faxed. CM will continue to follow and assist with discharge planning/needs. DCP- Discharge Planning Updated by [id number]: Edita Bernstein on 08/01/19 3:[address] I received notification from [facility]hab that they are unable to accept patient due to not having a safe discharge plan. I spoke with the patient and his mother and they would like a referral sent to [facility] first, then [facility]. I will reach out to [facility] in the am. CM will continue to follow and assist with discharge planning/needs. DCP- Discharge Planning Updated by [id number]: Edita Bernstein on 07/31/19 12:[address] CM met with patient's mother in the room per her request to discuss discharge planning. Patient's mother states that she lives at [address] [place] [address]. States she is unable to care for her son. States that when he is out of dialysis she will speak with him about a LTC facility. I provided her with the list of LTC facilities in surrounding area. I also informed her that I could reach out to [facility] to see if he has any rehab days available and she agrees with this plan. I spoke with Tanvi at [facility] and clinical faxed. CM will continue to follow and assist with discharge planning/needs. Monroe - mother - [phone] or [phone] DCP- Discharge Planning Updated by [id number]: Taina Renee on 07/19/19 4:[address] Patient Name: KILO WONG_JR Admission Status: ER Accout number: [id number] Admission Date: 07-18-2019 : 1970 Admission Diagnosis: Attending: MACK HARP Current LOS: 1 Anticipated DC Date: Planned Disposition: Home Primary Insurance: MEDICAID [place] Discharge Planning Comments: CM met with patient's mother Monroe to complete initial dc planning assessment. CM educated patient on the CM role and verbal consent given by patient to complete assessment. Patient lives at home alone. Patient is independent. At discharge patient plans to return home. CM discussed availability of home health, rehab services, and medical equipment. Uncertain of discharge needs or disposition at this time. Patient is currently sedated on vent. Patient will have family to transport home. CM will continue to follow and will assist as needed with dc plans/needs. Spacecraft Systems Engineer: Taina Renee DCPIA - Discharge Planning Initial Assessment Updated by [id number]: Taina Renee on 07/19/19 5:35 pm * Is the patient Alert and Oriented? No * How many steps to enter\exit or inside your home? * PCP [facility] * Pharmacy [facility] [place] * Preadmission Environment Home Alone * ADLs Independent * Equipment None * List name and contact numbers for known caregivers / representatives who currently or will assist patient after discharge: MONROE DEVLIN - [phone] * Verbal permission to speak to the caregivers and representatives has been obtained from the patient. Yes * Community resources currently utilized None * Additional services required to return to the preadmission environment? No * Can the patient safely return to the preadmission environment? Yes * Has this patient been hospitalized within the prior 30 days at any hospital? No External Providers External Provider: [facility] Next Contact Date: Service Request Date: Service Type: Resolution: Reviewer: Comments: Coverage Notice Reviewer: [id number] Marlena Bernstein Notice Issued Date-Time: 08/01/2019 16:10 Notice Type: Patient Choice Letter Notice Delivered To: Patient Relationship to Patient: Self Geoscience Technician Name: Delivery Method: HAND - Hand Delivered Jeanine Days: Prior Verbal Notification: Recipient Understood Notice: Yes Recipient Signature: Yes Med Rec Note Co-signed by Attending: Coverage Notice Comment: ASHLI for [facility] or [facility] Last DP export: 08/29/19 4:25 pm Patient Name: KILO GARCIA Page [phone] at 0929 All edits/amendments must be made on the electronic document DICTATION DATE: 08/30/19927 SIMPLEX PRINTER INSTALLER: KELLY 08/30/19927 RPT#: [id number] DC DATE: STATUS: ADM IN [facility] [address] [facility] [place] [address] END OF REPORT
--- NOTE | 2019-08-30 10:00 | MORECARE ---
CASE MANAGEMENT DISCHARGE SUMMARY PATIENT: KILO GARCIA UNIT: [id number] ADM DATE: 07/18/19 AGE: 48 : 72 SEX: M ROOM/BED: D.2238 AUTHOR: RAPHAEL,DOC PHYSICIAN: REFERRING PHYSICIAN: DANNI HARP MD DATE OF SERVICE: 08/30/19 Discharge Plan Patient Name: KILO GARCIA Facility: [facility]:Amelia : 1970 Planned Disposition: Home Anticipated Discharge Date: Discharge Date: Expected LOS: Initial Reviewer: [id number] Initial Review Date: 07/18/2019 Generated: 08/30/19 11:00 am Comments DCP- Discharge Planning Updated by [id number]: Fiordalizacuong Sage on 08/29/19 4:[address] Patient Name: KILO GARCIA Admission Status: ER Accout number: [id number] Admission Date: 07-18-2019 : 1970 Admission Diagnosis:PNEUMONIA, UNSPECIFIED ORGANISM Attending: MACK HARP Current LOS: 42 Anticipated DC Date: Planned Disposition: Home Primary Insurance: MEDICAID [place] Discharge Planning Comments: PATIENT'S MOTHER IS HERE, I SPOKE WITH HER ABOUT HIS DISCHARGE TODAY AND SHE STATES IF HE IS DISCHARGED HE WILL BE ON THE STREET. SHE IS NOT WILLING TO TAKE HIM HOME AT [place]. IS AWARE AND I HAVE CONTACTED MARYANNE ABDALLA [facility] AND [facility] COMMITTEE FOR ASSISTANCE. CM WILL FOLLOW AND ASSIST NEEDED. Coal Chemist: Fiordaliza Sage DCP- Discharge Planning Updated by [id number]: Fiordaliza Sage on 08/29/19 12:[address] Patient Name: KILO GARCIA Admission Status: ER Accout number: [id number] Admission Date: 07-18-2019 : 1970 Admission Diagnosis:PNEUMONIA, UNSPECIFIED ORGANISM Attending: MACK HARP Current LOS: 42 Anticipated DC Date: Planned Disposition: Home Primary Insurance: MEDICAID [place] Discharge Planning Comments: I SPOKE TO [facility] BECAUSE FAMILY SAID THEY WERE CALLED BY THEM WITH AN AVAILABLE BED. [facility] DID NOT CALL THEM, THEY DO NOT HAVE ANY BEDS AVAILABLE EXCEPT FOR THEIR RESIDENTS FOR AT LEAST 28 DAYS. I THEN CALLED AND TALKED TO YADY AT [facility] AND THEY DON'T HAVE ANY BEDS AVAILABLE YET BUT PATIENT IS ON THE WAITING LIST. Coal Chemist: Fiordaliza Sage DCP- Discharge Planning Updated by [id number]: Fiordaliza Sage on 08/28/19 3:[address] Patient Name: KILO GARCIA Admission Status: ER Accout number: [id number] Admission Date: 07-18-2019 : 1970 Admission Diagnosis:PNEUMONIA, UNSPECIFIED ORGANISM Attending: MACK HARP Current LOS: 41 Anticipated DC Date: Planned Disposition: Home Primary Insurance: MEDICAID [place] Discharge Planning Comments: CM SPOKE WITH YADY AT [facility] ABOUT PATIENT PLACEMENT. I AM FAXING THEM UPDATED MEDICAL RECORDS AND WAITING FOR CALL BACK AND UPDATE TOMORROW. PATIENT WILL NEED COVID TEST WITHIN 48 HRS OF DISCHARGE. CM WILL FOLLOW AND ASSIST NEEDED. Coal Chemist: Fiordaliza Sage DCP- Discharge Planning Updated by [id number]: Denise Fields on 08/24/19 1:[address] [facility] is unable to accept patient. Will try [facility]. CM contacted Agustina with [facility] for referral. There is no one at the facility to evaluate until Saturday 08/26. Faxed required information to [employer]. DCP- Discharge Planning Updated by [id number]: Denise Fields on 08/22/19 2:[address] CM met with patient regarding inability of [facility] to accept patient. Patient request that I contact his mother. CM contacted patient's mother, Monroe Wong @[phone], regarding same. Monroe states that she does not want patient to go into [facility]. States that she checked on patient's disability yesterday and was told that patient has not worked long enough to e able to draw a Disability check. Monroe states that patient will have full Medicaid and a SSI check for the rest of his life. Patient's mother request that CM contact [facility], Tee Walters. Patient's mother said she will be he to visit around 1 pm. CM contacted and faxed information to Sultana Carrillo for placement in any facility. DCP- Discharge Planning Updated by [id number]: Denise Fields on 08/22/19 7:[address] Per Nan, with [facility], the facility is unable to accept patient, since there is COVID in the facility and he has never been there. DCP- Discharge Planning Updated by [id number]: Edita Bernstein on 08/17/19 11:[address] I spoke with Muna at [facility] and they do not have all their tests back. They have tested 200 people and have only gotten about 40 back. She is hoping she will have them back next week. Delay for placement to [facility]. DCP- Discharge Planning Updated by [email or web address]: Edita Bernstein on 08/16/19 12:[address] Spoke again with [facility] and they still do not have all their test results back. They are unable to accept patient until all results are back. Ready for discharge when [facility] can accept. DCP- Discharge Planning Updated by [email or web address]: Edita Bernstein on 08/15/19 2:[address] I spoke with Victorina at [facility]. Victorina states they have started getting some test results back, she is hoping to get the remaineder back tomorrow and hope to admit patient tomorrow. CM will continue to follow and assist with discharge planning/needs. DCP- Discharge Planning Updated by [id number]: Edita Bernstein on 08/14/19 10:[address] Updated clinical faxed to [facility]. Hopefully can be accepted tomorrow for restorative therapy. CM will continue to follow and assist with discharge planning/needs. DCP- Discharge Planning Updated by [id number]: Edita Bernstein on 08/13/19 11:[address] CM CALLED [facility] TO CHECK ON STATUS OF ADMISSION. I SPOKE WITH VICTORINA, SHE IS CHECKING WITH [facility] [employer] AND WILL LET ME KNOW IF THEY CAN ACCPET TODAY. DCP- Discharge Planning Updated by [id number]: Edita Bernstein on 08/10/19 10:[address] CM called Chapin with [facility], he states they will not have an available bed until Tuesday, and will accept the patient on Tuesday. I informed Dr. Noland, patient and called patient's mother, Monroe Wong, and left a message on her voice mail that he has been accepted to [facility] and they will have an available bed on Tuesday. DCP- Discharge Planning Updated by [id number]: Edita Bernstein on 08/10/19 6:[address] Negative Covid result and Non Passr faxed to [facility]. He will need discharge paperwork to document restorative therapy. CM will continue to tollow and assist with discharge planning/needs. DCP- Discharge Planning Updated by [id number]: Edita Bernstein on 08/09/19 1:[address] Chapin from [facility] states they need a AKI and Covid prior to admission. I sent the Fri[facility] to [facility]. He has a covid now pending. He will need an order for restorative therapy. CM will continue to follow and assist with discharge planning/needs. DCP- Discharge Planning Updated by [id number]: Edita Heathjerry on 08/07/19 11:[address] CM called [facility] in [place] and spoke with Lyla ([facility]) about possible referral. Lyla states that [place] Medicaid does not have any rehab benefits for their facility and they would be unable to accept patient. I spoke with Chapin at [facility] and Chapin states patient will qualify for restorative rehab at their facility. He states he will speak with mother of patient and should be able to accept patient when medically stable for discharge. Additional clinical faxed to [facility] per request. CM will continue to follow and assist with discharge planning/needs. DCP- Discharge Planning Updated by [id number]: Edita Heathjerry on 08/06/19 4:[address] Mira had messaged that patient is not deemed disabled and since he is under age 65, he does not qualify for long-term care Medicaid. I have asked [facility] [employer] to run his Medicaid and they state he has SSI disability Medicaid. I spoke with patient and mother, they both state that he is not on disability at this time. Mother is present in the room and states she has filed for it for him on line. I sent a referral to [facility] and notified Chapin. I also informed Mira that mother has filed for patient's disability on line. CM will continue to follow and assist with discharge planning/needs. DCP- Discharge Planning Updated by [id number]: Edita Day on 08/06/19 11:[address] Updated clinical faxed to [facility]. I have messaged Mira, liaison for [facility], to check on referral. CM to continue to follow and assist with discharge planning/needs. DCP- Discharge Planning Updated by [id number]: Edita Bernstein on 08/02/19 10:[address] CM called [facility] and spoke with Abiola and clinical faxed. CM will continue to follow and assist with discharge planning/needs. DCP- Discharge Planning Updated by [id number]: Edita Bernstein on 08/01/19 3:[address] I received notification from Lisha Vega ([facility]) rehab that they are unable to accept patient due to not having a safe discharge plan. I spoke with the patient and his mother and they would like a referral sent to [facility] first, then [facility]. I will reach out to [facility] in the am. CM will continue to follow and assist with discharge planning/needs. DCP- Discharge Planning Updated by [id number]: Edita Bernstein on 07/31/19 12:[address] CM met with patient's mother in the room per her request to discuss discharge planning. Patient's mother states that she lives at [address] [place] [address]. States she is unable to care for her son. States that when he is out of dialysis she will speak with him about a LTC facility. I provided her with the list of LTC facilities in surrounding area. I also informed her that I could reach out to [facility] to see if he has any rehab days available and she agrees with this plan. I spoke with Tanvi at [facility] and clinical faxed. CM will continue to follow and assist with discharge planning/needs. Monroe - mother - [phone] or [phone] DCP- Discharge Planning Updated by [email or web address]: Taina Renee on 07/19/19 4:[address] Patient Name: KILO WONG_JR Admission Status: ER Accout number: [id number] Admission Date: 07-18-2019 : 1970 Admission Diagnosis: Attending: MACK HARP Current LOS: 1 Anticipated DC Date: Planned Disposition: Home Primary Insurance: MEDICAID [place] Discharge Planning Comments: CM met with patient's mother Monroe to complete initial dc planning assessment. CM educated patient on the CM role and verbal consent given by patient to complete assessment. Patient lives at home alone. Patient is independent. At discharge patient plans to return home. CM discussed availability of home health, rehab services, and medical equipment. Uncertain of discharge needs or disposition at this time. Patient is currently sedated on vent. Patient will have family to transport home. CM will continue to follow and will assist as needed with dc plans/needs. Coal Chemist: Taina Renee DCPIA - Discharge Planning Initial Assessment Updated by [id number]: Taina Renee on 07/19/19 5:35 pm * Is the patient Alert and Oriented? No * How many steps to enter\exit or inside your home? * PCP [facility] * Pharmacy [facility] [place] * Preadmission Environment Home Alone * ADLs Independent * Equipment None * List name and contact numbers for known caregivers / representatives who currently or will assist patient after discharge: MONROE DEVLIN - [phone] * Verbal permission to speak to the caregivers and representatives has been obtained from the patient. Yes * Community resources currently utilized None * Additional services required to return to the preadmission environment? No * Can the patient safely return to the preadmission environment? Yes * Has this patient been hospitalized within the prior 30 days at any hospital? No External Providers External Provider: OTHER-OTHER Next Contact Date: Service Request Date: Service Type: Resolution: Reviewer: Comments: Coverage Notice Reviewer: [id number] Marlena Bernstein Notice Issued Date-Time: 08/01/2019 16:10 Notice Type: Patient Choice Letter Notice Delivered To: Patient Relationship to Patient: Self Boatwright Name: Delivery Method: HAND - Hand Delivered Jeanine Days: Prior Verbal Notification: Recipient Understood Notice: Yes Recipient Signature: Yes Med Rec Note Co-signed by Attending: Coverage Notice Comment: [facility] for [facility] access hospital Last DP export: 08/30/19 8:29 am Patient Name: KILO GARCIA Page 05100 at 1000 All edits/amendments must be made on the electronic document DICTATION DATE: 08/30/19 1000 ENGINEERING DEPARTMENT CHAIR: KELLY 08/30/19 1000 RPT#: [id number] DC DATE: STATUS: ADM IN [facility] [address] [place] [address] END OF REPORT
--- NOTE | 2019-08-30 10:29 | MORECARE ---
CASE MANAGEMENT DISCHARGE SUMMARY PATIENT: KILO GARCIA UNIT: [id number] ADM DATE: 07/18/19 AGE: 48 : 72 SEX: M ROOM/BED: D.2238 AUTHOR: RAPHAEL,DOC PHYSICIAN: REFERRING PHYSICIAN: DANNI HARP MD DATE OF SERVICE: 08/30/19 Discharge Plan Patient Name: KILO GARCIA Facility: [facility]:[place] : 1970 Planned Disposition: Home Anticipated Discharge Date: Discharge Date: Expected LOS: Initial Reviewer: [id number] Initial Review Date: 07/18/2019 Generated: 08/30/19 11:28 am Comments DCP- Discharge Planning Updated by [id number]: Fiordaliza Sage on 08/30/19 9:[address] Patient Name: KILO GARCIA Admission Status: ER Accout number: [id number] Admission Date: 07-18-2019 : 1970 Admission Diagnosis:PNEUMONIA, UNSPECIFIED ORGANISM Attending: MACK HARP Current LOS: 43 Anticipated DC Date: Planned Disposition: Home Primary Insurance: [place]ID [place] Discharge Planning Comments: CM HAS REFERRALS SENT TO OTHER SENIOR CARE FACILITIES FOR PLACEMENT. [facility], [facility], [facility] AND [facility] CURRENTLY HAVE NO SENIOR CARE BEDS AVAILABLE. 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 Planer Hand: Fiordaliza Sage DCP- Discharge Planning Updated by [email or web address]: Fiordaliza Sage on 08/29/19 4:[address] Patient Name: KILO GARCIA Admission Status: ER Accout number: [id number] Admission Date: 07-18-2019 : 1970 Admission Diagnosis:PNEUMONIA, UNSPECIFIED ORGANISM Attending: MACK HARP Current LOS: 42 Anticipated DC Date: Planned Disposition: Home Primary Insurance: [place]ID [place] Discharge Planning Comments: PATIENT'S MOTHER IS HERE, I SPOKE WITH HER ABOUT HIS DISCHARGE TODAY AND SHE STATES IF HE IS DISCHARGED HE WILL BE ON THE STREET. SHE IS NOT WILLING TO TAKE HIM HOME AT [place]. IS AWARE AND I HAVE CONTACTED MARYANNE ABDALLA [facility] AND ETHICS COMMITTEE FOR ASSISTANCE. CM WILL FOLLOW AND ASSIST NEEDED. Planer Hand: Fiordaliza Sage DCP- Discharge Planning Updated by [id number]: Fiordaliza Sage on 08/29/19 12:[address] Patient Name: KILO GARCIA Admission Status: ER Accout number: [id number] Admission Date: 07-18-2019 : 1970 Admission Diagnosis:PNEUMONIA, UNSPECIFIED ORGANISM Attending: MACK HARP Current LOS: 42 Anticipated DC Date: Planned Disposition: Home Primary Insurance: MEDICAID [place] Discharge Planning Comments: I SPOKE TO [facility] BECAUSE FAMILY SAID THEY WERE CALLED BY THEM WITH AN AVAILABLE BED. [facility] DID NOT CALL THEM, THEY DO NOT HAVE ANY BEDS AVAILABLE EXCEPT FOR THEIR RESIDENTS FOR AT LEAST 28 DAYS. I THEN CALLED AND TALKED TO YADY AT [facility] AND THEY DON'T HAVE ANY BEDS AVAILABLE YET BUT PATIENT IS ON THE WAITING LIST. Planer Hand: Fiordaliza Sage DCP- Discharge Planning Updated by [id number]: Fiordaliza Sage on 08/28/19 3:[address] Patient Name: KILO GARCIA Admission Status: ER Accout number: [id number] Admission Date: 07-18-2019 : 1970 Admission Diagnosis:PNEUMONIA, UNSPECIFIED ORGANISM Attending: MACK HARP Current LOS: 41 Anticipated DC Date: Planned Disposition: Home Primary Insurance: MEDICAID [place] Discharge Planning Comments: CM SPOKE WITH YADY AT [facility] ABOUT PATIENT PLACEMENT. I AM FAXING THEM UPDATED MEDICAL RECORDS AND WAITING FOR CALL BACK AND UPDATE TOMORROW. PATIENT WILL NEED COVID TEST WITHIN 48 HRS OF DISCHARGE. CM WILL FOLLOW AND ASSIST NEEDED. Planer Hand: Fiordaliza Sage DCP- Discharge Planning Updated by [email or web address]: Denise Fields on 08/24/19 1:[address] [facility] is unable to accept patient. Will try Rm, [facility]. CM contacted Agustina with [facility] for referral. There is no one at the facility to evaluate until Saturday 08/26. Faxed required information to dipak [facility]alla [facility]. DCP- Discharge Planning Updated by [id number]: Denise Fields on 08/22/19 2:[address] CM met with patient regarding inability of [facility] to accept patient. Patient request that I contact his mother. CM contacted patient's mother, Monroe Wong @[phone], regarding same. Monroe states that she does not want patient to go into [facility]. States that she checked on patient's disability yesterday and was told that patient has not worked long enough to e able to draw a Disability check. Monroe states that patient will have full Medicaid and a SSI check for the rest of his life. Patient's mother request that CM [facility] Patient's mother said she will be he to visit around 1 pm. CM contacted and faxed information to S[facility]ana Carrillo for placement in any facility. DCP- Discharge Planning Updated by [id number]: Denise Fields on 08/22/19 7:[address] Per Nan, with [facility], the facility is unable to accept patient, since there is COVID in the facility and he has never been there. DCP- Discharge Planning Updated by [id number]: Edita Bernstein on 08/17/19 11:[address] I spoke with Muna at [facility] and they do not have all their tests back. They have tested 200 people and have only gotten about 40 back. She is hoping she will have them back next week. Delay for placement to [facility]. DCP- Discharge Planning Updated by [id number]: Edita Bernstein on 08/16/19 12:[address] Spoke again with [facility] and they still do not have all their test results back. They are unable to accept patient until all results are back. Ready for discharge when [facility] can accept. DCP- Discharge Planning Updated by [id number]: Edita Bernstein on 08/15/19 2:[address] I spoke with Victorina at [facility]. Victorina states they have started getting some test results back, she is hoping to get the remaineder back tomorrow and hope to admit patient tomorrow. CM will continue to follow and assist with discharge planning/needs. DCP- Discharge Planning Updated by [id number]: Edita Bernstein on 08/14/19 10:[address] Updated clinical faxed to [facility]. Hopefully can be accepted tomorrow for restorative therapy. CM will continue to follow and assist with discharge planning/needs. DCP- Discharge Planning Updated by [id number]: Edita Bernstein on 08/13/19 11:[address] CM CALLED [facility] TO CHECK ON STATUS OF ADMISSION. I SPOKE WITH VICTORINA, SHE IS CHECKING WITH CHIEF SUSTAINABILITY OFFICER AND WILL LET ME KNOW IF THEY CAN ACCPET TODAY. DCP- Discharge Planning Updated by [email or web address]: Edita Bernstein on 08/10/19 10:[address] CM called Chapin with [facility], he states they will not have an available bed until Tuesday, and will accept the patient on Tuesday. I informed Dr. Noland, patient and called patient's mother, Monroe Wong, and left a message on her voice mail that he has been accepted to [facility] and they will have an available bed on Tuesday. DCP- Discharge Planning Updated by [id number]: Edita Bernstein on 08/10/19 6:[address] Negative Covid result and Non Passr faxed to [facility]. He will need discharge paperwork to document restorative therapy. CM will continue to tollow and assist with discharge planning/needs. DCP- Discharge Planning Updated by [email or web address]: Edita Bernstein on 08/09/19 1:[address] Chapin from [facility] states they need a AKI and Covid prior to admission. I sent the [place] to [facility]. He has a covid now pending. He will need an order for restorative therapy. CM will continue to follow and assist with discharge planning/needs. DCP- Discharge Planning Updated by [id number]: Edita Bernstein on 08/07/19 11:[address] CM called [facility] in [place] and spoke with Lyla (thiago) about possible referral. Lyla states that [place] Medicaid does not have any rehab benefits for their facility and they would be unable to accept patient. I spoke with Chapin at [facility] and Chapin states patient will qualify for restorative rehab at their facility. He states he will speak with mother of patient and should be able to accept patient when medically stable for discharge. Additional clinical faxed to [facility] per request. CM will continue to follow and assist with discharge planning/needs. DCP- Discharge Planning Updated by [id number]: Edita Bernstein on 08/06/19 4:[address] Mira had messaged that patient is not deemed disabled and since he is under age 65, he does not qualify for long-term care Medicaid. I have asked [facility] [employer] to run his Medicaid and they state he has SSI disability Medicaid. I spoke with patient and mother, they both state that he is not on disability at this time. Mother is present in the room and states she has filed for it for him on line. I sent a referral to [facility] and notified Chapin. I also informed Mira that mother has filed for patient's disability on line. CM will continue to follow and assist with discharge planning/needs. DCP- Discharge Planning Updated by [id number]: Edita Bernstein on 08/06/19 11:[address] Updated clinical faxed to [facility]. I have messaged Mira, liaison for [facility], to check on referral. CM to continue to follow and assist with discharge planning/needs. DCP- Discharge Planning Updated by [id number]: Edita Bernstein on 08/02/19 10:[address] CM called [facility] and spoke with Abiola and clinical faxed. CM will continue to follow and assist with discharge planning/needs. DCP- Discharge Planning Updated by [id number]: Edita Bernstein on 08/01/19 3:[address] I received notification from Lisha Vega ([facility]) rehab that they are unable to accept patient due to not having a safe discharge plan. I spoke with the patient and his mother and they would like a referral sent to [facility] first, then [facility]. I will reach out to [facility] in the am. CM will continue to follow and assist with discharge planning/needs. DCP- Discharge Planning Updated by [id number]: Edita Bernstein on 07/31/19 12:[address] CM met with patient's mother in the room per her request to discuss discharge planning. Patient's mother states that she lives at [address] [place] [address] States she is unable to care for her son. States that when he is out of dialysis she will speak with him about a LTC facility. I provided her with the list of LTC facilities in surrounding area. I also informed her that I could reach out to [facility] to see if he has any rehab days available and she agrees with this plan. I spoke with Tanvi at [facility] and clinical faxed. CM will continue to follow and assist with discharge planning/needs. Monroe devlin - [phone] or [phone] DCP- Discharge Planning Updated by [id number]: Taina Renee on 07/19/19 4:[address] Patient Name: KILO WHEATLEYJR Admission Status: ER Accout number: [id number] Admission Date: 07-18-2019 : 1970 Admission Diagnosis: Attending: MACK HARP Current LOS: 1 Anticipated DC Date: Planned Disposition: Home Primary Insurance: MEDICAID [place] Discharge Planning Comments: CM met with patient's mother Monroe to complete initial dc planning assessment. CM educated patient on the CM role and verbal consent given by patient to complete assessment. Patient lives at home alone. Patient is independent. At discharge patient plans to return home. CM discussed availability of home health, rehab services, and medical equipment. Uncertain of discharge needs or disposition at this time. Patient is currently sedated on vent. Patient will have family to transport home. CM will continue to follow and will assist as needed with dc plans/needs. Planer Hand: Taina Renee DCPIA - Discharge Planning Initial Assessment Updated by [id number]: Taina Renee on 07/19/19 5:35 pm * Is the patient Alert and Oriented? No * How many steps to enter\exit or inside your home? * PCP [facility] * Pharmacy [facility] [place] * Preadmission Environment Home Alone * ADLs Independent * Equipment None * List name and contact numbers for known caregivers / representatives who currently or will assist patient after discharge: MONROE DEVLIN - [phone] * Verbal permission to speak to the caregivers and representatives has been obtained from the patient. Yes * Community resources currently utilized None * Additional services required to return to the preadmission environment? No * Can the patient safely return to the preadmission environment? Yes * Has this patient been hospitalized within the prior 30 days at any hospital? No Coverage Notice Reviewer: [id number] Marlena Bernstein Notice Issued Date-Time: 08/01/2019 16:10 Notice Type: Patient Choice Letter Notice Delivered To: Patient Relationship to Patient: [employer] Supervisor Name: Delivery Method: HAND - Hand Delivered Jeanine Days: Prior Verbal Notification: Recipient Understood Notice: Yes Recipient Signature: Yes Med Rec Note Co-signed by Attending: Coverage Notice Comment: ASHLI for [facility] or [facility] Last DP export: 08/30/19 9:00 am Patient Name: KILO GARCIA Page [phone] at 1029 All edits/amendments must be made on the electronic document DICTATION DATE: 08/30/19 1028 MUSIC COPYIST: KELLY 08/30/19 1028 RPT#: [id number] DC DATE: STATUS: ADM IN [facility] [address] [place] [address] END OF REPORT
--- NOTE | 2019-08-30 11:52 | NUR ---
UP IN CHAIR,WITHOUT DISTRESS.
[2019-08-30 12:00] VITALS: BP 125/84
--- NOTE | 2019-08-30 13:29 | MORECARE ---
CASE MANAGEMENT DISCHARGE SUMMARY PATIENT: KILO GARCIA UNIT: [id number] ADM DATE: 07/18/19 AGE: 48 : 72 SEX: M ROOM/BED: D.2238 AUTHOR: RAPHAEL,DOC PHYSICIAN: REFERRING PHYSICIAN: DANNI HARP MD DATE OF SERVICE: 08/30/19 Discharge Plan Patient Name: KILO GARCIA Facility: [facility]:[place] : 1970 Planned Disposition: Home Anticipated Discharge Date: Discharge Date: Expected LOS: Initial Reviewer: [id number] Initial Review Date: 07/18/2019 Generated: 08/30/19 2:28 pm Comments DCP- Discharge Planning Updated by [id number]: Fiordaliza Sage on 08/30/19 9:[address] Patient Name: KILO GARCIA Admission Status: ER Accout number: [id number] Admission Date: 07-18-2019 : 1970 Admission Diagnosis:PNEUMONIA, UNSPECIFIED ORGANISM Attending: MACK HARP Current LOS: 43 Anticipated DC Date: Planned Disposition: Home Primary Insurance: [place] Discharge Planning Comments: CM HAS REFERRALS SENT TO OTHER AMMUNITION SPECIALIST FACILITIES FOR PLACEMENT. [facility] AND [facility] CURRENTLY HAVE NO AMMUNITION SPECIALIST BEDS AVAILABLE. 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 Wood Shop Teacher: Fiordaliza Sage DCP- Discharge Planning Updated by [id number]: Fiordaliza Sage on 08/29/19 4:[address] Patient Name: KILO GARCIA Admission Status: ER Accout number: [id number] Admission Date: 07-18-2019 : 1970 Admission Diagnosis:PNEUMONIA, UNSPECIFIED ORGANISM Attending: MACK HARP Current LOS: 42 Anticipated DC Date: Planned Disposition: Home Primary Insurance: [place] Discharge Planning Comments: PATIENT'S MOTHER IS HERE, I SPOKE WITH HER ABOUT HIS DISCHARGE TODAY AND SHE STATES IF HE IS DISCHARGED HE WILL BE ON THE STREET. SHE IS NOT WILLING TO TAKE HIM HOME AT [place]. IS AWARE AND I HAVE CONTACTED MARYANNE ABDALLA CNO AND ETHICS COMMITTEE FOR ASSISTANCE. CM WILL FOLLOW AND ASSIST NEEDED. Wood Shop Teacher: Fiordaliza Sage DCP- Discharge Planning Updated by [id number]: Fiordaliza Sage on 08/29/19 12:[address] Patient Name: KILO GARCIA Admission Status: ER Accout number: [id number] Admission Date: 07-18-2019 : 1970 Admission Diagnosis:PNEUMONIA, UNSPECIFIED ORGANISM Attending: MACK HARP Current LOS: 42 Anticipated DC Date: Planned Disposition: Home Primary Insurance: MEDICAID [place] Discharge Planning Comments: I SPOKE TO [facility] BECAUSE FAMILY SAID THEY WERE CALLED BY THEM WITH AN AVAILABLE BED. [facility] DID NOT CALL THEM, THEY DO NOT HAVE ANY BEDS AVAILABLE EXCEPT FOR THEIR RESIDENTS FOR AT LEAST 28 DAYS. I THEN CALLED AND TALKED TO YADY AT [facility] AND THEY DON'T HAVE ANY BEDS AVAILABLE YET BUT PATIENT IS ON THE WAITING LIST. Wood Shop Teacher: Fiordaliza Sage DCP- Discharge Planning Updated by [email or web address]: Fiordaliza Sage on 08/28/19 3:[address] Patient Name: KILO GARCIA Admission Status: ER Accout number: [id number] Admission Date: 07-18-2019 : 1970 Admission Diagnosis:PNEUMONIA, UNSPECIFIED ORGANISM Attending: MACK HARP Current LOS: 41 Anticipated DC Date: Planned Disposition: Home Primary Insurance: MEDICAID [place] Discharge Planning Comments: CM SPOKE WITH YADY AT [facility] ABOUT PATIENT PLACEMENT. I AM FAXING THEM UPDATED MEDICAL RECORDS AND WAITING FOR CALL BACK AND UPDATE TOMORROW. PATIENT WILL NEED COVID TEST WITHIN 48 HRS OF DISCHARGE. CM WILL FOLLOW AND ASSIST NEEDED. Wood Shop Teacher: Fiordaliza Sage DCP- Discharge Planning Updated by [email or web address]: Denise Fields on 08/24/19 1:[address] [facility] is unable to accept patient. Will try Rm, [facility]. CM contacted Agustina with [facility] for referral. There is no one at the facility to evaluate until Saturday 08/26. Faxed required information to dipak [facility]alla [facility]. DCP- Discharge Planning Updated by [id number]: Denise Fields on 08/22/19 2:[address] CM met with patient regarding inability of [facility] to accept patient. Patient request that I contact his mother. CM contacted patient's mother, Monroe Wong @[phone], regarding same. Monroe states that she does not want patient to go into [facility]. States that she checked on patient's disability yesterday and was told that patient has not worked long enough to e able to draw a Disability check. Monroe states that patient will have full Medicaid and a SSI check for the rest of his life. Patient's mother request that CM contact [facility] Patient's mother said she will be he to visit around 1 pm. CM contacted and faxed information to Sultana Carrillo for placement in any facility. DCP- Discharge Planning Updated by [id number]: Denise Fields on 08/22/19 7:[address] Per Nan, with [facility], the facility is unable to accept patient, since there is COVID in the facility and he has never been there. DCP- Discharge Planning Updated by [id number]: Edita Bernstein on 08/17/19 11:[address] I spoke with Muna at [facility] and they do not have all their tests back. They have tested 200 people and have only gotten about 40 back. She is hoping she will have them back next week. Delay for placement to [facility]. DCP- Discharge Planning Updated by [id number]: Edita Bernstein on 08/16/19 12:[address] Spoke again with [facility] and they still do not have all their test results back. They are unable to accept patient until all results are back. Ready for discharge when [facility] can accept. DCP- Discharge Planning Updated by [id number]: Edita Bernstein on 08/15/19 2:[address] I spoke with Victorina at [facility]. Victorina states they have started getting some test results back, she is hoping to get the remaineder back tomorrow and hope to admit patient tomorrow. CM will continue to follow and assist with discharge planning/needs. DCP- Discharge Planning Updated by [email or web address]: Edita Bernstein on 08/14/19 10:[address] Updated clinical faxed to [facility]. Hopefully can be accepted tomorrow for restorative therapy. CM will continue to follow and assist with discharge planning/needs. DCP- Discharge Planning Updated by [id number]: Edita Bernstein on 08/13/19 11:[address] CM CALLED [facility] TO CHECK ON STATUS OF ADMISSION. I SPOKE WITH VICTORINA, SHE IS CHECKING WITH VOLUNTEER SERVICES MANAGER AND WILL LET ME KNOW IF THEY CAN ACCPET TODAY. DCP- Discharge Planning Updated by [email or web address]: Edita Bernstein on 08/10/19 10:[address] CM called Chapin with [facility], he states they will not have an available bed until Tuesday, and will accept the patient on Tuesday. I informed Dr. Noland, patient and called patient's mother, Monroe Wong, and left a message on her voice mail that he has been accepted to [facility] and they will have an available bed on Tuesday. DCP- Discharge Planning Updated by [email or web address]: Edita Bernstein on 08/10/19 6:[address] Negative Covid result and Non Passr faxed to [facility]. He will need discharge paperwork to document restorative therapy. CM will continue to tollow and assist with discharge planning/needs. DCP- Discharge Planning Updated by [id number]: Edita Bernstein on 08/09/19 1:[address] Chapin from [facility] states they need a AKI and Covid prior to admission. I sent the [place] to [facility]. He has a covid now pending. He will need an order for restorative therapy. CM will continue to follow and assist with discharge planning/needs. DCP- Discharge Planning Updated by [id number]: Edita Bernstein on 08/07/19 11:[address] CM called [facility] in [place] and spoke with Lyla (thiago) about possible referral. Lyla states that [place] Medicaid does not have any rehab benefits for their facility and they would be unable to accept patient. I spoke with Chapin at [facility] and Chapin states patient will qualify for restorative rehab at their facility. He states he will speak with mother of patient and should be able to accept patient when medically stable for discharge. Additional clinical faxed to [facility] per request. CM will continue to follow and assist with discharge planning/needs. DCP- Discharge Planning Updated by [id number]: Edita Bernstein on 08/06/19 4:[address] Mira had messaged that patient is not deemed disabled and since he is under age 65, he does not qualify for long-term care Medicaid. I have asked [facility] [employer] to run his Medicaid and they state he has SSI disability Medicaid. I spoke with patient and mother, they both state that he is not on disability at this time. Mother is present in the room and states she has filed for it for him on line. I sent a referral to [facility] and notified Chapin. I also informed Mira that mother has filed for patient's disability on line. CM will continue to follow and assist with discharge planning/needs. DCP- Discharge Planning Updated by [id number]: Edita Bernstein on 08/06/19 11:[address] Updated clinical faxed to [facility]. I have messaged Mira, liaison for [facility], to check on referral. CM to continue to follow and assist with discharge planning/needs. DCP- Discharge Planning Updated by [id number]: Edita Bernstein on 08/02/19 10:[address] CM called [facility] and spoke with Abiola and clinical faxed. CM will continue to follow and assist with discharge planning/needs. DCP- Discharge Planning Updated by [email or web address]: Edita Bernstein on 08/01/19 3:[address] I received notification from Lisha Vega ([facility]) rehab that they are unable to accept patient due to not having a safe discharge plan. I spoke with the patient and his mother and they would like a referral sent to [facility] first, then [facility]. I will reach out to [facility] in the am. CM will continue to follow and assist with discharge planning/needs. DCP- Discharge Planning Updated by [id number]: Edita Bernstein on 07/31/19 12:[address] CM met with patient's mother in the room per her request to discuss discharge planning. Patient's mother states that she lives at [address] [facility] [address] States she is unable to care for her son. States that when he is out of dialysis she will speak with him about a LTC facility. I provided her with the list of LTC facilities in surrounding area. I also informed her that I could reach out to [facility] to see if he has any rehab days available and she agrees with this plan. I spoke with Tanvi at [facility] and clinical faxed. CM will continue to follow and assist with discharge planning/needs. Monroe marti - [phone] or [phone] DCP- Discharge Planning Updated by [id number]: Taina Renee on 07/19/19 4:[address] Patient Name: KILO WHEATLEYJR Admission Status: ER Accout number: [id number] Admission Date: 07-18-2019 : 1970 Admission Diagnosis: Attending: MACK HARP Current LOS: 1 Anticipated DC Date: Planned Disposition: Home Primary Insurance: [place] Discharge Planning Comments: CM met with patient's mother Monroe to complete initial dc planning assessment. CM educated patient on the CM role and verbal consent given by patient to complete assessment. Patient lives at home alone. Patient is independent. At discharge patient plans to return home. CM discussed availability of home health, rehab services, and medical equipment. Uncertain of discharge needs or disposition at this time. Patient is currently sedated on vent. Patient will have family to transport home. CM will continue to follow and will assist as needed with dc plans/needs. Wood Shop Teacher: Taina Renee DCPIA - Discharge Planning Initial Assessment Updated by [id number]: Taina Renee on 07/19/19 5:35 pm * Is the patient Alert and Oriented? No * How many steps to enter\exit or inside your home? * [facility]CP [facility] * Pharmacy [facility] [place] * Preadmission Environment Home Alone * ADLs Independent * Equipment None * List name and contact numbers for known caregivers / representatives who currently or will assist patient after discharge: MONROE JIMENES - - [phone] * Verbal permission to speak to the caregivers and representatives has been obtained from the patient. Yes * Community resources currently utilized None * Additional services required to return to the preadmission environment? No * Can the patient safely return to the preadmission environment? Yes * Has this patient been hospitalized within the prior 30 days at any hospital? No External Providers External Provider: OTHER-OTHER Next Contact Date: Service Request Date: Service Type: Resolution: Reviewer: Comments: Coverage Notice Reviewer: [id number] Marlena Bernstein Notice Issued Date-Time: 08/01/2019 16:10 Notice Type: Patient Choice Letter Notice Delivered To: Patient Relationship to Patient: Self Cnc Mill Programmer Name: Delivery Method: HAND - Hand Delivered Ejanine Days: Prior Verbal Notification: Recipient Understood Notice: Yes Recipient Signature: Yes Med Rec Note Co-signed by Attending: Coverage Notice Comment: [facility] for [facility] or [facility] Last DP export: 08/30/19 9:28 am Patient Name: KILO GARCIA Page [phone] at [phone] All edits/amendments must be made on the electronic document DICTATION DATE: 08/30/191327 CMO: KELLY 08[birth year] RPT#: [id number] DC DATE: STATUS: ADM IN [facility] [address] [place] [address] END OF REPORT
--- NOTE | 2019-08-30 13:37 | MORECARE ---
CASE MANAGEMENT DISCHARGE SUMMARY PATIENT: KILO GARCIA UNIT: [id number] ADM DATE: 07/18/19 AGE: 48 : 72 SEX: M ROOM/BED: D.2238 AUTHOR: RAPHAEL,DOC PHYSICIAN: REFERRING PHYSICIAN: DANNI HARP MD DATE OF SERVICE: 08/30/19 Discharge Plan Patient Name: KILO GARCIA Facility: [facility]:[place] : 1970 Planned Disposition: Home Anticipated Discharge Date: Discharge Date: Expected LOS: Initial Reviewer: [email or web address] Initial Review Date: 07/18/2019 Generated: 08/30/19 2:37 pm Comments DCP- Discharge Planning Updated by [id number]: Fiordaliza Sage on 08/30/19 9:[address] Patient Name: KILO GARCIA Admission Status: ER Accout number: [id number] Admission Date: 07-18-2019 : 1970 Admission Diagnosis:PNEUMONIA, UNSPECIFIED ORGANISM Attending: MACK HARP Current LOS: 43 Anticipated DC Date: Planned Disposition: Home Primary Insurance: MEDICAID [place] Discharge Planning Comments: CM HAS REFERRALS SENT TO OTHER [facility] FACILITIES FOR PLACEMENT. [facility], [place], [facility] AND [facility] CURRENTLY HAVE NO [facility] BEDS AVAILABLE. I AM WAITING [facility] BACK FROM [place] WHICH IS WITH [employer] FOR SEVERAL FACIILITIES. Auger Supervisor: Fiordaliza Sage DCP- Discharge Planning Updated by [id number]: Fiordaliza Sage on 08/29/19 4:[address] Patient Name: KILO GARCIA Admission Status: ER Accout number: [id number] Admission Date: 07-18-2019 : 1970 Admission Diagnosis:PNEUMONIA, UNSPECIFIED ORGANISM Attending: MACK HARP Current LOS: 42 Anticipated DC Date: Planned Disposition: Home Primary Insurance: MED[place]ID [place] Discharge Planning Comments: PATIENT'S MOTHER IS HERE, I SPOKE WITH HER ABOUT HIS DISCHARGE TODAY AND SHE STATES IF HE IS DISCHARGED HE WILL BE ON THE STREET. SHE IS NOT WILLING TO TAKE HIM HOME AT NH. IS AWARE AND I HAVE CONTACTED MARYANNE ABDALLA CNO AND ETHICS COMMITTEE FOR ASSISTANCE. CM WILL FOLLOW AND ASSIST NEEDED. Auger Supervisor: Fiordaliza Sage DCP- Discharge Planning Updated by [email or web address]: Fiordaliza Sage on 08/29/19 12:[address] Patient Name: KILO GARCIA Admission Status: ER Accout number: [id number] Admission Date: 07-18-2019 : 1970 Admission Diagnosis:PNEUMONIA, UNSPECIFIED ORGANISM Attending: MACK HARP Current LOS: 42 Anticipated DC Date: Planned Disposition: Home Primary Insurance: MEDICAID [place] Discharge Planning Comments: I SPOKE TO [facility] BECAUSE FAMILY SAID THEY WERE CALLED BY THEM WITH AN AVAILABLE BED. [facility] DID NOT CALL THEM, THEY DO NOT HAVE ANY BEDS AVAILABLE EXCEPT FOR THEIR RESIDENTS FOR AT LEAST 28 DAYS. I THEN CALLED AND TALKED TO YADY AT [facility] AND THEY DON'T HAVE ANY BEDS AVAILABLE YET BUT PATIENT IS ON THE WAITING LIST. Auger Supervisor: Fiordaliza Sage DCP- Discharge Planning Updated by [id number]: Fiordaliza Sage on 08/28/19 3:[address] Patient Name: KILO GARCIA Admission Status: ER Accout number: [id number] Admission Date: 07-18-2019 : 1970 Admission Diagnosis:PNEUMONIA, UNSPECIFIED ORGANISM Attending: MACK HARP Current LOS: 41 Anticipated DC Date: Planned Disposition: Home Primary Insurance: MEDICAID [place] Discharge Planning Comments: CM SPOKE WITH YADY AT [facility] ABOUT PATIENT PLACEMENT. I AM FAXING THEM UPDATED MEDICAL RECORDS AND WAITING FOR CALL BACK AND UPDATE TOMORROW. PATIENT WILL NEED COVID TEST WITHIN 48 HRS OF DISCHARGE. CM WILL FOLLOW AND ASSIST NEEDED. Auger Supervisor: Fiordaliza Sage DCP- Discharge Planning Updated by [id number]: Denise Fields on 08/24/19 1:[address] [facility] is unable to accept patient. Will try Rm, [facility]. CM contacted Agustina with [facility] for referral. There is no one at the facility to evaluate until Saturday 08/26. Faxed required information to [facility]ak [facility]. DCP- Discharge Planning Updated by [id number]: Denise Fields on 08/22/19 2:[address] CM met with patient regarding inability of [facility] to accept patient. Patient request that I contact his mother. CM contacted patient's mother, Monroe Wong @[phone], regarding same. Monroe states that she does not want patient to go into [facility]. States that she checked on patient's disability yesterday and was told that patient has not worked long enough to e able to draw a Disability check. Monroe states that patient will have full Medicaid and a SSI check for the rest of his life. Patient's mother request that CM contact [facility] Patient's mother said she will be he to visit around 1 pm. CM contacted and faxed information to S[facility] Carrillo for placement in any facility. DCP- Discharge Planning Updated by [id number]: Denise Fields on 08/22/19 7:[address] Per Nan, with [facility], the facility is unable to accept patient, since there is COVID in the facility and he has never been there. DCP- Discharge Planning Updated by [id number]: Edita Bernstein on 08/17/19 11:[address] I spoke with Muna at [facility] and they do not have all their tests back. They have tested 200 people and have only gotten about 40 back. She is hoping she will have them back next week. Delay for placement to [facility]. DCP- Discharge Planning Updated by [id number]: Edita Bernstein on 08/16/19 12:[address] Spoke again with [facility] and they still do not have all their test results back. They are unable to accept patient until all results are back. Ready for discharge when [facility] can accept. DCP- Discharge Planning Updated by [id number]: Edita Bernstein on 08/15/19 2:[address] I spoke with Victorina at [facility]. Victorina states they have started getting some test results back, she is hoping to get the remaineder back tomorrow and hope to admit patient tomorrow. CM will continue to follow and assist with discharge planning/needs. DCP- Discharge Planning Updated by [id number]: Edita Bernstein on 08/14/19 10:[address] Updated clinical faxed to [facility]. Hopefully can be accepted tomorrow for restorative therapy. CM will continue to follow and assist with discharge planning/needs. DCP- Discharge Planning Updated by [id number]: Edita Bernstein on 08/13/19 11:[address] CM CALLED [facility] TO CHECK ON STATUS OF ADMISSION. I SPOKE WITH VICTORINA, SHE IS CHECKING WITH [facility] AND WILL LET ME KNOW IF THEY CAN ACCPET TODAY. DCP- Discharge Planning Updated by [id number]: Edita Bernstein on 08/10/19 10:[address] CM called Chapin with [facility], he states they will not have an available bed until Tuesday, and will accept the patient on Tuesday. I informed Dr. Noland, patient and called patient's mother, Monroe Wong, and left a message on her voice mail that he has been accepted to [facility] and they will have an available bed on Tuesday. DCP- Discharge Planning Updated by [id number]: Edita Bernstein on 08/10/19 6:[address] Negative Covid result and Non Passr faxed to [facility]. He will need discharge paperwork to document restorative therapy. CM will continue to tollow and assist with discharge planning/needs. DCP- Discharge Planning Updated by [id number]: Edita Bernstein on 08/09/19 1:[address] Chapin from [facility] states they need a AKI and Covid prior to admission. I sent the [place] to [facility]. He has a covid now pending. He will need an order for restorative therapy. CM will continue to follow and assist with discharge planning/needs. DCP- Discharge Planning Updated by [id number]: Edita Bernstein on 08/07/19 11:[address] CM called [facility] in [place] and spoke with Lyla (thiago) about possible referral. Lyla states that [place] Medicaid does not have any rehab benefits for their facility and they would be unable to accept patient. I spoke with Chapin at [facility] and Chapin states patient will qualify for restorative rehab at their facility. He states he will speak with mother of patient and should be able to accept patient when medically stable for discharge. Additional clinical faxed to [facility] per request. CM will continue to follow and assist with discharge planning/needs. DCP- Discharge Planning Updated by [id number]: Edita Bernstein on 08/06/19 4:[address] Mira had messaged that patient is not deemed disabled and since he is under age 65, he does not qualify for long-term care Medicaid. I have asked [facility] to run his Medicaid and they state he has SSI disability Medicaid. I spoke with patient and mother, they both state that he is not on disability at this time. Mother is present in the room and states she has filed for it for him on line. I sent a referral to [facility] and notified Chapin. I also informed Mira that mother has filed for patient's disability on line. CM will continue to follow and assist with discharge planning/needs. DCP- Discharge Planning Updated by [id number]: Edita Bernstein on 08/06/19 11:[address] Updated clinical faxed to [facility]. I have messaged Mira, liaison for [facility], to check on referral. CM to continue to follow and assist with discharge planning/needs. DCP- Discharge Planning Updated by [email or web address]: Edita Bernstein on 08/02/19 10:[address] CM called [facility] and spoke with Abiola and clinical faxed. CM will continue to follow and assist with discharge planning/needs. DCP- Discharge Planning Updated by [id number]: Edita Bernstein on 08/01/19 3:[address] I received notification from Lisha Vega ([facility]) rehab that they are unable to accept patient due to not having a safe discharge plan. I spoke with the patient and his mother and they would like a referral sent to [facility] first, then [facility]. I will reach out to [facility] in the am. CM will continue to follow and assist with discharge planning/needs. DCP- Discharge Planning Updated by [id number]: Edita Bernstein on 07/31/19 12:[address] CM met with patient's mother in the room per her request to discuss discharge planning. Patient's mother states that she lives at [address] [place] [address] States she is unable to care for her son. States that when he is out of dialysis she will speak with him about a LTC facility. I provided her with the list of LTC facilities in surrounding area. I also informed her that I could reach out to [facility] to see if he has any rehab days available and she agrees with this plan. I spoke with Tanvi at [facility] and clinical faxed. CM will continue to follow and assist with discharge planning/needs. Monroe devlin - [phone] or [phone] DCP- Discharge Planning Updated by [id number]: Taina Renee on 07/19/19 4:[address] Patient Name: KILO WHEATLEYJR Admission Status: ER Accout number: [id number] Admission Date: 07-18-2019 : 1970 Admission Diagnosis: Attending: MACK HARP Current LOS: 1 Anticipated DC Date: Planned Disposition: Home Primary Insurance: MEDICAID [place] Discharge Planning Comments: CM met with patient's mother Monroe to complete initial dc planning assessment. CM educated patient on the CM role and verbal consent given by patient to complete assessment. Patient lives at home alone. Patient is independent. At discharge patient plans to return home. CM discussed availability of home health, rehab services, and medical equipment. Uncertain of discharge needs or disposition at this time. Patient is currently sedated on vent. Patient will have family to transport home. CM will continue to follow and will assist as needed with dc plans/needs. Auger Supervisor: Taina Renee DCPIA - Discharge Planning Initial Assessment Updated by [id number]: Taina Renee on 07/19/19 5:35 pm * Is the patient Alert and Oriented? No * How many steps to enter\exit or inside your home? * PCP [facility] * [facility] [place] * Preadmission Environment Home Alone * ADLs Independent * Equipment None * List name and contact numbers for known caregivers / representatives who currently or will assist patient after discharge: MONROE DEVLIN - [phone] * Verbal permission to speak to the caregivers and representatives has been obtained from the patient. Yes * Community resources currently utilized None * Additional services required to return to the preadmission environment? No * Can the patient safely return to the preadmission environment? Yes * Has this patient been hospitalized within the prior 30 days at any hospital? 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
--- NOTE | 2019-08-30 14:45 | NUR ---
OT NOTE: PT COMPLETED SUPINE TO SIT WITH MOD A. PT COMPLETED BED TO CHAIR TSF WITH MOD A. PT EXHIBITED INCREASED ANXIETY WITH DYNAMIC ACTIVITIES. [id number] THANK YOU,LALITO BUENO
[2019-08-30 16:00] VITALS: BP 133/86
--- NOTE | 2019-08-30 17:25 | MORECARE ---
CASE MANAGEMENT DISCHARGE SUMMARY PATIENT: KILO GARCIA UNIT: [id number] ADM DATE: 07/18/19 AGE: 48 : 72 SEX: M ROOM/BED: D.2238 AUTHOR: MARISSA LIM PHYSICIAN: REFERRING PHYSICIAN: DANNI HARP MD DATE OF SERVICE: 08/30/19 Discharge Plan Patient Name: KILO GARCIA Facility: [facility]:[place] : 1970 Planned Disposition: Home Anticipated Discharge Date: Discharge Date: Expected LOS: Initial Reviewer: [id number] Initial Review Date: 07/18/2019 Generated: 08/30/19 6:25 pm Comments DCP- Discharge Planning Updated by [id number]: Fiordaliza Sage on 08/30/19 4:[address] Patient Name: KILO GARCIA Admission Status: ER Accout number: [id number] Admission Date: 07-18-2019 : 1970 Admission Diagnosis:PNEUMONIA, UNSPECIFIED ORGANISM Attending: MACK HARP Current LOS: 43 Anticipated DC Date: Planned Disposition: Home Primary Insurance: [place] Discharge Planning Comments: JANUSZ GOMEZ HAS POSSIBLE BED AVAILABLE AT [facility] OR [facility]. SHE IS CALLING BACK IN MORNING WITH CONFIRMATION. Color Room Attendant: Fiordaliza Sage DCP- Discharge Planning Updated by [email or web address]: Fiordaliza Sage on 08/30/19 9:[address] Patient Name: KILO GARCIA Admission Status: ER Accout number: [id number] Admission Date: 07-18-2019 : 1970 Admission Diagnosis:PNEUMONIA, UNSPECIFIED ORGANISM Attending: MACK HARP Current LOS: 43 Anticipated DC Date: Planned Disposition: Home Primary Insurance: [place] Discharge Planning Comments: HAS REFERRALS SENT TO OTHER [facility] FIRST OFFICER FACILITIES FOR PLACEMENT. [facility], [facility] AND [facility] CURRENTLY HAVE NO CARE HOME BEDS AVAILABLE. I AM WAITING VACATION GUIDE BACK FROM [place] WHICH IS WITH [employer] FOR SEVERAL FACIILITIES. Color Room Attendant: Fiordaliza Sage DCP- Discharge Planning Updated by [id number]: Fiordaliza Sage on 08/29/19 4:[address] Patient Name: KILO GARCIA Admission Status: ER Accout number: [id number] Admission Date: 07-18-2019 : 1970 Admission Diagnosis:PNEUMONIA, UNSPECIFIED ORGANISM Attending: MACK HARP Current LOS: 42 Anticipated DC Date: Planned Disposition: Home Primary Insurance: [place] Discharge Planning Comments: PATIENT'S MOTHER IS HERE, I SPOKE WITH HER ABOUT HIS DISCHARGE TODAY AND SHE STATES IF HE IS DISCHARGED HE WILL BE ON THE STREET. SHE IS NOT WILLING TO TAKE HIM HOME AT [place]. IS AWARE AND I HAVE CONTACTED MARYANNE ABDALLA [facility] COMMITTEE FOR ASSISTANCE. CM WILL FOLLOW AND ASSIST NEEDED. Color Room Attendant: Fiordaliza Sage DCP- Discharge Planning Updated by [email or web address]: Fiordaliza Sage on 08/29/19 12:[address] Patient Name: KILO GARCIA Admission Status: ER Accout number: [id number] Admission Date: 07-18-2019 : 1970 Admission Diagnosis:PNEUMONIA, UNSPECIFIED ORGANISM Attending: MACK HARP Current LOS: 42 Anticipated DC Date: Planned Disposition: Home Primary Insurance: [place] Discharge Planning Comments: I SPOKE TO [facility] BECAUSE FAMILY SAID THEY WERE CALLED BY THEM WITH AN AVAILABLE BED. [facility] DID NOT CALL THEM, THEY DO NOT HAVE ANY BEDS AVAILABLE EXCEPT FOR THEIR RESIDENTS FOR AT LEAST 28 DAYS. I THEN CALLED AND TALKED TO YADY AT [facility] AND THEY DON'T HAVE ANY BEDS AVAILABLE YET BUT PATIENT IS ON THE WAITING LIST. Color Room Attendant: Fiordaliza Sage DCP- Discharge Planning Updated by [id number]: Fiordaliza Sage on 08/28/19 3:[address] Patient Name: KILO GARCIA Admission Status: ER Accout number: [id number] Admission Date: 07-18-2019 : 1970 Admission Diagnosis:PNEUMONIA, UNSPECIFIED ORGANISM Attending: MACK HARP Current LOS: 41 Anticipated DC Date: Planned Disposition: Home Primary Insurance: [place] Discharge Planning Comments: CM SPOKE WITH YADY AT [facility] ABOUT PATIENT PLACEMENT. I AM FAXING THEM UPDATED MEDICAL RECORDS AND WAITING FOR CALL BACK AND UPDATE TOMORROW. PATIENT WILL NEED COVID TEST WITHIN 48 HRS OF DISCHARGE. CM WILL FOLLOW AND ASSIST NEEDED. Color Room Attendant: Fiordaliza Sage DCP- Discharge Planning Updated by [email or web address]: Denise Fields on 08/24/19 1:[address] [facility] is unable to accept patient. Will try [facility]. CM contacted Agustina with [facility] for referral. There is no one at the facility to evaluate until Saturday 08/26. Faxed required information to [facility]. DCP- Discharge Planning Updated by [email or web address]: Denise Diamond on 08/22/19 2:[address] CM met with patient regarding inability of [facility] to accept patient. Patient request that I contact his mother. CM contacted patient's mother, Monroe Wong @[phone], regarding same. Monroe states that she does not want patient to go into [facility]. States that she checked on patient's disability yesterday and was told that patient has not worked long enough to e able to draw a Disability check. Monroe states that patient will have full Medicaid and a SSI check for the rest of his life. Patient's mother request that CM contact [facility], [facility], [facility]. Patient's mother said she will be he to visit around 1 pm. CM contacted and faxed information to Sultana Carrillo for placement in any facility. DCP- Discharge Planning Updated by [email or web address]: Denise Fields on 08/22/19 7:[address] Per Nan, with [facility], the facility is unable to accept patient, since there is COVID in the facility and he has never been there. DCP- Discharge Planning Updated by [id number]: Edita Bernstein on 08/17/19 11:[address] I spoke with Muna at [facility] and they do not have all their tests back. They have tested 200 people and have only gotten about 40 back. She is hoping she will have them back next week. Delay for placement to [facility]. DCP- Discharge Planning Updated by [id number]: Edita Bernstein on 08/16/19 12:[address] Spoke again with [facility] and they still do not have all their test results back. They are unable to accept patient until all results are back. Ready for discharge when [facility] can accept. DCP- Discharge Planning Updated by [email or web address]: Edita Bernstein on 08/15/19 2:[address] I spoke with Victorina at [facility]. Victorina states they have started getting some test results back, she is hoping to get the remaineder back tomorrow and hope to admit patient tomorrow. CM will continue to follow and assist with discharge planning/needs. DCP- Discharge Planning Updated by [id number]: Edita Bernstein on 08/14/19 10:[address] Updated clinical faxed to [facility]. Hopefully can be accepted tomorrow for restorative therapy. CM will continue to follow and assist with discharge planning/needs. DCP- Discharge Planning Updated by [id number]: Edita Bernstein on 08/13/19 11:[address] CM CALLED [facility] TO CHECK ON STATUS OF ADMISSION. I SPOKE WITH VICTORINA, SHE IS CHECKING WITH [facility] AND WILL LET ME KNOW IF THEY CAN ACCPET TODAY. DCP- Discharge Planning Updated by [id number]: Edita Bernstein on 08/10/19 10:[address] CM called Chapin with [facility], he states they will not have an available bed until Tuesday, and will accept the patient on Tuesday. I informed Dr. Noland, patient and called patient's mother, Monroe Wong, and left a message on her voice mail that he has been accepted to [facility] and they will have an available bed on Tuesday. DCP- Discharge Planning Updated by [email or web address]: Edita Bernstein on 08/10/19 6:[address] Negative Covid result and Non Passr faxed to [facility]. He will need discharge paperwork to document restorative therapy. CM will continue to tollow and assist with discharge planning/needs. DCP- Discharge Planning Updated by [id number]: Edita Bernstein on 08/09/19 1:[address] Chapin from [facility] states they need a AKI and Covid prior to admission. I sent the Aki to [facility]. He has a covid now pending. He will need an order for restorative therapy. CM will continue to follow and assist with discharge planning/needs. DCP- Discharge Planning Updated by [id number]: Edita Bernstein on 08/07/19 11:[address] CM called [facility] in [place] and spoke with Lyla (admissions) about possible referral. Lyla states that [place] Medicaid does not have any rehab benefits for their facility and they would be unable to accept patient. I spoke with Chapin at [facility] and Chapin states patient will qualify for restorative rehab at their facility. He states he will speak with mother of patient and should be able to accept patient when medically stable for discharge. Additional clinical faxed to [facility] per request. CM will continue to follow and assist with discharge planning/needs. DCP- Discharge Planning Updated by [id number]: Edita Bernstein on 08/06/19 4:[address] Mira had messaged that patient is not deemed disabled and since he is under age 65, he does not qualify for long-term care Medicaid. I have asked [facility] [employer] to run his Medicaid and they state he has SSI disability Medicaid. I spoke with patient and mother, they both state that he is not on disability at this time. Mother is present in the room and states she has filed for it for him on line. I sent a referral to [facility] and notified Chapin. I also informed Mira that mother has filed for patient's disability on line. CM will continue to follow and assist with discharge planning/needs. DCP- Discharge Planning Updated by [id number]: Edita Bernstein on 08/06/19 11:[address] Updated clinical faxed to [facility]. I have messaged Mira, liaison for [facility], to check on referral. CM to continue to follow and assist with discharge planning/needs. DCP- Discharge Planning Updated by [id number]: Edita Bernstein on 08/02/19 10:[address] CM called [facility] and spoke with Abiola and clinical faxed. CM will continue to follow and assist with discharge planning/needs. DCP- Discharge Planning Updated by [email or web address]: Edita Bernstein on 08/01/19 3:[address] I received notification from [facility] that they are unable to accept patient due to not having a safe discharge plan. I spoke with the patient and his mother and they would like a referral sent to [facility] first, then [facility]. I will reach out to [facility] in the am. CM will continue to follow and assist with discharge planning/needs. DCP- Discharge Planning Updated by [id number]: Edita Bernstein on 07/31/19 12:[address] CM met with patient's mother in the room per her request to discuss discharge planning. Patient's mother states that she lives at [address] [facility] [address] States she is unable to care for her son. States that when he is out of dialysis she will speak with him about a LTC facility. I provided her with the list of LTC facilities in surrounding area. I also informed her that I could reach out to [facility] to see if he has any rehab days available and she agrees with this plan. I spoke with Tanvi at [facility] and clinical faxed. CM will continue to follow and assist with discharge planning/needs. Monroe - mother - [phone] or [phone] DCP- Discharge Planning Updated by [id number]: Taina Renee on 07/19/19 4:[address] Patient Name: KILO WONG_JR Admission Status: ER Accout number: [id number] Admission Date: 07-18-2019 : 1970 Admission Diagnosis: Attending: MACK HARP Current LOS: 1 Anticipated DC Date: Planned Disposition: Home Primary Insurance: [place]ID [place] Discharge Planning Comments: CM met with patient's mother Monroe to complete initial dc planning assessment. CM educated patient on the CM role and verbal consent given by patient to complete assessment. Patient lives at home alone. Patient is independent. At discharge patient plans to return home. CM discussed availability of home health, rehab services, and medical equipment. Uncertain of discharge needs or disposition at this time. Patient is currently sedated on vent. Patient will have family to transport home. CM will continue to follow and will assist as needed with dc plans/needs. Color Room Attendant: Taina Renee DCPIA - Discharge Planning Initial Assessment Updated by [email or web address]: Taina Renee on 07/19/19 5:35 pm * Is the patient Alert and Oriented? No * How many steps to enter\exit or inside your home? * PCP [facility] * [facility]acy [facility] * Preadmission Environment Home Alone * ADLs Independent * Equipment None * List name and contact numbers for known caregivers / representatives who currently or will assist patient after discharge: MONROE JIMENES - MOTHER - [phone] * Verbal permission to speak to the caregivers and representatives has been obtained from the patient. Yes * Community resources currently utilized None * Additional services required to return to the preadmission environment? No * Can the patient safely return to the preadmission environment? Yes * Has this patient been hospitalized within the prior 30 days at any hospital? No Coverage Notice Reviewer: [id number] Marlena Bernstein Notice Issued Date-Time: 08/01/2019 16:10 Notice Type: Patient Choice Letter Notice Delivered To: Patient Relationship to Patient: Self Clinical Documentation Clerk Name: Delivery Method: HAND - Hand Delivered Jeanine Days: Prior Verbal Notification: Recipient Understood Notice: Yes Recipient Signature: Yes Med Rec Note Co-signed by Attending: Coverage Notice Comment: [facility] for [facility] or [facility] Last DP export: 08/30/19 12:37 pm Patient Name: KILO GARCIA Page [id number] at 1725 All edits/amendments must be made on the electronic document DICTATION DATE: 08/30/191724 ENGINEER EXHAUSTER: KELLY 08/30/19 172 RPT#: [id number] DC DATE: STATUS: ADM IN [facility] [address] [place] [address] END OF REPORT
[2019-08-30 20:00] VITALS: BP 128/73
--- NOTE | 2019-08-30 20:00 | NUR ---
PATIENT RESTING IN BED WATCHING TV. NO S/S OF ACUTE DISTRESS. NO C/O AT THIS TIME. PATIENT IS A&O X3, CONFUSED ABOUT SITUATION. PATIENT STUTTERS ALOT AND HAS TROUBLE COMMUNICATING. PATIENT HAS NO IV ACCESS AT THIS TIME. PATIENT LEFT ARM IS FLACCID, AND HAS WEAKNESS/IMPARIED ROM IN LEFT LEG. PATIENT HAS BLISTERS ON TOP OF TOES. PATIENT IS X1 ASSIST TO THE BEDSIDE COMMODE. CALL LIGHT WITHIN REACH. BED ALARM ON. WILL CONTINUE TO MONITOR.
[2019-08-31] VITALS: BP 135/95
[2019-08-31 04:00] VITALS: BP 131/85
[2019-08-31 05:46] LABS: BASOPHILS 0.9 % (0-2); EOSINOPHILS 5.7 % (0-7); HEMATOCRIT 35.3 % (42.0-54.0); IMMATURE GRANULOCYTES 0.2 % (0-5); LYMPHOCYTES 34.8 % (15-50); MCH 29.8 pg (26.0-34.0); MCV 87.6 fL (80.0-100.0); MEAN PLATELET VOLUME 10.3 fL (7.4-10.4); MONOCYTES 11.8 % (2-11); NEUTROPHILS 46.6 % (40-80); PLATELET COUNT 260 10x3/uL (130-400); RBC 4.03 10x6/uL (4.20-6.10); RDW 13.4 % (11.5-14.5); WBC 5.7 10x3/uL (4.8-10.8)
[2019-08-31 06:08] LABS: ALBUMIN 3.9 g/dL (3.4-5.0); ANION GAP 12.3 mmol/L (8-16); BILIRUBIN - TOTAL 0.51 mg/dL (0.2-1.3); CARBON DIOXIDE 26.6 mmol/L (21.0-32.0); CREATININE - SERUM 1.7 mg/dL (0.6-1.3); POTASSIUM - SERUM 3.9 mmol/L (3.5-5.1); PROTEIN - SERUM 8.4 g/dL (6.4-8.2)
[2019-08-31 08:00] VITALS: BP 117/83
[2019-08-31 12:00] VITALS: BP 122/84
--- NOTE | 2019-08-31 13:05 | NUR ---
I have reviewed this patient and I concur with the Shift Assessment completed by the Licensed Practical Nurse today this shift.
--- NOTE | 2019-08-31 13:21 | MORECARE ---
CASE MANAGEMENT DISCHARGE SUMMARY PATIENT: KILO GARCIA UNIT: [id number] ADM DATE: 07/18/19 AGE: 48 : 72 SEX: M ROOM/BED: D.2238 AUTHOR: MARISSA LIM PHYSICIAN: REFERRING PHYSICIAN: DANNI HARP MD DATE OF SERVICE: 08/31/19 Discharge Plan Patient Name: KILO GARCIA Facility: [facility]:[place] : 1970 Planned Disposition: Home Anticipated Discharge Date: Discharge Date: Expected LOS: Initial Reviewer: [email or web address] Initial Review Date: 07/18/2019 Generated: 08/31/19 2:21 pm Comments DCP- Discharge Planning Updated by [id number]: Radha Meza on 08/31/19 12:[address] [facility] CAN NOT ACCEPT THE PATIENT DUE TO FINANCIAL REASONS DCP- Discharge Planning Updated by [email or web address]: Fiordaliza Sage on 08/30/19 4:[address] Patient Name: KILO GARCIA Admission Status: ER Accout number: [id number] Admission Date: 07-18-2019 : 1970 Admission Diagnosis:PNEUMONIA, UNSPECIFIED ORGANISM Attending: MACK HARP Current LOS: 43 Anticipated DC Date: Planned Disposition: Home Primary Insurance: MEDICAID [place] Discharge Planning Comments: JANUSZ GOMEZ HAS POSSIBLE BED AVAILABLE AT [facility]. SHE IS CALLING BACK IN MORNING WITH CONFIRMATION. Estimator Lumber: Fiordaliza Sage DCP- Discharge Planning Updated by [id number]: Fiordaliza Sage on 08/30/19 9:[address] Patient Name: KILO GARCIA Admission Status: ER Accout number: [id number] Admission Date: 07-18-2019 : 1970 Admission Diagnosis:PNEUMONIA, UNSPECIFIED ORGANISM Attending: MACK HARP Current LOS: 43 Anticipated DC Date: Planned Disposition: Home Primary Insurance: MEDICAID [place] Discharge Planning Comments: HAS REFERRALS SENT TO OTHER RN PICU FACILITIES FOR PLACEMENT. [facility] [place], [place], [facility] AND [facility] CURRENTLY HAVE NO [facility] BEDS AVAILABLE. I AM WAITING X [facility]AY DEVELOPER BACK FROM [place] WHICH IS WITH [employer] FOR SEVERAL FACIILITIES. Estimator Lumber: Fiordaliza Sage DCP- Discharge Planning Updated by [id number]: Fiordaliza Alona on 08/29/19 4:[address] Patient Name: KILO GARCIA Admission Status: ER Accout number: [id number] Admission Date: 07-18-2019 : 1970 Admission Diagnosis:PNEUMONIA, UNSPECIFIED ORGANISM Attending: MACK HARP Current LOS: 42 Anticipated DC Date: Planned Disposition: Home Primary Insurance: MEDICAID [place] Discharge Planning Comments: PATIENT'S MOTHER IS HERE, I SPOKE WITH HER ABOUT HIS DISCHARGE TODAY AND SHE STATES IF HE IS DISCHARGED HE WILL BE ON THE STREET. SHE IS NOT WILLING TO TAKE HIM HOME AT [place]. IS AWARE AND I HAVE CONTACTED MARYANNE ABDALLA CNO AND ETHICS COMMITTEE FOR ASSISTANCE. CM WILL FOLLOW AND ASSIST NEEDED. Estimator Lumber: Fiordaliza Sage DCP- Discharge Planning Updated by [id number]: Fiordaliza Sage on 08/29/19 12:[address] Patient Name: KILO GARCIA Admission Status: ER Accout number: [id number] Admission Date: 07-18-2019 : 1970 Admission Diagnosis:PNEUMONIA, UNSPECIFIED ORGANISM Attending: MACK HARP Current LOS: 42 Anticipated DC Date: Planned Disposition: Home Primary Insurance: MED[place]ID [place] Discharge Planning Comments: I SPOKE TO [facility] BECAUSE FAMILY SAID THEY WERE CALLED BY THEM WITH AN AVAILABLE BED. [facility] DID NOT CALL THEM, THEY DO NOT HAVE ANY BEDS AVAILABLE EXCEPT FOR THEIR RESIDENTS FOR AT LEAST 28 DAYS. I THEN CALLED AND TALKED TO YADY AT [facility] AND THEY DON'T HAVE ANY BEDS AVAILABLE YET BUT PATIENT IS ON THE WAITING LIST. Estimator Lumber: Fiordaliza Sage DCP- Discharge Planning Updated by [id number]: Fiordaliza Sage on 08/28/19 3:[address] Patient Name: KILO GARCIA Admission Status: ER Accout number: [id number] Admission Date: 07-18-2019 : 1970 Admission Diagnosis:PNEUMONIA, UNSPECIFIED ORGANISM Attending: MACK HARP Current LOS: 41 Anticipated DC Date: Planned Disposition: Home Primary Insurance: MEDICAID [place] Discharge Planning Comments: CM SPOKE WITH YADY AT [facility] ABOUT PATIENT PLACEMENT. I AM FAXING THEM UPDATED MEDICAL RECORDS AND WAITING FOR CALL BACK AND UPDATE TOMORROW. PATIENT WILL NEED COVID TEST WITHIN 48 HRS OF DISCHARGE. CM WILL FOLLOW AND ASSIST NEEDED. Estimator Lumber: Fiordaliza Sage DCP- Discharge Planning Updated by [email or web address]: Denise Diamond on 08/24/19 1:[address] [facility] is unable to accept patient. Will try [facility]. CM contacted Agustina with [facility] for referral. There is no one at the facility to evaluate until Saturday 08/26. Faxed required information to [facility]. DCP- Discharge Planning Updated by [id number]: Denise Diamond on 08/22/19 2:[address] CM met with patient regarding inability of [facility] to accept patient. Patient request that I contact his mother. CM contacted patient's mother, Monroe Wong @[phone], regarding same. Monroe states that she does not want patient to go into [facility]. States that she checked on patient's disability yesterday and was told that patient has not worked long enough to e able to draw a Disability check. Monroe states that patient will have full Medicaid and a SSI check for the rest of his life. Patient's mother request that CM contact [facility]. Patient's mother said she will be he to visit around 1 pm. CM contacted and faxed information to [facility] for placement in any facility. DCP- Discharge Planning Updated by [id number]: Denisecuong Fields on 08/22/19 7:[address] Per Nan, with [facility], the facility is unable to accept patient, since there is COVID in the facility and he has never been there. DCP- Discharge Planning Updated by [id number]: Edita Bernstein on 08/17/19 11:[address] I spoke with Muna at [facility] and they do not have all their tests back. They have tested 200 people and have only gotten about 40 back. She is hoping she will have them back next week. Delay for placement to [facility]. DCP- Discharge Planning Updated by [email or web address]: Edita Bernstein on 08/16/19 12:[address] Spoke again with [facility] and they still do not have all their test results back. They are unable to accept patient until all results are back. Ready for discharge when [facility] can accept. DCP- Discharge Planning Updated by [id number]: Edita Bernstein on 08/15/19 2:[address] I spoke with Victorina at [facility]. Victorina states they have started getting some test results back, she is hoping to get the remaineder back tomorrow and hope to admit patient tomorrow. CM will continue to follow and assist with discharge planning/needs. DCP- Discharge Planning Updated by [id number]: Edita Bernstein on 08/14/19 10:[address] Updated clinical faxed to [facility]. Hopefully can be accepted tomorrow for restorative therapy. CM will continue to follow and assist with discharge planning/needs. DCP- Discharge Planning Updated by [email or web address]: Edita Bernstein on 08/13/19 11:[address] CM CALLED [facility] TO CHECK ON STATUS OF ADMISSION. I SPOKE WITH IVCTORINA, SHE IS CHECKING WITH [facility] AND WILL LET ME KNOW IF THEY CAN ACCPET TODAY. DCP- Discharge Planning Updated by [id number]: Edita Bernstein on 08/10/19 10:[address] CM called Chapin with [facility], he states they will not have an available bed until Tuesday, and will accept the patient on Tuesday. I informed Dr. Noland, patient and called patient's mother, Monroe Wong, and left a message on her voice mail that he has been accepted to [facility] and they will have an available bed on Tuesday. DCP- Discharge Planning Updated by [id number]: Edita Bernstein on 08/10/19 6:[address] Negative Covid result and Non Passr faxed to [facility]. He will need discharge paperwork to document restorative therapy. CM will continue to tollow and assist with discharge planning/needs. DCP- Discharge Planning Updated by [id number]: Edita Bernstein on 08/09/19 1:[address] Chapin from [facility] states they need a AKI and Covid prior to admission. I sent the [place] to [employer]. He has a covid now pending. He will need an order for restorative therapy. CM will continue to follow and assist with discharge planning/needs. DCP- Discharge Planning Updated by [id number]: Edita Bernstein on 08/07/19 11:[address] CM called [facility] in [place] and spoke with Lyla ([facility]) about possible referral. Lyla states that [place] Medicaid does not have any rehab benefits for their facility and they would be unable to accept patient. I spoke with Chapin at [facility] and Chapin states patient will qualify for restorative rehab at their facility. He states he will speak with mother of patient and should be able to accept patient when medically stable for discharge. Additional clinical faxed to [facility] per request. CM will continue to follow and assist with discharge planning/needs. DCP- Discharge Planning Updated by [id number]: Edita Bernstein on 08/06/19 4:[address] Mira had messaged that patient is not deemed disabled and since he is under age 65, he does not qualify for long-term care Medicaid. I have asked [facility] to run his Medicaid and they state he has SSI disability Medicaid. I spoke with patient and mother, they both state that he is not on disability at this time. Mother is present in the room and states she has filed for it for him on line. I sent a referral to [facility] and notified Chapin. I also informed Mira that mother has filed for patient's disability on line. CM will continue to follow and assist with discharge planning/needs. DCP- Discharge Planning Updated by [id number]: Edita Bernstein on 08/06/19 11:[address] Updated clinical faxed to [facility]. I have messaged Mira, liaison for [facility], to check on referral. CM to continue to follow and assist with discharge planning/needs. DCP- Discharge Planning Updated by [id number]: Edita Bernstein on 08/02/19 10:[address] CM called [facility] and spoke with Abiola and clinical faxed. CM will continue to follow and assist with discharge planning/needs. DCP- Discharge Planning Updated by [email or web address]: Edita Bernstein on 08/01/19 3:[address] I received notification from Lisha Vega ([facility] that they are unable to accept patient due to not having a safe discharge plan. I spoke with the patient and his mother and they would like a referral sent to [facility] first, then [facility]. I will reach out to [facility] in the am. CM will continue to follow and assist with discharge planning/needs. DCP- Discharge Planning Updated by [id number]: Edita Bernstein on 07/31/19 12:[address] CM met with patient's mother in the room per her request to discuss discharge planning. Patient's mother states that she lives at [address] [facility] [address] States she is unable to care for her son. States that when he is out of dialysis she will speak with him about a LTC facility. I provided her with the list of LTC facilities in surrounding area. I also informed her that I could reach out to [facility] to see if he has any rehab days available and she agrees with this plan. I spoke with Tanvi at [facility] and clinical faxed. CM will continue to follow and assist with discharge planning/needs. Monroe - - [phone] or [phone] DCP- Discharge Planning Updated by [id number]: Taina Renee on 07/19/19 4:[address] Patient Name: KILO WONG_JR Admission Status: ER Accout number: [id number] Admission Date: 07-18-2019 : 1970 Admission Diagnosis: Attending: MACK HARP Current LOS: 1 Anticipated DC Date: Planned Disposition: Home Primary Insurance: MEDICAID [place] Discharge Planning Comments: CM met with patient's mother Monroe to complete initial dc planning assessment. CM educated patient on the CM role and verbal consent given by patient to complete assessment. Patient lives at home alone. Patient is independent. At discharge patient plans to return home. CM discussed availability of home health, rehab services, and medical equipment. Uncertain of discharge needs or disposition at this time. Patient is currently sedated on vent. Patient will have family to transport home. CM will continue to follow and will assist as needed with dc plans/needs. Estimator Lumber: Taina Renee DCPIA - Discharge Planning Initial Assessment Updated by [id number]: Taina Renee on 07/19/19 5:35 pm * Is the patient Alert and Oriented? No * How many steps to enter\exit or inside your home? * PCP [facility] * [facility] [place] * Preadmission Environment Home Alone * ADLs Independent * Equipment None * List name and contact numbers for known caregivers / representatives who currently or will assist patient after discharge: MONROE JIMENES - [facility] - [phone] * Verbal permission to speak to the caregivers and representatives has been obtained from the patient. Yes * Community resources currently utilized None * Additional services required to return to the preadmission environment? No * Can the patient safely return to the preadmission environment? Yes * Has this patient been hospitalized within the prior 30 days at any hospital? No Coverage Notice Reviewer: [id number] Marlena Bernstein Notice Issued Date-Time: 08/01/2019 16:10 Notice Type: Patient Choice Letter Notice Delivered To: Patient Relationship to Patient: Self Intern Brand Name: Delivery Method: HAND - Hand Delivered Jeanine Days: Prior Verbal Notification: Recipient Understood Notice: Yes Recipient Signature: Yes Med Rec Note Co-signed by Attending: Coverage Notice Comment: ASHLI for [facility] or [facility] Last DP export: 08/30/19 4:25 pm Patient Name: KILO GARCIA Page [phone] at 1321 All edits/amendments must be made on the electronic document DICTATION DATE: 08/31/19 1321 GRADING MACHINE OPERATOR: KELLY 08/31/19 1321 RPT#: [id number] DC DATE: STATUS: ADM IN [facility] [address] [place] [address] END OF REPORT
--- NOTE | 2019-08-31 13:28 | MORECARE ---
CASE MANAGEMENT DISCHARGE SUMMARY PATIENT: KILO GARCIA UNIT: [id number] ADM DATE: 07/18/19 AGE: 48 : 72 SEX: M ROOM/BED: D.2238 AUTHOR: RAPHAEL,DOC PHYSICIAN: REFERRING PHYSICIAN: DANNI HARP MD DATE OF SERVICE: 08/31/19 Discharge Plan Patient Name: KILO GARCIA Facility: [facility]:[place] : 1970 Planned Disposition: Home Anticipated Discharge Date: Discharge Date: Expected LOS: Initial Reviewer: [email or web address] Initial Review Date: 07/18/2019 Generated: 08/31/19 2:28 pm Comments DCP- Discharge Planning Updated by [email or web address]: Radha Meza on 08/31/19 12:[address] [facility] HAS DENIED PATIENT NO AVAILABILITY DCP- Discharge Planning Updated by [email or web address]: Radha Meza on 08/31/19 12:[address] [facility] CAN NOT ACCEPT THE PATIENT DUE TO FINANCIAL REASONS DCP- Discharge Planning Updated by [id number]: Fiordaliza Sage on 08/30/19 4:[address] Patient Name: KILO GARCIA Admission Status: ER Accout number: [id number] Admission Date: 07-18-2019 : 1970 Admission Diagnosis:PNEUMONIA, UNSPECIFIED ORGANISM Attending: MACK HARP Current LOS: 43 Anticipated DC Date: Planned Disposition: Home Primary Insurance: [place] Discharge Planning Comments: JANUSZ GOMEZ HAS POSSIBLE BED AVAILABLE AT [facility]. SHE IS CALLING BACK IN MORNING WITH CONFIRMATION. Psychologist Developmental: Fiordaliza Sage DCP- Discharge Planning Updated by [id number]: Fiordaliza Sage on 08/30/19 9:[address] Patient Name: KILO GARCIA Admission Status: ER Accout number: [id number] Admission Date: 07-18-2019 : 1970 Admission Diagnosis:PNEUMONIA, UNSPECIFIED ORGANISM Attending: MACK HARP Current LOS: 43 Anticipated DC Date: Planned Disposition: Home Primary Insurance: [place] Discharge Planning Comments: HAS REFERRALS SENT TO OTHER SENSITIZER FACILITIES FOR PLACEMENT. [facility], [place], [facility] AND [facility] CURRENTLY HAVE NO SENSITIZER BEDS AVAILABLE. I AM WAITING [employer] SALES REPRESENTATIVE BACK FROM [place] WHICH IS WITH [employer] FOR SEVERAL FACIILITIES. Psychologist Developmental: Fiordaliza Sage DCP- Discharge Planning Updated by [email or web address]: Fiordaliza Sage on 08/29/19 4:[address] Patient Name: KILO GARCIA Admission Status: ER Accout number: [id number] Admission Date: 07-18-2019 : 1970 Admission Diagnosis:PNEUMONIA, UNSPECIFIED ORGANISM Attending: MACK HARP Current LOS: 42 Anticipated DC Date: Planned Disposition: Home Primary Insurance: [place] Discharge Planning Comments: PATIENT'S MOTHER IS HERE, I SPOKE WITH HER ABOUT HIS DISCHARGE TODAY AND SHE STATES IF HE IS DISCHARGED HE WILL BE ON THE STREET. SHE IS NOT WILLING TO TAKE HIM HOME AT [place]. IS AWARE AND I HAVE CONTACTED MARYANNE ABDALLA CNO AND ETHICS COMMITTEE FOR ASSISTANCE. CM WILL FOLLOW AND ASSIST NEEDED. Psychologist Developmental: Fiordaliza Sage DCP- Discharge Planning Updated by [email or web address]: Fiordaliza Sage on 08/29/19 12:[address] Patient Name: KILO GARCIA Admission Status: ER Accout number: [id number] Admission Date: 07-18-2019 : 1970 Admission Diagnosis:PNEUMONIA, UNSPECIFIED ORGANISM Attending: MACK HARP Current LOS: 42 Anticipated DC Date: Planned Disposition: Home Primary Insurance: [place] Discharge Planning Comments: I SPOKE TO [facility] BECAUSE FAMILY SAID THEY WERE CALLED BY THEM WITH AN AVAILABLE BED. [facility] DID NOT CALL THEM, THEY DO NOT HAVE ANY BEDS AVAILABLE EXCEPT FOR THEIR RESIDENTS FOR AT LEAST 28 DAYS. I THEN CALLED AND TALKED TO YADY AT [facility] AND THEY DON'T HAVE ANY BEDS AVAILABLE YET BUT PATIENT IS ON THE WAITING LIST. Psychologist Developmental: Fiordaliza Sage DCP- Discharge Planning Updated by [id number]: Fiordaliza Sage on 08/28/19 3:[address] Patient Name: KILO GARCIA Admission Status: ER Accout number: [id number] Admission Date: 07-18-2019 : 1970 Admission Diagnosis:PNEUMONIA, UNSPECIFIED ORGANISM Attending: MACK HARP Current LOS: 41 Anticipated DC Date: Planned Disposition: Home Primary Insurance: [place] Discharge Planning Comments: CM SPOKE WITH YADY AT [facility] ABOUT PATIENT PLACEMENT. I AM FAXING THEM UPDATED MEDICAL RECORDS AND WAITING FOR CALL BACK AND UPDATE TOMORROW. PATIENT WILL NEED COVID TEST WITHIN 48 HRS OF DISCHARGE. CM WILL FOLLOW AND ASSIST NEEDED. Psychologist Developmental: Fiordaliza Sage DCP- Discharge Planning Updated by [id number]: Denise Diamond on 08/24/19 1:[address] [facility] is unable to accept patient. Will try [facility]. CM contacted Agustina with [facility] for referral. There is no one at the facility to evaluate until Saturday 08/26. Faxed required information to [facility] . DCP- Discharge Planning Updated by [id number]: Denise Diamond on 08/22/19 2:[address] CM met with patient regarding inability of [facility] to accept patient. Patient request that I contact his mother. CM contacted patient's mother, Monroe Wong @[phone], regarding same. Monroe states that she does not want patient to go into [facility]. States that she checked on patient's disability yesterday and was told that patient has not worked long enough to e able to draw a Disability check. Monroe states that patient will have full Medicaid and a SSI check for the rest of his life. Patient's mother request that CM contact [facility], [facility], [facility]. Patient's mother said she will be he to visit around 1 pm. CM contacted and faxed information to [facility] for placement in any facility. DCP- Discharge Planning Updated by [id number]: Denise Fields on 08/22/19 7:[address] Per Nan, with [facility], the facility is unable to accept patient, since there is COVID in the facility and he has never been there. DCP- Discharge Planning Updated by [id number]: Edita Bernstein on 08/17/19 11:[address] I spoke with Muna at [facility] and they do not have all their tests back. They have tested 200 people and have only gotten about 40 back. She is hoping she will have them back next week. Delay for placement to [facility]. DCP- Discharge Planning Updated by [email or web address]: Edita Bernstein on 08/16/19 12:[address] Spoke again with [facility] and they still do not have all their test results back. They are unable to accept patient until all results are back. Ready for discharge when [facility] can accept. DCP- Discharge Planning Updated by [id number]: Edita Bernstein on 08/15/19 2:[address] I spoke with Victorina at [facility]. Victorina states they have started getting some test results back, she is hoping to get the remaineder back tomorrow and hope to admit patient tomorrow. CM will continue to follow and assist with discharge planning/needs. DCP- Discharge Planning Updated by [id number]: Edita Bernstein on 08/14/19 10:[address] Updated clinical faxed to [facility]. Hopefully can be accepted tomorrow for restorative therapy. CM will continue to follow and assist with discharge planning/needs. DCP- Discharge Planning Updated by [id number]: Edita Bernstein on 08/13/19 11:[address] CM CALLED [facility] TO CHECK ON STATUS OF ADMISSION. I SPOKE WITH VICTORINA, SHE IS CHECKING WITH SERVICE CLERK AND WILL LET ME KNOW IF THEY CAN ACCPET TODAY. DCP- Discharge Planning Updated by [email or web address]: Edita Bernstein on 08/10/19 10:[address] CM called Chapin with [facility], he states they will not have an available bed until Tuesday, and will accept the patient on Tuesday. I informed Dr. Noland, patient and called patient's mother, Monroe Wong, and left a message on her voice mail that he has been accepted to [facility] and they will have an available bed on Tuesday. DCP- Discharge Planning Updated by [id number]: Edita Bernstein on 08/10/19 6:[address] Negative Covid result and Non Passr faxed to [facility]. He will need discharge paperwork to document restorative therapy. CM will continue to tollow and assist with discharge planning/needs. DCP- Discharge Planning Updated by [id number]: Edita Bernstein on 08/09/19 1:[address] Chapin from [facility] states they need a AKI and Covid prior to admission. I sent the [facility] to [facility]. He has a covid now pending. He will need an order for restorative therapy. CM will continue to follow and assist with discharge planning/needs. DCP- Discharge Planning Updated by [id number]: Edita Bernstein on 08/07/19 11:[address] CM called [facility] in [place] and spoke with Lyla ([facility]) about possible referral. Lyla states that [place] Medicaid does not have any rehab benefits for their facility and they would be unable to accept patient. I spoke with Chapin at [facility] and Chapin states patient will qualify for restorative rehab at their facility. He states he will speak with mother of patient and should be able to accept patient when medically stable for discharge. Additional clinical faxed to [facility] per request. CM will continue to follow and assist with discharge planning/needs. DCP- Discharge Planning Updated by [id number]: Edita Bernstein on 08/06/19 4:[address] Mira had messaged that patient is not deemed disabled and since he is under age 65, he does not qualify for long-term care Medicaid. I have asked [facility] to run his Medicaid and they state he has SSI disability Medicaid. I spoke with patient and mother, they both state that he is not on disability at this time. Mother is present in the room and states she has filed for it for him on line. I sent a referral to [facility] and notified Chapin. I also informed Mira that mother has filed for patient's disability on line. CM will continue to follow and assist with discharge planning/needs. DCP- Discharge Planning Updated by [id number]: Edita Bernstein on 08/06/19 11:[address] Updated clinical faxed to [facility]. I have messaged Mira, liaison for [facility], to check on referral. CM to continue to follow and assist with discharge planning/needs. DCP- Discharge Planning Updated by [id number]: Edita Bernstein on 08/02/19 10:[address] CM called [facility] and spoke with Abiola and clinical faxed. CM will continue to follow and assist with discharge planning/needs. DCP- Discharge Planning Updated by [id number]: Edita Bernstein on 08/01/19 3:[address] I received notification from [facility] that they are unable to accept patient due to not having a safe discharge plan. I spoke with the patient and his mother and they would like a referral sent to [facility] first, then [facility]. I will reach out to [facility] in the am. CM will continue to follow and assist with discharge planning/needs. DCP- Discharge Planning Updated by [id number]: Edita Bernstein on 07/31/19 12:[address] CM met with patient's mother in the room per her request to discuss discharge planning. Patient's mother states that she lives at [address]. States she is unable to care for her son. States that when he is out of dialysis she will speak with him about a LTC facility. I provided her with the list of LTC facilities in surrounding area. I also informed her that I could reach out to [facility] to see if he has any rehab days available and she agrees with this plan. I spoke with Tanvi at [facility] and clinical faxed. CM will continue to follow and assist with discharge planning/needs. Monroe - mother - [phone] or [phone] DCP- Discharge Planning Updated by [id number]: Taina Renee on 07/19/19 4:[address] Patient Name: KILO GARCIA Admission Status: ER Accout number: [id number] Admission Date: 07-18-2019 : 1970 Admission Diagnosis: Attending: MACK HARP Current LOS: 1 Anticipated DC Date: Planned Disposition: Home Primary Insurance: [place] Discharge Planning Comments: CM met with patient's mother Monroe to complete initial dc planning assessment. CM educated patient on the CM role and verbal consent given by patient to complete assessment. Patient lives at home alone. Patient is independent. At discharge patient plans to return home. CM discussed availability of home health, rehab services, and medical equipment. Uncertain of discharge needs or disposition at this time. Patient is currently sedated on vent. Patient will have family to transport home. CM will continue to follow and will assist as needed with dc plans/needs. Psychologist Developmental: Taina Renee DCPIA - Discharge Planning Initial Assessment Updated by [id number]: Taina Renee on 07/19/19 5:35 pm * Is the patient Alert and Oriented? No * How many steps to enter\exit or inside your home? * PCP [facility] * [facility] * Preadmission Environment Home Alone * ADLs Independent * Equipment None * List name and contact numbers for known caregivers / representatives who currently or will assist patient after discharge: MONROE JIMENES - - [phone] * Verbal permission to speak to the caregivers and representatives has been obtained from the patient. Yes * Community resources currently utilized None * Additional services required to return to the preadmission environment? No * Can the patient safely return to the preadmission environment? Yes * Has this patient been hospitalized within the prior 30 days at any hospital? No Coverage Notice Reviewer: [id number] Marlena Bernstein Notice Issued Date-Time: 08/01/2019 16:10 Notice Type: Patient Choice Letter Notice Delivered To: Patient Relationship to Patient: Self Forensic Audit Expert Name: Delivery Method: HAND - Hand Delivered Jeanine Days: Prior Verbal Notification: Recipient Understood Notice: Yes Recipient Signature: Yes Med Rec Note Co-signed by Attending: Coverage Notice Comment: [facility] for [facility] or [facility] Last DP export: 08/31/19 12:21 p Patient Name: KILO GARCIA Page [phone] at 1328 All edits/amendments must be made on the electronic document DICTATION DATE: 08/31/19 1328 TILE CONDUIT LAYER: KELLY 08/31/19 1328 RPT#: [id number] DC DATE: STATUS: ADM IN [facility] [address] [place] [address] END OF REPORT
--- NOTE | 2019-08-31 14:58 | NUR ---
OT NOTE: PT COMLETED SUPINE TO SIT WITH SBA. PT COMPLETED ORAL HYGIENE WITH SETUP. PT COMPLETED HAIR GROOMING WITH SETUP. PT COMPLETED EOB SITTING BALANCE WITH SBA. [phone] THANK YOU,LALITO BUENO
[2019-08-31 16:00] VITALS: BP 125/78
--- NOTE | 2019-08-31 16:38 | MORECARE ---
CASE MANAGEMENT DISCHARGE SUMMARY PATIENT: KILO GARCIA UNIT: [id number] ADM DATE: 07/18/19 AGE: 48 : 72 SEX: M ROOM/BED: D.2238 AUTHOR: MARISSA LIM PHYSICIAN: REFERRING PHYSICIAN: DANNI HARP MD DATE OF SERVICE: 08/31/19 Discharge Plan Patient Name: KILO GARCIA Facility: [facility]:[place] : 1970 Planned Disposition: Home Anticipated Discharge Date: Discharge Date: Expected LOS: Initial Reviewer: [email or web address] Initial Review Date: 07/18/2019 Generated: 08/31/19 5:37 pm Comments DCP- Discharge Planning Updated by [email or web address]: Radha Meza on 08/31/19 3:[address] RAOUL WITH [facility] IS WORKING ON ACCEPTANCE, IF ACCEPTED CAN GO WHEN A ROOM IS AVAILABLE DCP- Discharge Planning Updated by [id number]: Radha Meza on 08/31/19 12:[address] [facility] HAS DENIED PATIENT NO AVAILABILITY DCP- Discharge Planning Updated by [email or web address]: Radha Meza on 08/31/19 12:[address] [facility] CAN NOT ACCEPT THE PATIENT DUE TO FINANCIAL REASONS DCP- Discharge Planning Updated by [id number]: Fiordaliza Sage on 08/30/19 4:[address] Patient Name: KILO GARCIA Admission Status: ER Accout number: [id number] Admission Date: 07-18-2019 : 1970 Admission Diagnosis:PNEUMONIA, UNSPECIFIED ORGANISM Attending: MACK HARP Current LOS: 43 Anticipated DC Date: Planned Disposition: Home Primary Insurance: [place] Discharge Planning Comments: JANUSZ GOMEZ HAS POSSIBLE BED AVAILABLE AT [facility]. SHE IS CALLING BACK IN MORNING WITH CONFIRMATION. [employer]: Fiordaliza Sage DCP- Discharge Planning Updated by [id number]: Fiordaliza Sage on 08/30/19 9:[address] Patient Name: KILO GARCIA Admission Status: ER Accout number: [id number] Admission Date: 07-18-2019 : 1970 Admission Diagnosis:PNEUMONIA, UNSPECIFIED ORGANISM Attending: MACK HARP Current LOS: 43 Anticipated DC Date: Planned Disposition: Home Primary Insurance: [place] Discharge Planning Comments: CM HAS REFERRALS SENT TO OTHER SPORTS NUTRITIONIST FACILITIES FOR PLACEMENT. [facility] AND [facility] CURRENTLY HAVE NO [facility] BEDS AVAILABLE. I AM WAITING OFF TRACK BETTING MANAGER BACK FROM [facility] WHICH IS WITH [employer] FOR SEVERAL FACIILITIES. [employer]: Fiordaliza Sage DCP- Discharge Planning Updated by [id number]: Fiordaliza Sage on 08/29/19 4:[address] Patient Name: KILO GARCIA Admission Status: ER Accout number: [id number] Admission Date: 07-18-2019 : 1970 Admission Diagnosis:PNEUMONIA, UNSPECIFIED ORGANISM Attending: MACK HARP Current LOS: 42 Anticipated DC Date: Planned Disposition: Home Primary Insurance: [place] Discharge Planning Comments: PATIENT'S MOTHER IS HERE, I SPOKE WITH HER ABOUT HIS DISCHARGE TODAY AND SHE STATES IF HE IS DISCHARGED HE WILL BE ON THE STREET. SHE IS NOT WILLING TO TAKE HIM HOME AT [place]. IS AWARE AND I HAVE CONTACTED MARYANNE ABDALLA CNO AND ETHICS COMMITTEE FOR ASSISTANCE. CM WILL FOLLOW AND ASSIST NEEDED. [employer]: Fiordaliza Sage DCP- Discharge Planning Updated by [id number]: Fiordaliza Sage on 08/29/19 12:[address] Patient Name: KILO GARCIA Admission Status: ER Accout number: [id number] Admission Date: 07-18-2019 : 1970 Admission Diagnosis:PNEUMONIA, UNSPECIFIED ORGANISM Attending: MACK HARP Current LOS: 42 Anticipated DC Date: Planned Disposition: Home Primary Insurance: [place] Discharge Planning Comments: I SPOKE TO [facility] BECAUSE FAMILY SAID THEY WERE CALLED BY THEM WITH AN AVAILABLE BED. [facility] DID NOT CALL THEM, THEY DO NOT HAVE ANY BEDS AVAILABLE EXCEPT FOR THEIR RESIDENTS FOR AT LEAST 28 DAYS. I THEN CALLED AND TALKED TO YADY AT [facility] AND THEY DON'T HAVE ANY BEDS AVAILABLE YET BUT PATIENT IS ON THE WAITING LIST. [employer]: Fiordaliza Sage DCP- Discharge Planning Updated by [id number]: Fiordaliza Sage on 08/28/19 3:[address] Patient Name: KILO GARCIA Admission Status: ER Accout number: [id number] Admission Date: 07-18-2019 : 1970 Admission Diagnosis:PNEUMONIA, UNSPECIFIED ORGANISM Attending: MACK HARP Current LOS: 41 Anticipated DC Date: Planned Disposition: Home Primary Insurance: [place] Discharge Planning Comments: CM SPOKE WITH YADY AT [facility] ABOUT PATIENT PLACEMENT. I AM FAXING THEM UPDATED MEDICAL RECORDS AND WAITING FOR CALL BACK AND UPDATE TOMORROW. PATIENT WILL NEED COVID TEST WITHIN 48 HRS OF DISCHARGE. CM WILL FOLLOW AND ASSIST NEEDED. [employer]: Fiordaliza Sage DCP- Discharge Planning Updated by [email or web address]: Denise Fields on 08/24/19 1:[address] [facility] is unable to accept patient. Will try [facility]. CM contacted Agustina with [facility] for referral. There is no one at the facility to evaluate until Saturday 08/26. Faxed required information to [facility] . DCP- Discharge Planning Updated by [id number]: Denise Fields on 08/22/19 2:[address] CM met with patient regarding inability of [facility] to accept patient. Patient request that I contact his mother. CM contacted patient's mother, Monroe Wong @[phone], regarding same. Monroe states that she does not want patient to go into [facility]. States that she checked on patient's disability yesterday and was told that patient has not worked long enough to e able to draw a Disability check. Monroe states that patient will have full Medicaid and a SSI check for the rest of his life. Patient's mother request that CM contact [facility]. Patient's mother said she will be he to visit around 1 pm. CM contacted and faxed information to S[facility] Carr[facility] for placement in any facility. DCP- Discharge Planning Updated by [id number]: Denise Fields on 08/22/19 7:[address] Per Nan, with [facility], the facility is unable to accept patient, since there is COVID in the facility and he has never been there. DCP- Discharge Planning Updated by [id number]: Edita Bernstein on 08/17/19 11:[address] I spoke with Muna at [facility] and they do not have all their tests back. They have tested 200 people and have only gotten about 40 back. She is hoping she will have them back next week. Delay for placement to [facility]. DCP- Discharge Planning Updated by [id number]: Edita Bernstein on 08/16/19 12:[address] Spoke again with [facility] and they still do not have all their test results back. They are unable to accept patient until all results are back. Ready for discharge when [facility] can accept. DCP- Discharge Planning Updated by [id number]: Edita Bernstein on 08/15/19 2:[address] I spoke with Victorina at [facility]. Victorina states they have started getting some test results back, she is hoping to get the remaineder back tomorrow and hope to admit patient tomorrow. CM will continue to follow and assist with discharge planning/needs. DCP- Discharge Planning Updated by [id number]: Edita Bernstein on 08/14/19 10:[address] Updated clinical faxed to [facility]. Hopefully can be accepted tomorrow for restorative therapy. CM will continue to follow and assist with discharge planning/needs. DCP- Discharge Planning Updated by [id number]: Edita Bernstein on 08/13/19 11:[address] CM CALLED [facility] TO CHECK ON STATUS OF ADMISSION. I SPOKE WITH VICTORINA, SHE IS CHECKING WITH [facility] [employer] MACHINE OPERATOR AND WILL LET ME KNOW IF THEY CAN ACCPET TODAY. DCP- Discharge Planning Updated by [id number]: Edita Bernstein on 08/10/19 10:[address] CM called Chapin with [facility], he states they will not have an available bed until Tuesday, and will accept the patient on Tuesday. I informed Dr. Noland, patient and called patient's mother, Monroe Wong, and left a message on her voice mail that he has been accepted to [facility] and they will have an available bed on Tuesday. DCP- Discharge Planning Updated by [email or web address]: Edita Bernstein on 08/10/19 6:[address] Negative Covid result and Non Passr faxed to [facility]. He will need discharge paperwork to document restorative therapy. CM will continue to tollow and assist with discharge planning/needs. DCP- Discharge Planning Updated by [id number]: Edita Day on 08/09/19 1:[address] Chapin from [facility] states they need a AKI and Covid prior to admission. I sent the [facility]. He has a covid now pending. He will need an order for restorative therapy. CM will continue to follow and assist with discharge planning/needs. DCP- Discharge Planning Updated by [email or web address]: Edita Bernstein on 08/07/19 11:[address] CM called [facility] in [place] and spoke with Lyla ([facility]) about possible referral. Lyla states that [place] Medicaid does not have any rehab benefits for their facility and they would be unable to accept patient. I spoke with Chapin at [facility] and Chapin states patient will qualify for restorative rehab at their facility. He states he will speak with mother of patient and should be able to accept patient when medically stable for discharge. Additional clinical faxed to [facility] per request. CM will continue to follow and assist with discharge planning/needs. DCP- Discharge Planning Updated by [id number]: Edita Bernstein on 08/06/19 4:[address] Mira had messaged that patient is not deemed disabled and since he is under age 65, he does not qualify for long-term care Medicaid. I have asked [facility] to run his Medicaid and they state he has SSI disability Medicaid. I spoke with patient and mother, they both state that he is not on disability at this time. Mother is present in the room and states she has filed for it for him on line. I sent a referral to [facility] and notified Chapin. I also informed Mira that mother has filed for patient's disability on line. CM will continue to follow and assist with discharge planning/needs. DCP- Discharge Planning Updated by [id number]: Edita Bernstein on 08/06/19 11:[address] Updated clinical faxed to [facility]. I have messaged Mira, liaison for [facility], to check on referral. CM to continue to follow and assist with discharge planning/needs. DCP- Discharge Planning Updated by [id number]: Edita Bernstein on 08/02/19 10:[address] CM called [facility] and spoke with Abiola and clinical faxed. CM will continue to follow and assist with discharge planning/needs. DCP- Discharge Planning Updated by [email or web address]: Edita Bernstein on 08/01/19 3:[address] I received notification from Lisha Vega ([facility]) rehab that they are unable to accept patient due to not having a safe discharge plan. I spoke with the patient and his mother and they would like a referral sent to [facility] first, then [facility]. I will reach out to [facility] in the am. CM will continue to follow and assist with discharge planning/needs. DCP- Discharge Planning Updated by [id number]: Edita Bernstein on 07/31/19 12:[address] CM met with patient's mother in the room per her request to discuss discharge planning. Patient's mother states that she lives at [address] [facility]. States she is unable to care for her son. States that when he is out of dialysis she will speak with him about a LTC facility. I provided her with the list of LTC facilities in surrounding area. I also informed her that I could reach out to [facility] to see if he has any rehab days available and she agrees with this plan. I spoke with Tanvi at [facility] and clinical faxed. CM will continue to follow and assist with discharge planning/needs. Monroe - mother - [phone] or [phone] DCP- Discharge Planning Updated by [id number]: Taina Renee on 07/19/19 4:[address] Patient Name: KILO WONG_JR Admission Status: ER Accout number: [id number] Admission Date: 07-18-2019 : 1970 Admission Diagnosis: Attending: MACK HARP Current LOS: 1 Anticipated DC Date: Planned Disposition: Home Primary Insurance: MEDICAID [place] Discharge Planning Comments: CM met with patient's mother Monroe to complete initial dc planning assessment. CM educated patient on the CM role and verbal consent given by patient to complete assessment. Patient lives at home alone. Patient is independent. At discharge patient plans to return home. CM discussed availability of home health, rehab services, and medical equipment. Uncertain of discharge needs or disposition at this time. Patient is currently sedated on vent. Patient will have family to transport home. CM will continue to follow and will assist as needed with dc plans/needs. [employer]: Taina Renee DCPIA - Discharge Planning Initial Assessment Updated by [id number]: Taina Renee on 07/19/19 5:35 pm * Is the patient Alert and Oriented? No * How many steps to enter\exit or inside your home? * [facility] * Pharmacy [facility] [place] * Preadmission Environment Home Alone * ADLs Independent * Equipment None * List name and contact numbers for known caregivers / representatives who currently or will assist patient after discharge: MONROE JIMENES - [facility] - [phone] * Verbal permission to speak to the caregivers and representatives has been obtained from the patient. Yes * Community resources currently utilized None * Additional services required to return to the preadmission environment? No * Can the patient safely return to the preadmission environment? Yes * Has this patient been hospitalized within the prior 30 days at any hospital? No Coverage Notice Reviewer: [id number] Marlena Bernstein Notice Issued Date-Time: 08/01/2019 16:10 Notice Type: Patient Choice Letter Notice Delivered To: Patient Relationship to Patient: Self Manager Materials Management Name: Delivery Method: HAND - Hand Delivered Jeanine Days: Prior Verbal Notification: Recipient Understood Notice: Yes Recipient Signature: Yes Med Rec Note Co-signed by Attending: Coverage Notice Comment: [facility] for [facility] or [facility] Last DP export: 08/31/19 12:28 p Patient Name: KILO GARCIA Page [id number] at 1638 All edits/amendments must be made on the electronic document DICTATION DATE: 08/31/19 1637 POWER SHOVEL ENGINEER: KELLY 08/31/19 1637 RPT#: [id number] DC DATE: STATUS: ADM IN [facility] [address] [place] [address] END OF REPORT
[2019-08-31 20:00] VITALS: BP 136/87
--- NOTE | 2019-08-31 20:00 | NUR ---
PATIENT RESTING IN BED WATCHING TV. NO S/S OF ACUTE DISTRESS. NO C/O AT THIS TIME. PATIENT HAS NO IV ACCESS. PATIENT HAS DELAYED SPEACH AND STUTTERS WHEN TRYING TO COMMINUCATE. PATIENT HAS FLACCID LEFT ARM, AND WEAK/IMPAIRED ROM IN LEFT LEG. PATIENT HAS BLISTERS ON BOTH FEET, ESPECIALLY THE RIGHT TOES. BOTH FEET ARE VERY DRY AND CRACKED. PATIENT IS UP WITH ASSISTANCE TO THE BEDSIDE COMMODE. CALL LIGHT WITHIN REACH. BED ALARM ON. WILL CONTINUE TO MONITOR.
--- NOTE | 2019-09-01 02:14 | NUR ---
I have reviewed this patient and I concur with the Shift Assessment completed by the Licensed Practical Nurse today this shift.
[2019-09-01 08:00] LABS: HEMATOCRIT 33.7 % (42.0-54.0); HEMOGLOBIN 11.7 g/dL (13.5-17.5); LYMPHOCYTES 35.8 % (15-50); MCH 30.5 pg (26.0-34.0); MCHC 34.7 g/dL (31.0-37.0); MCV 87.8 fL (80.0-100.0); NEUTROPHILS 51.1 % (40-80); PLATELET COUNT 242 10x3/uL (130-400); RBC 3.84 10x6/uL (4.20-6.10); RDW 13.4 % (11.5-14.5); WBC 5.8 10x3/uL (4.8-10.8)
[2019-09-01 08:03] LABS: ALBUMIN 3.7 g/dL (3.4-5.0); ANION GAP 14.5 mmol/L (8-16); BILIRUBIN - TOTAL 0.47 mg/dL (0.2-1.3); CALCIUM 8.9 mg/dL (8.5-10.1); CARBON DIOXIDE 26.6 mmol/L (21.0-32.0); CREATININE - SERUM 1.5 mg/dL (0.6-1.3); POTASSIUM - SERUM 4.1 mmol/L (3.5-5.1); PROTEIN - SERUM 7.6 g/dL (6.4-8.2)
[2019-09-01 08:51] VITALS: BP 130/87
[2019-09-01 14:02] VITALS: BP 148/99
[2019-09-01 20:00] VITALS: BP 124/84
--- NOTE | 2019-09-01 20:00 | NUR ---
PATIENT SITTING UP ON SIDE OF BED. NO S/S OF ACUTE DISTRESS. NO C/O AT THIS TIME. PATIENT HAS NO IV ACCESS AT THIS TIME. PATIENT HAS DELAYED/STUTTERING SPEECH. PATIENT LEFT ARM IS FLACCID, AND LEFT LEG IS WEAK. PATIENT HAS PARTIAL ASSIST TO THE BESIDE COMMODE. CALL LIGHT WITHIN REACH. WILL CONTINUE TO MONITOR.
--- NOTE | 2019-09-02 01:57 | NUR ---
PATIENT WAS IN A VERY EXCITABLE STATE. PATIENT WETTED THE BED AND WAS YELLING AT ME TO SIT IN IT. I CALMLY TOLD HIM TO WAIT JUST A SECOND AND LET ME GET SOME LINENS. PATIENT THEN YELLED, "CALL THE CELL LINER! CALL THE CELL LINER! I WOULD RATHER STAY IN [facility]!" I TOLD THE PATIENT THAT HE NEEDED TO CALM DOWN AND THAT I WAS GETTING HIS BED CHANGED. PATIENT SHANIA YELLOED AT ME THAT HE NEEDED A NEW BED BECAUSE THAT ONE WAS SOAKED THROUGH. I TOLD THE PATIENT THAT THE BED IS PLASTIC AND I WIPED IT DOWN WITH A WET WIPE TO CLEAN IT, AND THAT THE SHEETS WERE CLEAN AND DRY. PATIENT IS STILL UPSET AND TELLING ME TO CALL THE CELL LINER. I ASKED IF HE WANTED TO SPEAK TO MY GOAT HERDER, AND HE SAID NO. PATIENT THEN C/O A HEADACHE. PATIENT WAS GIVEN TYLENOL. CALL LIGHT WITHIN REACH. BED ALARM ON. WILL CONTINUE TO MONITOR.
--- NOTE | 2019-09-02 03:01 | NUR ---
I have reviewed this patient and I concur with the Shift Assessment completed by the Licensed Practical Nurse today this shift.
[2019-09-02 04:00] VITALS: BP 144/96
--- NOTE | 2019-09-02 07:40 | NUR ---
PT SITTING UP ON SIDE OF BED, EMPTIED 700 OUT OF PT URINAL, PT ON PHONE SPEAKING WITH MOTHER, NO S/SX OF DISTRESS, NO NEEDS VOICED, CONTINUE WITH PLAN OF CARE
[2019-09-02 07:53] LABS: HEMATOCRIT 33.4 % (42.0-54.0); HEMOGLOBIN 11.5 g/dL (13.5-17.5); LYMPHOCYTES 35.2 % (15-50); MCH 30.2 pg (26.0-34.0); MCHC 34.4 g/dL (31.0-37.0); MCV 87.7 fL (80.0-100.0); MEAN PLATELET VOLUME 10.4 fL (7.4-10.4); NEUTROPHILS 51.7 % (40-80); PLATELET COUNT 217 10x3/uL (130-400); RBC 3.81 10x6/uL (4.20-6.10); RDW 13.2 % (11.5-14.5); WBC 5.1 10x3/uL (4.8-10.8)
[2019-09-02 08:08] LABS: ALBUMIN 3.5 g/dL (3.4-5.0); BILIRUBIN - TOTAL 0.54 mg/dL (0.2-1.3); CALCIUM 8.8 mg/dL (8.5-10.1); CARBON DIOXIDE 28.6 mmol/L (21.0-32.0); CREATININE - SERUM 1.5 mg/dL (0.6-1.3); POTASSIUM - SERUM 3.6 mmol/L (3.5-5.1); PROTEIN - SERUM 7.5 g/dL (6.4-8.2)
[2019-09-02 09:24] VITALS: BP 138/100
--- NOTE | 2019-09-02 16:32 | NUR ---
I have reviewed this patient and I concur with the Shift Assessment completed by the Licensed Practical Nurse today this shift.
[2019-09-02 17:45] VITALS: BP 122/86
[2019-09-02 20:00] VITALS: BP 136/95
--- NOTE | 2019-09-02 20:00 | NUR ---
RESTING IN BED, DENIES NEEDS AT THIS TIME, SEE SHIFT ASSESSMENT, CALL PERICO VALENTINE
[2019-09-03 04:15] VITALS: BP 129/89
[2019-09-03 05:37] LABS: HEMATOCRIT 34.2 % (42.0-54.0); HEMOGLOBIN 11.7 g/dL (13.5-17.5); LYMPHOCYTES 38.2 % (15-50); MCH 30.2 pg (26.0-34.0); MCHC 34.2 g/dL (31.0-37.0); MCV 88.1 fL (80.0-100.0); MEAN PLATELET VOLUME 9.9 fL (7.4-10.4); NEUTROPHILS 49.9 % (40-80); PLATELET COUNT 220 10x3/uL (130-400); RBC 3.88 10x6/uL (4.20-6.10); RDW 13.3 % (11.5-14.5)
[2019-09-03 06:11] LABS: ALBUMIN 3.5 g/dL (3.4-5.0); BILIRUBIN - TOTAL 0.51 mg/dL (0.2-1.3); CALCIUM 8.7 mg/dL (8.5-10.1); CARBON DIOXIDE 27.7 mmol/L (21.0-32.0); CREATININE - SERUM 1.6 mg/dL (0.6-1.3); POTASSIUM - SERUM 3.7 mmol/L (3.5-5.1); PROTEIN - SERUM 7.6 g/dL (6.4-8.2)
[2019-09-03 09:08] VITALS: BP 141/95
--- NOTE | 2019-09-03 10:07 | NUR ---
PT SITTING AT SIDE OF BED TOP OF RIGHT FOOT IS BLEEDING, CLEANED PT UP AND ADMINISTERED PRN MEDICATIONS WITH MORNING MEDS. NO OTHER NEEDS VOICED, CONTINUE WITH PLAN OF CARE
--- NOTE | 2019-09-03 11:38 | NUR ---
I have reviewed this patient and I concur with the Shift Assessment completed by the Licensed Practical Nurse today this shift.
--- NOTE | 2019-09-03 11:39 | NUR ---
I have reviewed this patient and I concur with the Shift Assessment completed by the Licensed Practical Nurse today this shift.
--- NOTE | 2019-09-03 12:08 | MORECARE ---
CASE MANAGEMENT DISCHARGE SUMMARY PATIENT: KILO GARCIA UNIT: [id number] ADM DATE: 07/18/19 AGE: 48 : 72 SEX: M ROOM/BED: D.2238 AUTHOR: MARISSA LIM PHYSICIAN: REFERRING PHYSICIAN: DANNI HARP MD DATE OF SERVICE: 09/03/19 Discharge Plan Patient Name: KILO GARCIA Facility: [facility]:[place] : 1970 Planned Disposition: Home Anticipated Discharge Date: Discharge Date: Expected LOS: Initial Reviewer: [id number] Initial Review Date: 07/18/2019 Generated: 09/03/19 1:08 pm Comments DCP- Discharge Planning Updated by [email or web address]: Fiordaliza Sage on 09/03/19 11:[address] Patient Name: KILO GARCIA Admission Status: ER Accout number: [id number] Admission Date: 07-18-2019 : 1970 Admission Diagnosis:PNEUMONIA, UNSPECIFIED ORGANISM Attending: MACK HARP Current LOS: 47 Anticipated DC Date: Planned Disposition: Home Primary Insurance: MEDICAID [place] Discharge Planning Comments: UPDATE FAXED TO [place] WITH [facility] IN [place]. WAITING CALL BACK. [employer] Supervisor: Fiordaliza Sage DCP- Discharge Planning Updated by [id number]: Radha Meza on 08/31/19 3:[address] RAOU[facility] WITH [facility] IS WORKING ON ACCEPTANCE, IF ACCEPTED CAN GO WHEN A ROOM IS AVAILABLE DCP- Discharge Planning Updated by [id number]: Radha Meza on 08/31/19 12:[address] [facility] HAS DENIED PATIENT NO AVAILABILITY DCP- Discharge Planning Updated by [id number]: Radha Meza on 08/31/19 12:[address] [facility] NOT ACCEPT THE PATIENT DUE TO FINANCIAL REASONS DCP- Discharge Planning Updated by [email or web address]: Fiordaliza Sage on 08/30/19 4:[address] Patient Name: KILO GARCIA Admission Status: ER Accout number: [id number] Admission Date: 07-18-2019 : 1970 Admission Diagnosis:PNEUMONIA, UNSPECIFIED ORGANISM Attending: MACK HARP Current LOS: 43 Anticipated DC Date: Planned Disposition: Home Primary Insurance: [place]ID [place] Discharge Planning Comments: JANUSZ GOMEZ HAS POSSIBLE BED AVAILABLE AT [facility] OR [facility]. SHE IS CALLING BACK IN MORNING WITH CONFIRMATION. 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 [facility], [facility], [facility] AND [facility] CURRENTLY HAVE NO GENERAL MACHINE OPERATOR BEDS AVAILABLE. 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 [employer] Supervisor: Fiordaliza Sage DCP- Discharge Planning Updated by [id number]: Fiordaliza Sage on 08/29/19 4:[address] Patient Name: KILO GARCIA Admission Status: ER Accout number: [id number] Admission Date: 07-18-2019 : 1970 Admission Diagnosis:PNEUMONIA, UNSPECIFIED ORGANISM Attending: MACK HARP Current LOS: 42 Anticipated DC Date: Planned Disposition: Home Primary Insurance: MED[place]ID [place] Discharge Planning Comments: PATIENT'S MOTHER IS HERE, I SPOKE WITH HER ABOUT HIS DISCHARGE TODAY AND SHE STATES IF HE IS DISCHARGED HE WILL BE ON THE STREET. SHE IS NOT WILLING TO TAKE HIM HOME AT [place]. IS AWARE AND I HAVE CONTACTED MARYANNE ABDALLA [facility] AND [employer]ICS COMMITTEE FOR ASSISTANCE. CM WILL FOLLOW AND ASSIST NEEDED. [employer] Supervisor: Fiordaliza Sage DCP- Discharge Planning Updated by [id number]: Fiordaliza Sage on 08/29/19 12:[address] Patient Name: KILO GARCIA Admission Status: ER Accout number: [id number] Admission Date: 07-18-2019 : 1970 Admission Diagnosis:PNEUMONIA, UNSPECIFIED ORGANISM Attending: MACK HARP Current LOS: 42 Anticipated DC Date: Planned Disposition: Home Primary Insurance: [place] Discharge Planning Comments: I SPOKE TO [facility] BECAUSE FAMILY SAID THEY WERE CALLED BY THEM WITH AN AVAILABLE BED. [facility] DID NOT CALL THEM, THEY DO NOT HAVE ANY BEDS AVAILABLE EXCEPT FOR THEIR RESIDENTS FOR AT LEAST 28 DAYS. I THEN CALLED AND TALKED TO YADY AT [facility] AND THEY DON'T HAVE ANY BEDS AVAILABLE YET BUT PATIENT IS ON THE WAITING LIST. [employer] Supervisor: Fiordaliza Sage DCP- Discharge Planning Updated by [id number]: Fiordaliza Sage on 08/28/19 3:[address] Patient Name: KILO GARCIA Admission Status: ER Accout number: [id number] Admission Date: 07-18-2019 : 1970 Admission Diagnosis:PNEUMONIA, UNSPECIFIED ORGANISM Attending: MACK HARP Current LOS: 41 Anticipated DC Date: Planned Disposition: Home Primary Insurance: [place] Discharge Planning Comments: CM SPOKE WITH YADY AT [facility] ABOUT PATIENT PLACEMENT. I AM FAXING THEM UPDATED MEDICAL RECORDS AND WAITING FOR CALL BACK AND UPDATE TOMORROW. PATIENT WILL NEED COVID TEST WITHIN 48 HRS OF DISCHARGE. CM WILL FOLLOW AND ASSIST NEEDED. [employer] Supervisor: Fiordaliza Sage DCP- Discharge Planning Updated by [id number]: Denise Fields on 08/24/19 1:[address] [facility] is unable to accept patient. Will try [facility]. CM contacted Agustina with [facility] for referral. There is no one at the facility to evaluate until Saturday 08/26. Faxed required information to [facility], [facility] . DCP- Discharge Planning Updated by [id number]: Denise Fields on 08/22/19 2:[address] CM met with patient regarding inability of [facility] to accept patient. Patient request that I contact his mother. CM contacted patient's mother, Monroe Wong @[phone], regarding same. Monroe states that she does not want patient to go into [facility]. States that she checked on patient's disability yesterday and was told that patient has not worked long enough to e able to draw a Disability check. Monroe states that patient will have full Medicaid and a SSI check for the rest of his life. Patient's mother request that CM contact Claire Gomez, [facility]. Patient's mother said she will be he to visit around 1 pm. CM contacted and faxed information to [facility] for placement in any facility. DCP- Discharge Planning Updated by [id number]: Denise Fields on 08/22/19 7:[address] Per Nan, with [facility], the facility is unable to accept patient, since there is COVID in the facility and he has never been there. DCP- Discharge Planning Updated by [id number]: Edita Bernstein on 08/17/19 11:[address] I spoke with Muna at [facility] and they do not have all their tests back. They have tested 200 people and have only gotten about 40 back. She is hoping she will have them back next week. Delay for placement to [facility]. DCP- Discharge Planning Updated by [id number]: Edita Bernstein on 08/16/19 12:[address] Spoke again with [facility] and they still do not have all their test results back. They are unable to accept patient until all results are back. Ready for discharge when [facility] can accept. DCP- Discharge Planning Updated by [id number]: Edita Bernstein on 08/15/19 2:[address] I spoke with Victorina at [facility]. Victorina states they have started getting some test results back, she is hoping to get the remaineder back tomorrow and hope to admit patient tomorrow. CM will continue to follow and assist with discharge planning/needs. DCP- Discharge Planning Updated by [email or web address]: Edita Bernstein on 08/14/19 10:[address] Updated clinical faxed to [facility]. Hopefully can be accepted tomorrow for restorative therapy. CM will continue to follow and assist with discharge planning/needs. DCP- Discharge Planning Updated by [id number]: Edita Bernstein on 08/13/19 11:[address] CM CALLED [facility] TO CHECK ON STATUS OF ADMISSION. I SPOKE WITH VICTORINA, SHE IS CHECKING WITH TRAUMA MANAGER AND WILL LET ME KNOW IF THEY CAN ACCPET TODAY. DCP- Discharge Planning Updated by [id number]: Edita Bernstein on 08/10/19 10:[address] CM called Chapin with [facility], he states they will not have an available bed until Tuesday, and will accept the patient on Tuesday. I informed Dr. Noland, patient and called patient's mother, Monroe Wong, and left a message on her voice mail that he has been accepted to [facility] and they will have an available bed on Tuesday. DCP- Discharge Planning Updated by [id number]: Edita Bernstein on 08/10/19 6:[address] Negative Covid result and Non Passr faxed to [facility]. He will need discharge paperwork to document restorative therapy. CM will continue to tollow and assist with discharge planning/needs. DCP- Discharge Planning Updated by [id number]: Edita Bernstein on 08/09/19 1:[address] Chapin from [facility] states they need a AKI and Covid prior to admission. I sent the Aki to [facility]. He has a covid now pending. He will need an order for restorative therapy. CM will continue to follow and assist with discharge planning/needs. DCP- Discharge Planning Updated by [id number]: Edita Bernstein on 08/07/19 11:[address] CM called [facility] in [place] and spoke with Lyla ([facility]) about possible referral. Lyla states that [place] Medicaid does not have any rehab benefits for their facility and they would be unable to accept patient. I spoke with Chapin at [facility] and Chapin states patient will qualify for restorative rehab at their facility. He states he will speak with mother of patient and should be able to accept patient when medically stable for discharge. Additional clinical faxed to [facility] per request. CM will continue to follow and assist with discharge planning/needs. DCP- Discharge Planning Updated by [id number]: Edita Bernstein on 08/06/19 4:[address] Mira had messaged that patient is not deemed disabled and since he is under age 65, he does not qualify for long-term care Medicaid. I have asked [facility] [employer] to run his Medicaid and they state he has SSI disability Medicaid. I spoke with patient and mother, they both state that he is not on disability at this time. Mother is present in the room and states she has filed for it for him on line. I sent a referral to [facility] and notified Chapin. I also informed Mira that mother has filed for patient's disability on line. CM will continue to follow and assist with discharge planning/needs. DCP- Discharge Planning Updated by [id number]: dEita Bernstein on 08/06/19 11:[address] Updated clinical faxed to [facility]. I have messaged Mira, liaison for [facility], to check on referral. CM to continue to follow and assist with discharge planning/needs. DCP- Discharge Planning Updated by [id number]: Edita Bernstein on 08/02/19 10:[address] CM called [facility] and spoke with Abiola and clinical faxed. CM will continue to follow and assist with discharge planning/needs. DCP- Discharge Planning Updated by [id number]: Edita Bernstein on 08/01/19 3:[address] I received notification from Lisha Vega ([facility]) rehab that they are unable to accept patient due to not having a safe discharge plan. I spoke with the patient and his mother and they would like a referral sent to [facility] first, then [facility]. I will reach out to [facility] in the am. CM will continue to follow and assist with discharge planning/needs. DCP- Discharge Planning Updated by [id number]: Edita Bernstein on 07/31/19 12:[address] CM met with patient's mother in the room per her request to discuss discharge planning. Patient's mother states that she lives at [address] [place] [address]. States she is unable to care for her son. States that when he is out of dialysis she will speak with him about a LTC facility. I provided her with the list of LTC facilities in surrounding area. I also informed her that I could reach out to [facility] to see if he has any rehab days available and she agrees with this plan. I spoke with Tanvi at [facility] and clinical faxed. CM will continue to follow and assist with discharge planning/needs. Monroe - mother - [phone] or [phone] DCP- Discharge Planning Updated by [id number]: Taina Renee on 07/19/19 4:[address] Patient Name: KILO WONG_JR Admission Status: ER Accout number: [id number] Admission Date: 07-18-2019 : 1970 Admission Diagnosis: Attending: MACK HARP Current LOS: 1 Anticipated DC Date: Planned Disposition: Home Primary Insurance: MEDICAID [place] Discharge Planning Comments: CM met with patient's mother Monroe to complete initial dc planning assessment. CM educated patient on the CM role and verbal consent given by patient to complete assessment. Patient lives at home alone. Patient is independent. At discharge patient plans to return home. CM discussed availability of home health, rehab services, and medical equipment. Uncertain of discharge needs or disposition at this time. Patient is currently sedated on vent. Patient will have family to transport home. CM will continue to follow and will assist as needed with dc plans/needs. [employer] Supervisor: Taina Renee DCPIA - Discharge Planning Initial Assessment Updated by [id number]: Taina Renee on 07/19/19 5:35 pm * Is the patient Alert and Oriented? No * How many steps to enter\exit or inside your home? * PCP [facility] * [facility] * Preadmission Environment Home Alone * ADLs Independent * Equipment None * List name and contact numbers for known caregivers / representatives who currently or will assist patient after discharge: MONROE JIMENES - MOTHER - [phone] * Verbal permission to speak to the caregivers and representatives has been obtained from the patient. Yes * Community resources currently utilized None * Additional services required to return to the preadmission environment? No * Can the patient safely return to the preadmission environment? Yes * Has this patient been hospitalized within the prior 30 days at any hospital? No Coverage Notice Reviewer: [id number] Marlena Bernstein Notice Issued Date-Time: 08/01/2019 16:10 Notice Type: Patient Choice Letter Notice Delivered To: Patient Relationship to Patient: Self [employer] Worker Name: Delivery Method: HAND - Hand Delivered Jeanine Days: Prior Verbal Notification: Recipient Understood Notice: Yes Recipient Signature: Yes Med Rec Note Co-signed by Attending: Coverage Notice Comment: ASHLI for [facility] or [facility] Last DP export: 08/31/19 3:38 p Patient Name: KILO GARCIA Page [phone] at 1208 All edits/amendments must be made on the electronic document DICTATION DATE: 09/03/19 1208 [employer]: KELLY 09/03/19 1208 RPT#: [id number] DC DATE: STATUS: ADM IN [facility] [address] [place] [address] END OF REPORT
[2019-09-03 13:06] VITALS: BP 135/83
--- NOTE | 2019-09-03 15:05 | MORECARE ---
CASE MANAGEMENT DISCHARGE SUMMARY PATIENT: KILO GARCIA UNIT: [id number] ADM DATE: 07/18/19 AGE: 48 : 72 SEX: M ROOM/BED: D.2238 AUTHOR: MARISSA LIM PHYSICIAN: REFERRING PHYSICIAN: DANNI HARP MD DATE OF SERVICE: 09/03/19 Discharge Plan Patient Name: KILO GARCIA Facility: [facility]:[place] : 1970 Planned Disposition: Home Anticipated Discharge Date: Discharge Date: Expected LOS: Initial Reviewer: [id number] Initial Review Date: 07/18/2019 Generated: 09/03/19 4:04 pm Comments DCP- Discharge Planning Updated by [email or web address]: Fiordaliza Sage on 09/03/19 11:[address] Patient Name: KILO GARCIA Admission Status: ER Accout number: [id number] Admission Date: 07-18-2019 : 1970 Admission Diagnosis:PNEUMONIA, UNSPECIFIED ORGANISM Attending: MACK HARP Current LOS: 47 Anticipated DC Date: Planned Disposition: Home Primary Insurance: MEDICAID [place] Discharge Planning Comments: UPDATE FAXED TO [place] WITH [employer] IN [place]. WAITING CALL BACK. Gas Distribution Plant Operator: Fiordaliza Sage DCP- Discharge Planning Updated by [id number]: Radha Meza on 08/31/19 3:[address] RAOUL WITH [employer] IS WORKING ON ACCEPTANCE, IF ACCEPTED CAN GO WHEN A ROOM IS AVAILABLE DCP- Discharge Planning Updated by [email or web address]: Radha Meza on 08/31/19 12:[address] [facility] HAS DENIED PATIENT NO AVAILABILITY DCP- Discharge Planning Updated by [id number]: Radha Meza on 08/31/19 12:[address] [facility] CAN NOT ACCEPT THE PATIENT DUE TO FINANCIAL REASONS DCP- Discharge Planning Updated by [id number]: Fiordaliza Sage on 08/30/19 4:[address] Patient Name: KILO GARCIA Admission Status: ER Accout number: [id number] Admission Date: 07-18-2019 : 1970 Admission Diagnosis:PNEUMONIA, UNSPECIFIED ORGANISM Attending: MACK HRAP Current LOS: 43 Anticipated DC Date: Planned Disposition: Home Primary Insurance: [place]ID [place] Discharge Planning Comments: JANUSZ GOMEZ HAS POSSIBLE BED AVAILABLE AT [facility] OR [facility]. SHE IS CALLING BACK IN MORNING WITH CONFIRMATION. Gas Distribution Plant Operator: Fiordaliza Sage DCP- Discharge Planning Updated by [id number]: Fiordaliza Sage on 08/30/19 9:[address] Patient Name: KILO GARCIA Admission Status: ER Accout number: [id number] Admission Date: 07-18-2019 : 1970 Admission Diagnosis:PNEUMONIA, UNSPECIFIED ORGANISM Attending: MACK HARP Current LOS: 43 Anticipated DC Date: Planned Disposition: Home Primary Insurance: [place]ICAID [place] Discharge Planning Comments: CM HAS REFERRALS SENT TO OTHER [facility]ENT[facility] FACILITIES FOR PLACEMENT. [facility], [facility], [facility] AND [facility] CURRENTLY HAVE NO [facility]PRENT[facility] BEDS AVAILABLE. 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 Gas Distribution Plant Operator: Fiordaliza Sage DCP- Discharge Planning Updated by [id number]: Fiordaliza Sage on 08/29/19 4:[address] Patient Name: KILO GARCIA Admission Status: ER Accout number: [id number] Admission Date: 07-18-2019 : 1970 Admission Diagnosis:PNEUMONIA, UNSPECIFIED ORGANISM Attending: MACK HARP Current LOS: 42 Anticipated DC Date: Planned Disposition: Home Primary Insurance: [place]ID [place] Discharge Planning Comments: PATIENT'S MOTHER IS HERE, I SPOKE WITH HER ABOUT HIS DISCHARGE TODAY AND SHE STATES IF HE IS DISCHARGED HE WILL BE ON THE STREET. SHE IS NOT WILLING TO TAKE HIM HOME AT [place]. IS AWARE AND I HAVE CONTACTED MARYANNE ABDALLA [facility] AND ETHICS COMMITTEE FOR ASSISTANCE. CM WILL FOLLOW AND ASSIST NEEDED. Gas Distribution Plant Operator: Fiordaliza Sage DCP- Discharge Planning Updated by [id number]: Fiordaliza Sage on 08/29/19 12:[address] Patient Name: KILO GARCIA Admission Status: ER Accout number: [id number] Admission Date: 07-18-2019 : 1970 Admission Diagnosis:PNEUMONIA, UNSPECIFIED ORGANISM Attending: MACK HARP Current LOS: 42 Anticipated DC Date: Planned Disposition: Home Primary Insurance: [place]ID [place] Discharge Planning Comments: I SPOKE TO [facility] BECAUSE FAMILY SAID THEY WERE CALLED BY THEM WITH AN AVAILABLE BED. [facility] DID NOT CALL THEM, THEY DO NOT HAVE ANY BEDS AVAILABLE EXCEPT FOR THEIR RESIDENTS FOR AT LEAST 28 DAYS. I THEN CALLED AND TALKED TO YADY AT [facility] AND THEY DON'T HAVE ANY BEDS AVAILABLE YET BUT PATIENT IS ON THE WAITING LIST. Gas Distribution Plant Operator: Fiordaliza Sage DCP- Discharge Planning Updated by [id number]: Fiordaliza Sage on 08/28/19 3:[address] Patient Name: KILO GARCIA Admission Status: ER Accout number: [id number] Admission Date: 07-18-2019 : 1970 Admission Diagnosis:PNEUMONIA, UNSPECIFIED ORGANISM Attending: MACK HARP Current LOS: 41 Anticipated DC Date: Planned Disposition: Home Primary Insurance: [place]ID [place] Discharge Planning Comments: CM SPOKE WITH YADY AT [facility] ABOUT PATIENT PLACEMENT. I AM FAXING THEM UPDATED MEDICAL RECORDS AND WAITING FOR CALL BACK AND UPDATE TOMORROW. PATIENT WILL NEED COVID TEST WITHIN 48 HRS OF DISCHARGE. CM WILL FOLLOW AND ASSIST NEEDED. Gas Distribution Plant Operator: Fiordaliza Sage DCP- Discharge Planning Updated by [id number]: Denise Fields on 08/24/19 1:[address] [facility] is unable to accept patient. Will try [facility]. CM contacted Agustina with [facility] for referral. There is no one at the facility to evaluate until Saturday 08/26. Faxed required information to [facility], [facility] . DCP- Discharge Planning Updated by [id number]: Denise Fields on 08/22/19 2:[address] CM met with patient regarding inability of [facility] to accept patient. Patient request that I contact his mother. CM contacted patient's mother, Monroe Wong @[phone], regarding same. Monroe states that she does not want patient to go into [facility]. States that she checked on patient's disability yesterday and was told that patient has not worked long enough to e able to draw a Disability check. Monroe states that patient will have full Medicaid and a SSI check for the rest of his life. Patient's mother request that CM contact Claire Gomez, [facility]. Patient's mother said she will be he to visit around 1 pm. CM contacted and faxed information to [facility] for placement in any facility. DCP- Discharge Planning Updated by [id number]: Denise Fields on 08/22/19 7:[address] Per Nan, with [facility], the facility is unable to accept patient, since there is COVID in the facility and he has never been there. DCP- Discharge Planning Updated by [id number]: Edita Bernstein on 08/17/19 11:[address] I spoke with Muna at [facility] and they do not have all their tests back. They have tested 200 people and have only gotten about 40 back. She is hoping she will have them back next week. Delay for placement to [facility]. DCP- Discharge Planning Updated by [id number]: Edita Bernstein on 08/16/19 12:[address] Spoke again with [facility] and they still do not have all their test results back. They are unable to accept patient until all results are back. Ready for discharge when [facility] can accept. DCP- Discharge Planning Updated by [id number]: Edita Bernstein on 08/15/19 2:[address] I spoke with Victorina at [facility]. Victorina states they have started getting some test results back, she is hoping to get the remaineder back tomorrow and hope to admit patient tomorrow. CM will continue to follow and assist with discharge planning/needs. DCP- Discharge Planning Updated by [id number]: Edita Bernstein on 08/14/19 10:[address] Updated clinical faxed to [facility]. Hopefully can be accepted tomorrow for restorative therapy. CM will continue to follow and assist with discharge planning/needs. DCP- Discharge Planning Updated by [id number]: Edita Bernstein on 08/13/19 11:[address] CM CALLED [facility] TO CHECK ON STATUS OF ADMISSION. I SPOKE WITH VICTORINA, SHE IS CHECKING WITH [facility] AND WILL LET ME KNOW IF THEY CAN ACCPET TODAY. DCP- Discharge Planning Updated by [id number]: Edita Bernstein on 08/10/19 10:[address] CM called Chapin with [facility], he states they will not have an available bed until Tuesday, and will accept the patient on Tuesday. I informed Dr. Noland, patient and called patient's mother, Monroe Wong, and left a message on her voice mail that he has been accepted to [facility] and they will have an available bed on Tuesday. DCP- Discharge Planning Updated by [id number]: Edita Bernstein on 08/10/19 6:[address] Negative Covid result and Non Passr faxed to [facility]. He will need discharge paperwork to document restorative therapy. CM will continue to tollow and assist with discharge planning/needs. DCP- Discharge Planning Updated by [id number]: Edita Bernstein on 08/09/19 1:[address] Chapin from [facility] states they need a AKI and Covid prior to admission. I sent the Aki to [facility]. He has a covid now pending. He will need an order for restorative therapy. CM will continue to follow and assist with discharge planning/needs. DCP- Discharge Planning Updated by [id number]: Edita Bernstein on 08/07/19 11:[address] CM called [facility] in [place] and spoke with Lyla ([facility] about possible referral. Lyla states that [place] Medicaid does not have any rehab benefits for their facility and they would be unable to accept patient. I spoke with Chapin at [facility] and Chapin states patient will qualify for restorative rehab at their facility. He states he will speak with mother of patient and should be able to accept patient when medically stable for discharge. Additional clinical faxed to [facility] per request. CM will continue to follow and assist with discharge planning/needs. DCP- Discharge Planning Updated by [id number]: Edita Bernstein on 08/06/19 4:[address] Mira had messaged that patient is not deemed disabled and since he is under age 65, he does not qualify for long-term care Medicaid. I have asked [facility] to run his Medicaid and they state he has SSI disability Medicaid. I spoke with patient and mother, they both state that he is not on disability at this time. Mother is present in the room and states she has filed for it for him on line. I sent a referral to [facility] and notified Chapin. I also informed Mira that mother has filed for patient's disability on line. CM will continue to follow and assist with discharge planning/needs. DCP- Discharge Planning Updated by [id number]: Edita Bernstein on 08/06/19 11:[address] Updated clinical faxed to [facility]. I have messaged Mira, liaison for [facility], to check on referral. CM to continue to follow and assist with discharge planning/needs. DCP- Discharge Planning Updated by [id number]: Edita Bernstein on 08/02/19 10:[address] CM called [facility] and spoke with Abiola and clinical faxed. CM will continue to follow and assist with discharge planning/needs. DCP- Discharge Planning Updated by [email or web address]: Edita Bernstein on 08/01/19 3:[address] I received notification from [facility] ([facility]) rehab that they are unable to accept patient due to not having a safe discharge plan. I spoke with the patient and his mother and they would like a referral sent to [facility] first, then [facility]. I will reach out to [facility] in the am. CM will continue to follow and assist with discharge planning/needs. DCP- Discharge Planning Updated by [id number]: Edita Bernstein on 07/31/19 12:[address] CM met with patient's mother in the room per her request to discuss discharge planning. Patient's mother states that she lives at [address] [place] [address]. States she is unable to care for her son. States that when he is out of dialysis she will speak with him about a LTC facility. I provided her with the list of LTC facilities in surrounding area. I also informed her that I could reach out to [facility] to see if he has any rehab days available and she agrees with this plan. I spoke with Tanvi at [facility] and clinical faxed. CM will continue to follow and assist with discharge planning/needs. Monroe - mother - [phone] or [phone] DCP- Discharge Planning Updated by [id number]: Taina Renee on 07/19/19 4:[address] Patient Name: KILO WONG_JR Admission Status: ER Accout number: [id number] Admission Date: 07-18-2019 : 1970 Admission Diagnosis: Attending: MACK HARP Current LOS: 1 Anticipated DC Date: Planned Disposition: Home Primary Insurance: MEDICAID [place] Discharge Planning Comments: CM met with patient's mother Monroe to complete initial dc planning assessment. CM educated patient on the CM role and verbal consent given by patient to complete assessment. Patient lives at home alone. Patient is independent. At discharge patient plans to return home. CM discussed availability of home health, rehab services, and medical equipment. Uncertain of discharge needs or disposition at this time. Patient is currently sedated on vent. Patient will have family to transport home. CM will continue to follow and will assist as needed with dc plans/needs. Gas Distribution Plant Operator: Taina Renee DCPIA - Discharge Planning Initial Assessment Updated by [id number]: Taina Renee on 07/19/19 5:35 pm * Is the patient Alert and Oriented? No * How many steps to enter\exit or inside your home? * PCP [facility] * Pharmacy [facility] [place] * Preadmission Environment Home Alone * ADLs Independent * Equipment None * List name and contact numbers for known caregivers / representatives who currently or will assist patient after discharge: MONROE JIMENES - MOTHER - [phone] * Verbal permission to speak to the caregivers and representatives has been obtained from the patient. Yes * Community resources currently utilized None * Additional services required to return to the preadmission environment? No * Can the patient safely return to the preadmission environment? Yes * Has this patient been hospitalized within the prior 30 days at any hospital? No External Providers External Provider: [facility] Next Contact Date: Service Request Date: Service Type: Resolution: Reviewer: Comments: Coverage Notice Reviewer: [id number] Marlena Bernstein Notice Issued Date-Time: 08/01/2019 16:10 Notice Type: Patient Choice Letter Notice Delivered To: Patient Relationship to Patient: Self Skin Specialist Name: Delivery Method: HAND - Hand Delivered Jeanine Days: Prior Verbal Notification: Recipient Understood Notice: Yes Recipient Signature: Yes Med Rec Note Co-signed by Attending: Coverage Notice Comment: ASHLI for [facility] or [facility] Last DP export: 09/03/19 11:08 a Patient Name: KILO GARCIA Page [phone] at 1505 All edits/amendments must be made on the electronic document DICTATION DATE: 09/03/191503 SOLAR POWER INSTALLER: KELLY 09/03/19 1504 RPT#: [id number] DC DATE: STATUS: ADM IN [facility] [address] [place] [address] END OF REPORT
--- NOTE | 2019-09-03 15:43 | NUR ---
Nutrition Follow-up: Chart reviewed. Patient at baseline and still awaiting placement per MD notes. Diet: Renal, thin liquids with swallow precautions + Nepro BID PO intake: 100% x last 5 meals recorded (08/28/19), intake not recorded recently Last BM: 09/01/19. WT: 148# (08/17/19), no new weight Meds reviewed Labs noted: BUN 19(H), Cr 1.6(H), GFR 49(L), AST 105(H), ALT 157(H), alk phos 157(H) NEEDS NEW WEIGHT. Recommend continue current diet. RD following.
[2019-09-03 18:04] VITALS: BP 130/92
[2019-09-03 20:00] VITALS: BP 122/69
--- NOTE | 2019-09-04 03:58 | NUR ---
REFUSED 4AM V/S
[2019-09-04 06:32] LABS: HEMATOCRIT 34.7 % (42.0-54.0); HEMOGLOBIN 11.9 g/dL (13.5-17.5); LYMPHOCYTES 32.4 % (15-50); MCHC 34.3 g/dL (31.0-37.0); MCV 87.4 fL (80.0-100.0); MEAN PLATELET VOLUME 10.5 fL (7.4-10.4); NEUTROPHILS 56.2 % (40-80); PLATELET COUNT 207 10x3/uL (130-400); RBC 3.97 10x6/uL (4.20-6.10); RDW 13.4 % (11.5-14.5); WBC 5.7 10x3/uL (4.8-10.8)
[2019-09-04 06:59] LABS: ALBUMIN 3.7 g/dL (3.4-5.0); ANION GAP 13.5 mmol/L (8-16); BILIRUBIN - TOTAL 0.63 mg/dL (0.2-1.3); CALCIUM 9.1 mg/dL (8.5-10.1); CARBON DIOXIDE 25.9 mmol/L (21.0-32.0); CREATININE - SERUM 1.3 mg/dL (0.6-1.3); MAGNESIUM - SERUM 1.7 mg/dL (1.8-2.4); PHOSPHOROUS 3.4 mg/dL (2.5-4.9); POTASSIUM - SERUM 3.4 mmol/L (3.5-5.1); PROTEIN - SERUM 7.5 g/dL (6.4-8.2)
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
--- NOTE | 2019-09-04 08:59 | NUR ---
PT ALERT AND ORIENTED TO SELF UPON ENTERING. ADMINISTERED MORNING MEDICATION AT THIS TIME, NO DIFFICULITES. PRN TYLENOL FOR HEADACHE 11/30. 40 MEQ POTASSIUM PER ELECTROLYTE REPLACEMENT PROTOCOL. DENIES ANY OTHER NEEDS. BED IN LOWEST POSITION, BED RAILS X2, CALL LIGHT WITHIN REACH, BED ALARM ON AND FUNCTIONAL. WILL CONTINUE TO MONITOR.
[2019-09-04 09:38] VITALS: BP 146/85
[2019-09-04 13:00] VITALS: BP 151/94
--- NOTE | 2019-09-04 13:00 | MORECARE ---
CASE MANAGEMENT DISCHARGE SUMMARY PATIENT: KILO GARCIA UNIT: [id number] ADM DATE: 07/18/19 AGE: 48 : 72 SEX: M ROOM/BED: D.2238 AUTHOR: MARISSA LIM PHYSICIAN: REFERRING PHYSICIAN: DANNI HARP MD DATE OF SERVICE: 09/04/19 Discharge Plan Patient Name: KILO GARCIA Facility: [facility]:[place] : 1970 Planned Disposition: Home Anticipated Discharge Date: Discharge Date: Expected LOS: Initial Reviewer: [id number] Initial Review Date: 07/18/2019 Generated: 09/04/19 1:59 pm Comments DCP- Discharge Planning Updated by [id number]: Fiordaliza Sage on 09/04/19 11:[address] Patient Name: KILO GARCIA Admission Status: ER Accout number: [id number] Admission Date: 07-18-2019 : 1970 Admission Diagnosis:PNEUMONIA, UNSPECIFIED ORGANISM Attending: MACK HARP Current LOS: 48 Anticipated DC Date: Planned Disposition: Home Primary Insurance: [place]ID [place] Discharge Planning Comments: FAXED REFERRAL TO [facility]. THEY REVIEW REFERRAL INFO ON TUESDAY. I ANTICIPATE HEARING FROM THEM TUESDAY OR TUESDAY ABOUT ADMIT. CM TO FOLLOW AND ASSIST NEEDED. Production Recorder: Fiordaliza Sage DCP- Discharge Planning Updated by [id number]: Fiordaliza Sage on 09/03/19 11:[address] Patient Name: KILO GARCIA Admission Status: ER Accout number: [id number] Admission Date: 07-18-2019 : 1970 Admission Diagnosis:PNEUMONIA, UNSPECIFIED ORGANISM Attending: MACK HARP Current LOS: 47 Anticipated DC Date: Planned Disposition: Home Primary Insurance: [place] Discharge Planning Comments: UPDATE FAXED TO RAOUL WITH [facility] IN [place]. WAITING CALL BACK. Production Recorder: Fiordaliza Sage DCP- Discharge Planning Updated by [id number]: Radha Meza on 08/31/19 3:[address] NASIMLiliana WITH [facility] IS WORKING ON ACCEPTANCE, IF ACCEPTED CAN GO WHEN A ROOM IS AVAILABLE DCP- Discharge Planning Updated by [id number]: Radha Meza on 08/31/19 12:[address] [facility] HAS DENIED PATIENT NO AVAILABILITY DCP- Discharge Planning Updated by [email or web address]: Radha Shipmanken on 08/31/19 12:[address] [facility] CAN NOT ACCEPT THE PATIENT DUE TO FINANCIAL REASONS DCP- Discharge Planning Updated by [id number]: Fiordaliza Sage on 08/30/19 4:[address] Patient Name: KILO GARCIA Admission Status: ER Accout number: [id number] Admission Date: 07-18-2019 : 1970 Admission Diagnosis:PNEUMONIA, UNSPECIFIED ORGANISM Attending: MACK HARP Current LOS: 43 Anticipated DC Date: Planned Disposition: Home Primary Insurance: [place]ID [place] Discharge Planning Comments: JANUSZ GOMEZ HAS POSSIBLE BED AVAILABLE AT [facility] OR [facility]. SHE IS CALLING BACK IN MORNING WITH CONFIRMATION. Production Recorder: Fiordaliza Sage DCP- Discharge Planning Updated by [email or web address]: Fiordaliza Sage on 08/30/19 9:[address] Patient Name: KILO GARCIA Admission Status: ER Accout number: [id number] Admission Date: 07-18-2019 : 1970 Admission Diagnosis:PNEUMONIA, UNSPECIFIED ORGANISM Attending: MACK HARP Current LOS: 43 Anticipated DC Date: Planned Disposition: Home Primary Insurance: [place]ID [place] Discharge Planning Comments: HAS REFERRALS SENT TO OTHER INTERMEDIATE FACILITIES FOR PLACEMENT. [facility], [facility] AND [facility] CURRENTLY HAVE NO INTERMEDIATE BEDS AVAILABLE. I AM WAITING PUBLIC INFORMATION DIRECTOR BACK FROM [place] WHICH IS WITH [employer] FOR SEVERAL FACIILITIES. Production Recorder: Fiordaliza Sage DCP- Discharge Planning Updated by [id number]: Fiordaliza Sage on 08/29/19 4:[address] Patient Name: KILO GARCIA Admission Status: ER Accout number: [id number] Admission Date: 07-18-2019 : 1970 Admission Diagnosis:PNEUMONIA, UNSPECIFIED ORGANISM Attending: MACK HARP Current LOS: 42 Anticipated DC Date: Planned Disposition: Home Primary Insurance: [place]ID [place] Discharge Planning Comments: PATIENT'S MOTHER IS HERE, I SPOKE WITH HER ABOUT HIS DISCHARGE TODAY AND SHE STATES IF HE IS DISCHARGED HE WILL BE ON THE STREET. SHE IS NOT WILLING TO TAKE HIM HOME AT [place]. IS AWARE AND I HAVE CONTACTED MARYANNE ABDALLA CNO AND ETHICS COMMITTEE FOR ASSISTANCE. CM WILL FOLLOW AND ASSIST NEEDED. Production Recorder: Fiordaliza Sage DCP- Discharge Planning Updated by [id number]: Fiordaliza Alona on 08/29/19 12:[address] Patient Name: KILO GARCIA Admission Status: ER Accout number: [id number] Admission Date: 07-18-2019 : 1970 Admission Diagnosis:PNEUMONIA, UNSPECIFIED ORGANISM Attending: MACK HARP Current LOS: 42 Anticipated DC Date: Planned Disposition: Home Primary Insurance: [place]ID [place] Discharge Planning Comments: I SPOKE TO [facility] BECAUSE FAMILY SAID THEY WERE CALLED BY THEM WITH AN AVAILABLE BED. [facility] DID NOT CALL THEM, THEY DO NOT HAVE ANY BEDS AVAILABLE EXCEPT FOR THEIR RESIDENTS FOR AT LEAST 28 DAYS. I THEN CALLED AND TALKED TO YADY AT [facility] AND THEY DON'T HAVE ANY BEDS AVAILABLE YET BUT PATIENT IS ON THE WAITING LIST. Production Recorder: Fiordaliza Sage DCP- Discharge Planning Updated by [id number]: Fiordaliza Sage on 08/28/19 3:[address] Patient Name: KILO GARCIA Admission Status: ER Accout number: [id number] Admission Date: 07-18-2019 : 1970 Admission Diagnosis:PNEUMONIA, UNSPECIFIED ORGANISM Attending: MACK HARP Current LOS: 41 Anticipated DC Date: Planned Disposition: Home Primary Insurance: [place] Discharge Planning Comments: CM SPOKE WITH YADY AT [facility] ABOUT PATIENT PLACEMENT. I AM FAXING THEM UPDATED MEDICAL RECORDS AND WAITING FOR CALL BACK AND UPDATE TOMORROW. PATIENT WILL NEED COVID TEST WITHIN 48 HRS OF DISCHARGE. CM WILL FOLLOW AND ASSIST NEEDED. Production Recorder: Fiordaliza Sage DCP- Discharge Planning Updated by [id number]: Denise Fields on 08/24/19 1:[address] [facility] is unable to accept patient. Will try [facility]. CM contacted Agustina with [facility] for referral. There is no one at the facility to evaluate until Saturday 08/26. Faxed required information to dipak [facility]. DCP- Discharge Planning Updated by [email or web address]: Denise Fields on 08/22/19 2:[address] CM met with patient regarding inability of [facility] to accept patient. Patient request that I contact his mother. CM contacted patient's mother, Monroe Wong @[phone], regarding same. Monroe states that she does not want patient to go into [facility]. States that she checked on patient's disability yesterday and was told that patient has not worked long enough to e able to draw a Disability check. Monroe states that patient will have full Medicaid and a SSI check for the rest of his life. Patient's mother request that CM contact Huy Gomez [facility] Tee Calabrese. Patient's mother said she will be he to visit around 1 pm. CM contacted and faxed information to Sultana Carrillo for placement in any facility. DCP- Discharge Planning Updated by [id number]: Denise Kitchenoy on 08/22/19 7:[address] Per Nan, with [facility], the facility is unable to accept patient, since there is COVID in the facility and he has never been there. DCP- Discharge Planning Updated by [id number]: Edita Bernstein on 08/17/19 11:[address] I spoke with Muna at [facility] and they do not have all their tests back. They have tested 200 people and have only gotten about 40 back. She is hoping she will have them back next week. Delay for placement to [facility]. DCP- Discharge Planning Updated by [email or web address]: Edita Bernstein on 08/16/19 12:[address] Spoke again with [facility] and they still do not have all their test results back. They are unable to accept patient until all results are back. Ready for discharge when [facility] can accept. DCP- Discharge Planning Updated by [id number]: Edita Bernstein on 08/15/19 2:[address] I spoke with Victorina at [facility]. Victorina states they have started getting some test results back, she is hoping to get the remaineder back tomorrow and hope to admit patient tomorrow. CM will continue to follow and assist with discharge planning/needs. DCP- Discharge Planning Updated by [id number]: Edita Bernstein on 08/14/19 10:[address] Updated clinical faxed to [facility]. Hopefully can be accepted tomorrow for restorative therapy. CM will continue to follow and assist with discharge planning/needs. DCP- Discharge Planning Updated by [id number]: Edita Bernstein on 08/13/19 11:[address] CM CALLED [facility] TO CHECK ON STATUS OF ADMISSION. I SPOKE WITH VICTORINA, SHE IS CHECKING WITH [facility] [employer] AND WILL LET ME KNOW IF THEY CAN ACCPET TODAY. DCP- Discharge Planning Updated by [email or web address]: Edita Bernstein on 08/10/19 10:[address] CM called Chapin with [facility], he states they will not have an available bed until Tuesday, and will accept the patient on Tuesday. I informed Dr. Noland, patient and called patient's mother, Monroe Wong, and left a message on her voice mail that he has been accepted to [facility] and they will have an available bed on Tuesday. DCP- Discharge Planning Updated by [id number]: Edita Bernstein on 08/10/19 6:[address] Negative Covid result and Non Passr faxed to [facility]. He will need discharge paperwork to document restorative therapy. CM will continue to tollow and assist with discharge planning/needs. DCP- Discharge Planning Updated by [id number]: Edita Bernstein on 08/09/19 1:[address] Chapin from [facility] states they need a AKI and Covid prior to admission. I sent the Aki to [facility]. He has a covid now pending. He will need an order for restorative therapy. CM will continue to follow and assist with discharge planning/needs. DCP- Discharge Planning Updated by [email or web address]: Edita Bernstein on 08/07/19 11:[address] CM called [facility] in [place] and spoke with Lyla (formerly [facility]) about possible referral. Lyla states that [place] Medicaid does not have any rehab benefits for their facility and they would be unable to accept patient. I spoke with Chapin at [facility] and Chapin states patient will qualify for restorative rehab at their facility. He states he will speak with mother of patient and should be able to accept patient when medically stable for discharge. Additional clinical faxed to [facility] per request. CM will continue to follow and assist with discharge planning/needs. DCP- Discharge Planning Updated by [id number]: Edita Day on 08/06/19 4:[address] Mira had messaged that patient is not deemed disabled and since he is under age 65, he does not qualify for long-term care Medicaid. I have asked [facility] to run his Medicaid and they state he has SSI disability Medicaid. I spoke with patient and mother, they both state that he is not on disability at this time. Mother is present in the room and states she has filed for it for him on line. I sent a referral to [facility] and notified Chapin. I also informed Mira that mother has filed for patient's disability on line. CM will continue to follow and assist with discharge planning/needs. DCP- Discharge Planning Updated by [id number]: Edita Day on 08/06/19 11:[address] Updated clinical faxed to [facility]. I have messaged Mira, liaison for [facility], to check on referral. CM to continue to follow and assist with discharge planning/needs. DCP- Discharge Planning Updated by [id number]: Edita Bernstein on 08/02/19 10:[address] CM called [facility] and spoke with Abiola and clinical faxed. CM will continue to follow and assist with discharge planning/needs. DCP- Discharge Planning Updated by [id number]: Edita Bernstein on 08/01/19 3:[address] I received notification from Lisha Vega [facility] rehab that they are unable to accept patient due to not having a safe discharge plan. I spoke with the patient and his mother and they would like a referral sent to [facility] first, then [facility]. I will reach out to [facility] in the am. CM will continue to follow and assist with discharge planning/needs. DCP- Discharge Planning Updated by [id number]: Edita Bernstein on 07/31/19 12:[address] CM met with patient's mother in the room per her request to discuss discharge planning. Patient's mother states that she lives at [address] [facility] [address] States she is unable to care for her son. States that when he is out of dialysis she will speak with him about a LTC facility. I provided her with the list of LTC facilities in surrounding area. I also informed her that I could reach out to [facility] to see if he has any rehab days available and she agrees with this plan. I spoke with Tanvi at [facility] and clinical faxed. CM will continue to follow and assist with discharge planning/needs. Monroe - - [phone] or [phone] DCP- Discharge Planning Updated by [id number]: Taina Renee on 07/19/19 4:[address] Patient Name: KILO GARCIA Admission Status: ER Accout number: [id number] Admission Date: 07-18-2019 : 1970 Admission Diagnosis: Attending: MACK HARP Current LOS: 1 Anticipated DC Date: Planned Disposition: Home Primary Insurance: MEDICAID [place] Discharge Planning Comments: CM met with patient's mother Monroe to complete initial dc planning assessment. CM educated patient on the CM role and verbal consent given by patient to complete assessment. Patient lives at home alone. Patient is independent. At discharge patient plans to return home. CM discussed availability of home health, rehab services, and medical equipment. Uncertain of discharge needs or disposition at this time. Patient is currently sedated on vent. Patient will have family to transport home. CM will continue to follow and will assist as needed with dc plans/needs. Production Recorder: Taina Renee DCPIA - Discharge Planning Initial Assessment Updated by [id number]: Taina Renee on 07/19/19 5:35 pm * Is the patient Alert and Oriented? No * How many steps to enter\exit or inside your home? * PCP [facility] * Pharmacy [facility] [place] * Preadmission Environment Home Alone * ADLs Independent * Equipment None * List name and contact numbers for known caregivers / representatives who currently or will assist patient after discharge: MONROE JIMENES - MOTHER - [phone] * Verbal permission to speak to the caregivers and representatives has been obtained from the patient. Yes * Community resources currently utilized None * Additional services required to return to the preadmission environment? No * Can the patient safely return to the preadmission environment? Yes * Has this patient been hospitalized within the prior 30 days at any hospital? No Coverage Notice Reviewer: [id number] Marlena Bernstein Notice Issued Date-Time: 08/01/2019 16:10 Notice Type: Patient Choice Letter Notice Delivered To: Patient Relationship to Patient: Self Director Consumer Affairs Name: Delivery Method: HAND - Hand Delivered Jeanine Days: Prior Verbal Notification: Recipient Understood Notice: Yes Recipient Signature: Yes Med Rec Note Co-signed by Attending: Coverage Notice Comment: [facility] for [facility] or [facility] Last DP export: 09/03/19 2:05 p Patient Name: KILO GARCIA Page [phone] at 1300 All edits/amendments must be made on the electronic document DICTATION DATE: 09/04/19 1259 DECISION ANALYST: KELLY 09/04/19 1259 RPT#: [id number] DC DATE: STATUS: ADM IN [facility] [address] [place] [address] END OF REPORT
--- NOTE | 2019-09-04 13:59 | NUR ---
POTASSIUM REDRAW: 3.6, NO FURTHER COVERAGE REQUIRED.
[2019-09-04 20:00] VITALS: BP 166/86
--- NOTE | 2019-09-04 20:18 | NUR ---
I have reviewed this patient and I concur with the Shift Assessment completed by the Licensed Practical Nurse today this shift.
[2019-09-05 04:00] VITALS: BP 143/91
[2019-09-05 06:19] LABS: ANION GAP 11.5 mmol/L (8-16); CALCIUM 9.5 mg/dL (8.5-10.1); CARBON DIOXIDE 28.4 mmol/L (21.0-32.0); CREATININE - SERUM 1.4 mg/dL (0.6-1.3); MAGNESIUM - SERUM 1.7 mg/dL (1.8-2.4); POTASSIUM - SERUM 3.9 mmol/L (3.5-5.1)
[2019-09-05 06:25] LABS: HEMATOCRIT 37.4 % (42.0-54.0); LYMPHOCYTES 31.8 % (15-50); MCH 30.5 pg (26.0-34.0); MCHC 34.8 g/dL (31.0-37.0); MCV 87.8 fL (80.0-100.0); MEAN PLATELET VOLUME 10.5 fL (7.4-10.4); PLATELET COUNT 231 10x3/uL (130-400); RBC 4.26 10x6/uL (4.20-6.10); RDW 13.6 % (11.5-14.5); WBC 5.1 10x3/uL (4.8-10.8)
[2019-09-05 06:53] LABS: PHOSPHOROUS 4.4 mg/dL (2.5-4.9)
[2019-09-05 08:30] VITALS: BP 151/108
--- NOTE | 2019-09-05 08:58 | MORECARE ---
CASE MANAGEMENT DISCHARGE SUMMARY PATIENT: KILO GARCIA UNIT: [id number] ADM DATE: 07/18/19 AGE: 48 : 72 SEX: M ROOM/BED: D.2238 AUTHOR: MARISSA LIM PHYSICIAN: REFERRING PHYSICIAN: DANNI HARP MD DATE OF SERVICE: 09/05/19 Discharge Plan Patient Name: KILO GARCIA Facility: [facility]:[place] : 1970 Planned Disposition: Home Anticipated Discharge Date: Discharge Date: Expected LOS: Initial Reviewer: [id number] Initial Review Date: 07/18/2019 Generated: 09/05/19 9:58 am Comments DCP- Discharge Planning Updated by [id number]: Fiordaliza Sage on 09/04/19 11:[address] Patient Name: KILO GARCIA Admission Status: ER Accout number: [id number] Admission Date: 07-18-2019 : 1970 Admission Diagnosis:PNEUMONIA, UNSPECIFIED ORGANISM Attending: MACK HARP Current LOS: 48 Anticipated DC Date: Planned Disposition: Home Primary Insurance: MEDICAID [place] Discharge Planning Comments: FAXED REFERRAL TO [facility]. THEY REVIEW REFERRAL INFO ON TUESDAY. I ANTICIPATE HEARING FROM THEM TUESDAY OR TUESDAY ABOUT ADMIT. CM TO FOLLOW AND ASSIST NEEDED. Cork Wirer: Fiordaliza Sage DCP- Discharge Planning Updated by [id number]: Fiordaliza Sage on 09/03/19 11:[address] Patient Name: KILO GARCIA Admission Status: ER Accout number: [id number] Admission Date: 07-18-2019 : 1970 Admission Diagnosis:PNEUMONIA, UNSPECIFIED ORGANISM Attending: MACK HARP Current LOS: 47 Anticipated DC Date: Planned Disposition: Home Primary Insurance: [place]ID [place] Discharge Planning Comments: UPDATE FAXED TO RAOUL WITH [facility] IN [place]. WAITING CALL BACK. Cork Wirer: Fiordaliza Sage DCP- Discharge Planning Updated by [id number]: Radha Meza on 08/31/19 3:[address] NASIMLiliana WITH [employer] IS WORKING ON ACCEPTANCE, IF ACCEPTED CAN GO WHEN A ROOM IS AVAILABLE DCP- Discharge Planning Updated by [id number]: Radha Meza on 08/31/19 12:[address] [facility] HAS DENIED PATIENT NO AVAILABILITY DCP- Discharge Planning Updated by [id number]: Radha Shipmanken on 08/31/19 12:[address] [facility] [employer] CAN NOT ACCEPT THE PATIENT DUE TO FINANCIAL REASONS DCP- Discharge Planning Updated by [id number]: Fiordaliza Sage on 08/30/19 4:[address] Patient Name: KILO GARCIA Admission Status: ER Accout number: [id number] Admission Date: 07-18-2019 : 1970 Admission Diagnosis:PNEUMONIA, UNSPECIFIED ORGANISM Attending: MACK HARP Current LOS: 43 Anticipated DC Date: Planned Disposition: Home Primary Insurance: [place]ID [place] Discharge Planning Comments: JANUSZ GOMEZ HAS POSSIBLE BED AVAILABLE AT [facility] OR [facility] [employer]. SHE IS CALLING BACK IN MORNING WITH CONFIRMATION. Cork Wirer: Fiordaliza Sage DCP- Discharge Planning Updated by [id number]: Fiordaliza Sage on 08/30/19 9:[address] Patient Name: KILO GARCIA Admission Status: ER Accout number: [id number] Admission Date: 07-18-2019 : 1970 Admission Diagnosis:PNEUMONIA, UNSPECIFIED ORGANISM Attending: MACK HARP Current LOS: 43 Anticipated DC Date: Planned Disposition: Home Primary Insurance: [place]ID [place] Discharge Planning Comments: HAS REFERRALS SENT TO OTHER ALF FACILITIES FOR PLACEMENT. [facility] [place] [facility], [facility] AND [facility] CURRENTLY HAVE NO ALF BEDS AVAILABLE. 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 Cork Wirer: Fiordaliza Sage DCP- Discharge Planning Updated by [id number]: Fiordaliza Sage on 08/29/19 4:[address] Patient Name: KILO GARCIA Admission Status: ER Accout number: [id number] Admission Date: 07-18-2019 : 1970 Admission Diagnosis:PNEUMONIA, UNSPECIFIED ORGANISM Attending: MACK HARP Current LOS: 42 Anticipated DC Date: Planned Disposition: Home Primary Insurance: [place]ID [place] Discharge Planning Comments: PATIENT'S MOTHER IS HERE, I SPOKE WITH HER ABOUT HIS DISCHARGE TODAY AND SHE STATES IF HE IS DISCHARGED HE WILL BE ON THE STREET. SHE IS NOT WILLING TO TAKE HIM HOME AT [place]. IS AWARE AND I HAVE CONTACTED MARYANNE ABDALLA CNO AND ETHICS COMMITTEE FOR ASSISTANCE. CM WILL FOLLOW AND ASSIST NEEDED. Cork Wirer: Fiordaliza Sage DCP- Discharge Planning Updated by [id number]: Fiordaliza Alona on 08/29/19 12:[address] Patient Name: KILO GARCIA Admission Status: ER Accout number: [id number] Admission Date: 07-18-2019 : 1970 Admission Diagnosis:PNEUMONIA, UNSPECIFIED ORGANISM Attending: MACK HARP Current LOS: 42 Anticipated DC Date: Planned Disposition: Home Primary Insurance: [place]ID [place] Discharge Planning Comments: I SPOKE TO [facility] BECAUSE FAMILY SAID THEY WERE CALLED BY THEM WITH AN AVAILABLE BED. [facility] DID NOT CALL THEM, THEY DO NOT HAVE ANY BEDS AVAILABLE EXCEPT FOR THEIR RESIDENTS FOR AT LEAST 28 DAYS. I THEN CALLED AND TALKED TO YADY AT [facility] AND THEY DON'T HAVE ANY BEDS AVAILABLE YET BUT PATIENT IS ON THE WAITING LIST. Cork Wirer: Fiordaliza Sage DCP- Discharge Planning Updated by [email or web address]: Fiordaliza Sage on 08/28/19 3:[address] Patient Name: KILO GARCIA Admission Status: ER Accout number: [id number] Admission Date: 07-18-2019 : 1970 Admission Diagnosis:PNEUMONIA, UNSPECIFIED ORGANISM Attending: MACK HARP Current LOS: 41 Anticipated DC Date: Planned Disposition: Home Primary Insurance: [place]ID [place] Discharge Planning Comments: CM SPOKE WITH YADY AT [facility] ABOUT PATIENT PLACEMENT. I AM FAXING THEM UPDATED MEDICAL RECORDS AND WAITING FOR CALL BACK AND UPDATE TOMORROW. PATIENT WILL NEED COVID TEST WITHIN 48 HRS OF DISCHARGE. CM WILL FOLLOW AND ASSIST NEEDED. Cork Wirer: Fiordaliza Sage DCP- Discharge Planning Updated by [id number]: Denise Fields on 08/24/19 1:[address] [facility] is unable to accept patient. Will try [facility]. CM contacted Agustina with [facility] for referral. There is no one at the facility to evaluate until Saturday 08/26. Faxed required information to dipak [facility]alla [facility]. DCP- Discharge Planning Updated by [id number]: Denise Fields on 08/22/19 2:[address] CM met with patient regarding inability of [facility] to accept patient. Patient request that I contact his mother. CM contacted patient's mother, Monroe Wong @[phone], regarding same. Monroe states that she does not want patient to go into [facility]. States that she checked on patient's disability yesterday and was told that patient has not worked long enough to e able to draw a Disability check. Monroe states that patient will have full Medicaid and a SSI check for the rest of his life. Patient's mother request that CM contact Huy [facility] Tee Calabrese. Patient's mother said she will be he to visit around 1 pm. CM contacted and faxed information to Sultana Carrillo for placement in any facility. DCP- Discharge Planning Updated by [id number]: Denise Kitchenoy on 08/22/19 7:[address] Per Nan, with [facility], the facility is unable to accept patient, since there is COVID in the facility and he has never been there. DCP- Discharge Planning Updated by [id number]: Edita Bernstein on 08/17/19 11:[address] I spoke with Muna at [facility] and they do not have all their tests back. They have tested 200 people and have only gotten about 40 back. She is hoping she will have them back next week. Delay for placement to [facility]. DCP- Discharge Planning Updated by [id number]: Edita Bernstein on 08/16/19 12:[address] Spoke again with [facility] and they still do not have all their test results back. They are unable to accept patient until all results are back. Ready for discharge when [facility] can accept. DCP- Discharge Planning Updated by [id number]: Edita Bernstein on 08/15/19 2:[address] I spoke with Victorina at [facility]. Victorina states they have started getting some test results back, she is hoping to get the remaineder back tomorrow and hope to admit patient tomorrow. CM will continue to follow and assist with discharge planning/needs. DCP- Discharge Planning Updated by [id number]: Edita Bernstein on 08/14/19 10:[address] Updated clinical faxed to [facility]. Hopefully can be accepted tomorrow for restorative therapy. CM will continue to follow and assist with discharge planning/needs. DCP- Discharge Planning Updated by [id number]: Edita Bernstein on 08/13/19 11:[address] CM CALLED [facility] TO CHECK ON STATUS OF ADMISSION. I SPOKE WITH VICTORINA, SHE IS CHECKING WITH SENIOR CENTER MANAGER AND WILL LET ME KNOW IF THEY CAN ACCPET TODAY. DCP- Discharge Planning Updated by [id number]: Edita Bernstein on 08/10/19 10:[address] CM called Chapin with [facility], he states they will not have an available bed until Tuesday, and will accept the patient on Tuesday. I informed Dr. Noland, patient and called patient's mother, Monroe Wong, and left a message on her voice mail that he has been accepted to [facility] and they will have an available bed on Tuesday. DCP- Discharge Planning Updated by [id number]: Edita Bernstein on 08/10/19 6:[address] Negative Covid result and Non Passr faxed to [facility]. He will need discharge paperwork to document restorative therapy. CM will continue to tollow and assist with discharge planning/needs. DCP- Discharge Planning Updated by [id number]: Edita Bernstein on 08/09/19 1:[address] Chapin from [facility] states they need a AKI and Covid prior to admission. I sent the Aki to [facility]. He has a covid now pending. He will need an order for restorative therapy. CM will continue to follow and assist with discharge planning/needs. DCP- Discharge Planning Updated by [id number]: Edita Bernstein on 08/07/19 11:[address] CM called [facility] in [place] and spoke with Lyla ([facility]) about possible referral. Lyla states that [place] Medicaid does not have any rehab benefits for their facility and they would be unable to accept patient. I spoke with Chapin at [facility] and Chapin states patient will qualify for restorative rehab at their facility. He states he will speak with mother of patient and should be able to accept patient when medically stable for discharge. Additional clinical faxed to [facility] per request. CM will continue to follow and assist with discharge planning/needs. DCP- Discharge Planning Updated by [email or web address]: Edita Day on 08/06/19 4:[address] Mira had messaged that patient is not deemed disabled and since he is under age 65, he does not qualify for long-term care Medicaid. I have asked [facility] to run his Medicaid and they state he has SSI disability Medicaid. I spoke with patient and mother, they both state that he is not on disability at this time. Mother is present in the room and states she has filed for it for him on line. I sent a referral to [facility] and notified Chapin. I also informed Mira that mother has filed for patient's disability on line. CM will continue to follow and assist with discharge planning/needs. DCP- Discharge Planning Updated by [id number]: Edita Day on 08/06/19 11:[address] Updated clinical faxed to [facility]. I have messaged Mira, liaison for [facility], to check on referral. CM to continue to follow and assist with discharge planning/needs. DCP- Discharge Planning Updated by [id number]: Edita Bernstein on 08/02/19 10:[address] CM called [facility] and spoke with Abiola and clinical faxed. CM will continue to follow and assist with discharge planning/needs. DCP- Discharge Planning Updated by [email or web address]: Edita Bernstein on 08/01/19 3:[address] I received notification from [facility] that they are unable to accept patient due to not having a safe discharge plan. I spoke with the patient and his mother and they would like a referral sent to [facility] first, then [facility]. I will reach out to [facility] in the am. CM will continue to follow and assist with discharge planning/needs. DCP- Discharge Planning Updated by [id number]: Edita Bernstein on 07/31/19 12:[address] CM met with patient's mother in the room per her request to discuss discharge planning. Patient's mother states that she lives at [address] [facility] [address] States she is unable to care for her son. States that when he is out of dialysis she will speak with him about a LTC facility. I provided her with the list of LTC facilities in surrounding area. I also informed her that I could reach out to [facility] to see if he has any rehab days available and she agrees with this plan. I spoke with Tanvi at [facility] and clinical faxed. CM will continue to follow and assist with discharge planning/needs. Monroe - - [phone] or [phone] DCP- Discharge Planning Updated by [id number]: Taina Renee on 07/19/19 4:[address] Patient Name: KILO WHEATLEYJR Admission Status: ER Accout number: [id number] Admission Date: 07-18-2019 : 1970 Admission Diagnosis: Attending: MACK HARP Current LOS: 1 Anticipated DC Date: Planned Disposition: Home Primary Insurance: MEDICAID [place] Discharge Planning Comments: CM met with patient's mother Monroe to complete initial dc planning assessment. CM educated patient on the CM role and verbal consent given by patient to complete assessment. Patient lives at home alone. Patient is independent. At discharge patient plans to return home. CM discussed availability of home health, rehab services, and medical equipment. Uncertain of discharge needs or disposition at this time. Patient is currently sedated on vent. Patient will have family to transport home. CM will continue to follow and will assist as needed with dc plans/needs. Cork Wirer: Taina Renee DCPIA - Discharge Planning Initial Assessment Updated by [id number]: Taina Renee on 07/19/19 5:35 pm * Is the patient Alert and Oriented? No * How many steps to enter\exit or inside your home? * PCP [facility] * Pharm[facility] [place] * Preadmission Environment Home Alone * ADLs Independent * Equipment None * List name and contact numbers for known caregivers / representatives who currently or will assist patient after discharge: MONROE JIMENES - MOTHER - [phone] * Verbal permission to speak to the caregivers and representatives has been obtained from the patient. Yes * Community resources currently utilized None * Additional services required to return to the preadmission environment? No * Can the patient safely return to the preadmission environment? Yes * Has this patient been hospitalized within the prior 30 days at any hospital? No External Providers External Provider: OTHER-OTHER Next Contact Date: Service Request Date: Service Type: Resolution: Reviewer: Comments: Coverage Notice Reviewer: [id number] Marlena Edita Bernstein Notice Issued Date-Time: 08/01/2019 16:10 Notice Type: Patient Choice Letter Notice Delivered To: Patient Relationship to Patient: Self [employer] Name: Delivery Method: HAND - Hand Delivered Jeanine Days: Prior Verbal Notification: Recipient Understood Notice: Yes Recipient Signature: Yes Med Rec Note Co-signed by Attending: Coverage Notice Comment: ASHLI for [facility] or [facility] Last DP export: 09/04/19 12:00 p Patient Name: KILO GARCIA Page [id number] at 0858 All edits/amendments must be made on the electronic document DICTATION DATE: 09/05/19857 LOGISTICS AND PLANNING MANAGER: KELLY 09/05/19857 RPT#: [id number] DC DATE: STATUS: ADM IN [facility] [address] [place] [address] END OF REPORT
--- NOTE | 2019-09-05 09:05 | MORECARE ---
CASE MANAGEMENT DISCHARGE SUMMARY PATIENT: KILO GARCIA UNIT: [id number] ADM DATE: 07/18/19 AGE: 48 : 72 SEX: M ROOM/BED: D.2238 AUTHOR: MARISSA LIM PHYSICIAN: REFERRING PHYSICIAN: DANNI HARP MD DATE OF SERVICE: 09/05/19 Discharge Plan Patient Name: KILO GARCIA Facility: [facility]:[place] : 1970 Planned Disposition: Home Anticipated Discharge Date: Discharge Date: Expected LOS: Initial Reviewer: [email or web address] Initial Review Date: 07/18/2019 Generated: 09/05/19 10:05 am Comments DCP- Discharge Planning Updated by [id number]: Fiordaliza Sage on 09/05/19 8:[address] Patient Name: KILO GARCIA Admission Status: ER Accout number: [id number] Admission Date: 07-18-2019 : 1970 Admission Diagnosis:PNEUMONIA, UNSPECIFIED ORGANISM Attending: MACK HARP Current LOS: 49 Anticipated DC Date: Planned Disposition: Home Primary Insurance: [place] Discharge Planning Comments: I HAVE FAXED REFERRAL TO [facility] TO CHECK WITH PLACEMENT AT ONE OF HER FACILITIES. ANTICIPATE AN ANSWER FROM [facility] ON TUESDAY OF THIS WEEK. CM WILL CONTINUE TO FOLLOW. Board Finisher: Fiordaliza Sage DCP- Discharge Planning Updated by [id number]: Fiordaliza Sage on 09/04/19 11:[address] Patient Name: KILO GARCIA Admission Status: ER Accout number: [id number] Admission Date: 07-18-2019 : 1970 Admission Diagnosis:PNEUMONIA, UNSPECIFIED ORGANISM Attending: MACK HARP Current LOS: 48 Anticipated DC Date: Planned Disposition: Home Primary Insurance: [place] Discharge Planning Comments: FAXED REFERRAL TO [facility] IN [facility]. THEY REVIEW REFERRAL INFO ON TUESDAY. I ANTICIPATE HEARING FROM THEM TUESDAY OR TUESDAY ABOUT ADMIT. CM TO FOLLOW AND ASSIST NEEDED. Board Finisher: Fiordaliza Sage DCP- Discharge Planning Updated by [id number]: Fiordaliza Sage on 09/03/19 11:[address] Patient Name: KILO GARCIA Admission Status: ER Accout number: [id number] Admission Date: 07-18-2019 : 1970 Admission Diagnosis:PNEUMONIA, UNSPECIFIED ORGANISM Attending: MACK HARP Current LOS: 47 Anticipated DC Date: Planned Disposition: Home Primary Insurance: [place] Discharge Planning Comments: UPDATE FAXED TO RAOUL WITH [facility] IN [place]. WAITING CALL BACK. Board Finisher: Fiordaliza Sage DCP- Discharge Planning Updated by [email or web address]: Radha Meza on 08/31/19 3:[address] RAOUL WITH [facility] IS WORKING ON ACCEPTANCE, IF ACCEPTED CAN GO WHEN A ROOM IS AVAILABLE DCP- Discharge Planning Updated by [email or web address]: Radha Meza on 08/31/19 12:[address] [facility] HAS DENIED PATIENT NO AVAILABILITY DCP- Discharge Planning Updated by [id number]: Radha Meza on 08/31/19 12:[address] [facility] CAN NOT ACCEPT THE PATIENT DUE TO FINANCIAL REASONS DCP- Discharge Planning Updated by [id number]: Fiordaliza Sage on 08/30/19 4:[address] Patient Name: KILO GARCIA Admission Status: ER Accout number: [id number] Admission Date: 07-18-2019 : 1970 Admission Diagnosis:PNEUMONIA, UNSPECIFIED ORGANISM Attending: MACK HARP Current LOS: 43 Anticipated DC Date: Planned Disposition: Home Primary Insurance: MEDICAID [place] Discharge Planning Comments: JANUSZ GOMEZ HAS POSSIBLE BED AVAILABLE AT [facility]. SHE IS CALLING BACK IN MORNING WITH CONFIRMATION. 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 [facility], [place], [facility] AND [facility] CURRENTLY HAVE NO HALF-WAY BEDS AVAILABLE. 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 Board Finisher: Fiordaliza Sgae DCP- Discharge Planning Updated by [id number]: Fiordaliza Sage on 08/29/19 4:[address] Patient Name: KILO GARCIA Admission Status: ER Accout number: [id number] Admission Date: 07-18-2019 : 1970 Admission Diagnosis:PNEUMONIA, UNSPECIFIED ORGANISM Attending: MACK HARP Current LOS: 42 Anticipated DC Date: Planned Disposition: Home Primary Insurance: [place]ID [place] Discharge Planning Comments: PATIENT'S MOTHER IS HERE, I SPOKE WITH HER ABOUT HIS DISCHARGE TODAY AND SHE STATES IF HE IS DISCHARGED HE WILL BE ON THE STREET. SHE IS NOT WILLING TO TAKE HIM HOME AT [place]. IS AWARE AND I HAVE CONTACTED MARYANNE ABDALLA [facility] AND ETHICS COMMITTEE FOR ASSISTANCE. CM WILL FOLLOW AND ASSIST NEEDED. Board Finisher: Fiordaliza Sage DCP- Discharge Planning Updated by [email or web address]: Fiordaliza Sage on 08/29/19 12:[address] Patient Name: KILO GARCIA Admission Status: ER Accout number: [id number] Admission Date: 07-18-2019 : 1970 Admission Diagnosis:PNEUMONIA, UNSPECIFIED ORGANISM Attending: MACK HARP Current LOS: 42 Anticipated DC Date: Planned Disposition: Home Primary Insurance: [place] Discharge Planning Comments: I SPOKE TO [facility] BECAUSE FAMILY SAID THEY WERE CALLED BY THEM WITH AN AVAILABLE BED. [facility] DID NOT CALL THEM, THEY DO NOT HAVE ANY BEDS AVAILABLE EXCEPT FOR THEIR RESIDENTS FOR AT LEAST 28 DAYS. I THEN CALLED AND TALKED TO YADY AT [facility] AND THEY DON'T HAVE ANY BEDS AVAILABLE YET BUT PATIENT IS ON THE WAITING LIST. Board Finisher: Fiordaliza Sage DCP- Discharge Planning Updated by [email or web address]: Fiordaliza Sage on 08/28/19 3:[address] Patient Name: KILO GARCIA Admission Status: ER Accout number: [id number] Admission Date: 07-18-2019 : 1970 Admission Diagnosis:PNEUMONIA, UNSPECIFIED ORGANISM Attending: MACK HARP Current LOS: 41 Anticipated DC Date: Planned Disposition: Home Primary Insurance: [place] Discharge Planning Comments: CM SPOKE WITH YADY AT [facility] ABOUT PATIENT PLACEMENT. I AM FAXING THEM UPDATED MEDICAL RECORDS AND WAITING FOR CALL BACK AND UPDATE TOMORROW. PATIENT WILL NEED COVID TEST WITHIN 48 HRS OF DISCHARGE. CM WILL FOLLOW AND ASSIST NEEDED. Board Finisher: Fiordaliza Sage DCP- Discharge Planning Updated by [id number]: Denise Fields on 08/24/19 1:[address] [facility] is unable to accept patient. Will try [facility]. CM contacted Agustina with [facility] for referral. There is no one at the facility to evaluate until Saturday 08/26. Faxed required information to [facility], dipak . DCP- Discharge Planning Updated by [email or web address]: Denise Fields on 08/22/19 2:[address] CM met with patient regarding inability of [facility] to accept patient. Patient request that I contact his mother. CM contacted patient's mother, Monroe Wong @[phone], regarding same. Monroe states that she does not want patient to go into [facility]. States that she checked on patient's disability yesterday and was told that patient has not worked long enough to e able to draw a Disability check. Monroe states that patient will have full Medicaid and a SSI check for the rest of his life. Patient's mother request that CM contact Huy Gomez [facility], [facility]. Patient's mother said she will be he to visit around 1 pm. CM contacted and faxed information to [facility] for placement in any facility. DCP- Discharge Planning Updated by [id number]: Denise Fields on 08/22/19 7:[address] Per Nan, with [facility], the facility is unable to accept patient, since there is COVID in the facility and he has never been there. DCP- Discharge Planning Updated by [id number]: Edita Bernstein on 08/17/19 11:[address] I spoke with Muna at [facility] and they do not have all their tests back. They have tested 200 people and have only gotten about 40 back. She is hoping she will have them back next week. Delay for placement to [facility]. DCP- Discharge Planning Updated by [id number]: Edita Bernstein on 08/16/19 12:[address] Spoke again with [facility] and they still do not have all their test results back. They are unable to accept patient until all results are back. Ready for discharge when [facility] can accept. DCP- Discharge Planning Updated by [id number]: Edita Benrstein on 08/15/19 2:[address] I spoke with Victorina at [facility]. Victorina states they have started getting some test results back, she is hoping to get the remaineder back tomorrow and hope to admit patient tomorrow. CM will continue to follow and assist with discharge planning/needs. DCP- Discharge Planning Updated by [id number]: Edita Bernstein on 08/14/19 10:[address] Updated clinical faxed to [facility]. Hopefully can be accepted tomorrow for restorative therapy. CM will continue to follow and assist with discharge planning/needs. DCP- Discharge Planning Updated by [id number]: Edita Bernstein on 08/13/19 11:[address] CM CALLED [facility] TO CHECK ON STATUS OF ADMISSION. I SPOKE WITH VICTORINA, SHE IS CHECKING WITH [facility] AND WILL LET ME KNOW IF THEY CAN ACCPET TODAY. DCP- Discharge Planning Updated by [id number]: Edita Bernstein on 08/10/19 10:[address] CM called Chapin with [facility], he states they will not have an available bed until Tuesday, and will accept the patient on Tuesday. I informed Dr. Noland, patient and called patient's mother, Monroe Wong, and left a message on her voice mail that he has been accepted to [facility] and they will have an available bed on Tuesday. DCP- Discharge Planning Updated by [id number]: Edita Bernstein on 08/10/19 6:[address] Negative Covid result and Non Passr faxed to [facility]. He will need discharge paperwork to document restorative therapy. CM will continue to tollow and assist with discharge planning/needs. DCP- Discharge Planning Updated by [id number]: Edita Bernstein on 08/09/19 1:[address] Chapin from [facility] states they need a AKI and Covid prior to admission. I sent the Aki to [facility]. He has a covid now pending. He will need an order for restorative therapy. CM will continue to follow and assist with discharge planning/needs. DCP- Discharge Planning Updated by [id number]: Edita Bernstein on 08/07/19 11:[address] CM called [facility] in [place] and spoke with Lyla ([facility]) about possible referral. Lyla states that [place] Medicaid does not have any rehab benefits for their facility and they would be unable to accept patient. I spoke with Chapin at [facility] and Chapin states patient will qualify for restorative rehab at their facility. He states he will speak with mother of patient and should be able to accept patient when medically stable for discharge. Additional clinical faxed to [facility] per request. CM will continue to follow and assist with discharge planning/needs. DCP- Discharge Planning Updated by [id number]: Edita Bernstein on 08/06/19 4:[address] [facility] had messaged that patient is not deemed disabled and since he is under age 65, he does not qualify for long-term care Medicaid. I have asked [facility] [employer] to run his Medicaid and they state he has SSI disability Medicaid. I spoke with patient and mother, they both state that he is not on disability at this time. Mother is present in the room and states she has filed for it for him on line. I sent a referral to [facility] and notified Chapin. I also informed Mira that mother has filed for patient's disability on line. CM will continue to follow and assist with discharge planning/needs. DCP- Discharge Planning Updated by [id number]: Edita Bernstein on 08/06/19 11:[address] Updated clinical faxed to [facility]. I have messaged Mira, liaison for [facility], to check on referral. CM to continue to follow and assist with discharge planning/needs. DCP- Discharge Planning Updated by [email or web address]: Edita Bernstein on 08/02/19 10:[address] CM called [facility] and spoke with Abiola and clinical faxed. CM will continue to follow and assist with discharge planning/needs. DCP- Discharge Planning Updated by [id number]: Edita Bernstein on 08/01/19 3:[address] I received notification from Lisha Vega [facility] that they are unable to accept patient due to not having a safe discharge plan. I spoke with the patient and his mother and they would like a referral sent to [facility] first, then [facility]. I will reach out to [facility] in the am. CM will continue to follow and assist with discharge planning/needs. DCP- Discharge Planning Updated by [id number]: Edita Bernstein on 07/31/19 12:[address] CM met with patient's mother in the room per her request to discuss discharge planning. Patient's mother states that she lives at [address] [place] [address]. States she is unable to care for her son. States that when he is out of dialysis she will speak with him about a LTC facility. I provided her with the list of LTC facilities in surrounding area. I also informed her that I could reach out to [facility] to see if he has any rehab days available and she agrees with this plan. I spoke with Tanvi at [facility] and clinical faxed. CM will continue to follow and assist with discharge planning/needs. Monroe marti - [phone] or [phone] DCP- Discharge Planning Updated by [id number]: Taina Renee on 07/19/19 4:[address] Patient Name: KILO WONG_JR Admission Status: ER Accout number: [id number] Admission Date: 07-18-2019 : 1970 Admission Diagnosis: Attending: MACK HARP Current LOS: 1 Anticipated DC Date: Planned Disposition: Home Primary Insurance: MED[place]ID [place] Discharge Planning Comments: CM met with patient's mother Monroe to complete initial dc planning assessment. CM educated patient on the CM role and verbal consent given by patient to complete assessment. Patient lives at home alone. Patient is independent. At discharge patient plans to return home. CM discussed availability of home health, rehab services, and medical equipment. Uncertain of discharge needs or disposition at this time. Patient is currently sedated on vent. Patient will have family to transport home. CM will continue to follow and will assist as needed with dc plans/needs. Board Finisher: Taina Renee DCPIA - Discharge Planning Initial Assessment Updated by [id number]: Taina Renee on 07/19/19 5:35 pm * Is the patient Alert and Oriented? No * How many steps to enter\exit or inside your home? * PCP [facility] * Pharmacy [facility] [place] * Preadmission Environment Home Alone * ADLs Independent * Equipment None * List name and contact numbers for known caregivers / representatives who currently or will assist patient after discharge: MONROE JIMENES - - [phone] * Verbal permission to speak to the caregivers and representatives has been obtained from the patient. Yes * Community resources currently utilized None * Additional services required to return to the preadmission environment? No * Can the patient safely return to the preadmission environment? Yes * Has this patient been hospitalized within the prior 30 days at any hospital? No Coverage Notice Reviewer: [id number] Marlena Bernstein Notice Issued Date-Time: 08/01/2019 16:10 Notice Type: Patient Choice Letter Notice Delivered To: Patient Relationship to Patient: Self Sanforizer Name: Delivery Method: HAND - Hand Delivered Jeanine Days: Prior Verbal Notification: Recipient Understood Notice: Yes Recipient Signature: Yes Med Rec Note Co-signed by Attending: Coverage Notice Comment: ASHLI for [facility] or [facility] Last DP export: 09/05/19 7:58 a Patient Name: KILO GARCIA Page [phone] at 0905 All edits/amendments must be made on the electronic document DICTATION DATE: 09/05/19904 LIBRARY PAGE: KELLY 09/05/19904 RPT#: [id number] DC DATE: STATUS: ADM IN [facility] [address] [place] [address] END OF REPORT
--- NOTE | 2019-09-05 10:18 | NUR ---
PATIENT SITTING ON SIDE OF BED. NO NEEDS AT THIS TIME. BED ALARM ON. CL IN REACH. TM
[2019-09-05 12:00] VITALS: BP 131/91
--- NOTE | 2019-09-05 15:25 | MORECARE ---
CASE MANAGEMENT DISCHARGE SUMMARY PATIENT: KILO GARCIA UNIT: [id number] ADM DATE: 07/18/19 AGE: 48 : 72 SEX: M ROOM/BED: D.2238 AUTHOR: MARISSA LIM PHYSICIAN: REFERRING PHYSICIAN: DANNI HARP MD DATE OF SERVICE: 09/05/19 Discharge Plan Patient Name: KILO GARCIA Facility: [facility]:[place] : 1970 Planned Disposition: Home Anticipated Discharge Date: Discharge Date: Expected LOS: Initial Reviewer: [email or web address] Initial Review Date: 07/18/2019 Generated: 09/05/19 4:24 pm Comments DCP- Discharge Planning Updated by [id number]: Fiordaliza Sage on 09/05/19 8:[address] Patient Name: KILO GARCIA Admission Status: ER Accout number: [id number] Admission Date: 07-18-2019 : 1970 Admission Diagnosis:PNEUMONIA, UNSPECIFIED ORGANISM Attending: MACK HARP Current LOS: 49 Anticipated DC Date: Planned Disposition: Home Primary Insurance: [place] Discharge Planning Comments: I HAVE FAXED REFERRAL TO [facility] TO CHECK WITH PLACEMENT AT ONE OF HER FACILITIES. ANTICIPATE AN ANSWER FROM [facility] ON TUESDAY OF THIS WEEK. CM WILL CONTINUE TO FOLLOW. Community Organization Worker: Fiordaliza Sage DCP- Discharge Planning Updated by [id number]: Fiordaliza Sage on 09/04/19 11:[address] Patient Name: KILO GARCIA Admission Status: ER Accout number: [id number] Admission Date: 07-18-2019 : 1970 Admission Diagnosis:PNEUMONIA, UNSPECIFIED ORGANISM Attending: MACK HARP Current LOS: 48 Anticipated DC Date: Planned Disposition: Home Primary Insurance: [place] Discharge Planning Comments: FAXED REFERRAL TO [facility] IN [facility]. THEY REVIEW REFERRAL INFO ON TUESDAY. I ANTICIPATE HEARING FROM THEM TUESDAY OR TUESDAY ABOUT ADMIT. CM TO FOLLOW AND ASSIST NEEDED. Community Organization Worker: Fiordaliza Sage DCP- Discharge Planning Updated by [id number]: Fiordaliza Sage on 09/03/19 11:[address] Patient Name: KILO GARCIA Admission Status: ER Accout number: [id number] Admission Date: 07-18-2019 : 1970 Admission Diagnosis:PNEUMONIA, UNSPECIFIED ORGANISM Attending: MACK HARP Current LOS: 47 Anticipated DC Date: Planned Disposition: Home Primary Insurance: [place] Discharge Planning Comments: UPDATE FAXED TO RAOUL WITH [facility] IN [place]. WAITING CALL BACK. Community Organization Worker: Fiordaliza Sage DCP- Discharge Planning Updated by [id number]: Radha Meza on 08/31/19 3:[address] RAOUL WITH [facility] IS WORKING ON ACCEPTANCE, IF ACCEPTED CAN GO WHEN A ROOM IS AVAILABLE DCP- Discharge Planning Updated by [email or web address]: Radha Meza on 08/31/19 12:[address] [facility] HAS DENIED PATIENT NO AVAILABILITY DCP- Discharge Planning Updated by [id number]: Radha Meza on 08/31/19 12:[address] [facility] CAN NOT ACCEPT THE PATIENT DUE TO FINANCIAL REASONS DCP- Discharge Planning Updated by [id number]: Fiordaliza Sage on 08/30/19 4:[address] Patient Name: KILO GARCIA Admission Status: ER Accout number: [id number] Admission Date: 07-18-2019 : 1970 Admission Diagnosis:PNEUMONIA, UNSPECIFIED ORGANISM Attending: MACK HARP Current LOS: 43 Anticipated DC Date: Planned Disposition: Home Primary Insurance: MEDICAID [place] Discharge Planning Comments: JANUSZ GOMEZ HAS POSSIBLE BED AVAILABLE AT [facility] OR [place]. SHE IS CALLING BACK IN MORNING WITH CONFIRMATION. Community Organization Worker: Fiordaliza Sage DCP- Discharge Planning Updated by [id number]: Fiordaliza Sage on 08/30/19 9:[address] Patient Name: KILO WONG_ Admission Status: ER Accout number: [id number] Admission Date: 07-18-2019 : 1970 Admission Diagnosis:PNEUMONIA, UNSPECIFIED ORGANISM Attending: MACK HARP Current LOS: 43 Anticipated DC Date: Planned Disposition: Home Primary Insurance: [place] Discharge Planning Comments: HAS REFERRALS SENT TO OTHER [facility] FACILITIES FOR PLACEMENT. [facility] [place] [place], [facility] AND [facility] CURRENTLY HAVE NO [facility] BEDS AVAILABLE. 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 Community Organization Worker: Fiordaliza Sage DCP- Discharge Planning Updated by [id number]: Fiordaliza Sage on 08/29/19 4:[address] Patient Name: KILO GARCIA Admission Status: ER Accout number: [id number] Admission Date: 07-18-2019 : 1970 Admission Diagnosis:PNEUMONIA, UNSPECIFIED ORGANISM Attending: MACK HARP Current LOS: 42 Anticipated DC Date: Planned Disposition: Home Primary Insurance: [place] Discharge Planning Comments: PATIENT'S MOTHER IS HERE, I SPOKE WITH HER ABOUT HIS DISCHARGE TODAY AND SHE STATES IF HE IS DISCHARGED HE WILL BE ON THE STREET. SHE IS NOT WILLING TO TAKE HIM HOME AT [place]. IS AWARE AND I HAVE CONTACTED MARYANNE ABDALLA [facility] AND ETHICS COMMITTEE FOR ASSISTANCE. CM WILL FOLLOW AND ASSIST NEEDED. Community Organization Worker: Fiordaliza Sage DCP- Discharge Planning Updated by [id number]: Fiordaliza Sage on 08/29/19 12:[address] Patient Name: KILO GARCIA Admission Status: ER Accout number: [id number] Admission Date: 07-18-2019 : 1970 Admission Diagnosis:PNEUMONIA, UNSPECIFIED ORGANISM Attending: MACK HARP Current LOS: 42 Anticipated DC Date: Planned Disposition: Home Primary Insurance: [place] Discharge Planning Comments: I SPOKE TO [facility] BECAUSE FAMILY SAID THEY WERE CALLED BY THEM WITH AN AVAILABLE BED. [facility] DID NOT CALL THEM, THEY DO NOT HAVE ANY BEDS AVAILABLE EXCEPT FOR THEIR RESIDENTS FOR AT LEAST 28 DAYS. I THEN CALLED AND TALKED TO YADY AT [facility] AND THEY DON'T HAVE ANY BEDS AVAILABLE YET BUT PATIENT IS ON THE WAITING LIST. Community Organization Worker: Fiordaliza Sage DCP- Discharge Planning Updated by [email or web address]: Fiordaliza Sage on 08/28/19 3:[address] Patient Name: KILO GARCIA Admission Status: ER Accout number: [id number] Admission Date: 07-18-2019 : 1970 Admission Diagnosis:PNEUMONIA, UNSPECIFIED ORGANISM Attending: MACK HARP Current LOS: 41 Anticipated DC Date: Planned Disposition: Home Primary Insurance: [place] Discharge Planning Comments: CM SPOKE WITH YADY AT [facility] ABOUT PATIENT PLACEMENT. I AM FAXING THEM UPDATED MEDICAL RECORDS AND WAITING FOR CALL BACK AND UPDATE TOMORROW. PATIENT WILL NEED COVID TEST WITHIN 48 HRS OF DISCHARGE. CM WILL FOLLOW AND ASSIST NEEDED. Community Organization Worker: Fiordaliza Sage DCP- Discharge Planning Updated by [id number]: Denise Fields on 08/24/19 1:[address] [facility] is unable to accept patient. Will try [facility]. CM contacted Agustina with [facility] for referral. There is no one at the facility to evaluate until Saturday 08/26. Faxed required information to [facility], [place] . DCP- Discharge Planning Updated by [id number]: Denise Fields on 08/22/19 2:[address] CM met with patient regarding inability of [facility] to accept patient. Patient request that I contact his mother. CM contacted patient's mother, Monroe Wong @[phone], regarding same. Monroe states that she does not want patient to go into [facility]. States that she checked on patient's disability yesterday and was told that patient has not worked long enough to e able to draw a Disability check. Monroe states that patient will have full Medicaid and a SSI check for the rest of his life. Patient's mother request that CM contact [facility], Narayan [facility]. Patient's mother said she will be he to visit around 1 pm. CM contacted and faxed information to Sultana Carrillo for placement in any facility. DCP- Discharge Planning Updated by [id number]: Denise Fields on 08/22/19 7:[address] Per Nan, with [facility], the facility is unable to accept patient, since there is COVID in the facility and he has never been there. DCP- Discharge Planning Updated by [id number]: Edita Bernstein on 08/17/19 11:[address] I spoke with Muna at [facility] and they do not have all their tests back. They have tested 200 people and have only gotten about 40 back. She is hoping she will have them back next week. Delay for placement to [facility]. DCP- Discharge Planning Updated by [id number]: Edita Bernstein on 08/16/19 12:[address] Spoke again with [facility] and they still do not have all their test results back. They are unable to accept patient until all results are back. Ready for discharge when [facility] can accept. DCP- Discharge Planning Updated by [id number]: Edita Bernstein on 08/15/19 2:[address] I spoke with Victorina at [facility]. Victorina states they have started getting some test results back, she is hoping to get the remaineder back tomorrow and hope to admit patient tomorrow. CM will continue to follow and assist with discharge planning/needs. DCP- Discharge Planning Updated by [id number]: Edita Bernstein on 08/14/19 10:[address] Updated clinical faxed to [facility]. Hopefully can be accepted tomorrow for restorative therapy. CM will continue to follow and assist with discharge planning/needs. DCP- Discharge Planning Updated by [id number]: Edita Bernstein on 08/13/19 11:[address] [facility] TO CHECK ON STATUS OF ADMISSION. I SPOKE WITH VICTORINA, SHE IS CHECKING WITH ENERGY RISK MANAGEMENT ANALYST AND WILL LET ME KNOW IF THEY CAN ACCPET TODAY. DCP- Discharge Planning Updated by [id number]: Edita Bernstein on 08/10/19 10:[address] CM called Chapin with [facility], he states they will not have an available bed until Tuesday, and will accept the patient on Tuesday. I informed Dr. Noland, patient and called patient's mother, Monroe Wong, and left a message on her voice mail that he has been accepted to [facility] and they will have an available bed on Tuesday. DCP- Discharge Planning Updated by [id number]: Edita Bernstein on 08/10/19 6:[address] Negative Covid result and Non Passr faxed to [facility]. He will need discharge paperwork to document restorative therapy. CM will continue to tollow and assist with discharge planning/needs. DCP- Discharge Planning Updated by [id number]: Edita Bernstein on 08/09/19 1:[address] Chapin from [facility] states they need a AKI and Covid prior to admission. I sent the [place] to [facility]. He has a covid now pending. He will need an order for restorative therapy. CM will continue to follow and assist with discharge planning/needs. DCP- Discharge Planning Updated by [id number]: Edita Bernstein on 08/07/19 11:[address] CM called [facility] in [place] and spoke with Lyla ([facility]) about possible referral. Lyla states that [place] Medicaid does not have any rehab benefits for their facility and they would be unable to accept patient. I spoke with Chapin at [facility] and Chapin states patient will qualify for restorative rehab at their facility. He states he will speak with mother of patient and should be able to accept patient when medically stable for discharge. Additional clinical faxed to [facility] per request. CM will continue to follow and assist with discharge planning/needs. DCP- Discharge Planning Updated by [id number]: Edita Bernstein on 08/06/19 4:[address] [facility] had messaged that patient is not deemed disabled and since he is under age 65, he does not qualify for long-term care Medicaid. I have asked [facility] to run his Medicaid and they state he has SSI disability Medicaid. I spoke with patient and mother, they both state that he is not on disability at this time. Mother is present in the room and states she has filed for it for him on line. I sent a referral to [facility] and notified Chapin. I also informed Mira that mother has filed for patient's disability on line. CM will continue to follow and assist with discharge planning/needs. DCP- Discharge Planning Updated by [id number]: Edita Bernstein on 08/06/19 11:[address] Updated clinical faxed to [facility]. I have messaged Mira, liaison for [facility], to check on referral. CM to continue to follow and assist with discharge planning/needs. DCP- Discharge Planning Updated by [id number]: Edita Bernstein on 08/02/19 10:[address] CM called [facility] and spoke with Abiola and clinical faxed. CM will continue to follow and assist with discharge planning/needs. DCP- Discharge Planning Updated by [id number]: Edita Bernstein on 08/01/19 3:[address] I received notification from [facility] rehab that they are unable to accept patient due to not having a safe discharge plan. I spoke with the patient and his mother and they would like a referral sent to [facility] first, then [facility]. I will reach out to [facility] in the am. CM will continue to follow and assist with discharge planning/needs. DCP- Discharge Planning Updated by [email or web address]: Edita Bernstein on 07/31/19 12:[address] CM met with patient's mother in the room per her request to discuss discharge planning. Patient's mother states that she lives at [address] [place] [address]. States she is unable to care for her son. States that when he is out of dialysis she will speak with him about a LTC facility. I provided her with the list of LTC facilities in surrounding area. I also informed her that I could reach out to [facility] to see if he has any rehab days available and she agrees with this plan. I spoke with Tanvi at [facility] and clinical faxed. CM will continue to follow and assist with discharge planning/needs. Monroe marti - [phone] or [phone] DCP- Discharge Planning Updated by [id number]: Taina Renee on 07/19/19 4:[address] Patient Name: KILO WONG_JR Admission Status: ER Accout number: [id number] Admission Date: 07-18-2019 : 1970 Admission Diagnosis: Attending: MACK HARP Current LOS: 1 Anticipated DC Date: Planned Disposition: Home Primary Insurance: [place] Discharge Planning Comments: CM met with patient's mother Monroe to complete initial dc planning assessment. CM educated patient on the CM role and verbal consent given by patient to complete assessment. Patient lives at home alone. Patient is independent. At discharge patient plans to return home. CM discussed availability of home health, rehab services, and medical equipment. Uncertain of discharge needs or disposition at this time. Patient is currently sedated on vent. Patient will have family to transport home. CM will continue to follow and will assist as needed with dc plans/needs. Community Organization Worker: Tania Renee DCPIA - Discharge Planning Initial Assessment Updated by [id number]: Taina Renee on 07/19/19 5:35 pm * Is the patient Alert and Oriented? No * How many steps to enter\exit or inside your home? * PCP [facility] * Pharmacy [facility] [place] * Preadmission Environment Home Alone * ADLs Independent * Equipment None * List name and contact numbers for known caregivers / representatives who currently or will assist patient after discharge: MONROE JIMENES - - [phone] * Verbal permission to speak to the caregivers and representatives has been obtained from the patient. Yes * Community resources currently utilized None * Additional services required to return to the preadmission environment? No * Can the patient safely return to the preadmission environment? Yes * Has this patient been hospitalized within the prior 30 days at any hospital? 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
--- NOTE | 2019-09-05 15:33 | MORECARE ---
CASE MANAGEMENT DISCHARGE SUMMARY PATIENT: KILO GARCIA UNIT: [id number] ADM DATE: 07/18/19 AGE: 48 : 72 SEX: M ROOM/BED: D.2238 AUTHOR: RAPHAEL,DOC PHYSICIAN: REFERRING PHYSICIAN: DANNI HARP MD DATE OF SERVICE: 09/05/19 Discharge Plan Patient Name: KILO GARCIA Facility: [facility]:[place] : 1970 Planned Disposition: Home Anticipated Discharge Date: Discharge Date: Expected LOS: Initial Reviewer: [id number] Initial Review Date: 07/18/2019 Generated: 09/05/19 4:32 pm Comments DCP- Discharge Planning Updated by [email or web address]: Radha Meza on 09/05/19 2:[address] REFERRAL SENT TO SHARITA HOLCOMB AT [facility] ([phone]) FAX CLINICAL TO [phone] DCP- Discharge Planning Updated by [email or web address]: Fiordaliza Sage on 09/05/19 8:[address] Patient Name: KILO GARCIA Admission Status: ER Accout number: [id number] Admission Date: 07-18-2019 : 1970 Admission Diagnosis:PNEUMONIA, UNSPECIFIED ORGANISM Attending: MACK HARP Current LOS: 49 Anticipated DC Date: Planned Disposition: Home Primary Insurance: [place] Discharge Planning Comments: I HAVE FAXED REFERRAL TO [facility]IR[facility] TO CHECK WITH PLACEMENT AT ONE OF HER FACILITIES. ANTICIPATE AN ANSWER FROM [facility] ON TUESDAY OF THIS WEEK. CM WILL CONTINUE TO FOLLOW. Fine Patcher: Fiordaliza Sage DCP- Discharge Planning Updated by [email or web address]: Fiordaliza Sage on 09/04/19 11:[address] Patient Name: KILO GARCIA Admission Status: ER Accout number: [id number] Admission Date: 07-18-2019 : 1970 Admission Diagnosis:PNEUMONIA, UNSPECIFIED ORGANISM Attending: MACK HARP Current LOS: 48 Anticipated DC Date: Planned Disposition: Home Primary Insurance: [place] Discharge Planning Comments: FAXED REFERRAL TO [facility] IN [facility]. THEY REVIEW REFERRAL INFO ON TUESDAY. I ANTICIPATE HEARING FROM THEM TUESDAY OR TUESDAY ABOUT ADMIT. CM TO FOLLOW AND ASSIST NEEDED. Fine Patcher: Fiordaliza Sage DCP- Discharge Planning Updated by [id number]: Fiordaliza Sage on 09/03/19 11:[address] Patient Name: KILO GARCIA Admission Status: ER Accout number: [id number] Admission Date: 07-18-2019 : 1970 Admission Diagnosis:PNEUMONIA, UNSPECIFIED ORGANISM Attending: MACK HARP Current LOS: 47 Anticipated DC Date: Planned Disposition: Home Primary Insurance: [place] Discharge Planning Comments: UPDATE FAXED TO RAOUL WITH [facility] IN [place]. WAITING CALL BACK. Fine Patcher: Fiordaliza Sage DCP- Discharge Planning Updated by [id number]: Radha Meza on 08/31/19 3:[address] RAOUL WITH [facility] IS WORKING ON ACCEPTANCE, IF ACCEPTED CAN GO WHEN A ROOM IS AVAILABLE DCP- Discharge Planning Updated by [email or web address]: Radha Meza on 08/31/19 12:[address] [facility] HAS DENIED PATIENT NO AVAILABILITY DCP- Discharge Planning Updated by [email or web address]: Radha Meza on 08/31/19 12:[address] [facility] CAN NOT ACCEPT THE PATIENT DUE TO FINANCIAL REASONS DCP- Discharge Planning Updated by [id number]: Fiordaliza Sage on 08/30/19 4:[address] Patient Name: KILO GARCIA Admission Status: ER Accout number: [id number] Admission Date: 07-18-2019 : 1970 Admission Diagnosis:PNEUMONIA, UNSPECIFIED ORGANISM Attending: MACK HARP Current LOS: 43 Anticipated DC Date: Planned Disposition: Home Primary Insurance: [place] Discharge Planning Comments: JANUSZ GOME[facility]. SHE IS CALLING BACK IN MORNING WITH CONFIRMATION. Fine Patcher: Fiordaliza Sage DCP- Discharge Planning Updated by [email or web address]: Fiordaliza Sage on 08/30/19 9:[address] Patient Name: KILO GARCIA Admission Status: ER Accout number: [id number] Admission Date: 07-18-2019 : 1970 Admission Diagnosis:PNEUMONIA, UNSPECIFIED ORGANISM Attending: MACK HARP Current LOS: 43 Anticipated DC Date: Planned Disposition: Home Primary Insurance: [place] Discharge Planning Comments: CM HAS REFERRALS SENT TO OTHER INSPECTORS AND REGULATORY OFFICERS FACILITIES FOR PLACEMENT. [facility], [facility] AND [facility] CURRENTLY HAVE NO CORRECTION BEDS AVAILABLE. 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 Fine Patcher: Fiordaliza Sage DCP- Discharge Planning Updated by [id number]: Fiordaliza Sgae on 08/29/19 4:[address] Patient Name: KILO GARCIA Admission Status: ER Accout number: [id number] Admission Date: 07-18-2019 : 1970 Admission Diagnosis:PNEUMONIA, UNSPECIFIED ORGANISM Attending: MACK HARP Current LOS: 42 Anticipated DC Date: Planned Disposition: Home Primary Insurance: [place] Discharge Planning Comments: PATIENT'S MOTHER IS HERE, I SPOKE WITH HER ABOUT HIS DISCHARGE TODAY AND SHE STATES IF HE IS DISCHARGED HE WILL BE ON THE STREET. SHE IS NOT WILLING TO TAKE HIM HOME AT [place]. IS AWARE AND I HAVE CONTACTED MARYANNE ABDALLA [facility] AND ETHICS COMMITTEE FOR ASSISTANCE. CM WILL FOLLOW AND ASSIST NEEDED. Fine Patcher: Fiordaliza Sage DCP- Discharge Planning Updated by [id number]: Fiordaliza Sage on 08/29/19 12:[address] Patient Name: KILO GARCIA Admission Status: ER Accout number: [id number] Admission Date: 07-18-2019 : 1970 Admission Diagnosis:PNEUMONIA, UNSPECIFIED ORGANISM Attending: MACK HARP Current LOS: 42 Anticipated DC Date: Planned Disposition: Home Primary Insurance: [place] Discharge Planning Comments: I SPOKE TO [facility] BECAUSE FAMILY SAID THEY WERE CALLED BY THEM WITH AN AVAILABLE BED. [facility] DID NOT CALL THEM, THEY DO NOT HAVE ANY BEDS AVAILABLE EXCEPT FOR THEIR RESIDENTS FOR AT LEAST 28 DAYS. I THEN CALLED AND TALKED TO YADY AT [facility] AND THEY DON'T HAVE ANY BEDS AVAILABLE YET BUT PATIENT IS ON THE WAITING LIST. Fine Patcher: Fiordaliza Sage DCP- Discharge Planning Updated by [id number]: Fiordaliza Sage on 08/28/19 3:[address] Patient Name: KILO GARCIA Admission Status: ER Accout number: [id number] Admission Date: 07-18-2019 : 1970 Admission Diagnosis:PNEUMONIA, UNSPECIFIED ORGANISM Attending: MACK HARP Current LOS: 41 Anticipated DC Date: Planned Disposition: Home Primary Insurance: [place] Discharge Planning Comments: CM SPOKE WITH YADY AT [facility] ABOUT PATIENT PLACEMENT. I AM FAXING THEM UPDATED MEDICAL RECORDS AND WAITING FOR CALL BACK AND UPDATE TOMORROW. PATIENT WILL NEED COVID TEST WITHIN 48 HRS OF DISCHARGE. CM WILL FOLLOW AND ASSIST NEEDED. Fine Patcher: Fiordaliza Sage DCP- Discharge Planning Updated by [id number]: Denise Fields on 08/24/19 1:[address] [facility] is unable to accept patient. Will try [facility]. CM contacted Agustina with [facility] for referral. There is no one at the facility to evaluate until Saturday 08/26. Faxed required information to [facility]. DCP- Discharge Planning Updated by [id number]: Denise Fields on 08/22/19 2:[address] CM met with patient regarding inability of [facility] to accept patient. Patient request that I contact his mother. CM contacted patient's mother, Monroe Wong @[phone], regarding same. Monroe states that she does not want patient to go into [facility]. States that she checked on patient's disability yesterday and was told that patient has not worked long enough to e able to draw a Disability check. Monroe states that patient will have full Medicaid and a SSI check for the rest of his life. Patient's mother request that CM contact [facility]. Patient's mother said she will be he to visit around 1 pm. CM contacted and faxed information to Sultana Carrillo for placement in any facility. DCP- Discharge Planning Updated by [id number]: Denise Fields on 08/22/19 7:[address] Per Nan, with [facility], the facility is unable to accept patient, since there is COVID in the facility and he has never been there. DCP- Discharge Planning Updated by [id number]: Edita Bernstein on 08/17/19 11:[address] I spoke with Muna at [facility] and they do not have all their tests back. They have tested 200 people and have only gotten about 40 back. She is hoping she will have them back next week. Delay for placement to [facility]. DCP- Discharge Planning Updated by [id number]: Edita Bernstein on 08/16/19 12:[address] Spoke again with [facility] and they still do not have all their test results back. They are unable to accept patient until all results are back. Ready for discharge when [facility] can accept. DCP- Discharge Planning Updated by [id number]: Edita Bernstein on 08/15/19 2:[address] I spoke with Victorina at [facility]. Victorina states they have started getting some test results back, she is hoping to get the remaineder back tomorrow and hope to admit patient tomorrow. CM will continue to follow and assist with discharge planning/needs. DCP- Discharge Planning Updated by [id number]: Edita Bernstein on 08/14/19 10:[address] Updated clinical faxed to [facility]. Hopefully can be accepted tomorrow for restorative therapy. CM will continue to follow and assist with discharge planning/needs. DCP- Discharge Planning Updated by [id number]: Edita Bernstein on 08/13/19 11:[address] CM CALLED [facility] TO CHECK ON STATUS OF ADMISSION. I SPOKE WITH VICTORINA, SHE IS CHECKING WITH [facility] AND WILL LET ME KNOW IF THEY CAN ACCPET TODAY. DCP- Discharge Planning Updated by [id number]: Edita Bernstein on 08/10/19 10:[address] CM called Chapin with [facility], he states they will not have an available bed until Tuesday, and will accept the patient on Tuesday. I informed Dr. Noland, patient and called patient's mother, Monroe Wong, and left a message on her voice mail that he has been accepted to [facility] and they will have an available bed on Tuesday. DCP- Discharge Planning Updated by [id number]: Edita Bernstein on 08/10/19 6:[address] Negative Covid result and Non Passr faxed to [facility]. He will need discharge paperwork to document restorative therapy. CM will continue to tollow and assist with discharge planning/needs. DCP- Discharge Planning Updated by [id number]: Edita Day on 08/09/19 1:[address] Chapin from [facility] states they need a AKI and Covid prior to admission. I sent the Aki to [facility]. He has a covid now pending. He will need an order for restorative therapy. CM will continue to follow and assist with discharge planning/needs. DCP- Discharge Planning Updated by [id number]: Edita Bernstein on 08/07/19 11:[address] CM called [facility] in [place] and spoke with Lyla ([facility]) about possible referral. Lyla states that [place] Medicaid does not have any rehab benefits for their facility and they would be unable to accept patient. I spoke with Chapin at [facility] and Chapin states patient will qualify for restorative rehab at their facility. He states he will speak with mother of patient and should be able to accept patient when medically stable for discharge. Additional clinical faxed to [facility] per request. CM will continue to follow and assist with discharge planning/needs. DCP- Discharge Planning Updated by [id number]: Edita Bernstein on 08/06/19 4:[address] Mira had messaged that patient is not deemed disabled and since he is under age 65, he does not qualify for long-term care Medicaid. I have asked [facility] to run his Medicaid and they state he has SSI disability Medicaid. I spoke with patient and mother, they both state that he is not on disability at this time. Mother is present in the room and states she has filed for it for him on line. I sent a referral to [facility] and notified Chapin. I also informed Mira that mother has filed for patient's disability on line. CM will continue to follow and assist with discharge planning/needs. DCP- Discharge Planning Updated by [id number]: Edita Bernstein on 08/06/19 11:[address] Updated clinical faxed to [facility]. I have messaged Mira, liaison for [facility], to check on referral. CM to continue to follow and assist with discharge planning/needs. DCP- Discharge Planning Updated by [id number]: Edita Bernstein on 08/02/19 10:[address] CM called [facility] and spoke with Abiola and clinical faxed. CM will continue to follow and assist with discharge planning/needs. DCP- Discharge Planning Updated by [id number]: Edita Bernstein on 08/01/19 3:[address] I received notification from Lisha Vega ([facility]) rehab that they are unable to accept patient due to not having a safe discharge plan. I spoke with the patient and his mother and they would like a referral sent to [facility] first, then [facility]. I will reach out to [facility] in the am. CM will continue to follow and assist with discharge planning/needs. DCP- Discharge Planning Updated by [id number]: Edita Bernstein on 07/31/19 12:[address] CM met with patient's mother in the room per her request to discuss discharge planning. Patient's mother states that she lives at [address] [place] [address]. States she is unable to care for her son. States that when he is out of dialysis she will speak with him about a LTC facility. I provided her with the list of LTC facilities in surrounding area. I also informed her that I could reach out to [facility] to see if he has any rehab days available and she agrees with this plan. I spoke with Tanvi at [facility] and clinical faxed. CM will continue to follow and assist with discharge planning/needs. Monroe - - [phone] or [phone] DCP- Discharge Planning Updated by [email or web address]: Taina Renee on 07/19/19 4:[address] Patient Name: KILO WONG_JR Admission Status: ER Accout number: [id number] Admission Date: 07-18-2019 : 1970 Admission Diagnosis: Attending: MACK AHRP Current LOS: 1 Anticipated DC Date: Planned Disposition: Home Primary Insurance: [place] Discharge Planning Comments: CM met with patient's mother Monroe to complete initial dc planning assessment. CM educated patient on the CM role and verbal consent given by patient to complete assessment. Patient lives at home alone. Patient is independent. At discharge patient plans to return home. CM discussed availability of home health, rehab services, and medical equipment. Uncertain of discharge needs or disposition at this time. Patient is currently sedated on vent. Patient will have family to transport home. CM will continue to follow and will assist as needed with dc plans/needs. Fine Patcher: Taina Renee DCPIA - Discharge Planning Initial Assessment Updated by [id number]: Taina Renee on 07/19/19 5:35 pm * Is the patient Alert and Oriented? No * How many steps to enter\exit or inside your home? * PCP [facility] * Pharmacy [facility] [place] * Preadmission Environment Home Alone * ADLs Independent * Equipment None * List name and contact numbers for known caregivers / representatives who currently or will assist patient after discharge: MONROE JIMENES - [facility] - [phone] * Verbal permission to speak to the caregivers and representatives has been obtained from the patient. Yes * Community resources currently utilized None * Additional services required to return to the preadmission environment? No * Can the patient safely return to the preadmission environment? Yes * Has this patient been hospitalized within the prior 30 days at any hospital? No Coverage Notice Reviewer: [id number] Marlena Bernstein Notice Issued Date-Time: 08/01/2019 16:10 Notice Type: Patient Choice Letter Notice Delivered To: Patient Relationship to Patient: Self Beam Racker Name: Delivery Method: HAND - Hand Delivered Jeanine Days: Prior Verbal Notification: Recipient Understood Notice: Yes Recipient Signature: Yes Med Rec Note Co-signed by Attending: Coverage Notice Comment: [facility] for [facility] or [facility] Last DP export: 09/05/19 2:25 p Patient Name: KILO GARCIA Page [id number] at 1533 All edits/amendments must be made on the electronic document DICTATION DATE: 09/05/19 1532 FIRE CLAIMS ADJUSTER: KELLY 09/05/19 1532 RPT#: [id number] DC DATE: STATUS: ADM IN [facility] [address] [place] [address] END OF REPORT
--- NOTE | 2019-09-05 16:13 | NUR ---
OT NOTE: PT COMPLETED SUPINE TO SIT WITH CGA. PT REQUIRED TOTAL A DONNING SOCKS AND LUE SLING. PT COMPLETED ADL MOB WITH MOD A. PT IS FEARFUL OF FALLING AND GRABS AT SIDE WALL. [phone] THANK YOU,LALITO BUENO
--- NOTE | 2019-09-05 16:22 | NUR ---
PT BACK IN BED. NO NEEDS AT THIS TIME. WCTM
[2019-09-05 16:40] VITALS: BP 132/85
[2019-09-05 20:00] VITALS: BP 143/86
[2019-09-06] VITALS: BP 140/86
--- NOTE | 2019-09-06 | NUR ---
PT IS OFF THE BSC AND SITTING IN THE CHAIR. HE HAD A MEDIUM SIZED BM, BROWN FORMED. HE ALSO HAD 400 ML IN HIS URINAL. HE WAS GIVEN A NEW GLASS OF WATER AND THE CALL LIGHT IS WITHIN REACH. ROOM CLEANED.
[2019-09-06 04:00] VITALS: BP 138/81
[2019-09-06 05:58] LABS: ANION GAP 13.2 mmol/L (8-16); CALCIUM 9.2 mg/dL (8.5-10.1); CARBON DIOXIDE 26.6 mmol/L (21.0-32.0); CREATININE - SERUM 1.5 mg/dL (0.6-1.3); MAGNESIUM - SERUM 1.8 mg/dL (1.8-2.4); PHOSPHOROUS 4.1 mg/dL (2.5-4.9); POTASSIUM - SERUM 3.8 mmol/L (3.5-5.1)
[2019-09-06 06:18] LABS: HEMATOCRIT 36.4 % (42.0-54.0); HEMOGLOBIN 12.5 g/dL (13.5-17.5); LYMPHOCYTES 34.1 % (15-50); MCHC 34.3 g/dL (31.0-37.0); MCV 87.5 fL (80.0-100.0); MEAN PLATELET VOLUME 10.3 fL (7.4-10.4); NEUTROPHILS 53.2 % (40-80); PLATELET COUNT 249 10x3/uL (130-400); RBC 4.16 10x6/uL (4.20-6.10); RDW 13.6 % (11.5-14.5); WBC 5.9 10x3/uL (4.8-10.8)
--- NOTE | 2019-09-06 09:14 | NUR ---
PT YELLING HELP. HE STATED HE HAD FALLEN OVER ONTO HIS LEFT ARM AND COULD NOT GET UP. ASSISTED TO A SITTING POSITION ON THE BEDSIDE. CL IN REACH. BED ALARM ON. WCTM
[2019-09-06 09:17] VITALS: BP 141/103
--- NOTE | 2019-09-06 11:42 | NUR ---
OT NOTE: PT SITTING UP ON EOB; THERAPIST BROUGHT IN A QUAD CANE TO ATTEMPT, HIS L UE REMAINS FLACID AND REQUIRES MAX ASSIST KEEPING L HAND ON WALKER. PT VERY IMPULSIVE AND UNSAFE.. HE BECAME EXCITED UPON SEEING CANE, AND IMEDIATELY STOOD UP AND REACHED FOR IT AND ALMOST FELL. PT DOING BETTER WITH EOB SITTING AND SITTING BALANCE, HOWEVER, CONTINUES TO REQUIRE EXTENSIVE ASSIST WITH ADLS.. REQUIRES MOD ASSIST FOR TOILET HYGIENE, MOD ASSIST FOR LE DRESSING, MIN ASSIST FOR UE DRESSING, UNABLE TO PERFORM ANY ADVANCED ADLS INCLUDING FOOD MGMT/PREP OR HOME CLEANING..PT DOES NOT INITIATE ANY ADL TASKS EXCEPT FOR TOILETING AND FEEDING.. MUST BE ENCOURAGED AND GREATLY ASSISTED WITH BATHING AND DRESSING. ASSISTED PT AND PHYS THERAPY WITH AMBULATION WITH QUAD CANE.. PTS IMPULSIVITY AND SPEED MAKES AMBULATION WITHOUT MAX ASSIST VERY UNSAFE. CONSTANT CUEING FOR MGMT OF CANE AND SPEED OF TASK, BUT PT BECOMES QUICKLY FRUSTRATED AND RAPID SPEECH BECOMES UNINTELLIGABLE.. AMB GREATER THAN 120 FT WITH FREQ LOB EPISODES. TRANSFER TO CHAIR WITH MIN ASSIST. PT ALSO WITH POOR ACKNOWLEDGEMENT OF L UE..NURSING REPORTED THAT PT HAD LAYED ON ARM MOST OF NIGHT IN POOR POSITION, CAUSING INCREASED PAIN TODAY. STM REMAINS VERY IMPAIRED.. PT WILL REQUIRE 24/7 SUPERVISION.. GLENIS JOHNSON, OTR/L [phone]
--- NOTE | 2019-09-06 11:47 | MORECARE ---
CASE MANAGEMENT DISCHARGE SUMMARY PATIENT: KILO GARCIA UNIT: [id number] ADM DATE: 07/18/19 AGE: 48 : 72 SEX: M ROOM/BED: D.2238 AUTHOR: RAPHAEL,DOC PHYSICIAN: REFERRING PHYSICIAN: DANNI HARP MD DATE OF SERVICE: 09/06/19 Discharge Plan Patient Name: KILO GARCIA Facility: [facility]:[place] : 1970 Planned Disposition: Home Anticipated Discharge Date: Discharge Date: Expected LOS: Initial Reviewer: [email or web address] Initial Review Date: 07/18/2019 Generated: 09/06/19 12:47 pm Comments DCP- Discharge Planning Updated by [email or web address]: Radha Meza on 09/06/19 10:[address] UPDATED CLINICALS FAXED TO [facility] [phone] FAX # [phone] DCP- Discharge Planning Updated by [id number]: Radha Meza on 09/05/19 2:[address] REFERRAL SENT TO SHARITA [facility]COM[facility] AT [facility] ([phone]) FAX CLINICAL TO [phone] DCP- Discharge Planning Updated by [id number]: Fiordaliza Sage on 09/05/19 8:[address] Patient Name: KILO GARCIA Admission Status: ER Accout number: [id number] Admission Date: 07-18-2019 : 1970 Admission Diagnosis:PNEUMONIA, UNSPECIFIED ORGANISM Attending: MACK HARP Current LOS: 49 Anticipated DC Date: Planned Disposition: Home Primary Insurance: [place] Discharge Planning Comments: I HAVE FAXED REFERRAL TO [facility] TO CHECK WITH PLACEMENT AT ONE OF HER FACILITIES. ANTICIPATE AN ANSWER FROM [facility] ON TUESDAY OF THIS WEEK. CM WILL CONTINUE TO FOLLOW. Roller Coaster Engineer: Fiordaliza Sage DCP- Discharge Planning Updated by [email or web address]: Fiordaliza Sage on 09/04/19 11:[address] Patient Name: KILO GARCIA Admission Status: ER Accout number: [id number] Admission Date: 07-18-2019 : 1970 Admission Diagnosis:PNEUMONIA, UNSPECIFIED ORGANISM Attending: MACK HARP Current LOS: 48 Anticipated DC Date: Planned Disposition: Home Primary Insurance: [place] Discharge Planning Comments: FAXED REFERRAL TO [facility]. THEY REVIEW REFERRAL INFO ON TUESDAY. I ANTICIPATE HEARING FROM THEM TUESDAY OR TUESDAY ABOUT ADMIT. CM TO FOLLOW AND ASSIST NEEDED. Roller Coaster Engineer: Fiordaliza Sage DCP- Discharge Planning Updated by [email or web address]: Fiordaliza Sage on 09/03/19 11:[address] Patient Name: KILO GARCIA Admission Status: ER Accout number: [id number] Admission Date: 07-18-2019 : 1970 Admission Diagnosis:PNEUMONIA, UNSPECIFIED ORGANISM Attending: MACK HARP Current LOS: 47 Anticipated DC Date: Planned Disposition: Home Primary Insurance: [place] Discharge Planning Comments: UPDATE FAXED TO NAS[facility] WITH [facility] [facility] IN [place]. WAITING CALL BACK. Roller Coaster Engineer: Fiordaliza Sage DCP- Discharge Planning Updated by [id number]: Radha Meza on 08/31/19 3:[address] RAOUL WITH [facility] IS WORKING ON ACCEPTANCE, IF ACCEPTED CAN GO WHEN A ROOM IS AVAILABLE DCP- Discharge Planning Updated by [id number]: Radha Meza on 08/31/19 12:[address] [facility] HAS DENIED PATIENT NO AVAILABILITY DCP- Discharge Planning Updated by [id number]: Radha Meza on 08/31/19 12:[address] [facility] CAN NOT ACCEPT THE PATIENT DUE TO FINANCIAL REASONS DCP- Discharge Planning Updated by [id number]: Fiordaliza Sage on 08/30/19 4:[address] Patient Name: KILO GARCIA Admission Status: ER Accout number: [id number] Admission Date: 07-18-2019 : 1970 Admission Diagnosis:PNEUMONIA, UNSPECIFIED ORGANISM Attending: MACK HARP Current LOS: 43 Anticipated DC Date: Planned Disposition: Home Primary Insurance: [place] Discharge Planning Comments: JANUSZ GOMEZ HAS POSSIBLE BED AVAILABLE AT [facility] OR [place]. SHE IS CALLING BACK IN MORNING WITH CONFIRMATION. Roller Coaster Engineer: Fiordaliza Sage DCP- Discharge Planning Updated by [id number]: Fiordaliza Sage on 08/30/19 9:[address] Patient Name: KILO GARCIA Admission Status: ER Accout number: [id number] Admission Date: 07-18-2019 : 1970 Admission Diagnosis:PNEUMONIA, UNSPECIFIED ORGANISM Attending: MACK HARP Current LOS: 43 Anticipated DC Date: Planned Disposition: Home Primary Insurance: [place] Discharge Planning Comments: CM HAS REFERRALS SENT TO OTHER PENITENTIARY FACILITIES FOR PLACEMENT. [facility], [place], [place], [facility] AND [facility] CURRENTLY HAVE NO PENITENTIARY BEDS AVAILABLE. I AM WAITING SUBSTANCE ABUSE COUNSELOR BACK FROM [place] WHICH IS WITH [employer] FOR[employer] FOR SEVERAL FACIILITIES. Roller Coaster Engineer: Fiordaliza Sage DCP- Discharge Planning Updated by [id number]: Fiordaliza Sage on 08/29/19 4:[address] Patient Name: KILO GARCIA Admission Status: ER Accout number: [id number] Admission Date: 07-18-2019 : 1970 Admission Diagnosis:PNEUMONIA, UNSPECIFIED ORGANISM Attending: MACK HARP Current LOS: 42 Anticipated DC Date: Planned Disposition: Home Primary Insurance: [place] Discharge Planning Comments: PATIENT'S MOTHER IS HERE, I SPOKE WITH HER ABOUT HIS DISCHARGE TODAY AND SHE STATES IF HE IS DISCHARGED HE WILL BE ON THE STREET. SHE IS NOT WILLING TO TAKE HIM HOME AT [place]. IS AWARE AND I HAVE CONTACTED MARYANNE ABDALLA [facility] AND ETHICS COMMITTEE FOR ASSISTANCE. CM WILL FOLLOW AND ASSIST NEEDED. Roller Coaster Engineer: Fiordaliza Sage DCP- Discharge Planning Updated by [id number]: Fiordaliza Sage on 08/29/19 12:[address] Patient Name: KILO GARCIA Admission Status: ER Accout number: [id number] Admission Date: 07-18-2019 : 1970 Admission Diagnosis:PNEUMONIA, UNSPECIFIED ORGANISM Attending: MACK HARP Current LOS: 42 Anticipated DC Date: Planned Disposition: Home Primary Insurance: [place] Discharge Planning Comments: I SPOKE TO [facility] BECAUSE FAMILY SAID THEY WERE CALLED BY THEM WITH AN AVAILABLE BED. [facility] DID NOT CALL THEM, THEY DO NOT HAVE ANY BEDS AVAILABLE EXCEPT FOR THEIR RESIDENTS FOR AT LEAST 28 DAYS. I THEN CALLED AND TALKED TO YADY AT [facility] AND THEY DON'T HAVE ANY BEDS AVAILABLE YET BUT PATIENT IS ON THE WAITING LIST. Roller Coaster Engineer: Fiordaliza Sage DCP- Discharge Planning Updated by [email or web address]: Fiordaliza Sage on 08/28/19 3:[address] Patient Name: KILO GARCIA Admission Status: ER Accout number: [id number] Admission Date: 07-18-2019 : 1970 Admission Diagnosis:PNEUMONIA, UNSPECIFIED ORGANISM Attending: MACK HARP Current LOS: 41 Anticipated DC Date: Planned Disposition: Home Primary Insurance: [place] Discharge Planning Comments: CM SPOKE WITH YADY AT [facility] ABOUT PATIENT PLACEMENT. I AM FAXING THEM UPDATED MEDICAL RECORDS AND WAITING FOR CALL BACK AND UPDATE TOMORROW. PATIENT WILL NEED COVID TEST WITHIN 48 HRS OF DISCHARGE. CM WILL FOLLOW AND ASSIST NEEDED. Roller Coaster Engineer: Fiordaliza Sage DCP- Discharge Planning Updated by [email or web address]: Denise Fields on 08/24/19 1:[address] [facility] is unable to accept patient. Will try [facility]. CM contacted Agustina with [facility] for referral. There is no one at the [facility] to evaluate until Saturday 08/26. Faxed required information to [facility]. DCP- Discharge Planning Updated by [email or web address]: Denise Fields on 08/22/19 2:[address] CM met with patient regarding inability of [facility] to accept patient. Patient request that I contact his mother. CM contacted patient's mother, Monroe Wong @[phone], regarding same. Monroe states that she does not want patient to go into [facility]. States that she checked on patient's disability yesterday and was told that patient has not worked long enough to e able to draw a Disability check. Monroe states that patient will have full Medicaid and a SSI check for the rest of his life. Patient's mother request that CM contact [facility], Tee Walters. Patient's mother said she will be he to visit around 1 pm. CM contacted and faxed information to Sultana Carrillo for placement in any facility. DCP- Discharge Planning Updated by [id number]: Denise Fields on 08/22/19 7:[address] Per Nan, with [facility], the facility is unable to accept patient, since there is COVID in the facility and he has never been there. DCP- Discharge Planning Updated by [id number]: Edita Bernstein on 08/17/19 11:[address] I spoke with Muna at [facility] and they do not have all their tests back. They have tested 200 people and have only gotten about 40 back. She is hoping she will have them back next week. Delay for placement to [facility]. DCP- Discharge Planning Updated by [id number]: Edita Bernstein on 08/16/19 12:[address] Spoke again with [facility] and they still do not have all their test results back. They are unable to accept patient until all results are back. Ready for discharge when [facility] can accept. DCP- Discharge Planning Updated by [id number]: Edita Bernstein on 08/15/19 2:[address] I spoke with Victorina at [facility]. Victorina states they have started getting some test results back, she is hoping to get the remaineder back tomorrow and hope to admit patient tomorrow. CM will continue to follow and assist with discharge planning/needs. DCP- Discharge Planning Updated by [id number]: Edita Bernstein on 08/14/19 10:[address] Updated clinical faxed to [facility]. Hopefully can be accepted tomorrow for restorative therapy. CM will continue to follow and assist with discharge planning/needs. DCP- Discharge Planning Updated by [email or web address]: Edita Bernstein on 08/13/19 11:[address] CM CALLED [facility] TO CHECK ON STATUS OF ADMISSION. I SPOKE WITH VICTORINA, SHE IS CHECKING WITH FLIGHT ATTENDANT AND WILL LET ME KNOW IF THEY CAN ACCPET TODAY. DCP- Discharge Planning Updated by [email or web address]: Edita Bernstein on 08/10/19 10:[address] CM called Chapin with [facility], he states they will not have an available bed until Tuesday, and will accept the patient on Tuesday. I informed Dr. Noland, patient and called patient's mother, Monroe Wong, and left a message on her voice mail that he has been accepted to [facility] and they will have an available bed on Tuesday. DCP- Discharge Planning Updated by [id number]: Edita Bernstein on 08/10/19 6:[address] Negative Covid result and Non Passr faxed to [facility]. He will need discharge paperwork to document restorative therapy. CM will continue to tollow and assist with discharge planning/needs. DCP- Discharge Planning Updated by [id number]: Edita Bernstein on 08/09/19 1:[address] Chapin from [facility] states they need a AKI and Covid prior to admission. I sent the Aki to [facility]. He has a covid now pending. He will need an order for restorative therapy. CM will continue to follow and assist with discharge planning/needs. DCP- Discharge Planning Updated by [email or web address]: Edita Bernstein on 08/07/19 11:[address] CM called [facility] in [place] and spoke with Lyla ([facility]) about possible referral. Lyla states that [place] Medicaid does not have any rehab benefits for their facility and they would be unable to accept patient. I spoke with Chapin at [facility] and Chapin states patient will qualify for restorative rehab at their facility. He states he will speak with mother of patient and should be able to accept patient when medically stable for discharge. Additional clinical faxed to [facility] per request. CM will continue to follow and assist with discharge planning/needs. DCP- Discharge Planning Updated by [id number]: Edita Bernstein on 08/06/19 4:[address] Mira had messaged that patient is not deemed disabled and since he is under age 65, he does not qualify for long-term care Medicaid. I have asked [facility] opinions[employer] to run his Medicaid and they state he has SSI disability Medicaid. I spoke with patient and mother, they both state that he is not on disability at this time. Mother is present in the room and states she has filed for it for him on line. I sent a referral to [facility] and notified Chapin. I also informed Mira that mother has filed for patient's disability on line. CM will continue to follow and assist with discharge planning/needs. DCP- Discharge Planning Updated by [id number]: Edita Heathjerry on 08/06/19 11:[address] Updated clinical faxed to [facility]. I have messaged Mira, liaison for [facility], to check on referral. CM to continue to follow and assist with discharge planning/needs. DCP- Discharge Planning Updated by [id number]: Edita Bernstein on 08/02/19 10:[address] CM called [facility] and spoke with Abiola and clinical faxed. CM will continue to follow and assist with discharge planning/needs. DCP- Discharge Planning Updated by [id number]: Edita Bernstein on 08/01/19 3:[address] I received notification from Lisha Vega ([facility]) rehab that they are unable to accept patient due to not having a safe discharge plan. I spoke with the patient and his mother and they would like a referral sent to [facility] first, then [facility]. I will reach out to [facility] in the am. CM will continue to follow and assist with discharge planning/needs. DCP- Discharge Planning Updated by [id number]: Edita Bernstein on 07/31/19 12:[address] CM met with patient's mother in the room per her request to discuss discharge planning. Patient's mother states that she lives at [address] [place] [address]. States she is unable to care for her son. States that when he is out of dialysis she will speak with him about a LTC facility. I provided her with the list of LTC facilities in surrounding area. I also informed her that I could reach out to [facility] to see if he has any rehab days available and she agrees with this plan. I spoke with Tanvi at [facility] and clinical faxed. CM will continue to follow and assist with discharge planning/needs. Monroe - mother - [phone] or [phone] DCP- Discharge Planning Updated by [id number]: Taina Thelma on 07/19/19 4:[address] Patient Name: KILO WONG_JR Admission Status: ER Accout number: [id number] Admission Date: 07-18-2019 : 1970 Admission Diagnosis: Attending: MACK HARP Current LOS: 1 Anticipated DC Date: Planned Disposition: Home Primary Insurance: [place] Discharge Planning Comments: CM met with patient's mother Monroe to complete initial dc planning assessment. CM educated patient on the CM role and verbal consent given by patient to complete assessment. Patient lives at home alone. Patient is independent. At discharge patient plans to return home. CM discussed availability of home health, rehab services, and medical equipment. Uncertain of discharge needs or disposition at this time. Patient is currently sedated on vent. Patient will have family to transport home. CM will continue to follow and will assist as needed with dc plans/needs. Roller Coaster Engineer: Taina Renee DCPIA - Discharge Planning Initial Assessment Updated by [id number]: Taina Renee on 07/19/19 5:35 pm * Is the patient Alert and Oriented? No * How many steps to enter\exit or inside your home? * [facility] * [facility] * Preadmission Environment Home Alone * ADLs Independent * Equipment None * List name and contact numbers for known caregivers / representatives who currently or will assist patient after discharge: MONROE JIMENES - [facility] - [phone] * Verbal permission to speak to the caregivers and representatives has been obtained from the patient. Yes * Community resources currently utilized None * Additional services required to return to the preadmission environment? No * Can the patient safely return to the preadmission environment? Yes * Has this patient been hospitalized within the prior 30 days at any hospital? No Coverage Notice Reviewer: [id number] Marlena Bernstein Notice Issued Date-Time: 08/01/2019 16:10 Notice Type: Patient Choice Letter Notice Delivered To: Patient Relationship to Patient: Self Local Area Network Administrator Name: Delivery Method: HAND - Hand Delivered Jeanine Days: Prior Verbal Notification: Recipient Understood Notice: Yes Recipient Signature: Yes Med Rec Note Co-signed by Attending: Coverage Notice Comment: [facility] for [facility] Last DP export: 09/05/19 2:33 p Patient Name: KILO GARCIA Page [phone] at 1147 All edits/amendments must be made on the electronic document DICTATION DATE: 09/06/19 1147 UNIVERSITY DEMONSTRATOR: KELLY 09/06/19 1147 RPT#: [id number] DC DATE: STATUS: ADM IN [facility] [address] [place] [address] END OF REPORT
[2019-09-06 13:17] VITALS: BP 152/71
[2019-09-06 17:31] VITALS: BP 127/88
--- NOTE | 2019-09-06 19:00 | NUR ---
REPORT GIVEN BY FOSTER CESPEDES.
--- NOTE | 2019-09-06 19:22 | NUR ---
OT NOTE: PT EXHIBITED POOR SAFETY AWARENESS WITH BASIC ADL TRANSFERS. EXHIBITED IMPULSIVE BEHAVIOR. PT DECLINED THE SLING FOR LUE . PT COMPLETED ORAL HYGIENE WITH MIN A AT EOB. PT WILL REQUIRE SUPERVISION AT ALL TIMES. [phone] THANK YOU,LALITO BUENO
[2019-09-06 20:00] VITALS: BP 150/108
--- NOTE | 2019-09-06 20:05 | NUR ---
PT WATCHING TV. NO C/O AT THIS TIME.
--- NOTE | 2019-09-06 20:50 | NUR ---
ASSESSMENT COMPLETED. PT IS REALLY SLEEPY NOW. HEART SOUNDS WNL, LUNGS SOUND CLEAR, BOWEL SOUNDS HEARD IN ALL QUADRANTS. SKIN WARM AND DRY. WHEN I TALKED WITH PT A LITTLE EARLIER HE DID NOT SEEM CONFUSED AT ALL. HE WAS TALKING ABOUT A WRECK HE HAD ON A FOUR RIOJAS. I UNDERSTOOD MOST EVERYTHING HE SAID BUT HE SPEAKS VERY FAST. HE IS NOT COUGHING. HE HAS NO PROBLEMS WITH BREATHING. HIS LEFT ARM IS FLACID. HE SHUFFLES WHEN HE WALKS. HE REQUIRES ASSIST OF ONE TO TRANSFER TO THE BSC. NO C/O OR NEEDS
--- NOTE | 2019-09-06 22:30 | NUR ---
PT RESTING QUIETLY WITH HIS EYES CLOSED AND THE COVERS UP TO HIS FACE. RESPIRATIONS EVEN AND UNLABORED.
--- NOTE | 2019-09-06 23:47 | NUR ---
HELPED PT TO BSC. THE WIPES ARE WITHIN REACH WELL HIS CALL LIGHT TO CALL TO GO BACK TO BED. HE IS VERY COOPERATIVE.
--- NOTE | 2019-09-07 00:47 | NUR ---
PT REQUESTED PUDDING. THIS WAS DELIVERED TO HIM.
--- NOTE | 2019-09-07 02:10 | NUR ---
PT ASSISTED TO BSC.
[2019-09-07 04:00] VITALS: BP 145/87
--- NOTE | 2019-09-07 04:09 | NUR ---
PT GOT IN BED TO SLEEP ABOUT 0350. HE'S BEEN UP PLAYING ON HIS COMPUTER. HE HAS NOT CALLED FOR HELP NO MATTER HOW MUCH I'VE TOLD HIM TO PUT ON HIS CALL LIGHT AND PLACE IT IN FRONT OF HIM. HE HOLDS ON TO THE FURNITURE TO MOVE ABOUT. HE IS RESTING AND HIS CALL LIGHT IS WITHIN REACH.
[2019-09-07 06:25] LABS: ANION GAP 8.6 mmol/L (8-16); CALCIUM 8.7 mg/dL (8.5-10.1); CARBON DIOXIDE 29.8 mmol/L (21.0-32.0); CREATININE - SERUM 1.6 mg/dL (0.6-1.3); MAGNESIUM - SERUM 1.8 mg/dL (1.8-2.4); PHOSPHOROUS 3.8 mg/dL (2.5-4.9); POTASSIUM - SERUM 3.4 mmol/L (3.5-5.1)
[2019-09-07 06:42] LABS: HEMATOCRIT 34.3 % (42.0-54.0); HEMOGLOBIN 11.9 g/dL (13.5-17.5); LYMPHOCYTES 34.9 % (15-50); MCH 30.5 pg (26.0-34.0); MCHC 34.7 g/dL (31.0-37.0); MCV 87.9 fL (80.0-100.0); MEAN PLATELET VOLUME 10.2 fL (7.4-10.4); NEUTROPHILS 53.6 % (40-80); PLATELET COUNT 245 10x3/uL (130-400); RDW 13.7 % (11.5-14.5)
--- NOTE | 2019-09-07 07:00 | NUR ---
ALERT AND ORIENTED, SITTING UP ON THE SIDE OF THE BED. NO C/O PAIN. NO S/S OF ACUTE DISTRESS NOTED. UP WITH ASSIST. LEFT ARM FLACCID. SHUFFLING GAIT. DENIES ANY NEEDS AT THIS TIME. CALL LIGHT IN REACH. WILL CONTINUE TO MONITOR.
[2019-09-07 08:30] VITALS: BP 152/104
--- NOTE | 2019-09-07 10:27 | MORECARE ---
CASE MANAGEMENT DISCHARGE SUMMARY PATIENT: KILO GARCIA UNIT: [id number] ADM DATE: 07/18/19 AGE: 48 : 72 SEX: M ROOM/BED: D.2238 AUTHOR: MARISSA LIM PHYSICIAN: REFERRING PHYSICIAN: DANNI HARP MD DATE OF SERVICE: 09/07/19 Discharge Plan Patient Name: KILO GARCIA Facility: [facility]:[place] : 1970 Planned Disposition: Home Anticipated Discharge Date: Discharge Date: Expected LOS: Initial Reviewer: [id number] Initial Review Date: 07/18/2019 Generated: 09/07/19 11:27 am Comments DCP- Discharge Planning Updated by [id number]: Radha Meza on 09/07/19 9:[address] LM WITH SHARITA TO CALL ME BACK ABOUT REFERRAL DCP- Discharge Planning Updated by [id number]: Radha Meza on 09/06/19 10:[address] UPDATED CLINICALS FAXED TO [facility] [phone] FAX # [phone] DCP- Discharge Planning Updated by [id number]: Radha Meza on 09/05/19 2:[address] REFERRAL SENT TO [facility] ([phone]) FAX CLINICAL TO [phone] DCP- Discharge Planning Updated by [id number]: Fiordaliza Sage on 09/05/19 8:[address] Patient Name: KILO GARCIA Admission Status: ER Accout number: [id number] Admission Date: 07-18-2019 : 1970 Admission Diagnosis:PNEUMONIA, UNSPECIFIED ORGANISM Attending: MACK HARP Current LOS: 49 Anticipated DC Date: Planned Disposition: Home Primary Insurance: [place] Discharge Planning Comments: I HAVE FAXED REFERRAL TO [facility] TO CHECK WITH PLACEMENT AT ONE OF HER FACILITIES. ANTICIPATE AN ANSWER FROM [facility] ON TUESDAY OF THIS WEEK. CM WILL CONTINUE TO FOLLOW. Generator Assembler: Fiordaliza Sage DCP- Discharge Planning Updated by [id number]: Fiordaliza Sage on 09/04/19 11:[address] Patient Name: KILO GARCIA Admission Status: ER Accout number: [id number] Admission Date: 07-18-2019 : 1970 Admission Diagnosis:PNEUMONIA, UNSPECIFIED ORGANISM Attending: MACK HARP Current LOS: 48 Anticipated DC Date: Planned Disposition: Home Primary Insurance: [place] Discharge Planning Comments: FAXED REFERRAL TO [facility] IN [facility]. THEY REVIEW REFERRAL INFO ON TUESDAY. I ANTICIPATE HEARING FROM THEM TUESDAY OR TUESDAY ABOUT ADMIT. CM TO FOLLOW AND ASSIST NEEDED. Generator Assembler: Fiordaliza Sage DCP- Discharge Planning Updated by [id number]: Fiordaliza Sage on 09/03/19 11:[address] Patient Name: KILO GARCIA Admission Status: ER Accout number: [id number] Admission Date: 07-18-2019 : 1970 Admission Diagnosis:PNEUMONIA, UNSPECIFIED ORGANISM Attending: MACK HARP Current LOS: 47 Anticipated DC Date: Planned Disposition: Home Primary Insurance: [place] Discharge Planning Comments: UPDATE FAXED TO RAOUL WITH [facility] IN [place]. WAITING CALL BACK. Generator Assembler: Fiordaliza Sage DCP- Discharge Planning Updated by [id number]: Radha Meza on 08/31/19 3:[address] RAOUL WITH [facility] IS WORKING ON ACCEPTANCE, IF ACCEPTED CAN GO WHEN A ROOM IS AVAILABLE DCP- Discharge Planning Updated by [id number]: Radha Meza on 08/31/19 12:[address] [facility] HAS DENIED PATIENT NO AVAILABILITY DCP- Discharge Planning Updated by [id number]: Radha Meza on 08/31/19 12:[address] [facility] CAN NOT ACCEPT THE PATIENT DUE TO FINANCIAL REASONS DCP- Discharge Planning Updated by [id number]: Fiordaliza Sage on 08/30/19 4:[address] Patient Name: KILO GARCIA Admission Status: ER Accout number: [id number] Admission Date: 07-18-2019 : 1970 Admission Diagnosis:PNEUMONIA, UNSPECIFIED ORGANISM Attending: MACK HARP Current LOS: 43 Anticipated DC Date: Planned Disposition: Home Primary Insurance: [place] Discharge Planning Comments: JANUSZ PATRICIA HAS POSSIBLE BED AVAILABLE AT [facility] OR [facility]. SHE IS CALLING BACK IN MORNING WITH CONFIRMATION. Generator Assembler: Fiordaliza Sage DCP- Discharge Planning Updated by [email or web address]: Fiordaliza Sage on 08/30/19 9:[address] Patient Name: KILO GARCIA Admission Status: ER Accout number: [id number] Admission Date: 07-18-2019 : 1970 Admission Diagnosis:PNEUMONIA, UNSPECIFIED ORGANISM Attending: MACK HARP Current LOS: 43 Anticipated DC Date: Planned Disposition: Home Primary Insurance: [place] Discharge Planning Comments: CM HAS REFERRALS SENT TO OTHER INTERMEDIATE FACILITIES FOR PLACEMENT. [facility], [facility], [place], [facility] AND [facility] CURRENTLY HAVE NO WAREHOUSE ASSISTANT BEDS AVAILABLE. I AM WAITING DRUG ABUSE TECHNICIAN BACK FROM [place] [facility] IS WITH [facility] FOR SEVERAL FACIILITIES. Generator Assembler: Fiordaliza Sage SDP- Discharge Planning Updated by [id number]: Fiordaliza Sage on 08/29/19 4:[address] Patient Name: KILO GARCIA Admission Status: ER Accout number: [id number] Admission Date: 07-18-2019 : 1970 Admission Diagnosis:PNEUMONIA, UNSPECIFIED ORGANISM Attending: MACK HARP Current LOS: 42 Anticipated DC Date: Planned Disposition: Home Primary Insurance: MEDICAID [place] Discharge Planning Comments: PATIENT'S MOTHER IS HERE, I SPOKE WITH HER ABOUT HIS DISCHARGE TODAY AND SHE STATES IF HE IS DISCHARGED HE WILL BE ON THE STREET. SHE IS NOT WILLING TO TAKE HIM HOME AT [place]. IS AWARE AND I HAVE CONTACTED MARYANNE CNO AND ETHICS COMMITTEE FOR ASSISTANCE. CM WILL FOLLOW AND ASSIST NEEDED. Generator Assembler: Fiordaliza Sage SDP- Discharge Planning Updated by [id number]: Fiordaliza Sage on 08/29/19 12:[address] Patient Name: KILO GARCIA Admission Status: ER Accout number: [id number] Admission Date: 07-18-2019 : 1970 Admission Diagnosis:PNEUMONIA, UNSPECIFIED ORGANISM Attending: MACK HARP Current LOS: 42 Anticipated DC Date: Planned Disposition: Home Primary Insurance: [place] Discharge Planning Comments: I SPOKE TO [facility] BECAUSE FAMILY SAID THEY WERE CALLED BY THEM WITH AN AVAILABLE BED. [facility] DID NOT CALL THEM, THEY DO NOT HAVE ANY BEDS AVAILABLE EXCEPT FOR THEIR RESIDENTS FOR AT LEAST 28 DAYS. I THEN CALLED AND TALKED TO YADY AT [facility] AND THEY DON'T HAVE ANY BEDS AVAILABLE YET BUT PATIENT IS ON THE WAITING LIST. Generator Assembler: Fiordaliza Sage DCP- Discharge Planning Updated by [id number]: Fiordaliza Sage on 08/28/19 3:[address] Patient Name: KILO GARCIA Admission Status: ER Accout number: [id number] Admission Date: 07-18-2019 : 1970 Admission Diagnosis:PNEUMONIA, UNSPECIFIED ORGANISM Attending: MACK HARP Current LOS: 41 Anticipated DC Date: Planned Disposition: Home Primary Insurance: [place] Discharge Planning Comments: CM SPOKE WITH YADY AT [facility] ABOUT PATIENT PLACEMENT. I AM FAXING THEM UPDATED MEDICAL RECORDS AND WAITING FOR CALL BACK AND UPDATE TOMORROW. PATIENT WILL NEED COVID TEST WITHIN 48 HRS OF DISCHARGE. CM WILL FOLLOW AND ASSIST NEEDED. Generator Assembler: Fiordaliza Sage DCP- Discharge Planning Updated by [id number]: Denise Fields on 08/24/19 1:[address] [facility] is unable to accept patient. Will try [facility]. CM contacted Agustina with [facility] for referral. There is no one at the facility to evaluate until Saturday 08/26. Faxed required information to [facility]ak [facility]. DCP- Discharge Planning Updated by [id number]: Denise Fields on 08/22/19 2:[address] CM met with patient regarding inability of [facility] to accept patient. Patient request that I contact his mother. CM contacted patient's mother, Monroe Wong @[phone], regarding same. Monroe states that she does not want patient to go into [facility]. States that she checked on patient's disability yesterday and was told that patient has not worked long enough to e able to draw a Disability check. Monroe states that patient will have full Medicaid and a SSI check for the rest of his life. Patient's mother request that CM contact [facility], [facility], [facility]. Patient's mother said she will be he to visit around 1 pm. CM contacted and faxed information to Sultana Carrillo for placement in any facility. DCP- Discharge Planning Updated by [id number]: Denise Fields on 08/22/19 7:[address] Per Nan, with [facility], the facility is unable to accept patient, since there is COVID in the facility and he has never been there. DCP- Discharge Planning Updated by [id number]: Edita Bernstein on 08/17/19 11:[address] I spoke with Muna at [facility] and they do not have all their tests back. They have tested 200 people and have only gotten about 40 back. She is hoping she will have them back next week. Delay for placement to [facility]. DCP- Discharge Planning Updated by [id number]: Edita Bernstein on 08/16/19 12:[address] Spoke again with [facility] and they still do not have all their test results back. They are unable to accept patient until all results are back. Ready for discharge when [facility] can accept. DCP- Discharge Planning Updated by [id number]: Edita Bernstein on 08/15/19 2:[address] I spoke with Victorina at [facility]. Victorina states they have started getting some test results back, she is hoping to get the remaineder back tomorrow and hope to admit patient tomorrow. CM will continue to follow and assist with discharge planning/needs. DCP- Discharge Planning Updated by [id number]: Edita Bernstein on 08/14/19 10:[address] Updated clinical faxed to [facility]. Hopefully can be accepted tomorrow for restorative therapy. CM will continue to follow and assist with discharge planning/needs. DCP- Discharge Planning Updated by [id number]: Edita Bernstein on 08/13/19 11:[address] CM CALLED [facility] TO CHECK ON STATUS OF ADMISSION. I SPOKE WITH VICTORINA, SHE IS CHECKING WITH [facility] AND WILL LET ME KNOW IF THEY CAN ACCPET TODAY. DCP- Discharge Planning Updated by [id number]: Edita Bernstein on 08/10/19 10:[address] CM called Chapin with [facility], he states they will not have an available bed until Tuesday, and will accept the patient on Tuesday. I informed Dr. Noland, patient and called patient's mother, Monroe Wong, and left a message on her voice mail that he has been accepted to [facility] and they will have an available bed on Tuesday. DCP- Discharge Planning Updated by [id number]: Edita Day on 08/10/19 6:[address] Negative Covid result and Non Passr faxed to [facility]. He will need discharge paperwork to document restorative therapy. CM will continue to tollow and assist with discharge planning/needs. DCP- Discharge Planning Updated by [id number]: Edita Bernstein on 08/09/19 1:[address] Chapin from [facility] states they need a AKI and Covid prior to admission. I sent the Aki to [facility]. He has a covid now pending. He will need an order for restorative therapy. CM will continue to follow and assist with discharge planning/needs. DCP- Discharge Planning Updated by [id number]: Edita Bernstein on 08/07/19 11:[address] CM called [facility] in [place] and spoke with Lyla ([facility]) about possible referral. Lyla states that [place] Medicaid does not have any rehab benefits for their facility and they would be unable to accept patient. I spoke with Chapin at [facility] and Chapin states patient will qualify for restorative rehab at their facility. He states he will speak with mother of patient and should be able to accept patient when medically stable for discharge. Additional clinical faxed to [facility] per request. CM will continue to follow and assist with discharge planning/needs. DCP- Discharge Planning Updated by [email or web address]: Edita Bernstein on 08/06/19 4:[address] Mira had messaged that patient is not deemed disabled and since he is under age 65, he does not qualify for long-term care Medicaid. I have asked [facility] [employer] to run his Medicaid and they state he has SSI disability Medicaid. I spoke with patient and mother, they both state that he is not on disability at this time. Mother is present in the room and states she has filed for it for him on line. I sent a referral to [facility] and notified Chapin. I also informed Mira that mother has filed for patient's disability on line. CM will continue to follow and assist with discharge planning/needs. DCP- Discharge Planning Updated by [id number]: Edita Bernstein on 08/06/19 11:[address] Updated clinical faxed to [facility]. I have messaged Mira, liaison for [facility], to check on referral. CM to continue to follow and assist with discharge planning/needs. DCP- Discharge Planning Updated by [id number]: Edita Bernstein on 08/02/19 10:[address] CM called [facility] and spoke with Abiola and clinical faxed. CM will continue to follow and assist with discharge planning/needs. DCP- Discharge Planning Updated by [id number]: Edita Bernstein on 08/01/19 3:[address] I received notification from Lisha Vega ([facility]) rehab that they are unable to accept patient due to not having a safe discharge plan. I spoke with the patient and his mother and they would like a referral sent to [facility] first, then [facility]. I will reach out to [facility] in the am. CM will continue to follow and assist with discharge planning/needs. DCP- Discharge Planning Updated by [id number]: Edita Bernstein on 07/31/19 12:[address] CM met with patient's mother in the room per her request to discuss discharge planning. Patient's mother states that she lives at [address] [place] [address] States she is unable to care for her son. States that when he is out of dialysis she will speak with him about a LTC facility. I provided her with the list of LTC facilities in surrounding area. I also informed her that I could reach out to [facility] to see if he has any rehab days available and she agrees with this plan. I spoke with Tanvi at [facility] and clinical faxed. CM will continue to follow and assist with discharge planning/needs. Monroe marti - [phone] or [phone] DCP- Discharge Planning Updated by [id number]: Taina Thelma on 07/19/19 4:[address] Patient Name: KILO GARCIA Admission Status: ER Accout number: [id number] Admission Date: 07-18-2019 : 1970 Admission Diagnosis: Attending: MACK HARP Current LOS: 1 Anticipated DC Date: Planned Disposition: Home Primary Insurance: MED[place]ID [place] Discharge Planning Comments: CM met with patient's mother Monroe to complete initial dc planning assessment. CM educated patient on the CM role and verbal consent given by patient to complete assessment. Patient lives at home alone. Patient is independent. At discharge patient plans to return home. CM discussed availability of home health, rehab services, and medical equipment. Uncertain of discharge needs or disposition at this time. Patient is currently sedated on vent. Patient will have family to transport home. CM will continue to follow and will assist as needed with dc plans/needs. Generator Assembler: Taina Renee DCPIA - Discharge Planning Initial Assessment Updated by [id number]: Taina Renee on 07/19/19 5:35 pm * Is the patient Alert and Oriented? No * How many steps to enter\exit or inside your home? * PCP [facility] * Pharmacy [facility]/ [place] * Preadmission Environment Home Alone * ADLs Independent * Equipment None * List name and contact numbers for known caregivers / representatives who currently or will assist patient after discharge: MONROE JIMENES - MOTHER - [phone] * Verbal permission to speak to the caregivers and representatives has been obtained from the patient. Yes * Community resources currently utilized None * Additional services required to return to the preadmission environment? No * Can the patient safely return to the preadmission environment? Yes * Has this patient been hospitalized within the prior 30 days at any hospital? 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 Electrical Engineering Director Name: Delivery Method: HAND - Hand Delivered Jeanine Days: Prior Verbal Notification: Recipient Understood Notice: Yes Recipient Signature: Yes Med Rec Note Co-signed by Attending: Coverage Notice Comment: ASHLI for [facility] or [facility] Last DP export: 09/06/19 10:47 a Patient Name: KILO GARCIA Page [id number] at 1027 All edits/amendments must be made on the electronic document DICTATION DATE: 09/07/19 1027 WEBSPHERE MESSAGE BROKER DEVELOPER: KELLY 09/07/19 1027 RPT#: [id number] DC DATE: STATUS: ADM IN [facility] [address] [place] [address] END OF REPORT
--- NOTE | 2019-09-07 10:43 | NUR ---
OT NOTE: PT SITTING ON EOB..PT IS VERY MANIC TODAY. CONTINUES TO STAND UP FROM EOB AND IS ATTEMPTING TO TELL THERAPIST SOMETHING ABOUT USING CANE.. CONTINUAL VERBAL CUES TO SLOW DOWN HIS RATE OF SPEECH BUT HE IS UNABLE TO DO SO TODAY. ATTEMPTING TO SIT, STAND, TRANSFER TO CHAIR, ETC.. VERY UNSAFE. NO REGARDS FOR L UE, HE HAS SAT DOWN ON HIS HAND TWICE WITH NO KNOWLEDGE OF IT; REFUSES TO WEAR SLING.. REFUSED TO ATTEMPT TO WALK AROUND ROOM WITH USE OF GAIT BELT. ATTEMPTS TO EXPLAIN TO PT THAT IT IS FOR SAFETY BUT HE DOES NOT WANT TO USE IT. ASSISTED TO TRANSFER FROM BED TO CHAIR IN VERY UNSAFE MANNER. PROVIDED AND EDUCATED ON USE OF CALL LIGHT. GLENIS JOHNSON, OTR/L [phone]
[2019-09-07 12:00] VITALS: BP 146/98
--- NOTE | 2019-09-07 13:29 | NUR ---
I have reviewed this patient and I concur with the Shift Assessment completed by the Licensed Practical Nurse today this shift.
--- NOTE | 2019-09-07 17:04 | MORECARE ---
CASE MANAGEMENT DISCHARGE SUMMARY PATIENT: KILO GARCIA UNIT: [id number] ADM DATE: 07/18/19 AGE: 48 : 72 SEX: M ROOM/BED: D.2238 AUTHOR: MARISSA LIM PHYSICIAN: REFERRING PHYSICIAN: DANNI HARP MD DATE OF SERVICE: 09/07/19 Discharge Plan Patient Name: KILO GARCIA Facility: [facility]:[place] : 1970 Planned Disposition: Home Anticipated Discharge Date: Discharge Date: Expected LOS: Initial Reviewer: [id number] Initial Review Date: 07/18/2019 Generated: 09/07/19 6:04 pm Comments DCP- Discharge Planning Updated by [id number]: Fiordaliza Sage on 09/07/19 3:[address] Patient Name: KILO GARCIA Admission Status: ER Accout number: [id number] Admission Date: 07-18-2019 : 1970 Admission Diagnosis:PNEUMONIA, UNSPECIFIED ORGANISM Attending: MACK HARP Current LOS: 51 Anticipated DC Date: Planned Disposition: Home Primary Insurance: [place]ID [place] Discharge Planning Comments: RECEIVED CALL FROM [facility] AND THEY CAN ACCEPT PATIENT TO THEIR FACILITY TUESDAY. Safety Officer: Fiordaliza Sage DCP- Discharge Planning Updated by [email or web address]: Radha Meza on 09/07/19 9:[address] LM WITH SHARITA TO CALL ME BACK ABOUT REFERRAL DCP- Discharge Planning Updated by [email or web address]: Radha Meza on 09/06/19 10:[address] UPDATED CLINICALS FAXED TO [facility] [phone] FAX # [phone] DCP- Discharge Planning Updated by [id number]: Radha Meza on 09/05/19 2:[address] REFERRAL SENT TO SHARITA [facility]COM[facility] AT [facility] ([phone]) FAX CLINICAL TO [phone] DCP- Discharge Planning Updated by [id number]: Fiordaliza Sage on 09/05/19 8:[address] Patient Name: KILO GARCIA Admission Status: ER Accout number: [id number] Admission Date: 07-18-2019 : 1970 Admission Diagnosis:PNEUMONIA, UNSPECIFIED ORGANISM Attending: MACK HARP Current LOS: 49 Anticipated DC Date: Planned Disposition: Home Primary Insurance: [place]ID [place] Discharge Planning Comments: I HAVE FAXED REFERRAL TO [facility] TO CHECK WITH PLACEMENT AT ONE OF HER FACILITIES. ANTICIPATE AN ANSWER FROM [facility] ON TUESDAY OF THIS WEEK. CM WILL CONTINUE TO FOLLOW. Safety Officer: Fiordaliza Sage DCP- Discharge Planning Updated by [email or web address]: Fiordaliza Sage on 09/04/19 11:[address] Patient Name: KILO GARCIA Admission Status: ER Accout number: [id number] Admission Date: 07-18-2019 : 1970 Admission Diagnosis:PNEUMONIA, UNSPECIFIED ORGANISM Attending: MACK HARP Current LOS: 48 Anticipated DC Date: Planned Disposition: Home Primary Insurance: [place] Discharge Planning Comments: FAXED REFERRAL TO [facility] IN [facility]. THEY REVIEW REFERRAL INFO ON TUESDAY. I ANTICIPATE HEARING FROM THEM TUESDAY OR TUESDAY ABOUT ADMIT. CM TO FOLLOW AND ASSIST NEEDED. Safety Officer: Fiordaliza Sage DCP- Discharge Planning Updated by [id number]: Fiordaliza Sage on 09/03/19 11:[address] Patient Name: KILO GARCIA Admission Status: ER Accout number: [id number] Admission Date: 07-18-2019 : 1970 Admission Diagnosis:PNEUMONIA, UNSPECIFIED ORGANISM Attending: MACK HARP Current LOS: 47 Anticipated DC Date: Planned Disposition: Home Primary Insurance: [place] Discharge Planning Comments: UPDATE FAXED TO RAOUL DICKEY [facility] IN [place]. WAITING CALL BACK. Safety Officer: Fiordaliza Sage DCP- Discharge Planning Updated by [email or web address]: Radha Meza on 08/31/19 3:[address] NASIMLiliana WITH [facility] IS WORKING ON ACCEPTANCE, IF ACCEPTED CAN GO WHEN A ROOM IS AVAILABLE DCP- Discharge Planning Updated by [id number]: Radha Meza on 08/31/19 12:[address] [facility] HAS DENIED PATIENT NO AVAILABILITY DCP- Discharge Planning Updated by [id number]: Radha Meza on 08/31/19 12:[address] [facility] CAN NOT ACCEPT THE PATIENT DUE TO FINANCIAL REASONS DCP- Discharge Planning Updated by [id number]: Fiordaliza Sage on 08/30/19 4:[address] Patient Name: KILO GARCIA Admission Status: ER Accout number: [id number] Admission Date: 07-18-2019 : 1970 Admission Diagnosis:PNEUMONIA, UNSPECIFIED ORGANISM Attending: MACK HARP Current LOS: 43 Anticipated DC Date: Planned Disposition: Home Primary Insurance: [place] Discharge Planning Comments: JANUSZ GOMEZ HAS POSSIBLE BED AVAILABLE AT [facility] OR [facility]. SHE IS CALLING BACK IN MORNING WITH CONFIRMATION. Safety Officer: Fiordaliza Sage DCP- Discharge Planning Updated by [id number]: Fiordaliza Sage on 08/30/19 9:[address] Patient Name: KILO GARCIA Admission Status: ER Accout number: [id number] Admission Date: 07-18-2019 : 1970 Admission Diagnosis:PNEUMONIA, UNSPECIFIED ORGANISM Attending: MACK HARP Current LOS: 43 Anticipated DC Date: Planned Disposition: Home Primary Insurance: [place] Discharge Planning Comments: HAS REFERRALS SENT TO OTHER PENITENTIARY FACILITIES FOR PLACEMENT. [facility], [place], [facility] AND [facility] CURRENTLY HAVE NO CERTIFIED INCOME TAX PREPARER BEDS AVAILABLE. I AM WAITING [facility]URNER BACK FROM [place] WHICH IS WITH [employer] FOR SEVERAL FACIILITIES. Safety Officer: Fiordaliza Sage DCP- Discharge Planning Updated by [id number]: Fiordaliza Sage on 08/29/19 4:[address] Patient Name: KILO GARCIA Admission Status: ER Accout number: [id number] Admission Date: 07-18-2019 : 1970 Admission Diagnosis:PNEUMONIA, UNSPECIFIED ORGANISM Attending: MACK HARP Current LOS: 42 Anticipated DC Date: Planned Disposition: Home Primary Insurance: [place] Discharge Planning Comments: PATIENT'S MOTHER IS HERE, I SPOKE WITH HER ABOUT HIS DISCHARGE TODAY AND SHE STATES IF HE IS DISCHARGED HE WILL BE ON THE STREET. SHE IS NOT WILLING TO TAKE HIM HOME AT [place]. IS AWARE AND I HAVE CONTACTED MARYANNE ABDALLA CNO AND ETHICS COMMITTEE FOR ASSISTANCE. CM WILL FOLLOW AND ASSIST NEEDED. Safety Officer: Fiordaliza Sage DCP- Discharge Planning Updated by [id number]: Fiordaliza Sage on 08/29/19 12:[address] Patient Name: KILO WONG_JR Admission Status: ER Accout number: [id number] Admission Date: 07-18-2019 : 1970 Admission Diagnosis:PNEUMONIA, UNSPECIFIED ORGANISM Attending: MACK HARP Current LOS: 42 Anticipated DC Date: Planned Disposition: Home Primary Insurance: [place] Discharge Planning Comments: I SPOKE TO [facility] BECAUSE FAMILY SAID THEY WERE CALLED BY THEM WITH AN AVAILABLE BED. [facility] DID NOT CALL THEM, THEY DO NOT HAVE ANY BEDS AVAILABLE EXCEPT FOR THEIR RESIDENTS FOR AT LEAST 28 DAYS. I THEN CALLED AND TALKED TO YADY AT [facility] AND THEY DON'T HAVE ANY BEDS AVAILABLE YET BUT PATIENT IS ON THE WAITING LIST. Safety Officer: Fiordaliza Sage DCP- Discharge Planning Updated by [id number]: Fiordaliza Sage on 08/28/19 3:[address] Patient Name: KILO WONG_ Admission Status: ER Accout number: [id number] Admission Date: 07-18-2019 : 1970 Admission Diagnosis:PNEUMONIA, UNSPECIFIED ORGANISM Attending: MACK HARP Current LOS: 41 Anticipated DC Date: Planned Disposition: Home Primary Insurance: [place] Discharge Planning Comments: CM SPOKE WITH YADY AT [facility] ABOUT PATIENT PLACEMENT. I AM FAXING THEM UPDATED MEDICAL RECORDS AND WAITING FOR CALL BACK AND UPDATE TOMORROW. PATIENT WILL NEED COVID TEST WITHIN 48 HRS OF DISCHARGE. CM WILL FOLLOW AND ASSIST NEEDED. Safety Officer: Fiordaliza Sage DCP- Discharge Planning Updated by [email or web address]: Denise Fields on 08/24/19 1:[address] [facility] is unable to accept patient. Will try [facility]. CM contacted Agustina with [facility] for referral. There is no one at the facility to evaluate until Saturday 08/26. Faxed required information to dipak [facility]alla [facility]. DCP- Discharge Planning Updated by [id number]: Denise Fields on 08/22/19 2:[address] CM met with patient regarding inability of [facility] to accept patient. Patient request that I contact his mother. CM contacted patient's mother, Monroe Wong @[phone], regarding same. Monroe states that she does not want patient to go into [facility]. States that she checked on patient's disability yesterday and was told that patient has not worked long enough to e able to draw a Disability check. Monroe states that patient will have full Medicaid and a SSI check for the rest of his life. Patient's mother request that CM contact Huy Gomez Mercerfei, Narayan Calabrese, T[facility]. Patient's mother said she will be he to visit around 1 pm. CM contacted and faxed information to Sultana Carrillo for placement in any facility. DCP- Discharge Planning Updated by [id number]: Denise Fields on 08/22/19 7:[address] Per Nan, with [facility], the facility is unable to accept patient, since there is COVID in the facility and he has never been there. DCP- Discharge Planning Updated by [email or web address]: Edita Bernstein on 08/17/19 11:[address] I spoke with Muna at [facility] and they do not have all their tests back. They have tested 200 people and have only gotten about 40 back. She is hoping she will have them back next week. Delay for placement to [facility]. DCP- Discharge Planning Updated by [id number]: Edita Bernstein on 08/16/19 12:[address] Spoke again with [facility] and they still do not have all their test results back. They are unable to accept patient until all results are back. Ready for discharge when [facility] can accept. DCP- Discharge Planning Updated by [id number]: Edita Bernstein on 08/15/19 2:[address] I spoke with Victorina at [facility]. Victorina states they have started getting some test results back, she is hoping to get the remaineder back tomorrow and hope to admit patient tomorrow. CM will continue to follow and assist with discharge planning/needs. DCP- Discharge Planning Updated by [id number]: Edita Bernstein on 08/14/19 10:[address] Updated clinical faxed to [facility]. Hopefully can be accepted tomorrow for restorative therapy. CM will continue to follow and assist with discharge planning/needs. DCP- Discharge Planning Updated by [id number]: Edita Bernstein on 08/13/19 11:[address] CM CALLED [facility] TO CHECK ON STATUS OF ADMISSION. I SPOKE WITH VICTORINA, SHE IS CHECKING WITH ROUNDING AND BACKING MACHINE OPERATOR AND WILL LET ME KNOW IF THEY CAN ACCPET TODAY. DCP- Discharge Planning Updated by [email or web address]: Edita Bernstein on 08/10/19 10:[address] CM called Chapin with [facility], he states they will not have an available bed until Tuesday, and will accept the patient on Tuesday. I informed Dr. Noland, patient and called patient's mother, Monroe Wong, and left a message on her voice mail that he has been accepted to [facility] and they will have an available bed on Tuesday. DCP- Discharge Planning Updated by [email or web address]: Edita Bernstein on 08/10/19 6:[address] Negative Covid result and Non Passr faxed to [facility]. He will need discharge paperwork to document restorative therapy. CM will continue to tollow and assist with discharge planning/needs. DCP- Discharge Planning Updated by [id number]: Edita Bernstein on 08/09/19 1:[address] Chapin from [facility] states they need a AKI and Covid prior to admission. I sent the Aki to [facility]. He has a covid now pending. He will need an order for restorative therapy. CM will continue to follow and assist with discharge planning/needs. DCP- Discharge Planning Updated by [id number]: Edita Bernstein on 08/07/19 11:[address] CM called [facility] in [place] and spoke with Lyla (thiago) about possible referral. Lyla states that [place] Medicaid does not have any rehab benefits for their facility and they would be unable to accept patient. I spoke with Chapin at [facility] and Chapin states patient will qualify for restorative rehab at their facility. He states he will speak with mother of patient and should be able to accept patient when medically stable for discharge. Additional clinical faxed to [facility] per request. CM will continue to follow and assist with discharge planning/needs. DCP- Discharge Planning Updated by [id number]: Edita Bernstein on 08/06/19 4:[address] Mira had messaged that patient is not deemed disabled and since he is under age 65, he does not qualify for long-term care Medicaid. I have asked [facility] to run his Medicaid and they state he has SSI disability Medicaid. I spoke with patient and mother, they both state that he is not on disability at this time. Mother is present in the room and states she has filed for it for him on line. I sent a referral to [facility] and notified Chapin. I also informed Mira that mother has filed for patient's disability on line. CM will continue to follow and assist with discharge planning/needs. DCP- Discharge Planning Updated by [email or web address]: Edita Bernstein on 08/06/19 11:[address] Updated clinical faxed to [facility]. I have messaged Mira, liaison for [facility], to check on referral. CM to continue to follow and assist with discharge planning/needs. DCP- Discharge Planning Updated by [id number]: Edita Bernstein on 08/02/19 10:[address] CM called [facility] and spoke with Abiola and clinical faxed. CM will continue to follow and assist with discharge planning/needs. DCP- Discharge Planning Updated by [id number]: Edita Bernstein on 08/01/19 3:[address] I received notification from Lisha Vega ([facility]) rehab that they are unable to accept patient due to not having a safe discharge plan. I spoke with the patient and his mother and they would like a referral sent to [facility] first, then [facility]. I will reach out to [facility] in the am. CM will continue to follow and assist with discharge planning/needs. DCP- Discharge Planning Updated by [id number]: Edita Bernstein on 07/31/19 12:[address] CM met with patient's mother in the room per her request to discuss discharge planning. Patient's mother states that she lives at [address] [place] [place] [address] States she is unable to care for her son. States that when he is out of dialysis she will speak with him about a LTC facility. I provided her with the list of LTC facilities in surrounding area. I also informed her that I could reach out to [facility] to see if he has any rehab days available and she agrees with this plan. I spoke with Tanvi at [facility] and clinical faxed. CM will continue to follow and assist with discharge planning/needs. Monroe marti - [phone] or [phone] DCP- Discharge Planning Updated by [id number]: Taina Renee on 07/19/19 4:[address] Patient Name: KILO GARCIA Admission Status: ER Accout number: [id number] Admission Date: 07-18-2019 : 1970 Admission Diagnosis: Attending: MACK HARP Current LOS: 1 Anticipated DC Date: Planned Disposition: Home Primary Insurance: [place]ID [place] Discharge Planning Comments: CM met with patient's mother Monroe to complete initial dc planning assessment. CM educated patient on the CM role and verbal consent given by patient to complete assessment. Patient lives at home alone. Patient is independent. At discharge patient plans to return home. CM discussed availability of home health, rehab services, and medical equipment. Uncertain of discharge needs or disposition at this time. Patient is currently sedated on vent. Patient will have family to transport home. CM will continue to follow and will assist as needed with dc plans/needs. Safety Officer: Taina Renee DCPIA - Discharge Planning Initial Assessment Updated by [id number]: Taina Renee on 07/19/19 5:35 pm * Is the patient Alert and Oriented? No * How many steps to enter\exit or inside your home? * PCP [facility] * Pharmacy [facility] [place] * Preadmission Environment Home Alone * ADLs Independent * Equipment None * List name and contact numbers for known caregivers / representatives who currently or will assist patient after discharge: MONROE JIMENES - - [phone] * Verbal permission to speak to the caregivers and representatives has been obtained from the patient. Yes * Community resources currently utilized None * Additional services required to return to the preadmission environment? No * Can the patient safely return to the preadmission environment? Yes * Has this patient been hospitalized within the prior 30 days at any hospital? No Coverage Notice Reviewer: [id number] - Edita Bernstein Notice Issued Date-Time: 08/01/2019 16:10 Notice Type: Patient Choice Letter Notice Delivered To: Patient Relationship to Patient: Self Rn Anesthetist Name: Delivery Method: HAND - Hand Delivered Jeanine Days: Prior Verbal Notification: Recipient Understood Notice: Yes Recipient Signature: Yes Med Rec Note Co-signed by Attending: Coverage Notice Comment: [facility] for [facility] or [facility] Last DP export: 09/07/19 9:27 a Patient Name: KILO GARCIA Page [id number] at 1704 All edits/amendments must be made on the electronic document DICTATION DATE: 09/07/191703 CRUISE GUIDE: KELLY 09/07/191703 RPT#: [id number] DC DATE: STATUS: ADM IN [facility] [address] [place] [address] END OF REPORT
[2019-09-07 17:19] VITALS: BP 130/76
--- NOTE | 2019-09-07 17:21 | NUR ---
OT NOTE: PT COMPLETED UB HYGIENE WITH SETUP USING RUE. PT CONTINUES TO DECLINE SLING. PT COMPLETED SUPINE TO SIT WITH CGA. [phone] THANK YOU,LALITO BUENO
--- NOTE | 2019-09-07 18:51 | NUR ---
RESTING IN BED WITH EYES CLOSED. RESPIRATIONS EVEN AND UNLABORED. NO S/S OF ACUTE DISTRESS NOTED. CALL LIGHT IN REACH. WILL CONTINUE TO MONITOR.
[2019-09-07 20:00] VITALS: BP 139/86
[2019-09-08] VITALS: BP 155/100
--- NOTE | 2019-09-08 04:26 | NUR ---
ASSESSED AT THE BEGINNING OF THE SHIFT. PT IS ALERT AND ORIENTED BUT HAS A SPEECH IMPEDIMENT AND IS VERY HARD TO UNDERSTAND. HE SLEPT MOST OF THE BEGINNING SHIFT AND THEN AT ABOUT MIDNIGHT HE WAS ASSISTED WITH SNACKS. HE IS ABLE TO WALK WITH ASSIST AND CAN USE BEDSIDE COMMODE. HIS LEFT ARM IS FLACCID.
[2019-09-08 07:36] LABS: BASOPHILS 0.9 % (0-2); EOSINOPHILS 5.4 % (0-7); HEMATOCRIT 37.6 % (42.0-54.0); HEMOGLOBIN 12.7 g/dL (13.5-17.5); IMMATURE GRANULOCYTES 1.1 % (0-5); LYMPHOCYTES 36.4 % (15-50); MCH 30.4 pg (26.0-34.0); MCHC 33.8 g/dL (31.0-37.0); MEAN PLATELET VOLUME 10.1 fL (7.4-10.4); NEUTROPHILS 44.2 % (40-80); PLATELET COUNT 255 10x3/uL (130-400); RBC 4.18 10x6/uL (4.20-6.10); RDW 14.1 % (11.5-14.5); WBC 5.6 10x3/uL (4.8-10.8)
[2019-09-08 07:41] LABS: ANION GAP 11.6 mmol/L (8-16); CARBON DIOXIDE 29.6 mmol/L (21.0-32.0); CREATININE - SERUM 1.2 mg/dL (0.6-1.3); PHOSPHOROUS 4.3 mg/dL (2.5-4.9); POTASSIUM - SERUM 4.2 mmol/L (3.5-5.1)
[2019-09-08 08:00] VITALS: BP 144/99
--- NOTE | 2019-09-08 08:30 | NUR ---
AWAKE AND ALERT. ORIENTED X3. NO C/O AT THIS TIME. UP TO BSC WITH ASSIST. NO BM AT THIS TIME. LUNGS ARE CLEAR BILATERALLY, NO COUGH NOTED. SKIN IS INTACT WITHOUT REDNESS. NO IV ACCESS AT THIS TIME. DENIES NEEDS. SITTING UP ON SIDE OF BED EATING BREAKFAST.
--- NOTE | 2019-09-08 11:50 | NUR ---
REQUESTED AND GIVNE ONE TYLENOL #3 PO FOR C/O HEADACHE. WILL MONITOR.
[2019-09-08 12:00] VITALS: BP 136/80
--- NOTE | 2019-09-08 13:30 | NUR ---
ATE ALL OF LUNCH. DENIES NEEDS.
--- NOTE | 2019-09-08 14:00 | NUR ---
WOUND TO TOP OF LEFT FOOT COVERED WITH NON ADHERENT DRESSING AND KERLEX. UP TO BSC WITH ONE PERSON MIN ASSIST. NO BM AT THIS TIME.
[2019-09-08 16:00] VITALS: BP 145/57
--- NOTE | 2019-09-08 16:29 | NUR ---
UP TO BSC. HAD SMALL SEMI FORMED STOOL. SKIN CARE PER SELF.
--- NOTE | 2019-09-08 18:24 | NUR ---
ATE ALL OF SUPPER TRAY. DENIES NEEDS. NO CHANGES NOTED.
[2019-09-08 20:00] VITALS: BP 90/50
--- NOTE | 2019-09-09 00:41 | NUR ---
nimisha resting in bed with no needs at this time. alertcan voice some needs o staff but spetabby is garabled at and hadr to understand at times. ledft side weakness left arm in flacid. no iv. on room air. remains on xarelto for DVT control, self truns. fall alarm on and working. water and call light in reach. checked often for needs and safety.
[2019-09-09 01:50] VITALS: BP 101/52
[2019-09-09 04:00] VITALS: BP 98/50
[2019-09-09 06:15] LABS: BASOPHILS 0.5 % (0-2); EOSINOPHILS 3.6 % (0-7); HEMATOCRIT 36.7 % (42.0-54.0); HEMOGLOBIN 12.3 g/dL (13.5-17.5); IMMATURE GRANULOCYTES 0.2 % (0-5); LYMPHOCYTES 29.4 % (15-50); MCH 29.9 pg (26.0-34.0); MCHC 33.5 g/dL (31.0-37.0); MCV 89.1 fL (80.0-100.0); MONOCYTES 10.2 % (2-11); NEUTROPHILS 56.1 % (40-80); PLATELET COUNT 223 10x3/uL (130-400); RBC 4.12 10x6/uL (4.20-6.10); WBC 5.6 10x3/uL (4.8-10.8)
[2019-09-09 06:51] LABS: CALC OSMOLALITY 281 mosm/kg (275-300); CALCIUM 9.2 mg/dL (8.5-10.1); CARBON DIOXIDE 28.5 mmol/L (21.0-32.0); CHLORIDE - SERUM 106 mmol/L (98-107); CREATININE - SERUM 1.1 mg/dL (0.6-1.3); GLUCOSE 88 mg/dL (74-106); MAGNESIUM - SERUM 1.7 mg/dL (1.8-2.4); PHOSPHOROUS 4.5 mg/dL (2.5-4.9); SODIUM 141 mmol/L (136-145); UREA NITROGEN 18 mg/dL (7-18); eGFR NON AFRICAN AMERICAN 76 mL/min (90-120)
--- NOTE | 2019-09-09 07:00 | NUR ---
RECEIVED REPORT, ASSUMED CARE, UPON ENTERING ROOM PT SITTING ON THE SIDE OF BED, DENIES NEEDS, BREATHING EVEN UNLABORED, CALL LIGHT IN REACH, ASSESSMENT COMPLETE, WILL CONTINUE POC
[2019-09-09 09:04] VITALS: BP 137/96
[2019-09-09 13:00] VITALS: BP 148/83
--- NOTE | 2019-09-09 14:32 | NUR ---
I have reviewed this patient and I concur with the Shift Assessment completed by the Licensed Practical Nurse today this shift.
[2019-09-09 16:00] VITALS: BP 131/79
--- NOTE | 2019-09-10 01:41 | NUR ---
ALERT AND ORENTED ABLE TO VOICE NEEDS BUT MUST LESEN CLOSE TO HIM. HE HAS NO IV IS ON ROOM AIR. PRESENTS WITH LEFT SIDEED WEAKNESS, LEFT ARM IS FLACID. HE IS AWATTING PLACMENT. REFUSED V/S AT START OF SHIFT. TOLD STAFF TO GET OUT HE WAS NAPPING AT THE TIME. CALL LIGHT AND WATER IN REACH. CHECKED OFTEN FOR NEEDS AND SAFETY. TRANSFERS WITH STAFF ASSIST. USES BSC.
[2019-09-10 04:00] VITALS: BP 149/93
[2019-09-10 05:29] LABS: BASOPHILS 0.9 % (0-2); HEMATOCRIT 38.6 % (42.0-54.0); HEMOGLOBIN 13.2 g/dL (13.5-17.5); IMMATURE GRANULOCYTES 0.2 % (0-5); MCH 30.6 pg (26.0-34.0); MCHC 34.2 g/dL (31.0-37.0); MCV 89.6 fL (80.0-100.0); MEAN PLATELET VOLUME 10.2 fL (7.4-10.4); MONOCYTES 12.8 % (2-11); NEUTROPHILS 52.1 % (40-80); PLATELET COUNT 253 10x3/uL (130-400); RBC 4.31 10x6/uL (4.20-6.10); RDW 14.3 % (11.5-14.5); WBC 5.6 10x3/uL (4.8-10.8)
[2019-09-10 06:08] LABS: ANION GAP 12.9 mmol/L (8-16); CALCIUM 8.8 mg/dL (8.5-10.1); CARBON DIOXIDE 28.1 mmol/L (21.0-32.0); MAGNESIUM - SERUM 1.7 mg/dL (1.8-2.4); PHOSPHOROUS 4.3 mg/dL (2.5-4.9)
[2019-09-10 06:11] LABS: CREATININE - SERUM 1.4 mg/dL (0.6-1.3)
--- NOTE | 2019-09-10 06:23 | NUR ---
LAB IN MAGNESIUM 1.7 FRIST DOSE OF MAGNESIUM 400 MG PO GIVEN AT 0617
[2019-09-10 08:00] VITALS: BP 149/98
[2019-09-10] MEDS ORDERED: CATAPRES0.1 MG PO (09:46)
[2019-09-10] MEDS ORDERED: NORMODYNE / TR100 MG PO (09:46)
[2019-09-10] MEDS ORDERED: XARELTO10 MG PO (09:48)
--- NOTE | 2019-09-10 10:31 | MORECARE ---
CASE MANAGEMENT DISCHARGE SUMMARY PATIENT: KILO GARCIA UNIT: [id number] ADM DATE: 07/18/19 AGE: 48 : 72 SEX: M ROOM/BED: D.2238 AUTHOR: MARISSA LIM PHYSICIAN: REFERRING PHYSICIAN: DANNI HARP MD DATE OF SERVICE: 09/10/19 Discharge Plan Patient Name: KILO GARCIA Facility: [facility]:[place] : 1970 Planned Disposition: Home Anticipated Discharge Date: Discharge Date: Expected LOS: Initial Reviewer: [id number] Initial Review Date: 07/18/2019 Generated: 09/10/19 11:30 am Comments DCP- Discharge Planning Updated by [id number]: Radha Meza on 09/10/19 9:[address] PATIENT WILL BE DISCHARGING TO [facility] TODAY TO A [facility] NUTRITION WORKER BED DCP- Discharge Planning Updated by [id number]: Fiordaliza Sage on 09/07/19 3:[address] Patient Name: KILO GARCIA Admission Status: ER Accout number: [id number] Admission Date: 07-18-2019 : 1970 Admission Diagnosis:PNEUMONIA, UNSPECIFIED ORGANISM Attending: MACK HARP Current LOS: 51 Anticipated DC Date: Planned Disposition: Home Primary Insurance: MEDICAID [place] Discharge Planning Comments: RECEIVED CALL FROM [facility] AND THEY CAN ACCEPT PATIENT TO THEIR FACILITY TUESDAY. Canopy Stringer: Fiordaliza Sage DCP- Discharge Planning Updated by [email or web address]: Radha Meza on 09/07/19 9:[address] LM WITH SHARITA TO CALL ME BACK ABOUT REFERRAL DCP- Discharge Planning Updated by [email or web address]: Radha Meza on 09/06/19 10:[address] UPDATED CLINICALS FAXED TO [facility] [phone] FAX # [phone] DCP- Discharge Planning Updated by [id number]: Radha Meza on 09/05/19 2:[address] REFERRAL SENT TO SHARITA HOLCOMB AT [facility] ([phone]) FAX CLINICAL TO [phone] DCP- Discharge Planning Updated by [id number]: Fiordaliza Sage on 09/05/19 8:[address] Patient Name: KILO GARCIA Admission Status: ER Accout number: [id number] Admission Date: 07-18-2019 : 1970 Admission Diagnosis:PNEUMONIA, UNSPECIFIED ORGANISM Attending: MACK HARP Current LOS: 49 Anticipated DC Date: Planned Disposition: Home Primary Insurance: [place]ID [place] Discharge Planning Comments: I HAVE FAXED REFERRAL TO [facility] TO CHECK WITH PLACEMENT AT ONE OF HER FACILITIES. ANTICIPATE AN ANSWER FROM [facility] ON TUESDAY OF THIS WEEK. CM WILL CONTINUE TO FOLLOW. Canopy Stringer: Fiordaliza Sage DCP- Discharge Planning Updated by [email or web address]: Fiordaliza Sage on 09/04/19 11:[address] Patient Name: KILO GARCIA Admission Status: ER Accout number: [id number] Admission Date: 07-18-2019 : 1970 Admission Diagnosis:PNEUMONIA, UNSPECIFIED ORGANISM Attending: MACK HARP Current LOS: 48 Anticipated DC Date: Planned Disposition: Home Primary Insurance: [place]ID [place] Discharge Planning Comments: FAXED REFERRAL TO [facility] IN [facility]. THEY REVIEW REFERRAL INFO ON TUESDAY. I ANTICIPATE HEARING FROM THEM TUESDAY OR TUESDAY ABOUT ADMIT. CM TO FOLLOW AND ASSIST NEEDED. Canopy Stringer: Fiordaliza Sage DCP- Discharge Planning Updated by [email or web address]: Fiordaliza Sage on 09/03/19 11:[address] Patient Name: KILO GARCIA Admission Status: ER Accout number: [id number] Admission Date: 07-18-2019 : 1970 Admission Diagnosis:PNEUMONIA, UNSPECIFIED ORGANISM Attending: MACK HARP Current LOS: 47 Anticipated DC Date: Planned Disposition: Home Primary Insurance: [place]ID [place] Discharge Planning Comments: UPDATE FAXED TO RAOUL WITH [facility] IN [place]. WAITING CALL BACK. Canopy Stringer: Fiordaliza Sage DCP- Discharge Planning Updated by [id number]: Radha Meza on 08/31/19 3:[address] RAOUL WITH [facility] IS WORKING ON ACCEPTANCE, IF ACCEPTED CAN GO WHEN A ROOM IS AVAILABLE DCP- Discharge Planning Updated by [id number]: Radha Meza on 08/31/19 12:[address] [facility] HAS DENIED PATIENT NO AVAILABILITY DCP- Discharge Planning Updated by [id number]: Radha Meza on 08/31/19 12:[address] [facility] CAN NOT ACCEPT THE PATIENT DUE TO FINANCIAL REASONS DCP- Discharge Planning Updated by [id number]: Fiordaliza Sage on 08/30/19 4:[address] Patient Name: KILO GARCIA Admission Status: ER Accout number: [id number] Admission Date: 07-18-2019 : 1970 Admission Diagnosis:PNEUMONIA, UNSPECIFIED ORGANISM Attending: MACK HARP Current LOS: 43 Anticipated DC Date: Planned Disposition: Home Primary Insurance: [place] Discharge Planning Comments: JANUSZ GOMEZ HAS POSSIBLE BED AVAILABLE AT [facility] OR [facility]. SHE IS CALLING BACK IN MORNING WITH CONFIRMATION. Canopy Stringer: Fiordaliza Sage DCP- Discharge Planning Updated by [id number]: Fiordaliza Sage on 08/30/19 9:[address] Patient Name: KILO GARCIA Admission Status: ER Accout number: [id number] Admission Date: 07-18-2019 : 1970 Admission Diagnosis:PNEUMONIA, UNSPECIFIED ORGANISM Attending: MACK HARP Current LOS: 43 Anticipated DC Date: Planned Disposition: Home Primary Insurance: [place]ID [place] Discharge Planning Comments: HAS REFERRALS SENT TO OTHER NUTRITION WORKER FACILITIES FOR PLACEMENT. [facility], [facility], [facility], [facility] AND [facility] CURRENTLY HAVE NO NUTRITION WORKER BEDS AVAILABLE. I AM WAITING THERAPY DIRECTOR BACK FROM [facility]ICH IS WITH [facility] FOR SEVERAL FACIILITIES. Canopy Stringer: Fiordaliza Sage DCP- Discharge Planning Updated by [id number]: Fiordaliza Sage on 08/29/19 4:[address] Patient Name: KILO GARCIA Admission Status: ER Accout number: [id number] Admission Date: 07-18-2019 : 1970 Admission Diagnosis:PNEUMONIA, UNSPECIFIED ORGANISM Attending: MACK HARP Current LOS: 42 Anticipated DC Date: Planned Disposition: Home Primary Insurance: [place]ID [place] Discharge Planning Comments: PATIENT'S MOTHER IS HERE, I SPOKE WITH HER ABOUT HIS DISCHARGE TODAY AND SHE STATES IF HE IS DISCHARGED HE WILL BE ON THE STREET. SHE IS NOT WILLING TO TAKE HIM HOME AT [place]. IS AWARE AND I HAVE CONTACTED MARYANNE ABDALLA [facility] AND [facility]ICS COMMITTEE FOR ASSISTANCE. CM WILL FOLLOW AND ASSIST NEEDED. Canopy Stringer: Fiordaliza Sage DCP- Discharge Planning Updated by [id number]: Fiordaliza Sage on 08/29/19 12:[address] Patient Name: KILO GARCIA Admission Status: ER Accout number: [id number] Admission Date: 07-18-2019 : 1970 Admission Diagnosis:PNEUMONIA, UNSPECIFIED ORGANISM Attending: MACK HARP Current LOS: 42 Anticipated DC Date: Planned Disposition: Home Primary Insurance: [place]ID [place] Discharge Planning Comments: I SPOKE TO [facility] BECAUSE FAMILY SAID THEY WERE CALLED BY THEM WITH AN AVAILABLE BED. [facility] DID NOT CALL THEM, THEY DO NOT HAVE ANY BEDS AVAILABLE EXCEPT FOR THEIR RESIDENTS FOR AT LEAST 28 DAYS. I THEN CALLED AND TALKED TO YADY AT [facility] AND THEY DON'T HAVE ANY BEDS AVAILABLE YET BUT PATIENT IS ON THE WAITING LIST. Canopy Stringer: Fiordaliza Sage DCP- Discharge Planning Updated by [id number]: Fiordaliza Sage on 08/28/19 3:[address] Patient Name: KILO GARCIA Admission Status: ER Accout number: [id number] Admission Date: 07-18-2019 : 1970 Admission Diagnosis:PNEUMONIA, UNSPECIFIED ORGANISM Attending: MACK HARP Current LOS: 41 Anticipated DC Date: Planned Disposition: Home Primary Insurance: [place]ID [place] Discharge Planning Comments: CM SPOKE WITH YADY AT [facility] ABOUT PATIENT PLACEMENT. I AM FAXING THEM UPDATED MEDICAL RECORDS AND WAITING FOR CALL BACK AND UPDATE TOMORROW. PATIENT WILL NEED COVID TEST WITHIN 48 HRS OF DISCHARGE. CM WILL FOLLOW AND ASSIST NEEDED. Canopy Stringer: Fiordaliza Sage DCP- Discharge Planning Updated by [id number]: Denise Fields on 08/24/19 1:[address] [facility] is unable to accept patient. Will try [facility]. CM contacted Agustina with [facility] for referral. There is no one at the facility to evaluate until Saturday 08/26. Faxed required information to [facility] . DCP- Discharge Planning Updated by [id number]: Denise Fields on 08/22/19 2:[address] CM met with patient regarding inability of [facility] to accept patient. Patient request that I contact his mother. CM contacted patient's mother, Monroe Wong @[phone], regarding same. Monroe states that she does not want patient to go into [facility]. States that she checked on patient's disability yesterday and was told that patient has not worked long enough to e able to draw a Disability check. Monroe states that patient will have full Medicaid and a SSI check for the rest of his life. Patient's mother request that CM contact [facility] Patient's mother said she will be he to visit around 1 pm. CM contacted and faxed information to Sultana Carrillo for placement in any facility. DCP- Discharge Planning Updated by [id number]: Denise Fields on 08/22/19 7:[address] Per Nan, with [facility], the facility is unable to accept patient, since there is COVID in the facility and he has never been there. DCP- Discharge Planning Updated by [id number]: Edita Bernstein on 08/17/19 11:[address] I spoke with Muna at [facility] and they do not have all their tests back. They have tested 200 people and have only gotten about 40 back. She is hoping she will have them back next week. Delay for placement to [facility]. DCP- Discharge Planning Updated by [id number]: Edita Bernstein on 08/16/19 12:[address] Spoke again with [facility] and they still do not have all their test results back. They are unable to accept patient until all results are back. Ready for discharge when [facility] can accept. DCP- Discharge Planning Updated by [id number]: Edita Bernstein on 08/15/19 2:[address] I spoke with Victorina at [facility]. Victorina states they have started getting some test results back, she is hoping to get the remaineder back tomorrow and hope to admit patient tomorrow. CM will continue to follow and assist with discharge planning/needs. DCP- Discharge Planning Updated by [id number]: Edita Bernstein on 08/14/19 10:[address] Updated clinical faxed to [facility]. Hopefully can be accepted tomorrow for restorative therapy. CM will continue to follow and assist with discharge planning/needs. DCP- Discharge Planning Updated by [id number]: Edita Bernstein on 08/13/19 11:[address] CM CALLED [facility] TO CHECK ON STATUS OF ADMISSION. I SPOKE WITH VICTORINA, SHE IS CHECKING WITH [employer] AND WILL LET ME KNOW IF THEY CAN ACCPET TODAY. DCP- Discharge Planning Updated by [id number]: Edita Bernstein on 08/10/19 10:[address] CM called Chapin with [facility], he states they will not have an available bed until Tuesday, and will accept the patient on Tuesday. I informed Dr. Noland, patient and called patient's mother, Monroe Wong, and left a message on her voice mail that he has been accepted to [facility] and they will have an available bed on Tuesday. DCP- Discharge Planning Updated by [id number]: Edita Bernstein on 08/10/19 6:[address] Negative Covid result and Non Passr faxed to [facility]. He will need discharge paperwork to document restorative therapy. CM will continue to tollow and assist with discharge planning/needs. DCP- Discharge Planning Updated by [id number]: Edita Bernstein on 08/09/19 1:[address] Chapin from [facility] states they need a AKI and Covid prior to admission. I sent the Aki to [facility]. He has a covid now pending. He will need an order for restorative therapy. CM will continue to follow and assist with discharge planning/needs. DCP- Discharge Planning Updated by [id number]: Edita Bernstein on 08/07/19 11:[address] CM called [facility] in [place] and spoke with Lyla (admissions) about possible referral. Lyla states that [place] Medicaid does not have any rehab benefits for their facility and they would be unable to accept patient. I spoke with Chapin at [facility] and Chapin states patient will qualify for restorative rehab at their facility. He states he will speak with mother of patient and should be able to accept patient when medically stable for discharge. Additional clinical faxed to [facility] per request. CM will continue to follow and assist with discharge planning/needs. DCP- Discharge Planning Updated by [id number]: Edita Day on 08/06/19 4:[address] Mira had messaged that patient is not deemed disabled and since he is under age 65, he does not qualify for long-term care Medicaid. I have asked [facility] to run his Medicaid and they state he has SSI disability Medicaid. I spoke with patient and mother, they both state that he is not on disability at this time. Mother is present in the room and states she has filed for it for him on line. I sent a referral to [facility] and notified Chapin. I also informed Mira that mother has filed for patient's disability on line. CM will continue to follow and assist with discharge planning/needs. DCP- Discharge Planning Updated by [id number]: Edita Day on 08/06/19 11:[address] Updated clinical faxed to [facility]. I have messaged Mira, liaison for [facility], to check on referral. CM to continue to follow and assist with discharge planning/needs. DCP- Discharge Planning Updated by [id number]: Edita Bernstein on 08/02/19 10:[address] CM called [facility] and spoke with Abiola and clinical faxed. CM will continue to follow and assist with discharge planning/needs. DCP- Discharge Planning Updated by [id number]: Edita Bernstein on 08/01/19 3:[address] I received notification from Lisha V[facility] ([facility]) rehab that they are unable to accept patient due to not having a safe discharge plan. I spoke with the patient and his mother and they would like a referral sent to [facility] first, then [facility]. I will reach out to [facility] in the am. CM will continue to follow and assist with discharge planning/needs. DCP- Discharge Planning Updated by [id number]: Edita Bernstein on 07/31/19 12:[address] CM met with patient's mother in the room per her request to discuss discharge planning. Patient's mother states that she lives at [address] States she is unable to care for her son. States that when he is out of dialysis she will speak with him about a LTC facility. I provided her with the list of LTC facilities in surrounding area. I also informed her that I could reach out to [facility] to see if he has any rehab days available and she agrees with this plan. I spoke with Tanvi at [facility] and clinical faxed. CM will continue to follow and assist with discharge planning/needs. Monroe devlin - [phone] or [phone] DCP- Discharge Planning Updated by [id number]: Taina Renee on 07/19/19 4:[address] Patient Name: KILO GARCIA Admission Status: ER Accout number: [id number] Admission Date: 07-18-2019 : 1970 Admission Diagnosis: Attending: MACK HARP Current LOS: 1 Anticipated DC Date: Planned Disposition: Home Primary Insurance: MEDICAID [place] Discharge Planning Comments: CM met with patient's mother Monroe to complete initial dc planning assessment. CM educated patient on the CM role and verbal consent given by patient to complete assessment. Patient lives at home alone. Patient is independent. At discharge patient plans to return home. CM discussed availability of home health, rehab services, and medical equipment. Uncertain of discharge needs or disposition at this time. Patient is currently sedated on vent. Patient will have family to transport home. CM will continue to follow and will assist as needed with dc plans/needs. Canopy Stringer: Taina Renee DCPIA - Discharge Planning Initial Assessment Updated by [id number]: Taina Whittingtonr on 07/19/19 5:35 pm * Is the patient Alert and Oriented? No * How many steps to enter\exit or inside your home? * P[facility] * [facility] * Preadmission Environment Home Alone * ADLs Independent * Equipment None * List name and contact numbers for known caregivers / representatives who currently or will assist patient after discharge: MONROE DEVLIN - [phone] * Verbal permission to speak to the caregivers and representatives has been obtained from the patient. Yes * Community resources currently utilized None * Additional services required to return to the preadmission environment? No * Can the patient safely return to the preadmission environment? Yes * Has this patient been hospitalized within the prior 30 days at any hospital? No Coverage Notice Reviewer: [id number] Marlena Bernstein Notice Issued Date-Time: 08/01/2019 16:10 Notice Type: Patient Choice Letter Notice Delivered To: Patient Relationship to Patient: Self Medical Administrator Name: Delivery Method: HAND - Hand Delivered Jeanine Days: Prior Verbal Notification: Recipient Understood Notice: Yes Recipient Signature: Yes Med Rec Note Co-signed by Attending: Coverage Notice Comment: ASHLI for [facility] or [facility] Last DP export: 09/07/19 4:04 p Patient Name: KILO GARCIA Page [id number] at 1031 All edits/amendments must be made on the electronic document DICTATION DATE: 09/10/19 103 EMISSIONS TESTING AND REPAIR TECHNICIAN: KELLY 09/10/19 1030 RPT#: [id number] DC DATE: STATUS: ADM IN [facility] [address] [place] [address] END OF REPORT
[2019-09-10 12:25] VITALS: BP 170/89
--- NOTE | 2019-09-10 13:17 | NUR ---
RECEIVED REPORT, ASSUMED CARE, UPON ENTERING ROOM PT SITTING ON THE SIDE OF BED, DENIES NEEDS, BREATHING EVEN UNLABORED, CALL LIGHT IN REACH, ASSESSMENT COMPLETE, MOM SUPPOSED TO COME VISIT TODAY, WILL CONTINUE POC
--- NOTE | 2019-09-10 13:51 | NUR ---
I have reviewed this patient and I concur with the Shift Assessment completed by the Licensed Practical Nurse today this shift.
--- NOTE | 2019-09-10 16:34 | NUR ---
DISCHARGED WITH [facility] STAFF, WITH BELONGINGS
--- NOTE | 2019-09-10 21:07 | NUR ---
OT NOTE: (AM) PT COMPLETED SUPINE TO SIT WITH SBA. PT COMPLETED LUE POSITIONING TO DECREASE RISK OF SKIN BREAKDOWN. PT REFUSES TO WEAR SLING. PT COMPLETED LUE PROM TOLERATED. (PM) PT COMPLETED UB HYGIENE TASKS WITH MIN/MOD A. PT COMPLETED EOB SITTING WITH SBA. PT EXHIBITED IMPULSIVITY. [phone]; [phone] THANK YOU,LALITO BUENO
--- NOTE | 2019-09-12 08:37 | MORECARE ---
CASE MANAGEMENT DISCHARGE SUMMARY PATIENT: KILO GARCIA UNIT: [id number] ADM DATE: 07/18/19 AGE: 48 : 72 SEX: M ROOM/BED: D.2238 AUTHOR: RAPHAEL,DOC PHYSICIAN: REFERRING PHYSICIAN: DANNI HARP MD DATE OF SERVICE: 09/12/19 Discharge Plan Patient Name: KILO GARCIA Facility: [facility]:[place] : 1970 Planned Disposition: Home Anticipated Discharge Date: Discharge Date: 09/10/2019 Expected LOS: Initial Reviewer: [email or web address] Initial Review Date: 07/18/2019 Generated: 09/12/19 9:37 am Comments DCP- Discharge Planning Updated by [id number]: Radha Meza on 09/10/19 9:[address] PATIENT WILL BE DISCHARGING TO [facility] TODAY TO A [facility] BED DCP- Discharge Planning Updated by [id number]: Fiordaliza Sage on 09/07/19 3:[address] Patient Name: KILO GARCIA Admission Status: ER Accout number: [id number] Admission Date: 07-18-2019 : 1970 Admission Diagnosis:PNEUMONIA, UNSPECIFIED ORGANISM Attending: MACK HARP Current LOS: 51 Anticipated DC Date: Planned Disposition: Home Primary Insurance: [place]ID [place] Discharge Planning Comments: RECEIVED CALL FROM [facility] AND THEY CAN ACCEPT PATIENT TO THEIR FACILITY TUESDAY. Programming Coordinator: Fiordaliza Sage DCP- Discharge Planning Updated by [email or web address]: Radha Meza on 09/07/19 9:[address] LM WITH SHARITA TO CALL ME BACK ABOUT REFERRAL DCP- Discharge Planning Updated by [id number]: Radha Meza on 09/06/19 10:[address] UPDATED CLINICALS FAXED TO [facility] [phone] FAX # [phone] DCP- Discharge Planning Updated by [id number]: Radha Meza on 09/05/19 2:[address] REFERRAL SENT TO SHARITA HOLCOMB AT [facility] ([phone]) FAX CLINICAL TO [phone] DCP- Discharge Planning Updated by [id number]: Fiordaliza Sage on 09/05/19 8:[address] Patient Name: KILO GARCIA Admission Status: ER Accout number: [id number] Admission Date: 07-18-2019 : 1970 Admission Diagnosis:PNEUMONIA, UNSPECIFIED ORGANISM Attending: MACK HARP Current LOS: 49 Anticipated DC Date: Planned Disposition: Home Primary Insurance: [place] Discharge Planning Comments: I HAVE FAXED REFERRAL TO [facility] TO CHECK WITH PLACEMENT AT ONE OF HER FACILITIES. ANTICIPATE AN ANSWER FROM [facility] ON TUESDAY OF THIS WEEK. CM WILL CONTINUE TO FOLLOW. Programming Coordinator: Fiordaliza Sage DCP- Discharge Planning Updated by [id number]: Fiordaliza Sage on 09/04/19 11:[address] Patient Name: KILO GARCIA Admission Status: ER Accout number: [id number] Admission Date: 07-18-2019 : 1970 Admission Diagnosis:PNEUMONIA, UNSPECIFIED ORGANISM Attending: MACK HARP Current LOS: 48 Anticipated DC Date: Planned Disposition: Home Primary Insurance: [place] Discharge Planning Comments: FAXED REFERRAL TO [facility] IN [facility]. THEY REVIEW REFERRAL INFO ON TUESDAY. I ANTICIPATE HEARING FROM THEM TUESDAY OR TUESDAY ABOUT ADMIT. CM TO FOLLOW AND ASSIST NEEDED. Programming Coordinator: Fiordaliza Sage DCP- Discharge Planning Updated by [id number]: Fiordaliza Sage on 09/03/19 11:[address] Patient Name: KILO GARCIA Admission Status: ER Accout number: [id number] Admission Date: 07-18-2019 : 1970 Admission Diagnosis:PNEUMONIA, UNSPECIFIED ORGANISM Attending: MACK HARP Current LOS: 47 Anticipated DC Date: Planned Disposition: Home Primary Insurance: [place] Discharge Planning Comments: UPDATE FAXED TO RAOUL WITH [facility] [place]. WAITING CALL BACK. Programming Coordinator: Fiordaliza Sage DCP- Discharge Planning Updated by [email or web address]: Radha Meza on 08/31/19 3:[address] RAOUL WITH [facility] IS WORKING ON ACCEPTANCE, IF ACCEPTED CAN GO WHEN A ROOM IS AVAILABLE DCP- Discharge Planning Updated by [id number]: Radha Meza on 08/31/19 12:[address] [facility] HAS DENIED PATIENT NO AVAILABILITY DCP- Discharge Planning Updated by [id number]: Radha eMza on 08/31/19 12:[address] [facility] CAN NOT ACCEPT THE PATIENT DUE TO FINANCIAL REASONS DCP- Discharge Planning Updated by [email or web address]: Fiordaliza Sage on 08/30/19 4:[address] Patient Name: KILO GARCIA Admission Status: ER Accout number: [id number] Admission Date: 07-18-2019 : 1970 Admission Diagnosis:PNEUMONIA, UNSPECIFIED ORGANISM Attending: MACK HARP Current LOS: 43 Anticipated DC Date: Planned Disposition: Home Primary Insurance: [place] Discharge Planning Comments: JANUSZ GOMEZ HAS POSSIBLE BED AVAILABLE AT [facility]. SHE IS CALLING BACK IN MORNING WITH CONFIRMATION. Programming Coordinator: Fiordaliza Sage DCP- Discharge Planning Updated by [id number]: Fiordaliza Sage on 08/30/19 9:[address] Patient Name: KILO GARCIA Admission Status: ER Accout number: [id number] Admission Date: 07-18-2019 : 1970 Admission Diagnosis:PNEUMONIA, UNSPECIFIED ORGANISM Attending: MACK HARP Current LOS: 43 Anticipated DC Date: Planned Disposition: Home Primary Insurance: [place] Discharge Planning Comments: HAS REFERRALS SENT TO OTHER SENIOR CARE FACILITIES FOR PLACEMENT. [facility], [place], [facility] AND [facility] CURRENTLY HAVE NO RN INFUSION BEDS AVAILABLE. I AM WAITING MEDICAL RECORDS CLERK BACK FROM [place] [place] WHICH IS WITH [employer] FOR SEVERAL FACIILITIES. Programming Coordinator: Fiordaliza Sage DCP- Discharge Planning Updated by [email or web address]: Fiordaliza Sage on 08/29/19 4:[address] Patient Name: KILO GARCIA Admission Status: ER Accout number: [id number] Admission Date: 07-18-2019 : 1970 Admission Diagnosis:PNEUMONIA, UNSPECIFIED ORGANISM Attending: MACK HARP Current LOS: 42 Anticipated DC Date: Planned Disposition: Home Primary Insurance: [place] Discharge Planning Comments: PATIENT'S MOTHER IS HERE, I SPOKE WITH HER ABOUT HIS DISCHARGE TODAY AND SHE STATES IF HE IS DISCHARGED HE WILL BE ON THE STREET. SHE IS NOT WILLING TO TAKE HIM HOME AT [place]. IS AWARE AND I HAVE CONTACTED MARYANNE ABDALLA [facility] AND ETHICS COMMITTEE FOR ASSISTANCE. CM WILL FOLLOW AND ASSIST NEEDED. Programming Coordinator: Fiordaliza Sage DCP- Discharge Planning Updated by [email or web address]: Fiordaliza Sage on 08/29/19 12:[address] Patient Name: KILO GARCIA Admission Status: ER Accout number: [id number] Admission Date: 07-18-2019 : 1970 Admission Diagnosis:PNEUMONIA, UNSPECIFIED ORGANISM Attending: MACK HARP Current LOS: 42 Anticipated DC Date: Planned Disposition: Home Primary Insurance: [place] Discharge Planning Comments: I SPOKE TO [facility] BECAUSE FAMILY SAID THEY WERE CALLED BY THEM WITH AN AVAILABLE BED. [facility] DID NOT CALL THEM, THEY DO NOT HAVE ANY BEDS AVAILABLE EXCEPT FOR THEIR RESIDENTS FOR AT LEAST 28 DAYS. I THEN CALLED AND TALKED TO YADY AT [facility] AND THEY DON'T HAVE ANY BEDS AVAILABLE YET BUT PATIENT IS ON THE WAITING LIST. Programming Coordinator: Fiordaliza Sage DCP- Discharge Planning Updated by [id number]: Fiordaliza Sage on 08/28/19 3:[address] Patient Name: KILO GARCIA Admission Status: ER Accout number: [id number] Admission Date: 07-18-2019 : 1970 Admission Diagnosis:PNEUMONIA, UNSPECIFIED ORGANISM Attending: MACK HARP Current LOS: 41 Anticipated DC Date: Planned Disposition: Home Primary Insurance: [place] Discharge Planning Comments: CM SPOKE WITH YADY AT [facility] ABOUT PATIENT PLACEMENT. I AM FAXING THEM UPDATED MEDICAL RECORDS AND WAITING FOR CALL BACK AND UPDATE TOMORROW. PATIENT WILL NEED COVID TEST WITHIN 48 HRS OF DISCHARGE. CM WILL FOLLOW AND ASSIST NEEDED. Programming Coordinator: Fiordaliza Sage DCP- Discharge Planning Updated by [id number]: Denise Fields on 08/24/19 1:[address] [facility] is unable to accept patient. Will try Rm [facility]. CM contacted Agustina with [facility] for referral. There is no one at the facility to evaluate until Saturday 08/26. Faxed required information to dipak Abdalla . DCP- Discharge Planning Updated by [id number]: Denise Fields on 08/22/19 2:[address] CM met with patient regarding inability of [facility] to accept patient. Patient request that I contact his mother. CM contacted patient's mother, Monroe Wong @[phone], regarding same. Monroe states that she does not want patient to go into [facility]. States that she checked on patient's disability yesterday and was told that patient has not worked long enough to e able to draw a Disability check. Monroe states that patient will have full Medicaid and a SSI check for the rest of his life. Patient's mother request that CM contact Huy Gomez [facility], [facility]. Patient's mother said she will be he to visit around 1 pm. CM contacted and faxed information to S[facility] for placement in any facility. DCP- Discharge Planning Updated by [id number]: Denise Fields on 08/22/19 7:[address] Per Nan, with [facility], the facility is unable to accept patient, since there is COVID in the facility and he has never been there. DCP- Discharge Planning Updated by [id number]: Edita Bernstein on 08/17/19 11:[address] I spoke with Muna at [facility] and they do not have all their tests back. They have tested 200 people and have only gotten about 40 back. She is hoping she will have them back next week. Delay for placement to [facility]. DCP- Discharge Planning Updated by [id number]: Edita Bernstein on 08/16/19 12:[address] Spoke again with [facility] and they still do not have all their test results back. They are unable to accept patient until all results are back. Ready for discharge when [facility] can accept. DCP- Discharge Planning Updated by [id number]: Edita Bernstein on 08/15/19 2:[address] I spoke with Victorina at [facility]. Victorina states they have started getting some test results back, she is hoping to get the remaineder back tomorrow and hope to admit patient tomorrow. CM will continue to follow and assist with discharge planning/needs. DCP- Discharge Planning Updated by [id number]: Edita Bernstein on 08/14/19 10:[address] Updated clinical faxed to [facility]. Hopefully can be accepted tomorrow for restorative therapy. CM will continue to follow and assist with discharge planning/needs. DCP- Discharge Planning Updated by [id number]: Edita Bernstein on 08/13/19 11:[address] CM CALLED [facility] TO CHECK ON STATUS OF ADMISSION. I SPOKE WITH VICTORINA, SHE IS CHECKING WITH TECHNICAL WRITER AND EDITOR AND WILL LET ME KNOW IF THEY CAN ACCPET TODAY. DCP- Discharge Planning Updated by [id number]: Edita Bernstein on 08/10/19 10:[address] CM called Chapin with [facility], he states they will not have an available bed until Tuesday, and will accept the patient on Tuesday. I informed Dr. Noland, patient and called patient's mother, Monroe Wong, and left a message on her voice mail that he has been accepted to [facility] and they will have an available bed on Tuesday. DCP- Discharge Planning Updated by [id number]: Edita Bernstein on 08/10/19 6:[address] Negative Covid result and Non Passr faxed to [facility]. He will need discharge paperwork to document restorative therapy. CM will continue to tollow and assist with discharge planning/needs. DCP- Discharge Planning Updated by [id number]: Edita Bernstein on 08/09/19 1:[address] Chapin from [facility] states they need a AKI and Covid prior to admission. I sent the [place] [facility]. He has a covid now pending. He will need an order for restorative therapy. CM will continue to follow and assist with discharge planning/needs. DCP- Discharge Planning Updated by [id number]: Edita Bernstein on 08/07/19 11:[address] CM called [facility] in [place] and spoke with Lyla (admissions) about possible referral. Lyla states that [place] Medicaid does not have any rehab benefits for their facility and they would be unable to accept patient. I spoke with Chapin at [facility] and Chapin states patient will qualify for restorative rehab at their facility. He states he will speak with mother of patient and should be able to accept patient when medically stable for discharge. Additional clinical faxed to [facility] per request. CM will continue to follow and assist with discharge planning/needs. DCP- Discharge Planning Updated by [id number]: Edita Day on 08/06/19 4:[address] Mira had messaged that patient is not deemed disabled and since he is under age 65, he does not qualify for long-term care Medicaid. I have asked [facility] [employer] to run his Medicaid and they state he has SSI disability Medicaid. I spoke with patient and mother, they both state that he is not on disability at this time. Mother is present in the room and states she has filed for it for him on line. I sent a referral to [facility] and notified Chapin. I also informed Mira that mother has filed for patient's disability on line. CM will continue to follow and assist with discharge planning/needs. DCP- Discharge Planning Updated by [id number]: Edita Day on 08/06/19 11:[address] Updated clinical faxed to [facility]. I have messaged Mira, liaison for [facility], to check on referral. CM to continue to follow and assist with discharge planning/needs. DCP- Discharge Planning Updated by [id number]: Edita Bernstein on 08/02/19 10:[address] CM called [facility] and spoke with Abiola and clinical faxed. CM will continue to follow and assist with discharge planning/needs. DCP- Discharge Planning Updated by [id number]: Edita Bernstein on 08/01/19 3:[address] I received notification from [facility] rehab that they are unable to accept patient due to not having a safe discharge plan. I spoke with the patient and his mother and they would like a referral sent to [facility] first, then [facility]. I will reach out to [facility] in the am. CM will continue to follow and assist with discharge planning/needs. DCP- Discharge Planning Updated by [id number]: Edita Bernstein on 07/31/19 12:[address] CM met with patient's mother in the room per her request to discuss discharge planning. Patient's mother states that she lives at [address] [facility] [address] States she is unable to care for her son. States that when he is out of dialysis she will speak with him about a LTC facility. I provided her with the list of LTC facilities in surrounding area. I also informed her that I could reach out to [facility] to see if he has any rehab days available and she agrees with this plan. I spoke with Tanvi at [facility] and clinical faxed. CM will continue to follow and assist with discharge planning/needs. Monroe marti - [phone] or [phone] DCP- Discharge Planning Updated by [email or web address]: Taina Thelma on 07/19/19 4:[address] Patient Name: KILO GARCIA Admission Status: ER Accout number: [id number] Admission Date: 07-18-2019 : 1970 Admission Diagnosis: Attending: MACK HARP Current LOS: 1 Anticipated DC Date: Planned Disposition: Home Primary Insurance: MED[place]ID [place] Discharge Planning Comments: CM met with patient's mother Monroe to complete initial dc planning assessment. CM educated patient on the CM role and verbal consent given by patient to complete assessment. Patient lives at home alone. Patient is independent. At discharge patient plans to return home. CM discussed availability of home health, rehab services, and medical equipment. Uncertain of discharge needs or disposition at this time. Patient is currently sedated on vent. Patient will have family to transport home. CM will continue to follow and will assist as needed with dc plans/needs. Programming Coordinator: Taina Renee DCPIA - Discharge Planning Initial Assessment Updated by [id number]: Taina Thelma on 07/19/19 5:35 pm * Is the patient Alert and Oriented? No * How many steps to enter\exit or inside your home? * PCP [facility] * Pharmacy [facility] [place] * Preadmission Environment Home Alone * ADLs Independent * Equipment None * List name and contact numbers for known caregivers / representatives who currently or will assist patient after discharge: MONROE JIMENES - - [phone] * Verbal permission to speak to the caregivers and representatives has been obtained from the patient. Yes * Community resources currently utilized None * Additional services required to return to the preadmission environment? No * Can the patient safely return to the preadmission environment? Yes * Has this patient been hospitalized within the prior 30 days at any hospital? No Coverage Notice Reviewer: [id number] Marlena Bernstein Notice Issued Date-Time: 08/01/2019 16:10 Notice Type: Patient Choice Letter Notice Delivered To: Patient Relationship to Patient: Self Clinical Support Tech Name: Delivery Method: HAND - Hand Delivered Jeanine Days: Prior Verbal Notification: Recipient Understood Notice: Yes Recipient Signature: Yes Med Rec Note Co-signed by Attending: Coverage Notice Comment: ASHLI for [facility] or [facility] Last DP export: 09/10/19 9:31 a Patient Name: KILO GARCIA Page [id number] at 0837 All edits/amendments must be made on the electronic document DICTATION DATE: 09/12/19836 [employer] NETWORK ANALYST: KELLY 09/12/19 0837 RPT#: [id number] DC DATE:09/10/19 STATUS: DIS IN [facility] [address] [place] [address] END OF REPORT
== END 2019-09-10 16:36 | DRG 870 ==
LOC: D.ER 19:50 → D.ICU 20:47 → D.M2 20:47 → D.MS 20:47 → D.M2 07-30 16:09 → D.MS 08-24 16:22
PROVIDERS: Family Medicine; Family Medicine Adult Medicine; Internal Medicine; Internal Medicine Nephrology; Internal Medicine Pulmonary Disease; ADMIT Emergency Medicine; ATTEND Emergency Medicine
PROC: 5A1955Z Respiratory Ventilation, Greater than 96 Consecutive Hours (ICD-10-PCS; principal; 2019-07-18)
PROC: 0BH17EZ Insertion of Endotracheal Airway into Trachea, Via Natural or Artificial Opening (ICD-10-PCS; 2019-07-18)
DX: A41.9 Sepsis, unspecified organism (principal); J69.0 Pneumonitis due to inhalation of food and vomit; J96.00 Acute respiratory failure, unspecified whether with hypoxia or hypercapnia; N17.0 Acute kidney failure with tubular necrosis; I24.8 Other forms of acute ischemic heart disease; M62.82 Rhabdomyolysis; G81.94 Hemiplegia, unspecified affecting left nondominant side; G40.909 Epilepsy, unspecified, not intractable, without status epilepticus; E03.9 Hypothyroidism, unspecified; D75.1 Secondary polycythemia; E83.42 Hypomagnesemia; D69.6 Thrombocytopenia, unspecified; B19.20 Unspecified viral hepatitis C without hepatic coma; E87.6 Hypokalemia; I10 Essential (primary) hypertension

== ENCOUNTER → 2019-09-21 10:13 | Outpatient (CLI) | payer MEDICAID ==
[2019-07-19 12:23] VITALS: BMI 26.2
[~2019-09-21 10:13] MED LIST: CATAPRES0.1 MG PO; DEPAKOTE500 MG PO; KEPPRA1000 MG PO; MECLIZINE HCL25 MG PO; NORMODYNE / TR100 MG PO; XARELTO10 MG PO
[2019-09-21 10:49] LABS: VALPROIC ACID (DEPAKOTE) 97.2 ug/mL (50.0-100.0)
[2019-09-21 11:06] LABS: BASOPHILS 0.9 % (0-2); EOSINOPHILS 4.5 % (0-7); HEMATOCRIT 39.2 % (42.0-54.0); HEMOGLOBIN 13.1 g/dL (13.5-17.5); IMMATURE GRANULOCYTES 0.4 % (0-5); LYMPHOCYTES 33.7 % (15-50); MCH 30.8 pg (26.0-34.0); MCHC 33.4 g/dL (31.0-37.0); MONOCYTES 11.4 % (2-11); NEUTROPHILS 49.1 % (40-80); RBC 4.26 10x6/uL (4.20-6.10); RDW 14.5 % (11.5-14.5); WBC 4.5 10x3/uL (4.8-10.8)
[2019-09-21 11:07] LABS: PLATELET COUNT 180 10x3/uL (130-400)
[2019-09-21 11:14] LABS: ALBUMIN 3.5 g/dL (3.4-5.0); ALKALINE PHOSPHATASE 61 U/L (30-120); ALT (SGPT) 36 U/L (10-68); BILIRUBIN - TOTAL 0.29 mg/dL (0.2-1.3); CALC OSMOLALITY 282 mosm/kg (275-300); CALCIUM 8.9 mg/dL (8.5-10.1); CHLORIDE - SERUM 105 mmol/L (98-107); GLUCOSE 91 mg/dL (74-106); POTASSIUM - SERUM 3.7 mmol/L (3.5-5.1); PROTEIN - SERUM 7.5 g/dL (6.4-8.2); SODIUM 143 mmol/L (136-145); UREA NITROGEN 7 mg/dL (7-18); eGFR NON AFRICAN AMERICAN 85 mL/min (90-120)
== END | disposition home or self-care (01) ==
LOC: D.LAB 10:13
PROVIDERS: ATTEND Psychiatry & Neurology Neurology
DX: R56.9 Unspecified convulsions (principal)

== ENCOUNTER → 2020-06-25 15:05 | Outpatient (CLI) | payer MEDICAID ==
[2019-07-19 12:23] VITALS: BMI 26.2
[2020-06-25 15:44] LABS: BASOPHILS 0.6 % (0-2); EOSINOPHILS 6.1 % (0-7); HEMATOCRIT 41.8 % (42.0-54.0); HEMOGLOBIN 14.6 g/dL (13.5-17.5); IMMATURE GRANULOCYTES 0.4 % (0-5); LYMPHOCYTE ABS# 2.15 10x3/uL (1.32-3.57); LYMPHOCYTES 40.9 % (15-50); MCH 31.6 pg (26.0-34.0); MCHC 34.9 g/dL (31.0-37.0); MCV 90.5 fL (80.0-100.0); MEAN PLATELET VOLUME 11.7 fL (7.4-10.4); MONOCYTES 14.6 % (2-11); NEUTROPHIL ABS# 1.97 10x3/uL (1.78-5.38); NEUTROPHILS 37.4 % (40-80); PLATELET COUNT 140 10x3/uL (130-400); RBC 4.62 10x6/uL (4.20-6.10); RDW 12.6 % (11.5-14.5); WBC 5.3 10x3/uL (4.8-10.8)
[2020-06-25 16:13] LABS: ALBUMIN 3.5 g/dL (3.4-5.0); ALKALINE PHOSPHATASE 37 U/L (30-120); ALT (SGPT) 49 U/L (10-68); BILIRUBIN - TOTAL 0.47 mg/dL (0.2-1.3); CALC OSMOLALITY 281 mosm/kg (275-300); CALCIUM 9.1 mg/dL (8.5-10.1); CARBON DIOXIDE 27.9 mmol/L (21.0-32.0); CHLORIDE - SERUM 105 mmol/L (98-107); CREATININE - SERUM 1.1 mg/dL (0.6-1.3); GLUCOSE 92 mg/dL (74-106); POTASSIUM - SERUM 3.8 mmol/L (3.5-5.1); PROTEIN - SERUM 7.8 g/dL (6.4-8.2); SODIUM 141 mmol/L (136-145); UREA NITROGEN 16 mg/dL (7-18); VALPROIC ACID (DEPAKOTE) 68.9 ug/mL (50.0-100.0); eGFR NON AFRICAN AMERICAN 76 mL/min (90-120)
== END | disposition home or self-care (01) ==
LOC: D.LAB 15:05
PROVIDERS: ATTEND Psychiatry & Neurology Neurology
DX: R56.9 Unspecified convulsions (principal)